=== PATIENT | female | born 1940 | race Caucasian/White ===

== ENCOUNTER 2023-05-07 09:48 | Outpatient (OUT) | payer MEDICARE, OTHER, SELFPAY ==
--- NOTE | 2023-05-07 09:55 | US_ITS ---
The [address] [address] Patient Name: MICHAEL SHAY MRN: [id number] date: 1940 Sex: F Assigned Patient Location: US Current Patient Location: US Accession/Order Number: [id number] Exam Date: 05/07/2023 10:07 Report Date: 05/07/2023 15:41 At the request of: MELINDA PINA Procedure: US renal BI BILATERAL RENAL ULTRASOUND: 05/07/2023 12:39 PM PDT HISTORY: Flank pain R10.9, Micturition frequency R35.0, [id number]. TECHNIQUE: Real-time sonography through the kidneys and bladder was performed. COMPARISON: CT abdomen/pelvis 04/10/2022 FINDINGS: RIGHT KIDNEY: Size: 8 x 6.8 x 4.6 cm. Volume 131 cc. Normal in size and echogenicity. No collecting system dilatation. No echogenic calculi. No solid mass on provided views. LEFT KIDNEY: Size: 8.7 x 4.6 x 4.8 cm. Volume 101 cc. Normal in size and echogenicity. No collecting system dilatation. No echogenic calculi. No solid mass on provided views. Single mildly prominent and mildly echogenic renal pyramid the inferior left kidney, likely variant appearance. BLADDER: Normal in appearance. No wall thickening or mass. US/US renal BI IMPRESSION: Sonographic appearance of the kidneys and bladder is within normal limits. Electronically authenticated by: BAILEE SOLIMAN Date: 05/07/2023 15:41
== END 2023-05-07 09:49 | disposition home or self-care (01) ==
LOC: US 09:48
PROVIDERS: PCP Nurse Practitioner Family; Visit Provider Nurse Practitioner Family
DX: R10.9 Unspecified abdominal pain (principal); R35.0 Frequency of micturition; R53.1 Weakness
CPT/HCPCS: 76775

== ENCOUNTER 2023-06-02 15:25 | Emergency (ER) | payer MEDICARE, OTHER, SELFPAY ==
[2023-06-02 15:33] VITALS: BP 117/66; PULSE 78; RESP 22; TEMP 37.2; O2SAT 96; BMI 26.2
--- NOTE | 2023-06-02 15:51 | ED.EXTPRO1 ---
Documented by User: RUTHIE Mcdonald 06/02/23 17:22 HPI - Extremity Problem General Chief complaint: Extremity Problem, Nontraumatic Stated complaint: LOWER EXTREMITY EDEMA, BILATERAL Time Seen by Provider: 06/02/23 15:45 Source: patient Mode of arrival: walk-in Limitations: no limitations History of Present Illness HPI Narrative: patient is an 82-year-old female who presents to the emergency department for a three day history of rash to the lower extremities. She states she was seen by her PCP two days ago and was noted to have an erythematous rash of the bilateral lower extremities, she was given cortisone cream to apply to the areas. She states that she has had an increase in the rash and is now having a stinging/burning pain to the rash. It has not been draining. She has had no chest pain, shortness of breath, fevers, vomiting. No other medications given by PCP and she has not been using any additional medicines [id number]. she states since the rash began, her lower extremities have been swelling. Related Data Home Medications Medication Instructions Recorded Confirmed amlodipine 5 mg tablet 5 mg PO DAILY 06/02/23 06/02/23 clonidine HCl 0.2 mg tablet 0.2 mg PO Q12H 06/02/23 06/02/23 gabapentin 400 mg capsule 400 mg PO TID 06/02/23 06/02/23 hydrochlorothiazide 25 mg tablet 25 mg PO DAILY 06/02/23 06/02/23 levothyroxine 25 mcg tablet 25 mcg PO DAILY 06/02/23 06/02/23 meloxicam 15 mg tablet 15 mg PO DAILY 06/02/23 06/02/23 tizanidine 4 mg tablet 4 mg PO BEDTIME 06/02/23 06/02/23 Previous Rx's Medication Instructions Recorded cephalexin 500 mg capsule 500 mg PO Q8H 10 days #30 caps 06/02/23 potassium chloride 20 mEq 20 meq PO DAILY #5 tabs 06/02/23 tablet,extended release tramadol 50 mg tablet 50 mg PO Q4H PRN pain #15 tabs 06/02/23 Allergies Allergy/AdvReac Type Severity Reaction Status Date / Time Penicillins Allergy Intermediate Rash Verified 06/02/23 15:33 Review of Systems ROS Constitutional Denies: fever or chills Cardiovascular Denies: chest pain Respiratory Denies: shortness of breath or cough Musculoskeletal Denies: back pain or neck pain Integumentary/Breast Reports: rash, redness and skin pain Neurological Denies: headache Hematologic/Lymphatic Denies: easy bruising Allergic/Immunologic Denies: hives Exam Narrative Exam Narrative: Gen.: Awake, alert, in no distress Head: Normocephalic, atraumatic ENT: Moist mucous membranes Respiratory: No respiratory distress, lungs clear bilaterally Cardio: Regular rate and rhythm Extremities: Moves extremities equally, bilateral lower extremities with symmetric mild edema distal to the knees. Patchy, erythematous linear vesicular rash noted to the eye lateral lower extremities with concentrated erythema to the lateral and medial ankle the left lower extremity and lateral ankle of the right lower extremity. No circumferential redness, no open wounds or drainage. Psych: Normal mood and affect Neuro: No focal neuro deficit Skin: Warm, dry Constitutional Vital Signs, click to edit/add: Last Vital Signs Temp 99.0 F 06/02/23 15:33 Pulse 78 06/02/23 15:33 Resp 22 06/02/23 15:33 BP 117/66 06/02/23 15:33 Pulse Ox 96 06/02/23 15:33 O2 Del Method Room Air 06/02/23 15:33 Course Vital Signs Vital signs: Vital Signs Temperature 99.0 F 06/02/23 15:33 Pulse Rate 78 06/02/23 15:33 Respiratory Rate 22 06/02/23 15:33 Blood Pressure 117/66 06/02/23 15:33 Pulse Oximetry 96 06/02/23 15:33 Oxygen Delivery Method Room Air 06/02/23 15:33 Temperature 99.0 F 06/02/23 15:33 Pulse Rate 78 06/02/23 15:33 Respiratory Rate 22 06/02/23 15:33 Blood Pressure 117/66 06/02/23 15:33 Pulse Oximetry 96 06/02/23 15:33 Oxygen Delivery Method Room Air 06/02/23 15:33 MDM - Extremity (Nontraumatic) MDM Narrative Medical decision making narrative: rash is consistent with contact dermatitis and the superior legs but concerning for cellulitis around the ankles. Patient states that she recently decreased her gabapentin dose because she was doing well, this may account for some of the burning pain she is having an the lower legs. Her vital signs, lab studies are unremarkable although she was noted to have hypokalemia. She is prescribed hydrochlorothiazide but does not receive any potassium supplementation from her primary care provider. She was given potassium in the Emergency Room and discharged home with a low-dose potassium supplementation until she can see her PCP. She is started on Keflex for antibiotic coverage, no concern for MRSA at this time. Patient is reluctant to start oral steroids, she would like to continue cortisone topically. She has an appointment on Wednesday with her PCP. Return to the Emergency Room if symptoms change or worsen Lab Data Labs: Lab Results 06/02/23 Range/Units 16:06 WBC 6.6 (4.0-11.0) 10^3/uL RBC 3.86 L (4.20-5.40) 10^6/uL Hgb 12.4 (12.0-16.0) g/dL Hct 36.4 (36.0-48.0) % MCV 94.3 (81.0-99.0) fL MCH 32.1 (26.7-34.0) pg MCHC 34.1 (29.9-35.2) g/dL RDW 13.8 (11.0-15.0) % Plt Count 323 (150-450) 10^3/uL MPV 10.0 (9.5-13.5) fL Neut % (Auto) 55.8 (43.0-75.0) % Lymph % (Auto) 24.6 (20.5-60.0) % [place] % (Auto) 15.3 H (1.7-12.0) % Eos % (Auto) 3.3 (0.9-7.0) % Baso % (Auto) 0.8 (0.2-2.0) % Neut # (Auto) 3.7 (1.4-6.5) 10^3/uL Lymph # (Auto) 1.6 (1.2-3.8) 10^3/uL [place] # (Auto) 1.0 H (0.3-0.8) 10^3/uL Eos # (Auto) 0.2 (0.0-0.7) 10^3/uL Baso # (Auto) 0.1 (0.0-0.1) 10^3/uL Abs Immat Gran (auto) 0.01 (0.00-0.03) 10^3/uL Imm/Tot Granulo (auto) 0.2 (0.0-0.5) % ESR 19 (<=30) mm/hr Sodium 137 (136-145) mmol/L Potassium 2.9 L* (3.5-5.1) mmol/L Chloride 97 L (98-107) mmol/L Carbon Dioxide 35.6 H (21.0-32.0) mmol/L Anion Gap 7.3 BUN 23.0 H (7.0-18.0) mg/dL Creatinine 1.16 H (0.55-1.02) mg/dL Est GFR ( Amer) 54 L (>=60) Est GFR (Non-Af Amer) 45 L (>=60) BUN/Creatinine Ratio 19.8 Glucose 111 H (74-106) mg/dL Calcium 8.9 (8.5-10.1) mg/dL Total Bilirubin 1.1 H (0.2-1.0) mg/dL AST 63 H (15-37) U/L ALT 66 H (14-59) U/L Alkaline Phosphatase 68 (46-116) U/L C-Reactive Protein 0.2 (<=1.0) mg/dL NT-Pro-B Natriuret Pep 228.0 (<=1800.0) pg/mL Total Protein 7.0 (6.4-8.2) g/dL Albumin 3.6 (3.4-5.0) g/dL Globulin 3.4 g/dL Albumin/Globulin Ratio 1.1 Discharge Plan Discharge Chief Complaint: Extremity Problem, Nontraumatic Clinical Impression: Cellulitis, Acute hypokalemia Patient Disposition: Home, Self-Care Time of Disposition Decision: 17:12 Condition: Good Prescriptions / Home Meds: New tramadol 50 mg tablet 50 mg PO Q4H PRN (Reason: pain) Qty: 15 0RF Rx Instructions: DX: L03.90 cephalexin 500 mg capsule 500 mg PO Q8H 10 Days Qty: 30 0RF potassium chloride 20 mEq tablet extended release 20 meq PO DAILY Qty: 5 0RF No Action amlodipine 5 mg tablet 5 mg PO DAILY clonidine HCl 0.2 mg tablet 0.2 mg PO Q12H gabapentin 400 mg capsule 400 mg PO TID hydrochlorothiazide 25 mg tablet 25 mg PO DAILY levothyroxine 25 mcg tablet 25 mcg PO DAILY meloxicam 15 mg tablet 15 mg PO DAILY tizanidine 4 mg tablet 4 mg PO BEDTIME Instructions: Cellulitis (ED), Hypokalemia (ED) Stand Alone Forms: Portal Instructions Referrals: MELINDA PINA [Primary Care Provider] - 1 week Discharge Date/Time: 06/02/23 17:29 Documented by User: Jenny Hartman MD 06/03/23 07:57 HPI - Extremity Problem General Chief complaint: Extremity Problem, Nontraumatic Stated complaint: LOWER EXTREMITY EDEMA, BILATERAL Time Seen by Provider: 06/02/23 15:45 Related Data Home Medications Medication Instructions Recorded Confirmed amlodipine 5 mg tablet 5 mg PO DAILY 06/02/23 06/02/23 clonidine HCl 0.2 mg tablet 0.2 mg PO Q12H 06/02/23 06/02/23 gabapentin 400 mg capsule 400 mg PO TID 06/02/23 06/02/23 hydrochlorothiazide 25 mg tablet 25 mg PO DAILY 06/02/23 06/02/23 levothyroxine 25 mcg tablet 25 mcg PO DAILY 06/02/23 06/02/23 meloxicam 15 mg tablet 15 mg PO DAILY 06/02/23 06/02/23 tizanidine 4 mg tablet 4 mg PO BEDTIME 06/02/23 06/02/23 Previous Rx's Medication Instructions Recorded cephalexin 500 mg capsule 500 mg PO Q8H 10 days #30 caps 06/02/23 potassium chloride 20 mEq 20 meq PO DAILY #5 tabs 06/02/23 tablet,extended release tramadol 50 mg tablet 50 mg PO Q4H PRN pain #15 tabs 06/02/23 Allergies Allergy/AdvReac Type Severity Reaction Status Date / Time Penicillins Allergy Intermediate Rash Verified 06/02/23 15:33 Exam Constitutional Vital Signs, click to edit/add: Last Vital Signs Temp 99.0 F 06/02/23 15:33 Pulse 78 06/02/23 15:33 Resp 22 06/02/23 15:33 BP 117/66 06/02/23 15:33 Pulse Ox 96 06/02/23 15:33 O2 Del Method Room Air 06/02/23 15:33 Course Vital Signs Vital signs: Vital Signs Temperature 99.0 F 06/02/23 15:33 Pulse Rate 78 06/02/23 15:33 Respiratory Rate 22 06/02/23 15:33 Blood Pressure 117/66 06/02/23 15:33 Pulse Oximetry 96 06/02/23 15:33 Oxygen Delivery Method Room Air 06/02/23 15:33 Temperature 99.0 F 06/02/23 15:33 Pulse Rate 78 06/02/23 15:33 Respiratory Rate 22 06/02/23 15:33 Blood Pressure 117/66 06/02/23 15:33 Pulse Oximetry 96 06/02/23 15:33 Oxygen Delivery Method Room Air 06/02/23 15:33 MDM - Extremity (Nontraumatic) MDM Narrative Medical decision making narrative: rash is consistent with contact dermatitis and the superior legs but concerning for cellulitis around the ankles. Patient states that she recently decreased her gabapentin dose because she was doing well, this may account for some of the burning pain she is having an the lower legs. Her vital signs, lab studies are unremarkable although she was noted to have hypokalemia. She is prescribed hydrochlorothiazide but does not receive any potassium supplementation from her primary care provider. She was given potassium in the Emergency Room and discharged home with a low-dose potassium supplementation until she can see her PCP. She is started on Keflex for antibiotic coverage, no concern for MRSA at this time. Patient is reluctant to start oral steroids, she would like to continue cortisone topically. She has an appointment on Wednesday with her PCP. Return to the Emergency Room if symptoms change or worsen. Attending physician attestation I have seen and evaluated this patient. I have reviewed the mid-level provider?s documentation medical decision making and treatment plan. I agree with the mid-level provider?s assessment, and plan. Lab Data Labs: Lab Results 06/02/23 Range/Units 16:06 WBC 6.6 (4.0-11.0) 10^3/uL RBC 3.86 L (4.20-5.40) 10^6/uL Hgb 12.4 (12.0-16.0) g/dL Hct 36.4 (36.0-48.0) % MCV 94.3 (81.0-99.0) fL MCH 32.1 (26.7-34.0) pg MCHC 34.1 (29.9-35.2) g/dL RDW 13.8 (11.0-15.0) % Plt Count 323 (150-450) 10^3/uL MPV 10.0 (9.5-13.5) fL Neut % (Auto) 55.8 (43.0-75.0) % Lymph % (Auto) 24.6 (20.5-60.0) % [place] % (Auto) 15.3 H (1.7-12.0) % Eos % (Auto) 3.3 (0.9-7.0) % Baso % (Auto) 0.8 (0.2-2.0) % Neut # (Auto) 3.7 (1.4-6.5) 10^3/uL Lymph # (Auto) 1.6 (1.2-3.8) 10^3/uL [place] # (Auto) 1.0 H (0.3-0.8) 10^3/uL Eos # (Auto) 0.2 (0.0-0.7) 10^3/uL Baso # (Auto) 0.1 (0.0-0.1) 10^3/uL Abs Immat Gran (auto) 0.01 (0.00-0.03) 10^3/uL Imm/Tot Granulo (auto) 0.2 (0.0-0.5) % ESR 19 (<=30) mm/hr Sodium 137 (136-145) mmol/L Potassium 2.9 L* (3.5-5.1) mmol/L Chloride 97 L (98-107) mmol/L Carbon Dioxide 35.6 H (21.0-32.0) mmol/L Anion Gap 7.3 BUN 23.0 H (7.0-18.0) mg/dL Creatinine 1.16 H (0.55-1.02) mg/dL Est GFR ( Amer) 54 L (>=60) Est GFR (Non-Af Amer) 45 L (>=60) BUN/Creatinine Ratio 19.8 Glucose 111 H (74-106) mg/dL Calcium 8.9 (8.5-10.1) mg/dL Total Bilirubin 1.1 H (0.2-1.0) mg/dL AST 63 H (15-37) U/L ALT 66 H (14-59) U/L Alkaline Phosphatase 68 (46-116) U/L C-Reactive Protein 0.2 (<=1.0) mg/dL NT-Pro-B Natriuret Pep 228.0 (<=1800.0) pg/mL Total Protein 7.0 (6.4-8.2) g/dL Albumin 3.6 (3.4-5.0) g/dL Globulin 3.4 g/dL Albumin/Globulin Ratio 1.1 Discharge Plan Discharge Chief Complaint: Extremity Problem, Nontraumatic Clinical Impression: Cellulitis, Acute hypokalemia Patient Disposition: Home, Self-Care Time of Disposition Decision: 17:12 Condition: Good Prescriptions / Home Meds: New tramadol 50 mg tablet 50 mg PO Q4H PRN (Reason: pain) Qty: 15 0RF Rx Instructions: DX: L03.90 cephalexin 500 mg capsule 500 mg PO Q8H 10 Days Qty: 30 0RF potassium chloride 20 mEq tablet extended release 20 meq PO DAILY Qty: 5 0RF No Action amlodipine 5 mg tablet 5 mg PO DAILY clonidine HCl 0.2 mg tablet 0.2 mg PO Q12H gabapentin 400 mg capsule 400 mg PO TID hydrochlorothiazide 25 mg tablet 25 mg PO DAILY levothyroxine 25 mcg tablet 25 mcg PO DAILY meloxicam 15 mg tablet 15 mg PO DAILY tizanidine 4 mg tablet 4 mg PO BEDTIME Instructions: Cellulitis (ED), Hypokalemia (ED) Stand Alone Forms: Portal Instructions Referrals: MELINDA PINA [Primary Care Provider] - 1 week Discharge Date/Time: 06/02/23 17:29
[2023-06-02 16:29] LABS: Basophils Absolute Auto 0.1 10^3/uL (0.0-0.1); Basophils Percent Auto 0.8 % (0.2-2.0); Eosinophils Absolute Auto 0.2 10^3/uL (0.0-0.7); Eosinophils Percent Auto 3.3 % (0.9-7.0); Hematocrit 36.4 % (36.0-48.0); Hemoglobin 12.4 g/dL (12.0-16.0); Immature Granulocytes Abs Auto 0.01 10^3/uL (0.00-0.03); Immature Granulocytes Pct Auto 0.2 % (0.0-0.5); Lymphocytes Absolute Auto 1.6 10^3/uL (1.2-3.8); Lymphocytes Percent Auto 24.6 % (20.5-60.0); Mean Corpuscular HGB Conc 34.1 g/dL (29.9-35.2); Mean Corpuscular Hemoglobin 32.1 pg (26.7-34.0); Mean Corpuscular Volume 94.3 fL (81.0-99.0); Monocytes Percent Auto 15.3 % (1.7-12.0); Neutrophils Absolute Auto 3.7 10^3/uL (1.4-6.5); Neutrophils Percent Auto 55.8 % (43.0-75.0); Platelet Count 323 10^3/uL (150-450); Red Blood Count 3.86 10^6/uL (4.20-5.40); Red Cell Distribution Width 13.8 % (11.0-15.0); White Blood Count 6.6 10^3/uL (4.0-11.0)
[2023-06-02 16:33] LABS: Erythrocyte Sedimentation Rate 19 mm/hr (<=30)
[2023-06-02 16:50] LABS: Alanine Aminotransferase 66 U/L (14-59); Albumin Globulin Ratio 1.1; Albumin Level 3.6 g/dL (3.4-5.0); Alkaline Phosphatase 68 U/L (46-116); Anion Gap 7.3; Aspartate Amino Transferase 63 U/L (15-37); BUN Creatinine Ratio 19.8; Bilirubin Total 1.1 mg/dL (0.2-1.0); C Reactive Protein 0.2 mg/dL (<=1.0); Calcium 8.9 mg/dL (8.5-10.1); Carbon Dioxide 35.6 mmol/L (21.0-32.0); Chloride 97 mmol/L (98-107); Estimated GFR (African America 54 (>=60); Estimated GFR (Non-African Ame 45 (>=60); Globulin 3.4 g/dL; Glucose 111 mg/dL (74-106); Sodium 137 mmol/L (136-145)
[2023-06-02 16:56] LABS: Potassium 2.9 mmol/L (3.5-5.1)
[2023-06-02] MEDS: POTASSIUM CHLORIDE 10 MEQ ER TABLET 40 MEQ PO (17:20)
== END 2023-06-02 17:29 | disposition home or self-care (01) ==
PROVIDERS: Physician Assistant; Emergency Provider Emergency Medicine; PCP Nurse Practitioner Family
DX: L03.119 Cellulitis of unspecified part of limb (principal); E87.6 Hypokalemia; Z79.899 Other long term (current) drug therapy
CPT/HCPCS: 36415; 80053; 83880; 85025; 85652; 86140; 99283

== ENCOUNTER 2023-06-04 16:51 | Inpatient (IN) | payer MEDICARE, OTHER, SELFPAY ==
[2023-06-04] VITALS (27 sets, daily range): BP systolic 84–136; BP diastolic 49–79; PULSE 70–86; RESP 15–28; TEMP 36.4–36.5; O2SAT 90–100; BMI 25.4
--- NOTE | 2023-06-04 17:29 | ED_ITS ---
HPI - Head Injury General Chief complaint: Head Injury Stated complaint: General Weakness, Fall Time Seen by Provider: 06/04/23 17:29 Source: patient Mode of arrival: Wheelchair History of Present Illness HPI Narrative: pt presents emergency department complaining of weakness. Patient was seen in the emergency department yesterday and she was complaining of bilateral lower extremity edema and a burning sensation from the swelling. She was found to be hypokalemic. The patient was also started on Keflex. The patient went home and was doing well until around known when she accidentally took her morning and her noon medications because she forgot to take the morning medications. After that happened within 45 minutes the patient was trying to sit and she missed the place where she was going to sit and fell backwards. She was to weak to get herself up. EMS was contacted and at that time she was found to be hypotensive. Family thinks the patient took double doses of tramadol, tizanidine, potassium, hydrochlorothiazide, amlodipine, clonidine, and gabapentin. Patient denies hitting her head. She states she did not have any loss of consciousness. Just wants to get checked out so she could go back home. Related Data Home Medications Medication Instructions Recorded Confirmed amlodipine 5 mg tablet 5 mg PO DAILY 06/02/23 06/02/23 clonidine HCl 0.2 mg tablet 0.2 mg PO Q12H 06/02/23 06/02/23 gabapentin 400 mg capsule 400 mg PO TID 06/02/23 06/02/23 hydrochlorothiazide 25 mg tablet 25 mg PO DAILY 06/02/23 06/02/23 levothyroxine 25 mcg tablet 25 mcg PO DAILY 06/02/23 06/02/23 meloxicam 15 mg tablet 15 mg PO DAILY 06/02/23 06/02/23 tizanidine 4 mg tablet 4 mg PO BEDTIME 06/02/23 06/02/23 Previous Rx's Medication Instructions Recorded cephalexin 500 mg capsule 500 mg PO Q8H 10 days #30 caps 06/02/23 potassium chloride 20 mEq 20 meq PO DAILY #5 tabs 06/02/23 tablet,extended release tramadol 50 mg tablet 50 mg PO Q4H PRN pain #15 tabs 06/02/23 Allergies Allergy/AdvReac Type Severity Reaction Status Date / Time Penicillins Allergy Intermediate Rash Verified 06/02/23 15:33 Review of Systems ROS Status of ROS 10 or more systems reviewed and unremarkable except as noted in history and below Exam Narrative Exam Narrative: Nurses notes and vital signs reviewed and patient is not hypoxic. General: Nontoxic, Elderly, fraiil, chronically ill and in no apparent distress. Skin: Warm, dry, mild pallor noted. No Rash Head: Normocephalic, atraumatic. Neck: Supple, non-tender. Eye: Pupils are equal, round and EOMI. No scleral icterus. Ears, Nose, Mouth, and Throat: TM clear, no posterior oropharynx erythema or nasal mucosal hypertrophy, uvula is mid-line Oral mucosa is dry Cardiovascular: Regular Rate and Rhythm without murmur, gallop or rub. Respiratory: No accessory muscle use or respiratory distress. Lungs are clear to auscultation, no wheezing, rales or rhonchi Chest Wall: no tenderness Back: No midline thoracic or lumbar vertebral tenderness. No CVA tenderness Musculoskeletal: normal ROM, no calf or popliteal tenderness, +3 bilateral lower extremity edema/swelling, minimal erythema to the anterior ankle. GI: Abdomen is soft, non-distended. Normal bowel sounds. No tenderness to palpation. No rebound, guarding, or rigidity noted. Neurological: A&O x4. No cranial nerve dysfunction observed. No truncal ataxia. Moves all extremities. Psychiatric: Cooperative and interactive. Normal mood and affect. Constitutional Vital Signs, click to edit/add: Last Vital Signs Temp 97.6 F 06/04/23 16:59 Pulse 71 06/04/23 19:45 Resp 18 06/04/23 19:45 BP 132/72 06/04/23 19:45 Pulse Ox 96 06/04/23 19:45 O2 Del Method Room Air 06/04/23 17:37 Course Vital Signs Vital signs: Vital Signs Temperature 97.6 F 06/04/23 16:59 Pulse Rate 84 06/04/23 16:59 Respiratory Rate 18 06/04/23 16:59 Blood Pressure 113/58 06/04/23 16:59 Pulse Oximetry 98 06/04/23 16:59 Oxygen Delivery Method Room Air 06/04/23 16:59 Temperature 97.6 F 06/04/23 16:59 Pulse Rate 71 06/04/23 19:45 Respiratory Rate 18 06/04/23 19:45 Blood Pressure 132/72 06/04/23 19:45 Pulse Oximetry 96 06/04/23 19:45 Oxygen Delivery Method Room Air 06/04/23 17:37 MDM - Head Injury MDM Narrative Medical decision making narrative: Patient double up on her medications. She is feeling fine now. Left eye is will be ordered. She did sustain a fall and a CT scan of the brain has been ordered. Patient is given IV fluids normal saline running at 100per hour. Patient will be signed out at the end of my shift to Dr. Urban Boone awaiting labs, CT scan, reevaluation, and disposition. Medical Records Attestation: I reviewed the patient's medical records. Lab Data Attestation: I reviewed the patient's lab results. Labs: Lab Results 06/04/23 06/04/23 06/04/23 Range/Units 18:10 18:29 19:00 WBC 6.6 (4.0-11.0) 10^3/uL RBC 3.81 L (4.20-5.40) 10^6/uL Hgb 12.1 (12.0-16.0) g/dL Hct 35.5 L (36.0-48.0) % MCV 93.2 (81.0-99.0) fL MCH 31.8 (26.7-34.0) pg MCHC 34.1 (29.9-35.2) g/dL RDW 14.2 (11.0-15.0) % Plt Count 295 (150-450) 10^3/uL MPV 10.1 (9.5-13.5) fL Neut % (Auto) 75.0 (43.0-75.0) % Lymph % (Auto) 12.0 L (20.5-60.0) % [place] % (Auto) 10.5 (1.7-12.0) % Eos % (Auto) 1.7 (0.9-7.0) % Baso % (Auto) 0.5 (0.2-2.0) % Neut # (Auto) 5.0 (1.4-6.5) 10^3/uL Lymph # (Auto) 0.8 L (1.2-3.8) 10^3/uL [place] # (Auto) 0.7 (0.3-0.8) 10^3/uL Eos # (Auto) 0.1 (0.0-0.7) 10^3/uL Baso # (Auto) 0.0 (0.0-0.1) 10^3/uL Abs Immat Gran (auto) 0.02 (0.00-0.03) 10^3/uL Imm/Tot Granulo (auto) 0.3 (0.0-0.5) % Sodium 132 L (136-145) mmol/L Potassium 3.5 (3.5-5.1) mmol/L Chloride 97 L (98-107) mmol/L Carbon Dioxide 32.9 H (21.0-32.0) mmol/L Anion Gap 5.6 BUN 29.0 H (7.0-18.0) mg/dL Creatinine 1.51 H (0.55-1.02) mg/dL Est GFR ( Amer) 40 L (>=60) Est GFR (Non-Af Amer) 33 L (>=60) BUN/Creatinine Ratio 19.2 Glucose 106 (74-106) mg/dL Lactate 0.8 (0.4-2.0) mmol/L Calcium 9.0 (8.5-10.1) mg/dL Total Bilirubin 1.2 H (0.2-1.0) mg/dL Direct Bilirubin 0.4 H (0.0-0.2) mg/dL AST 293 H (15-37) U/L ALT 317 H (14-59) U/L Alkaline Phosphatase 126 H (46-116) U/L Troponin I High Sens 19.5 (4.0-51.3) pg/mL Total Protein 6.8 (6.4-8.2) g/dL Albumin 3.4 (3.4-5.0) g/dL Globulin 3.4 g/dL Albumin/Globulin Ratio 1.0 Urine Color Dk. yellow (YELLOW) Urine Clarity Clear (CLEAR) Urine pH 6.0 (5.0-9.0) Ur Specific [place] 1.010 (1.005-1.025) Urine Protein Negative (NEG/TRACE) mg/dL Urine Glucose (UA) Negative (NEGATIVE) mg/dL Urine Ketones Trace A (NEGATIVE) mg/dL Urine Occult Blood Negative (NEGATIVE) Urine Nitrite Negative (NEGATIVE) Urine Bilirubin Small A (NEGATIVE) Urine Urobilinogen 2.0 A (0.2-1.0) EU/dL Ur Leukocyte Esterase Negative (NEGATIVE) Discharge Plan Discharge Chief Complaint: Head Injury Patient Disposition: Still a Patient Prescriptions / Home Meds: No Action amlodipine 5 mg tablet 5 mg PO DAILY clonidine HCl 0.2 mg tablet 0.2 mg PO Q12H gabapentin 400 mg capsule 400 mg PO TID hydrochlorothiazide 25 mg tablet 25 mg PO DAILY levothyroxine 25 mcg tablet 25 mcg PO DAILY meloxicam 15 mg tablet 15 mg PO DAILY tizanidine 4 mg tablet 4 mg PO BEDTIME tramadol 50 mg tablet 50 mg PO Q4H PRN (Reason: pain) Qty: 15 0RF Rx Instructions: DX: L03.90 cephalexin 500 mg capsule 500 mg PO Q8H 10 Days Qty: 30 0RF potassium chloride 20 mEq tablet extended release 20 meq PO DAILY Qty: 5 0RF Referrals: MELINDA PINA [Primary Care Provider] - 1 week
--- NOTE | 2023-06-04 17:58 | CT_ITS ---
The [address] [address] Patient Name: MICHAEL SHAY MRN: [id number] date: 1940 Sex: F Assigned Patient Location: ER Current Patient Location: ER Accession/Order Number: [id number] Exam Date: 06/04/2023 19:04 Report Date: 06/04/2023 19:31 At the request of: JOCE MATUTE Procedure: CT head/brain wo con EXAM: CT head/brain wo con HISTORY: weakness fall COMPARISON: CT brain 01/12/2023 TECHNIQUE: Axial CT scans through the head were obtained without IV contrast administration. Dose reduction techniques were achieved by using: automated exposure control and/or adjustment of mA and /or kV according to patient size and/or use of iterative reconstruction technique. FINDINGS: There is no evidence of acute intracranial hemorrhage or abnormal extra-axial fluid collection. No mass effect or midline shift is seen. There is no evidence of large acute territorial infarction. There is no hydrocephalus. Moderate enlargement of ventricles and sulci, consistent with age appropriate cerebral atrophy. Mild atherosclerotic calcifications of intracranial carotid arteries. To the limit of CT, the posterior fossa appears unremarkable. No definite acute fracture is identified. Soft tissues are unremarkable. The visualized orbits show no abnormal mass. The visualized paranasal sinuses show no air-fluid level. Mastoid air cells are clear. CT/CT head/brain wo con IMPRESSION: No CT evidence of acute intracranial abnormality. If there is sufficient clinical concern for acute brain parenchymal pathology, consider MRI for further evaluation. Electronically authenticated by: ROD MEYER Date: 06/04/2023 19:31
--- NOTE | 2023-06-04 17:58 | ECG_ITS ---
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
[2023-06-04] MEDS: 0.9 % SODIUM CHLORIDE 1,000 ML 999 ML IV (18:28)
[2023-06-04 18:45] LABS: Basophils Percent Auto 0.5 % (0.2-2.0); Eosinophils Absolute Auto 0.1 10^3/uL (0.0-0.7); Eosinophils Percent Auto 1.7 % (0.9-7.0); Hematocrit 35.5 % (36.0-48.0); Hemoglobin 12.1 g/dL (12.0-16.0); Immature Granulocytes Abs Auto 0.02 10^3/uL (0.00-0.03); Immature Granulocytes Pct Auto 0.3 % (0.0-0.5); Lymphocytes Absolute Auto 0.8 10^3/uL (1.2-3.8); Mean Corpuscular HGB Conc 34.1 g/dL (29.9-35.2); Mean Corpuscular Hemoglobin 31.8 pg (26.7-34.0); Mean Corpuscular Volume 93.2 fL (81.0-99.0); Mean Platelet Volume 10.1 fL (9.5-13.5); Monocytes Absolute Auto 0.7 10^3/uL (0.3-0.8); Monocytes Percent Auto 10.5 % (1.7-12.0); Platelet Count 295 10^3/uL (150-450); Red Blood Count 3.81 10^6/uL (4.20-5.40); Red Cell Distribution Width 14.2 % (11.0-15.0); White Blood Count 6.6 10^3/uL (4.0-11.0)
[2023-06-04 19:01] LABS: Lactate/Lactic Acid 0.8 mmol/L (0.4-2.0)
--- NOTE | 2023-06-04 19:05 | XR_ITS ---
The [address] [address] Patient Name: MICHAEL SHAY MRN: [id number] date: 1940 Sex: F Assigned Patient Location: ER Current Patient Location: ER Accession/Order Number: [id number] Exam Date: 06/04/2023 19:00 Report Date: 06/04/2023 19:48 At the request of: JOCE MATUTE Procedure: XR chest 1V EXAMINATION: XR chest 1V HISTORY: Weakness COMPARISON: None. TECHNIQUE: Portable chest FINDINGS: The lung parenchyma is free of consolidation or infiltrate. Right mid hemithorax calcified granuloma. No pneumothorax or pleural effusion. The cardiac, mediastinal and hilar contours are normal. The visualized osseous structures exhibit no gross abnormality. XR/XR chest 1V IMPRESSION: No acute cardiopulmonary abnormality. Electronically authenticated by: NATHAN NOVA Date: 06/04/2023 19:48
[2023-06-04 19:08] LABS: Alanine Aminotransferase 317 U/L (14-59); Albumin Level 3.4 g/dL (3.4-5.0); Alkaline Phosphatase 126 U/L (46-116); Anion Gap 5.6; Aspartate Amino Transferase 293 U/L (15-37); BUN Creatinine Ratio 19.2; Bilirubin Total 1.2 mg/dL (0.2-1.0); Carbon Dioxide 32.9 mmol/L (21.0-32.0); Chloride 97 mmol/L (98-107); Estimated GFR (African America 40 (>=60); Estimated GFR (Non-African Ame 33 (>=60); Globulin 3.4 g/dL; Glucose 106 mg/dL (74-106); Potassium 3.5 mmol/L (3.5-5.1); Sodium 132 mmol/L (136-145); Total Protein 6.8 g/dL (6.4-8.2); Troponin I High Sensitivity 19.5 pg/mL (4.0-51.3)
[2023-06-04 19:22] LABS: Bilirubin Urine SMALL (NEGATIVE); Blood Urine NEGATIVE (NEGATIVE); Clarity Urine CLEAR (CLEAR); Color Urine DK. YELLOW (YELLOW); Glucose Urine UA NEGATIVE (NEGATIVE); Ketones Urine TRACE mg/dL (NEGATIVE); Leukocyte Esterase Urine NEGATIVE (NEGATIVE); Nitrite Urine NEGATIVE (NEGATIVE); Protein Urine NEGATIVE (NEG/TRACE)
[2023-06-04 19:23] LABS: Urine Microscopic Indicated NO
[2023-06-04 19:56] LABS: Bilirubin Direct 0.4 mg/dL (0.0-0.2)
--- NOTE | 2023-06-04 20:29 | CT_ITS ---
The [address] [address] Patient Name: MICHAEL SHAY MRN: [id number] date: 1940 Sex: F Assigned Patient Location: ER Current Patient Location: ER Accession/Order Number: [id number] Exam Date: 06/04/2023 21:20 Report Date: 06/04/2023 22:08 At the request of: TC JACKSON Procedure: CT abdomen pelvis wo con EXAM: CT abdomen pelvis wo con REASON FOR EXAM: Female, 82 years, elevated LFTs. TECHNIQUE: Computed tomography of the abdomen and pelvis is performed in the axial projection from the lung bases to the pubic symphysis. Sagittal and coronal reconstructed images are performed. Dose reduction techniques were achieved by using automated exposure control and/or adjustment of mA and/or KVP according to patient size and/or use of iterative reconstruction technique. Study was performed without IV contrast. Study was performed without oral contrast. COMPARISON: 04/10/2022 FINDINGS: Lung bases: There is minimal atelectasis at the lung bases. There is no pleural effusion. The visualized portions of the heart are unremarkable. There are coronary artery calcifications. Liver: There is intrahepatic and extrahepatic biliary ductal dilation, likely reflecting postcholecystectomy changes. This is similar to the prior study. Tiny scattered calcified granulomas are seen throughout the liver. Gallbladder: The gallbladder has been removed. Spleen: There are calcified splenic granulomas. Pancreas: The pancreas is normal. Adrenal glands: The adrenal glands are normal bilaterally. Right kidney: The kidney is normal in size. There is no renal calculus or hydronephrosis. Left kidney: The kidney is normal in size. There is no renal calculus or hydronephrosis. Stomach: The stomach is normal. Small bowel: The small bowel is normal. Large bowel: There are colon diverticula, without surrounding inflammatory changes. There is a moderate amount of stool throughout the colon. Appendix: The appendix is not visualized. No right lower quadrant inflammatory changes are seen to suggest acute appendicitis. Aorta: There are diffuse atherosclerotic calcifications of the abdominal aorta. IVC: The IVC is normal. Retroperitoneum: Normal retroperitoneum. Bladder: The bladder is normal. Pelvic organs: The uterus is absent, consistent with hysterectomy. Abdominal wall: Normal abdominal wall. Osseous structures: The bones are demineralized. There are degenerative changes. Compression deformity to the superior endplate of L1 is unchanged. CT/CT abdomen pelvis wo con IMPRESSION: Mild intra and extrahepatic biliary ductal dilation likely reflects postcholecystectomy changes. No convincing retained ductal calculus. Diverticulosis, without acute diverticulitis. No bowel obstruction or acute renal pathology. Additional nonacute findings, as described above. Electronically authenticated by: CONI BERMUDEZ Date: 06/04/2023 22:08
[2023-06-04] MEDS: 0.9 % SODIUM CHLORIDE 1,000 ML 100 ML IV (21:34)
[2023-06-04] MEDS: LORAZEPAM 2 MG/ML 1 ML VIAL 0.5 MG IV (23:01)
[2023-06-04] MEDS: HALOPERIDOL LACTATE 5 MG/ML VIAL IV (23:01)
--- NOTE | 2023-06-04 23:42 | PC.NURSE ---
Pt. taken up to Rm 201. Bedside report given to RN
[2023-06-05] VITALS (20 sets, daily range): BP systolic 121–131; BP diastolic 61–71; PULSE 72–96; RESP 18–20; TEMP 36.7–37; O2SAT 94–97
--- NOTE | 2023-06-05 00:50 | P.PN_ITS ---
Progress Note: Subjective Subjective Interval history: The patient is an 82-year-old female who was seen in the ED a few days ago for left lower extremity cellulitis. She was also noted to be hypokalemic and was given potassium supplement. She was discharged home. Apparently today, she got more confused and took all of her morning and evening medications. A family member was near her and she had developed a near syncopal episode. She had developed diaphoresis and was pale. 911 was called and EMS was dispatched however the patient refused to come by ambulance. She was brought in by her family member. She apparently was agitated in the ED and received Haldol and Ativan. She is currently now lethargic and is not able to answer any questions. There is no family at the bedside. The entire history was obtained by the ER doctor. She was noted to have elevated LFTs and subsequent CT of the abdomen showed mild intra and extrahepatic biliary ductal dilatation showing some postcholecystectomy changes but no obstructing stone. She is being admitted for further evaluation. Exam Narrative Exam Narrative: General : Lethargic, only mumbles a few insensible words. HEENT : Extraocular movements intact, pupils equal round and reactive to light and accommodation Neck: Supple, no JVD Chest: Clear to auscultation bilaterally, no wheezes Heart: Regular rate and rhythm, S1 and S2 heard Abdomen: Soft nontender nondistended. Extremities: No clubbing cyanosis or edema Neurologically: Moving all 4 extremities Skin: No rashes Constitutional Vital Signs, click to edit/add: Last Vital Signs Temp 97.7 F 06/04/23 23:42 Pulse 74 06/04/23 23:42 Resp 16 06/04/23 23:42 BP 132/66 06/04/23 23:42 Pulse Ox 93 L 06/04/23 23:42 O2 Del Method Room Air 06/04/23 23:42 Progress Note: Objective Labs Labs: Short CBC 06/04/23 Range/Units 18:10 WBC 6.6 (4.0-11.0) 10^3/uL Hgb 12.1 (12.0-16.0) g/dL Hct 35.5 L (36.0-48.0) % Plt Count 295 (150-450) 10^3/uL BMP 06/04/23 18:10 Sodium 132 L Potassium 3.5 Chloride 97 L Carbon Dioxide 32.9 H BUN 29.0 H Creatinine 1.51 H Glucose 106 Calcium 9.0 Liver Function 06/04/23 06/04/23 Range/Units 18:10 19:00 Total Bilirubin 1.2 H (0.2-1.0) mg/dL Direct Bilirubin 0.4 H (0.0-0.2) mg/dL AST 293 H (15-37) U/L ALT 317 H (14-59) U/L Alkaline Phosphatase 126 H (46-116) U/L Albumin 3.4 (3.4-5.0) g/dL Urine 06/04/23 Range/Units 18:29 Urine Color Dk. yellow (YELLOW) Urine Clarity Clear (CLEAR) Urine pH 6.0 (5.0-9.0) Ur Specific [place] 1.010 (1.005-1.025) Urine Protein Negative (NEG/TRACE) mg/dL Urine Glucose (UA) Negative (NEGATIVE) mg/dL Progress Note: A&P Assessment and Plan (1) ANNA (acute kidney injury): (2) Elevated LFTs: Plan The patient is an 82-year-old female with above medical problems, presenting with change in mental status. Acute metabolic encephalopathy or acute hepatic encephalopathy -Provide supportive care -Gentle IV fluids -Check ammonia level Elevated LFTs -Unclear etiology -Could be related to medications or underlying infection which is also undetermined -Hold Tylenol -Gentle IV hydration -Serial labs -Check ammonia level, lactulose as needed Shortness of breath -Nurse reported that patient was having several episodes of apnea, would desaturate down to 88%, 2 L of oxygen started -Check ABG, patient did receive Haldol and Ativan in the ED, could be retaining CO2 Acute kidney injury -Likely from mild prerenal azotemia from dehydration (patient took extra dose of hydrochlorothiazide today) -Gentle IV fluids, monitor renal function DVT Prophylaxis -Lovenox, SCDs Medication review -Medication reconciliation form not yet completed, awaiting on medications to be verified Goals of care -Full code Communications -Discussed with the emergency room physician -Discussed with the bedside nurse Disposition -Home when medically stable Telemedicine clause -As the provider of this telehealth evaluation, requested by the patient's evaluating physician, I attest that I introduced myself to the patient, provided my credentials and determined that telemedicine via a real-time, two-way interactive audio and video platform is an appropriate and effective means of providing this service. -I reviewed the patient's chart and had a discussion with the member of the patient's treatment team. -The patient and I mutually agreed with continuation of this evaluation via telemedicine. The patient consented for the telemedicine evaluation. -This virtual encounter was taken place from [place], [place]. The encounter was approximately 35 minutes. The nurse was present during the entire time of the encounter and was able to remove the stethoscope and appropriate directions. The patient was evaluated at [facility]. Telemedicine Attestation Telemedicine Attestation I conducted this encounter from [] via secure live, [id number] video conference with the patient, located at [facility] with []. Prior to the interview, the risks and benefits of telemedicine were discussed with the patient and verbal consent was obtained.
[2023-06-05 01:18] LABS: ABG PCO2 45.2 mmHg (35.0-45.0); pH ABG 7.437 (7.350-7.450)
[2023-06-05 01:19] LABS: Allen Test POSITIVE (POSITIVE); Base Excess ABG 6.3 mmol/L (-2.0-2.0); HCO3 ABG 30.5 mmol/L (22.0-26.0); Liters per Minute 2; O2 Mode NASAL CANNULA; Oxygen Saturation ABG 96.6 %; PO2 ABG 91.9 mmHg (80.0-100.0); Puncture Site R RADIAL
[2023-06-05 02:01] LABS: Ammonia 49 umol/L (11-32)
[2023-06-05 05:38] LABS: Alanine Aminotransferase 334 U/L (14-59); Albumin Level 3.1 g/dL (3.4-5.0); Alkaline Phosphatase 126 U/L (46-116); Anion Gap 13.4; Aspartate Amino Transferase 318 U/L (15-37); BUN Creatinine Ratio 20.2; Bilirubin Total 1.7 mg/dL (0.2-1.0); Calcium 8.4 mg/dL (8.5-10.1); Carbon Dioxide 29.8 mmol/L (21.0-32.0); Chloride 107 mmol/L (98-107); Estimated GFR (African America >60 (>=60); Estimated GFR (Non-African Ame 51 (>=60); Globulin 3.1 g/dL; Glucose 92 mg/dL (74-106); Potassium 3.2 mmol/L (3.5-5.1); Sodium 147 mmol/L (136-145); Total Protein 6.2 g/dL (6.4-8.2)
--- NOTE | 2023-06-05 08:47 | US_ITS ---
The [address] [address] Patient Name: MICHAEL SHAY MRN: [id number] date: 1940 Sex: F Assigned Patient Location: MS Current Patient Location: MS Accession/Order Number: [id number] Exam Date: 06/05/2023 14:38 Report Date: 06/05/2023 15:58 At the request of: SHAIKH RAJANI Procedure: US right upper quadrant EXAM: US right upper quadrant HISTORY: Abnormal liver enzymes COMPARISON: None. TECHNIQUE: Limited right upper quadrant ultrasound, utilizing grayscale and Doppler imaging. FINDINGS: Right pleural space: No effusion. Liver: Increased echogenicity and coarse echotexture, representing hepatic steatosis. There are scattered echogenic calcified granuloma. Gallbladder: Cholecystectomy. Focal tenderness: No right upper quadrant tenderness. Intrahepatic biliary ducts: Mildly dilated intrahepatic biliary ducts, postcholecystectomy changes. Extra hepatic biliary duct measures 10 mm. Pancreas: Poorly visualized due to overlying bowel gas. Visualized portion is unremarkable. Right kidney: Normal cortical echogenicity. No hydronephrosis. The right kidney measures 7.4 cm in length. Peritoneal space: No ascites visualized within the right upper quadrant. Additional findings: None. US/US right upper quadrant IMPRESSION: Hepatic steatosis. Electronically authenticated by: CHARLIE LANGFORD Date: 06/05/2023 15:58
[2023-06-05] MEDS: ENOXAPARIN SODIUM 30 MG/0.3 ML SYRINGE SUBQ (09:31)
[2023-06-05] MEDS: SODIUM CHLORIDE 0.45 % 1,000 ML 100 ML IV ×2 (09:31→19:58)
[2023-06-05] MEDS: LEVOTHYROXINE SODIUM 25 MCG TABLET PO (09:32)
[2023-06-05] MEDS: LACTULOSE 10 GM/15 ML SOLUTION 20 GM PO ×3 (09:32→21:26)
[2023-06-05 11:36] LABS: Glucometer 111 mg/dL (74-106)
[2023-06-05 13:17] LABS: Basophils Percent Auto 0.4 % (0.2-2.0); Eosinophils Absolute Auto 0.1 10^3/uL (0.0-0.7); Eosinophils Percent Auto 1.3 % (0.9-7.0); Hematocrit 35.1 % (36.0-48.0); Hemoglobin 11.8 g/dL (12.0-16.0); Immature Granulocytes Abs Auto 0.01 10^3/uL (0.00-0.03); Immature Granulocytes Pct Auto 0.2 % (0.0-0.5); Lymphocytes Absolute Auto 0.6 10^3/uL (1.2-3.8); Lymphocytes Percent Auto 10.5 % (20.5-60.0); Mean Corpuscular HGB Conc 33.6 g/dL (29.9-35.2); Mean Corpuscular Hemoglobin 31.6 pg (26.7-34.0); Mean Corpuscular Volume 94.1 fL (81.0-99.0); Mean Platelet Volume 9.8 fL (9.5-13.5); Monocytes Absolute Auto 0.4 10^3/uL (0.3-0.8); Monocytes Percent Auto 7.4 % (1.7-12.0); Neutrophils Absolute Auto 4.2 10^3/uL (1.4-6.5); Neutrophils Percent Auto 80.2 % (43.0-75.0); Platelet Count 271 10^3/uL (150-450); Red Blood Count 3.73 10^6/uL (4.20-5.40); Red Cell Distribution Width 14.3 % (11.0-15.0); White Blood Count 5.3 10^3/uL (4.0-11.0)
[2023-06-05 13:32] LABS: INR 0.99; Prothrombin Time 10.5 sec (9.0-11.6)
[2023-06-05 13:37] LABS: Alanine Aminotransferase 391 U/L (14-59); Alkaline Phosphatase 150 U/L (46-116); Anion Gap 10.5; Aspartate Amino Transferase 308 U/L (15-37); BUN Creatinine Ratio 16.3; Bilirubin Total 1.3 mg/dL (0.2-1.0); Calcium 8.4 mg/dL (8.5-10.1); Carbon Dioxide 30.8 mmol/L (21.0-32.0); Chloride 106 mmol/L (98-107); Estimated GFR (African America >60 (>=60); Estimated GFR (Non-African Ame >60 (>=60); Globulin 3.1 g/dL; Glucose 107 mg/dL (74-106); Potassium 3.3 mmol/L (3.5-5.1); Sodium 144 mmol/L (136-145); Total Protein 6.1 g/dL (6.4-8.2)
[2023-06-05 13:46] LABS: Thyroid Stimulating Hormone 2.293 uIU/mL (0.358-3.740)
[2023-06-05 14:03] LABS: Ammonia 43 umol/L (11-32)
[2023-06-05 16:09] LABS: Glucometer 106 mg/dL (74-106)
--- NOTE | 2023-06-05 19:27 | RESP.RT ---
No PRN breathing tx given. Pt denies need. No respiratory distress noted.
[2023-06-05 20:02] LABS: Glucometer 119 mg/dL (74-106)
--- NOTE | 2023-06-05 22:41 | PM.HP ---
H&P: HPI History of Present Illness Chief complaint: Generalized weakness, confusion and fall Narrative: 82 y o female was brought in last evening for change in mental status and generalized weakness. Patient was seen in ED 3 Days for LE cellulitis and was prescribed Keflex for it. Patient lives at home, independently and was doing well until her family noted increased confusion, disorientation along with weakness, tiredness. Patient also had a fall at home, denied head trauma or LOC but was unable to get up and needed help. On inquiry, she later on admitted to her family that she took all of her morning, evening and night medications together in the afternoon prior to change in her clinical status. When EMS arrived to evaluate her after family member found her at home on floor - she was found to be hypotensive with SBP in 80s along with confusion. She responded well to IV hydration with improvement in her blood pressure. However, before she was brought over to the floor, she became very confused and agitated and was given haloperidol and ativan to calm her down. This morning, when I evaluated her, she was still drowsy and intermittently confused. Her mental status had improved sig from yesterday. She denied any active complaints to me. Her niece who was bedside reported that patient's balance has been progressively getting worse and that she is v unsteady on her feet Review of Systems ROS Status of ROS 10 or more systems reviewed and unremarkable except as noted in history and below [facility] Medical History (Updated 06/05/23 @ 23:15 by Shaikh Christine MD) Surgical History (Updated 06/05/23 @ 05:37 by Laura Izquierdo RN) Family History (Updated 06/05/23 @ 05:39 by Laura Izquierdo RN) Father Family history of CHF (congestive heart failure) Brother Family history of hypertension Mother Family history of cancer Social History (Updated 06/05/23 @ 05:44 by Laura Izquierdo RN) Within the past year, how often did you have a drink containing alcohol: never Within the past year, how often did you have six or more drinks on one occasion: never Score interpretation: A score less than 3 is consistent with normal alcohol consumption. 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 Known occupational exposures/hazards: No Highest level of school completed/degree received: 8th grade Are you now , , , , never or living with a partner: In a typical week, how many times do you talk on the telephone with family, friends, or neighbors: once per week How often do you get together with friends or relatives: once per week How often do you attend confucianism or catholic services: never Do you belong to any clubs or organizations such as confucianism groups unions, [employer] or athletic groups, or school groups: no Total score: 0 Score interpretation: A score of less than or equal to 1 indicates the most socially isolated. Little interest or pleasure in doing things: not at all Feeling down, depressed, or hopeless: not at all Feel stressed/tense/nervous/anxious/difficulty sleeping: not at all Life stressors: recent of family or friend Life stressor details: Loss of friend Do you think of yourself as: straight/heterosexual Gender Identity: female Meds Home Medications and Allergies Home Medications Medication Instructions Recorded Confirmed Type amlodipine 5 mg tablet 10 mg PO DAILY 06/02/23 06/05/23 History cephalexin 500 mg capsule 500 mg PO Q8H 10 days #30 caps 06/02/23 06/05/23 Rx clonidine HCl 0.2 mg tablet 0.2 mg PO Q12H 06/02/23 06/05/23 History gabapentin 400 mg capsule 400 mg PO TID 06/02/23 06/05/23 History hydrochlorothiazide 25 mg tablet 25 mg PO DAILY 06/02/23 06/05/23 History levothyroxine 25 mcg tablet 25 mcg PO DAILY 06/02/23 06/05/23 History meloxicam 15 mg tablet 15 mg PO DAILY 06/02/23 06/05/23 History potassium chloride 20 mEq 20 meq PO DAILY #5 tabs 06/02/23 06/05/23 Rx tablet,extended release tizanidine 4 mg tablet 4 mg PO BEDTIME 06/02/23 06/05/23 History tramadol 50 mg tablet 50 mg PO Q4H PRN pain #15 tabs 06/02/23 06/05/23 Rx Allergies Allergy/AdvReac Type Severity Reaction Status Date / Time Penicillins Allergy Intermediate Rash Verified 06/02/23 15:33 Exam Constitutional Vital Signs, click to edit/add: Last Vital Signs Temp 98.6 F 06/05/23 20:59 Pulse 89 06/05/23 22:08 Resp 20 06/05/23 20:59 BP 131/71 06/05/23 20:59 Pulse Ox 94 L 06/05/23 20:59 O2 Del Method Room Air 06/05/23 20:59 O2 Flow Rate 2 06/05/23 05:36 Documenting provider has reviewed patient's vital signs: yes Common normals: no apparent distress and oriented x3 General appearance: cooperative HENMT Common normals: normocephalic and head/scalp atraumatic Head and scalp: normocephalic and atraumatic Eye Common normals: conjunctivae normal and no scleral icterus Conjunctiva: conjunctiva(e) normal Respiratory Common normals: normal respiratory effort and clear to auscultation bilaterally Effort & inspection: able to speak in complete sentences Auscultation: clear to auscultation bilaterally Cardio Common normals: regular rate, S1 normal heart sound and S2 normal heart sound Rate: regular rate Heart sounds: S1 normal and S2 normal GI Common normals: Normal to inspection, nondistended, normoactive bowel sounds present, soft to palpation, non-tender and no hepatosplenomegaly Palpation: soft and no hepatosplenomegaly Extremity General: normal exam except as noted and edema (B/L +1 edema, no evidence of cellulitis on exam) Neuro Common normals: moves all extremities and no focal motor deficits Sensorium/orientation: oriented to person, oriented to place, oriented to time and somnolent Psych Common normals: mental status grossly normal, denies hallucinations, denies homicidal ideation and denies suicidal ideation Results Labs Labs: Short CBC 06/05/23 Range/Units 13:00 WBC 5.3 (4.0-11.0) 10^3/uL Hgb 11.8 L (12.0-16.0) g/dL Hct 35.1 L (36.0-48.0) % Plt Count 271 (150-450) 10^3/uL BMP 06/05/23 06/05/23 01:38 13:00 Sodium 147 H 144 Potassium 3.2 L 3.3 L Chloride 107 106 Carbon Dioxide 29.8 30.8 BUN 21.0 H 14.0 Creatinine 1.04 H 0.86 Glucose 92 107 H Calcium 8.4 L 8.4 L Liver Function 06/05/23 06/05/23 Range/Units 01:38 13:00 Total Bilirubin 1.7 H 1.3 H (0.2-1.0) mg/dL AST 318 H 308 H (15-37) U/L ALT 334 H 391 H (14-59) U/L Alkaline Phosphatase 126 H 150 H (46-116) U/L Albumin 3.1 L 3.0 L (3.4-5.0) g/dL ABG ABG results: 06/05/23 01:12 ABG pH 7.437 ABG pCO2 45.2 H ABG pO2 91.9 ABG HCO3 30.5 H ABG O2 Saturation 96.6 ABG Base Excess 6.3 H Assessment and Plan Assessment and Plan (1) Hepatic encephalopathy: Assessment and Plan: Drowsy, confused along with abnormal liver enzymes, elevated Ammonia. Lactulose TID. Trend ammonia. Improving. Monitor clinically. (2) Drug-induced delirium: Assessment and Plan: Change in mental status likely multifactorial - hyperammonemia along with incorrect use of multiple medications including tramadol,gabapentin, tizanidine which given her age can result in change in mental status. This was compounded by haloperidol and ativan given to the patient last evening by ED for agitation/confusion. (3) Elevated LFTs: Assessment and Plan: Elevated liver enzymes . No sig abnormality noted on US. Hepatitis panel pending. Suspect acute liver injury from Keflex that was prescribed 3 days ago by ED. Hold Keflex. No evidence of cellulitis on exam today. No need for abx. (4) ANNA (acute kidney injury): Assessment and Plan: Likely pre renal. Normal baseline Creatinine. On IVF. (5) Hypokalemia: Assessment and Plan: Repleted. Monitor. (6) Hypertension: Assessment and Plan: P/w hypotension and required aggressive IV hydration. Hypotension likely due to incorrect simultaneous use of all her medications. BP is better now. Antihypertensives on hold. Will resume/re introduce BP meds based on her blood pressure. Plan Patient changed to inpatient status as liver enzymes continue to trend up, patient remains confused and drowsy and with the degree of transaminitis, persistent neurological symptoms - I anticipate patient to stay 2-3 midnights in the hospital for clinical monitoring, treatment and close follow up PT/OT eval and rx ordered as generalized weakness, poor balance noted.
[2023-06-06 02:00] VITALS: PULSE 96
[2023-06-06 04:00] VITALS: PULSE 97
[2023-06-06 05:05] LABS: Basophils Percent Auto 0.4 % (0.2-2.0); Eosinophils Absolute Auto 0.1 10^3/uL (0.0-0.7); Eosinophils Percent Auto 0.9 % (0.9-7.0); Hematocrit 36.6 % (36.0-48.0); Hemoglobin 12.7 g/dL (12.0-16.0); Immature Granulocytes Abs Auto 0.02 10^3/uL (0.00-0.03); Immature Granulocytes Pct Auto 0.3 % (0.0-0.5); Lymphocytes Percent Auto 13.1 % (20.5-60.0); Mean Corpuscular HGB Conc 34.7 g/dL (29.9-35.2); Mean Corpuscular Hemoglobin 32.3 pg (26.7-34.0); Mean Corpuscular Volume 93.1 fL (81.0-99.0); Mean Platelet Volume 10.5 fL (9.5-13.5); Monocytes Absolute Auto 0.8 10^3/uL (0.3-0.8); Monocytes Percent Auto 11.2 % (1.7-12.0); Neutrophils Absolute Auto 5.5 10^3/uL (1.4-6.5); Neutrophils Percent Auto 74.1 % (43.0-75.0); Platelet Count 310 10^3/uL (150-450); Red Blood Count 3.93 10^6/uL (4.20-5.40); Red Cell Distribution Width 14.4 % (11.0-15.0); White Blood Count 7.4 10^3/uL (4.0-11.0)
[2023-06-06 05:39] LABS: Alanine Aminotransferase 358 U/L (14-59); Albumin Globulin Ratio 0.9; Albumin Level 3.3 g/dL (3.4-5.0); Alkaline Phosphatase 144 U/L (46-116); Anion Gap 13.7; Aspartate Amino Transferase 213 U/L (15-37); BUN Creatinine Ratio 9.1; Bilirubin Total 1.5 mg/dL (0.2-1.0); Calcium 8.9 mg/dL (8.5-10.1); Chloride 102 mmol/L (98-107); Estimated GFR (African America >60 (>=60); Estimated GFR (Non-African Ame >60 (>=60); Globulin 3.5 g/dL; Glucose 109 mg/dL (74-106); Sodium 142 mmol/L (136-145); Total Protein 6.8 g/dL (6.4-8.2)
[2023-06-06 05:53] LABS: Potassium 2.7 mmol/L (3.5-5.1)
[2023-06-06 05:56] VITALS: PULSE 89
[2023-06-06 06:00] VITALS: BP 134/66; PULSE 90; RESP 20; TEMP 36.7; O2SAT 93
[2023-06-06] MEDS: POTASSIUM CHLORIDE 10 MEQ ER TABLET 40 MEQ PO (06:29)
[2023-06-06 07:18] LABS: Ammonia 39 umol/L (11-32)
[2023-06-06] MEDS: POTASSIUM CHLORIDE 40 MEQ in 0.9 % SODIUM CHLORIDE 250 ML 67.5 MEQ IV (07:25)
[2023-06-06 07:49] VITALS: PULSE 95
[2023-06-06] MEDS: ENOXAPARIN SODIUM 30 MG/0.3 ML SYRINGE SUBQ (08:00)
[2023-06-06] MEDS: LEVOTHYROXINE SODIUM 25 MCG TABLET PO (08:01)
--- NOTE | 2023-06-06 09:52 | P.DS_ITS ---
DS: Providers Provider Date of admission: 06/04/23 23:31 Primary care physician: MELINDA PINA Consults: 06/05/23 00:48 Physical Therapy Eval and Treat Routine Reason for consultation: weakness 06/05/23 08:47 Occupational Therapy Eval and Treat Routine Reason for consultation: Weakness Has provider been notified: No 06/05/23 12:45 Occupational Therapy Eval and Treat Routine Reason for consultation: weaknss Physical Therapy Eval and Treat Routine Reason for consultation: weakjims DS: Diagnosis Discharge Diagnosis (1) Hepatic encephalopathy: (2) Drug-induced delirium: (3) Elevated LFTs: (4) ANNA (acute kidney injury): (5) Hypokalemia: (6) Hypertension: DS: Summary Hospital Course Hospital Course: Patient mated with altered mental status, weakness, hypotension, elevated liver function test consistent with sepsis. She did have some cellulitis and hypotension may be related to how she took her medications as opposed to the sepsis. Patient was given fluids. She has some metabolic alkalosis and hepatic steatosis also found on examination. Severe hypokalemia and supplemented this morning. Patient does states she feels overall improved and back to her baseline. Family agrees. At this point she can be discharged home in improving condition. Medications see list. Follow-up with PCP within the next couple days Time Spent with Patient Time attestation: Total time spent providing and/or coordinating discharge services: Exam Constitutional Vital Signs, click to edit/add: Last Vital Signs Temp 98.1 F 06/06/23 06:00 Pulse 95 H 06/06/23 07:49 Resp 20 06/06/23 06:00 BP 134/66 06/06/23 06:00 Pulse Ox 93 L 06/06/23 06:00 O2 Del Method Room Air 06/06/23 06:00 O2 Flow Rate 2 06/05/23 05:36 Documenting provider has reviewed patient's vital signs: yes Common normals: no apparent distress HENMT Common normals: moist oral mucous membranes Lymph Lymphatic: no lymphadenopathy noted Chest Common normals: inspection of chest normal Respiratory Common normals: normal respiratory effort, no retractions and clear to auscultation bilaterally Cardio Common normals: regular rate and no murmurs Extremity Common normals: normal to inspection DS: Data Data Completed and Pending Labs on day of discharge: Labs from last 24 hours 06/06/23 06/06/23 06/05/23 06:45 04:16 20:01 WBC 7.4 RBC 3.93 L Hgb 12.7 Hct 36.6 MCV 93.1 MCH 32.3 MCHC 34.7 RDW 14.4 Plt Count 310 MPV 10.5 Neut % (Auto) 74.1 Lymph % (Auto) 13.1 L [place] % (Auto) 11.2 Eos % (Auto) 0.9 Baso % (Auto) 0.4 Neut # (Auto) 5.5 Lymph # (Auto) 1.0 L [place] # (Auto) 0.8 Eos # (Auto) 0.1 Baso # (Auto) 0.0 Abs Immat Gran (auto) 0.02 Imm/Tot Granulo (auto) 0.3 PT INR Sodium 142 Potassium 2.7 L* Chloride 102 Carbon Dioxide 29.0 Anion Gap 13.7 BUN 7.0 Creatinine 0.77 Est GFR ( Amer) >60 Est GFR (Non-Af Amer) >60 BUN/Creatinine Ratio 9.1 Glucose 109 H Calcium 8.9 Total Bilirubin 1.5 H AST 213 H ALT 358 H Alkaline Phosphatase 144 H Ammonia 39 H Total Protein 6.8 Albumin 3.3 L Globulin 3.5 Albumin/Globulin Ratio 0.9 Vitamin B12 Folate TSH POC Glucose 119 H 06/05/23 06/05/23 06/05/23 16:08 13:00 11:35 WBC 5.3 RBC 3.73 L Hgb 11.8 L Hct 35.1 L MCV 94.1 MCH 31.6 MCHC 33.6 RDW 14.3 Plt Count 271 MPV 9.8 Neut % (Auto) 80.2 H Lymph % (Auto) 10.5 L [place] % (Auto) 7.4 Eos % (Auto) 1.3 Baso % (Auto) 0.4 Neut # (Auto) 4.2 Lymph # (Auto) 0.6 L [place] # (Auto) 0.4 Eos # (Auto) 0.1 Baso # (Auto) 0.0 Abs Immat Gran (auto) 0.01 Imm/Tot Granulo (auto) 0.2 PT 10.5 INR 0.99 Sodium 144 Potassium 3.3 L Chloride 106 Carbon Dioxide 30.8 Anion Gap 10.5 BUN 14.0 Creatinine 0.86 Est GFR ( Amer) >60 Est GFR (Non-Af Amer) >60 BUN/Creatinine Ratio 16.3 Glucose 107 H Calcium 8.4 L Total Bilirubin 1.3 H AST 308 H ALT 391 H Alkaline Phosphatase 150 H Ammonia 43 H* Total Protein 6.1 L Albumin 3.0 L Globulin 3.1 Albumin/Globulin Ratio 1.0 Vitamin B12 1640.0 H Folate 22.90 TSH 2.293 POC Glucose 106 111 H Discharge Plan Discharge Disposition: Home, Self-Care Discharge Medications: New potassium chloride 20 mEq tablet extended release 20 meq PO BID Qty: 60 11RF levofloxacin 500 mg tablet 500 mg PO DAILY 5 Days Qty: 5 0RF Continued gabapentin 400 mg capsule 400 mg PO TID hydrochlorothiazide 25 mg tablet 25 mg PO DAILY levothyroxine 25 mcg tablet 25 mcg PO DAILY meloxicam 15 mg tablet 15 mg PO DAILY tizanidine 4 mg tablet 4 mg PO BEDTIME Discontinued amlodipine 5 mg tablet 10 mg PO DAILY clonidine HCl 0.2 mg tablet 0.2 mg PO Q12H tramadol 50 mg tablet 50 mg PO Q4H PRN (Reason: pain) Qty: 15 0RF Rx Instructions: DX: L03.90 cephalexin 500 mg capsule 500 mg PO Q8H 10 Days Qty: 30 0RF potassium chloride 20 mEq tablet extended release 20 meq PO DAILY Qty: 5 0RF Activity: ambulate only with your walker Activity Detail: pt should not drive or be left alone until cleared by PCP Diet: advance to your usual diet Patient Instructions: Ciprofloxacin (By mouth), Potassium Chloride (By mouth), Acute Delirium (DC), Weakness (DC) Forms: Portal Instructions Follow Up Appointments: Keep your previously scheduled appointment with your PCP tomorrow Jun 07 Discharge Date/Time: 06/06/23 10:30
--- NOTE | 2023-06-07 11:14 | CM.DCFOLLOWU ---
1st attempt follow up call made by Jaja Bishop on 06/07/23, no answer at this time.
[2023-06-08 05:08] LABS: HBsAg Screen Negative (Negative); HCV Ab Non Reactive (Non Reactive); Hep A Ab, IgM Negative (Negative); Hep B Core Ab, IgM Negative (Negative)
--- NOTE | 2023-06-08 15:35 | CM.DCFOLLOWU ---
2nd attempt discharge follow up call made by Jaja Bishop on 06/08/23, no answer at this time
--- NOTE | 2023-06-09 16:22 | CM.DCFOLLOWU ---
Patient was down in Emergency Room on 06/09/23, SW able to speak with patient and family in ER.
== END 2023-06-06 10:30 | disposition home or self-care (01) | DRG 872 ==
LOC: ER 23:18 → MS 23:36
PROVIDERS: Emergency Medicine; Internal Medicine; Admitting Provider Family Medicine; Emergency Provider Emergency Medicine; PCP Nurse Practitioner Family; Visit Provider Family Medicine
DX: A41.9 Sepsis, unspecified organism (principal); N17.9 Acute kidney failure, unspecified; E72.20 Disorder of urea cycle metabolism, unspecified; E87.6 Hypokalemia; R06.02 Shortness of breath; I10 Essential (primary) hypertension; K76.82 Hepatic encephalopathy; K76.0 Fatty (change of) liver, not elsewhere classified; R41.0 Disorientation, unspecified; Z91.148 Patient's other noncompliance with medication regimen for other reason; Z90.49 Acquired absence of other specified parts of digestive tract; Z91.81 History of falling; Z79.899 Other long term (current) drug therapy; R79.89 Other specified abnormal findings of blood chemistry; Z79.890 Hormone replacement therapy
CPT/HCPCS: 36415; 36600; 70450; 71045; 74176; 76705; 80053; 80074; 81003; 82140; 82248; 82607; 82746; 82805; 82948; 83605; 83880; 84443; 84484; 85025; 85610; 85652; 86140; 93005; 94761; 96361; 96365; 96366; 96372; 96375; 97162; 99283; 99285; J3480; Q3014

== ENCOUNTER 2023-06-09 12:12 | Emergency (ER) | payer MEDICARE, OTHER, SELFPAY ==
[2023-06-09] VITALS (11 sets, daily range): BP systolic 114; BP diastolic 51; PULSE 97–105; RESP 18–26; TEMP 36.9; O2SAT 95–98; BMI 26.0
--- NOTE | 2023-06-09 12:48 | XR_ITS ---
The [address] [address] Patient Name: MICHAEL SHAY MRN: [id number] date: 1940 Sex: F Assigned Patient Location: ER Current Patient Location: ER Accession/Order Number: [id number] Exam Date: 06/09/2023 13:55 Report Date: 06/09/2023 14:11 At the request of: BRENTON COVINGTON Procedure: XR chest 1V EXAMINATION: XR chest 1V HISTORY: leg swelling COMPARISON: No relevant comparison available. TECHNIQUE: 06/04/2023 FINDINGS: LUNGS: Scattered punctate pulmonary nodules, stable. Interval stable left basilar infiltrate. VASCULATURE: No increased pulmonary vasculature. PLEURA: No pneumothorax, effusion, or pleural thickening. CARDIAC: No cardiomegaly or cardiac silhouette abnormality. MEDIASTINUM: No visible mass or adenopathy. Aortic atherosclerosis BONES: No fracture or visible bone lesion. OTHER: Negative. XR/XR chest 1V IMPRESSION: No acute cardiopulmonary process Electronically authenticated by: NATHAN KIM Date: 06/09/2023 14:11
--- NOTE | 2023-06-09 12:48 | ECG_ITS ---
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: : 1940 Requested By: [id number] Order Number: [id number] Reading MD: KEEGAN MORIN Measurements Intervals Welch Rate: 103 P: 74 MT: 146 QRS: -63 QRSD: 78 T: 63 QT: 342 QTc: 401 Interpretive Statements 1120 Sinus tachycardia 2630 Left anterior fascicular block 3114 Cannot rule out anterior myocardial infarction, age undetermined 5211 Minimal voltage criteria for LVH, may be normal variant 9150 abnormal ECG Compared to ECG 06/04/2023 17:25:00 Left anterior fascicular block now present Left ventricular hypertrophy now present Sinus rhythm no longer present Left-axis deviation no longer present Myocardial infarct finding still present Electronically Signed On 06-10-2023 5:50:53 EDT by KEEGAN MORIN
--- NOTE | 2023-06-09 12:49 | ED.GENADUL1 ---
HPI - General Adult General Chief complaint: Extremity Problem, Nontraumatic Stated complaint: CVA SYMPTOMS Time Seen by Provider: 06/09/23 12:36 Source: patient and family Mode of arrival: walk-in Limitations: no limitations History of Present Illness HPI narrative: 82-year-old female presented to the emergency department for swelling to her legs. She was discharged from the hospital within the last few days and is at home. She was in the hospital for leg swelling and she was told to stay off of her feet. She lives by herself and the family checked on her and she was in the kitchen standing and the laundry was running in the washing machine. family has concerns about her being at her home by herself and don't feel that it's safe for her to go back home. They have already contacted [employer] Whe[employer] and family has already contacted the [facility] to see if she could be placed there. The patient herself doesn't seem to have any complaints. family thought that the left side of her face was droopy but the patient states she has a toothache and hurts to smile. Related Data Home Medications Medication Instructions Recorded Confirmed gabapentin 400 mg capsule 400 mg PO BID 06/02/23 06/09/23 hydrochlorothiazide 25 mg tablet 25 mg PO DAILY 06/02/23 06/09/23 levothyroxine 25 mcg tablet 25 mcg PO DAILY 06/02/23 06/09/23 meloxicam 15 mg tablet 15 mg PO DAILY 06/02/23 06/09/23 amlodipine 5 mg tablet (Norvasc) 10 mg PO DAILY 06/09/23 06/09/23 clonidine HCl 0.2 mg tablet 0.2 mg PO BID 06/09/23 06/09/23 levofloxacin 500 mg tablet 500 mg PO DAILY 06/09/23 06/09/23 jlocoylbuexj-sivjylxw-nups 1 tab PO DAILY 06/09/23 06/09/23 fumarate 18 mg-folic acid 400 mcg tablet (One-A-Day Women's Complete) rimegepant 75 mg disintegrating 75 mg PO DAILY PRN migraine 06/09/23 06/09/23 tablet (Nurtec ODT) headache tizanidine 4 mg capsule 4 mg PO Q8H PRN muscle spasticity 06/09/23 06/09/23 tramadol 50 mg tablet 50 mg PO Q4H PRN pain 06/09/23 06/09/23 Previous Rx's Medication Instructions Recorded potassium chloride 20 mEq 20 meq PO BID #60 tabs 06/06/23 tablet,extended release Allergies Allergy/AdvReac Type Severity Reaction Status Date / Time Penicillins Allergy Intermediate Rash Verified 06/09/23 12:25 Review of Systems ROS Narrative A ten point review of systems is negative except as noted above. PFSH PFS Medical History (Updated 06/10/23 @ 00:00 by ) Surgical History (Updated 06/05/23 @ 05:37 by Laura Izquierdo RN) Family History (Updated 06/05/23 @ 05:39 by Laura Izquierdo RN) Father Family history of CHF (congestive heart failure) Brother Family history of hypertension Mother Family history of cancer Social History (Updated 06/05/23 @ 05:44 by Laura Izquierdo RN) Within the past year, how often did you have a drink containing alcohol: never Within the past year, how often did you have six or more drinks on one occasion: never Score interpretation: A score less than 3 is consistent with normal alcohol consumption. 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 Known occupational exposures/hazards: No Highest level of school completed/degree received: 8th grade Are you now , , , , never or living with a partner: In a typical week, how many times do you talk on the telephone with family, friends, or neighbors: once per week How often do you get together with friends or relatives: once per week How often do you attend buddhist or hinduism services: never Do you belong to any clubs or organizations such as buddhist groups unions, fraternal or athletic groups, or school groups: no Total score: 0 Score interpretation: A score of less than or equal to 1 indicates the most socially isolated. Little interest or pleasure in doing things: not at all Feeling down, depressed, or hopeless: not at all Feel stressed/tense/nervous/anxious/difficulty sleeping: not at all Life stressors: recent of family or friend Life stressor details: Loss of friend Do you think of yourself as: straight/heterosexual Gender Identity: female Exam Narrative Exam Narrative: Nurses note and vital signs reviewed and patient is not hypoxic. General: The patient appears well and in no apparent distress. Patient is resting comfortably on cart. Skin: Warm, dry, no pallor noted. There is no rash noted. Head: Normocephalic, atraumatic Eye: Normal conjunctiva, no drainage Ears, Nose, Mouth, and Throat: oral mucosa is moist. Nares patent. no facial swelling or erythema. No gingival swelling or erythema. No swelling to the floor of her mouth. Cardiovascular: Regular Rate and Rhythm Respiratory: Patient is in no distress, no accessory muscle use, lungs are clear to auscultation, no wheezing, rales or rhonchi Back: non-tender GI: soft and nontender Musculoskeletal: The patient has no evidence of calf tenderness, she has bilateral lower extremity edema, symmetric Neurological: A&O, normal speech; no facial droop Psychiatric: Cooperative Constitutional Vital Signs, click to edit/add: Last Vital Signs Temp 98.4 F 06/09/23 12:22 Pulse 97 H 06/09/23 14:02 Resp 06/09/23 14:02 BP 114/51 06/09/23 12:22 Pulse Ox 98 06/09/23 14:02 O2 Del Method Room Air 06/09/23 12:22 Course Vital Signs Vital signs: Vital Signs Temperature 98.4 F 06/09/23 12:22 Pulse Rate 105 H 06/09/23 12:22 Respiratory Rate 20 06/09/23 12:22 Blood Pressure 114/51 06/09/23 12:22 Pulse Oximetry 97 06/09/23 12:22 Oxygen Delivery Method Room Air 06/09/23 12:22 Temperature 98.4 F 06/09/23 12:22 Pulse Rate 97 H 06/09/23 14:02 Respiratory Rate 23 06/09/23 14:02 Blood Pressure 114/51 06/09/23 12:22 Pulse Oximetry 98 06/09/23 14:02 Oxygen Delivery Method Room Air 06/09/23 12:22 Medical Decision Making MDM Narrative Medical decision making narrative: the family does not feel that the patient is necessarily completely safe at home. They have instituted some increase of getting her some food including Meals on Wheels. They live about an hour away and cannot check on her frequently. There are rate contacted in the ECF to see if they could get her in there. Our nephrology social worker has been involved. The patient adamantly refuses to go to the ECF or be admitted to the hospital for observation. Once to go home and stay there. The patient is fully able to make medical decisions for herself. Multiple family members, myself, and our vp digital marketing social media and crm of all made attempts at convincing her to stay and to consider going to the ECF at least for a short period of time but we are unable to change her mind. She'll be discharged home. Family aware. Differential Diagnosis Differential Diagnosis: generalized weakness, peripheral edema, jeanne Lab Data Lab results reviewed: Yes I reviewed the patient's lab results Labs: Lab Results 06/09/23 Range/Units 13:49 WBC 9.5 (4.0-11.0) 10^3/uL RBC 3.88 L (4.20-5.40) 10^6/uL Hgb 12.6 (12.0-16.0) g/dL Hct 38.3 (36.0-48.0) % MCV 98.7 (81.0-99.0) fL MCH 32.5 (26.7-34.0) pg MCHC 32.9 (29.9-35.2) g/dL RDW 14.6 (11.0-15.0) % Plt Count 271 (150-450) 10^3/uL MPV 10.6 (9.5-13.5) fL Neut % (Auto) 76.6 H (43.0-75.0) % Lymph % (Auto) 10.9 L (20.5-60.0) % [place] % (Auto) 11.8 (1.7-12.0) % Eos % (Auto) 0.1 L (0.9-7.0) % Baso % (Auto) 0.5 (0.2-2.0) % Neut # (Auto) 7.3 H (1.4-6.5) 10^3/uL Lymph # (Auto) 1.0 L (1.2-3.8) 10^3/uL [place] # (Auto) 1.1 H (0.3-0.8) 10^3/uL Eos # (Auto) 0.0 (0.0-0.7) 10^3/uL Baso # (Auto) 0.1 (0.0-0.1) 10^3/uL Abs Immat Gran (auto) 0.01 (0.00-0.03) 10^3/uL Imm/Tot Granulo (auto) 0.1 (0.0-0.5) % Sodium 140 (136-145) mmol/L Potassium 3.6 (3.5-5.1) mmol/L Chloride 103 (98-107) mmol/L Carbon Dioxide 27.4 (21.0-32.0) mmol/L Anion Gap 13.2 BUN 26.0 H (7.0-18.0) mg/dL Creatinine 1.06 H (0.55-1.02) mg/dL Est GFR ( Amer) >60 (>=60) Est GFR (Non-Af Amer) 50 L (>=60) BUN/Creatinine Ratio 24.5 Glucose 116 H (74-106) mg/dL Calcium 9.5 (8.5-10.1) mg/dL Discharge Plan Discharge Chief Complaint: Extremity Problem, Nontraumatic Clinical Impression: Edema, peripheral Patient Disposition: Home, Self-Care Time of Disposition Decision: 15:40 Condition: Good Mode of Transportation: Private Vehicle Prescriptions / Home Meds: No Action potassium chloride 20 mEq tablet extended release 20 meq PO BID Qty: 60 11RF gabapentin 400 mg capsule 400 mg PO BID hydrochlorothiazide 25 mg tablet 25 mg PO DAILY levothyroxine 25 mcg tablet 25 mcg PO DAILY meloxicam 15 mg tablet 15 mg PO DAILY Nurtec ODT 75 mg tablet,disintegrating 75 mg PO DAILY PRN (Reason: migraine headache) tizanidine 4 mg capsule 4 mg PO Q8H PRN (Reason: muscle spasticity) One-A-Day Women's Complete 18 mg iron- 400 mcg tablet 1 tab PO DAILY tramadol 50 mg tablet 50 mg PO Q4H PRN (Reason: pain) clonidine HCl 0.2 mg tablet 0.2 mg PO BID amlodipine [Norvasc] 5 mg tablet 10 mg PO DAILY levofloxacin 500 mg tablet 500 mg PO DAILY Rx Instructions: started 06/06/23 for 5 days Instructions: Leg Edema (ED) Stand Alone Forms: Portal Instructions Referrals: MELINDA PINA [Primary Care Provider] - 1 week Discharge Date/Time: 06/09/23 15:50
--- NOTE | 2023-06-09 13:22 | SWNOTE1 ---
ZORA spoke with nursing down in ED and pt's family has been in contact with the [facility] and trying to get her there from home, unsure about 3 day stay. ZORA checked previous stay and pt was inpt here from 06-04-23 thru 06-06-23, she only had 2 midnights. SW let doctor know and [facility] know. ZORA spoke with pt's son and daughter in law outside of room. SW let them know she did not have a 3 dya stay previously. They voiced understanding. Plan is for pt to be admitted. SW did let family know that she does have to have a qualifying diagnosis to be inpt versus observation. SW let [facility] know and will send referral once notes are signed.
--- NOTE | 2023-06-09 13:40 | CT_ITS ---
The [address] [address] Patient Name: MICHAEL SHAY MRN: [id number] date: 1940 Sex: F Assigned Patient Location: ER Current Patient Location: ER Accession/Order Number: [id number] Exam Date: 06/09/2023 13:55 Report Date: 06/09/2023 14:12 At the request of: BRENTON COVINGTON Procedure: CT head/brain wo con CT head/brain wo con, 06/09/2023 1:55 PM EDT INDICATION: Weak COMPARISON: Noncontrast CT of the head 06/04/2023 TECHNIQUE: Axial CT images of the brain from skull base to vertex, including portions of the face and sinuses, were obtained without contrast. Multiplanar reformatted images were generated and reviewed as needed. FINDINGS: Global cortical atrophy and ventricular prominence, unchanged. No intracranial mass, hydrocephalus, midline shift or acute hemorrhage. No extra-axial collection. Periventricular and deep white matter microvascular ischemic change. Torres-white matter differentiation is preserved. The paranasal sinuses and mastoid air cells are clear. Orbits are within normal limits. No acute skull fracture. CT/CT head/brain wo con IMPRESSION: No acute intracranial abnormality. Electronically authenticated by: KY WOO Date: 06/09/2023 14:12
[2023-06-09 14:07] LABS: Basophils Absolute Auto 0.1 10^3/uL (0.0-0.1); Basophils Percent Auto 0.5 % (0.2-2.0); Eosinophils Percent Auto 0.1 % (0.9-7.0); Hematocrit 38.3 % (36.0-48.0); Hemoglobin 12.6 g/dL (12.0-16.0); Immature Granulocytes Abs Auto 0.01 10^3/uL (0.00-0.03); Immature Granulocytes Pct Auto 0.1 % (0.0-0.5); Lymphocytes Percent Auto 10.9 % (20.5-60.0); Mean Corpuscular HGB Conc 32.9 g/dL (29.9-35.2); Mean Corpuscular Hemoglobin 32.5 pg (26.7-34.0); Mean Corpuscular Volume 98.7 fL (81.0-99.0); Mean Platelet Volume 10.6 fL (9.5-13.5); Monocytes Absolute Auto 1.1 10^3/uL (0.3-0.8); Monocytes Percent Auto 11.8 % (1.7-12.0); Neutrophils Absolute Auto 7.3 10^3/uL (1.4-6.5); Neutrophils Percent Auto 76.6 % (43.0-75.0); Platelet Count 271 10^3/uL (150-450); Red Blood Count 3.88 10^6/uL (4.20-5.40); Red Cell Distribution Width 14.6 % (11.0-15.0); White Blood Count 9.5 10^3/uL (4.0-11.0)
[2023-06-09 14:13] LABS: Anion Gap 13.2; BUN Creatinine Ratio 24.5; Calcium 9.5 mg/dL (8.5-10.1); Carbon Dioxide 27.4 mmol/L (21.0-32.0); Chloride 103 mmol/L (98-107); Estimated GFR (African America >60 (>=60); Estimated GFR (Non-African Ame 50 (>=60); Glucose 116 mg/dL (74-106); Potassium 3.6 mmol/L (3.5-5.1); Sodium 140 mmol/L (136-145)
--- NOTE | 2023-06-09 15:41 | ED_ITS ---
HPI - General Adult General Chief complaint: Extremity Problem, Nontraumatic Stated complaint: CVA SYMPTOMS Time Seen by Provider: 06/09/23 12:36 Source: patient and family Mode of arrival: walk-in Limitations: no limitations History of Present Illness HPI narrative: Please see the incomplete note which was inadvertently signed and completed by me further history and physical. Related Data Home Medications Medication Instructions Recorded Confirmed gabapentin 400 mg capsule 400 mg PO BID 06/02/23 06/09/23 hydrochlorothiazide 25 mg tablet 25 mg PO DAILY 06/02/23 06/09/23 levothyroxine 25 mcg tablet 25 mcg PO DAILY 06/02/23 06/09/23 meloxicam 15 mg tablet 15 mg PO DAILY 06/02/23 06/09/23 amlodipine 5 mg tablet (Norvasc) 10 mg PO DAILY 06/09/23 06/09/23 clonidine HCl 0.2 mg tablet 0.2 mg PO BID 06/09/23 06/09/23 levofloxacin 500 mg tablet 500 mg PO DAILY 06/09/23 06/09/23 pojfthfxgdwm-bdsaqbzn-bpnn 1 tab PO DAILY 06/09/23 06/09/23 fumarate 18 mg-folic acid 400 mcg tablet (One-A-Day Women's Complete) rimegepant 75 mg disintegrating 75 mg PO DAILY PRN migraine 06/09/23 06/09/23 tablet (Nurtec ODT) headache tizanidine 4 mg capsule 4 mg PO Q8H PRN muscle spasticity 06/09/23 06/09/23 tramadol 50 mg tablet 50 mg PO Q4H PRN pain 06/09/23 06/09/23 Previous Rx's Medication Instructions Recorded potassium chloride 20 mEq 20 meq PO BID #60 tabs 06/06/23 tablet,extended release Allergies Allergy/AdvReac Type Severity Reaction Status Date / Time Penicillins Allergy Intermediate Rash Verified 06/09/23 12:25 Review of Systems ROS Narrative A ten point review of systems is negative except as noted above. [facility] Medical History (Updated 06/09/23 @ 15:40 by Jayjay Diallo MD) Surgical History (Updated 06/05/23 @ 05:37 by Laura Izquierdo RN) Family History (Updated 06/05/23 @ 05:39 by Laura Izquierdo RN) Father Family history of CHF (congestive heart failure) Brother Family history of hypertension Mother Family history of cancer Social History (Updated 06/05/23 @ 05:44 by Laura Izquierdo RN) Within the past year, how often did you have a drink containing alcohol: never Within the past year, how often did you have six or more drinks on one occasion: never Score interpretation: A score less than 3 is consistent with normal alcohol consumption. 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 Known occupational exposures/hazards: No Highest level of school completed/degree received: 8th grade Are you now , , , , never or living with a partner: In a typical week, how many times do you talk on the telephone with family, friends, or neighbors: once per week How often do you get together with friends or relatives: once per week How often do you attend rastafarian or uatsdin services: never Do you belong to any clubs or organizations such as rastafarian groups unions, [employer] or athletic groups, or school groups: no Total score: 0 Score interpretation: A score of less than or equal to 1 indicates the most socially isolated. Little interest or pleasure in doing things: not at all Feeling down, depressed, or hopeless: not at all Feel stressed/tense/nervous/anxious/difficulty sleeping: not at all Life stressors: recent of family or friend Life stressor details: Loss of friend Do you think of yourself as: straight/heterosexual Gender Identity: female Exam Narrative Exam Narrative: Nurses note and vital signs reviewed and patient is not hypoxic. General: The patient appears in no apparent distress. Patient is resting comfortably on cart. Skin: Warm, dry, no pallor noted. There is no rash noted. Head: Normocephalic, atraumatic Eye: Normal conjunctiva, no drainage Ears, Nose, Mouth, and Throat: oral mucosa is moist. Nares patent. Cardiovascular: Regular Rate and Rhythm Respiratory: Patient is in no distress, no accessory muscle use, lungs are clear to auscultation, no wheezing, rales or rhonchi Back: non-tender GI: nontender Musculoskeletal: bilateral lower extremity edema Neurological: A&O, normal speech Psychiatric: Cooperative Constitutional Vital Signs, click to edit/add: Last Vital Signs Temp 98.4 F 06/09/23 12:22 Pulse 97 H 06/09/23 14:02 Resp 23 06/09/23 14:02 BP 114/51 06/09/23 12:22 Pulse Ox 98 06/09/23 14:02 O2 Del Method Room Air 06/09/23 12:22 Course Vital Signs Vital signs: Vital Signs Temperature 98.4 F 06/09/23 12:22 Pulse Rate 105 H 06/09/23 12:22 Respiratory Rate 20 06/09/23 12:22 Blood Pressure 114/51 06/09/23 12:22 Pulse Oximetry 97 06/09/23 12:22 Oxygen Delivery Method Room Air 06/09/23 12:22 Temperature 98.4 F 06/09/23 12:22 Pulse Rate 97 H 06/09/23 14:02 Respiratory Rate 06/09/23 14:02 Blood Pressure 114/51 06/09/23 12:22 Pulse Oximetry 98 06/09/23 14:02 Oxygen Delivery Method Room Air 06/09/23 12:22 Medical Decision Making MDM Narrative Medical decision making narrative: the patient's workup here is negative. The family and I feel that the patient should be admitted to the hospital and placed into ECF with the patient adamantly refuses to do so. Multiple family members as well as myself and the nurse and the director of social work have attempted to convince her to stay but she adamantly refuses. She states she only wants to be home and does not want to be in a rehab facility. Differential Diagnosis Differential Diagnosis: peripheral edema, generalized weakness, acute kidney injury, anemia Medical Records Medical records reviewed: Yes I reviewed the patient's medical records Lab Data Lab results reviewed: Yes I reviewed the patient's lab results Labs: Lab Results 06/09/23 Range/Units 13:49 WBC 9.5 (4.0-11.0) 10^3/uL RBC 3.88 L (4.20-5.40) 10^6/uL Hgb 12.6 (12.0-16.0) g/dL Hct 38.3 (36.0-48.0) % MCV 98.7 (81.0-99.0) fL MCH 32.5 (26.7-34.0) pg MCHC 32.9 (29.9-35.2) g/dL RDW 14.6 (11.0-15.0) % Plt Count 271 (150-450) 10^3/uL MPV 10.6 (9.5-13.5) fL Neut % (Auto) 76.6 H (43.0-75.0) % Lymph % (Auto) 10.9 L (20.5-60.0) % [place] % (Auto) 11.8 (1.7-12.0) % Eos % (Auto) 0.1 L (0.9-7.0) % Baso % (Auto) 0.5 (0.2-2.0) % Neut # (Auto) 7.3 H (1.4-6.5) 10^3/uL Lymph # (Auto) 1.0 L (1.2-3.8) 10^3/uL [place] # (Auto) 1.1 H (0.3-0.8) 10^3/uL Eos # (Auto) 0.0 (0.0-0.7) 10^3/uL Baso # (Auto) 0.1 (0.0-0.1) 10^3/uL Abs Immat Gran (auto) 0.01 (0.00-0.03) 10^3/uL Imm/Tot Granulo (auto) 0.1 (0.0-0.5) % Sodium 140 (136-145) mmol/L Potassium 3.6 (3.5-5.1) mmol/L Chloride 103 (98-107) mmol/L Carbon Dioxide 27.4 (21.0-32.0) mmol/L Anion Gap 13.2 BUN 26.0 H (7.0-18.0) mg/dL Creatinine 1.06 H (0.55-1.02) mg/dL Est GFR ( Amer) >60 (>=60) Est GFR (Non-Af Amer) 50 L (>=60) BUN/Creatinine Ratio 24.5 Glucose 116 H (74-106) mg/dL Calcium 9.5 (8.5-10.1) mg/dL Imaging Data chest x-ray and CT brain: Radiologist's impression: Procedure: CT head/brain wo con CT head/brain wo con, 06/09/2023 1:55 PM EDT INDICATION: Weak COMPARISON: Noncontrast CT of the head 06/04/2023 TECHNIQUE: Axial CT images of the brain from skull base to vertex, including portions of the face and sinuses, were obtained without contrast. Multiplanar reformatted images were generated and reviewed as needed. FINDINGS: Global cortical atrophy and ventricular prominence, unchanged. No intracranial mass, hydrocephalus, midline shift or acute hemorrhage. No extra-axial collection. Periventricular and deep white matter microvascular ischemic change. Torres-white matter differentiation is preserved. The paranasal sinuses and mastoid air cells are clear. Orbits are within normal limits. No acute skull fracture. IMPRESSION: No acute intracranial abnormality. Electronically authenticated by: KY WOO Date: 06/09/2023 14:12 Procedure: XR chest 1V EXAMINATION: XR chest 1V HISTORY: leg swelling COMPARISON: No relevant comparison available. TECHNIQUE: 06/04/2023 FINDINGS: LUNGS: Scattered punctate pulmonary nodules, stable. Interval stable left basilar infiltrate. VASCULATURE: No increased pulmonary vasculature. PLEURA: No pneumothorax, effusion, or pleural thickening. CARDIAC: No cardiomegaly or cardiac silhouette abnormality. MEDIASTINUM: No visible mass or adenopathy. Aortic atherosclerosis BONES: No fracture or visible bone lesion. OTHER: Negative. IMPRESSION: No acute cardiopulmonary process Electronically authenticated by: NATHAN KIM Date: 06/09/2023 14:11 ECG Data Attestation: I personally reviewed and interpreted this ECG as follows: (EKG on my interpretation shows sinus rhythm with a rate of 103.) Discharge Plan Discharge Chief Complaint: Extremity Problem, Nontraumatic Clinical Impression: Edema, peripheral Patient Disposition: Home, Self-Care Time of Disposition Decision: 15:40 Condition: Good Mode of Transportation: Private Vehicle Prescriptions / Home Meds: No Action potassium chloride 20 mEq tablet extended release 20 meq PO BID Qty: 60 11RF gabapentin 400 mg capsule 400 mg PO BID hydrochlorothiazide 25 mg tablet 25 mg PO DAILY levothyroxine 25 mcg tablet 25 mcg PO DAILY meloxicam 15 mg tablet 15 mg PO DAILY Nurtec ODT 75 mg tablet,disintegrating 75 mg PO DAILY PRN (Reason: migraine headache) tizanidine 4 mg capsule 4 mg PO Q8H PRN (Reason: muscle spasticity) One-A-Day Women's Complete 18 mg iron- 400 mcg tablet 1 tab PO DAILY tramadol 50 mg tablet 50 mg PO Q4H PRN (Reason: pain) clonidine HCl 0.2 mg tablet 0.2 mg PO BID amlodipine [Norvasc] 5 mg tablet 10 mg PO DAILY levofloxacin 500 mg tablet 500 mg PO DAILY Rx Instructions: started 06/06/23 for 5 days Instructions: Leg Edema (ED) Stand Alone Forms: Portal Instructions Referrals: MELINDA PINA [Primary Care Provider] - 1 week
--- NOTE | 2023-06-09 16:16 | SWNOTE1 ---
ZORA did receive call to come back down to speak with pt per families request. Pt is refusing to go to SNF. ZORA spoke with pt in room by herself for about 10 minutes and pt is still refusing to go to SNF and is alert and oriented at this time. Pt has concerns about her dog at home and feels she is strong enough to care for herself at home. Pt's daughter in law and son came back in room and we attempted to talk with pt about going to rehab for her safety, she is still refusing. ZORA updated doctor. ZORA also let Winston know as well. Pt will be dc home.
== END 2023-06-09 15:50 | disposition home or self-care (01) ==
PROVIDERS: Emergency Provider Emergency Medicine; PCP Nurse Practitioner Family
DX: R60.9 Edema, unspecified (principal); Z79.899 Other long term (current) drug therapy; Z79.890 Hormone replacement therapy
CPT/HCPCS: 36415; 70450; 71045; 80048; 85025; 93005; 99285

== ENCOUNTER 2023-10-22 11:34 | Outpatient (OUT) | payer MEDICARE, OTHER, SELFPAY ==
--- NOTE | 2023-10-22 11:48 | XR_ITS ---
[facility] [place] [address] Patient Name: MICHAEL SHAY MRN: [id number] date: 1940 Sex: F Assigned Patient Location: LAB Current Patient Location: LAB Accession/Order Number: [id number] Exam Date: 10/22/2023 12:00 Report Date: 10/22/2023 14:23 At the request of: CLARE QUINTANILLA Procedure: XR lumbar spine 6V w bending EXAMINATION: XR lumbar spine 6V w bending HISTORY: Back Pain, Acute Cystitis With Hematuria N30.01 COMPARISON: No relevant comparison available. FINDINGS: BONES: Neutral projection demonstrates no spondylolisthesis. Anterior wedging of the T11 and T12 vertebral bodies, age indeterminate. Mild degenerative spondylosis. Moderate to severe facet osteoarthropathy most significant L4-S1 DISC SPACES: Disc collapse L4-L5 with endplate sclerosis and vacuum disc PARASPINOUS: Negative. No paraspinous abnormality is seen. OTHER: Vascular calcifications. 2 mm anterolisthesis of L3 in relation L4 with flexion, resolved with extension. 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
[2023-10-22 12:10] LABS: Basophils Absolute Auto 0.1 10^3/uL (0.0-0.1); Basophils Percent Auto 0.7 % (0.2-2.0); Eosinophils Absolute Auto 0.1 10^3/uL (0.0-0.7); Hematocrit 44.8 % (36.0-48.0); Hemoglobin 14.5 g/dL (12.0-16.0); Immature Granulocytes Abs Auto 0.02 10^3/uL (0.00-0.03); Immature Granulocytes Pct Auto 0.2 % (0.0-0.5); Lymphocytes Absolute Auto 1.7 10^3/uL (1.2-3.8); Lymphocytes Percent Auto 20.1 % (20.5-60.0); Mean Corpuscular HGB Conc 32.4 g/dL (29.9-35.2); Mean Corpuscular Hemoglobin 31.7 pg (26.7-34.0); Mean Corpuscular Volume 97.8 fL (81.0-99.0); Mean Platelet Volume 10.1 fL (9.5-13.5); Monocytes Absolute Auto 0.6 10^3/uL (0.3-0.8); Monocytes Percent Auto 7.5 % (1.7-12.0); Neutrophils Absolute Auto 5.9 10^3/uL (1.4-6.5); Neutrophils Percent Auto 70.5 % (43.0-75.0); Platelet Count 274 10^3/uL (150-450); Red Blood Count 4.58 10^6/uL (4.20-5.40); Red Cell Distribution Width 13.1 % (11.0-15.0); White Blood Count 8.4 10^3/uL (4.0-11.0)
[2023-10-22 12:12] LABS: Alanine Aminotransferase 19 U/L (14-59); Albumin Level 3.9 g/dL (3.4-5.0); Alkaline Phosphatase 73 U/L (46-116); Anion Gap 11.7; Aspartate Amino Transferase 12 U/L (15-37); BUN Creatinine Ratio 28.4; Calcium 9.8 mg/dL (8.5-10.1); Carbon Dioxide 31.8 mmol/L (21.0-32.0); Chloride 102 mmol/L (98-107); Estimated GFR (African America >60 (>=60); Estimated GFR (Non-African Ame >60 (>=60); Globulin 4.1 g/dL; Glucose 118 mg/dL (74-106); Potassium 3.5 mmol/L (3.5-5.1); Sodium 142 mmol/L (136-145)
[2023-10-22 12:12] LABS: Clarity Urine CLEAR (CLEAR); Color Urine YELLOW (YELLOW); Specific Gravity Urine 1.025 (1.005-1.025); pH Urine 5.5 (5.0-9.0)
[2023-10-22 12:13] LABS: Bilirubin Urine NEGATIVE (NEGATIVE); Blood Urine NEGATIVE (NEGATIVE); Glucose Urine UA NEGATIVE (NEGATIVE); Ketones Urine NEGATIVE (NEGATIVE); Leukocyte Esterase Urine NEGATIVE (NEGATIVE); Nitrite Urine NEGATIVE (NEGATIVE); Protein Urine NEGATIVE (NEG/TRACE); Urobilinogen Urine 0.2 EU/dL (0.2-1.0)
[2023-10-22 12:42] LABS: Urine Microscopic Indicated NO
== END 2023-10-22 11:35 | disposition home or self-care (01) ==
LOC: LAB 11:34
PROVIDERS: PCP Nurse Practitioner Family; Visit Provider Psychiatry & Neurology Neurology
DX: N30.01 Acute cystitis with hematuria (principal); M48.54XA Collapsed vertebra, not elsewhere classified, thoracic region, initial encounter for fracture
CPT/HCPCS: 36415; 72114; 80053; 81003; 85025; 87086; 87150; 87186

== ENCOUNTER 2023-11-04 14:19 | Outpatient (OUT) | payer MEDICARE, OTHER, SELFPAY ==
--- NOTE | 2023-11-04 14:23 | CT_ITS ---
The [address] [address] Patient Name: MICHAEL SHAY MRN: [id number] date: 1940 Sex: F Assigned Patient Location: CT Current Patient Location: CT Accession/Order Number: [id number] Exam Date: 11/04/2023 14:29 Report Date: 11/04/2023 15:05 At the request of: MELINDA PINA Procedure: CT abdomen pelvis wo con EXAM: CT abdomen pelvis wo con HISTORY: hematuria R31.9 COMPARISON: None. TECHNIQUE: Axial soft tissue windows of the abdomen and pelvis with coronal and sagittal reformats. CT dose reduction technique was used including Automated Exposure Control. Findings: Lack of intravenous contrast limits evaluation. Benign calcified right lower lobe granuloma. ABDOMEN: Evaluation of the hepatic dome is limited as it was excluded from the [id number]. There are hepatic and splenic calcifications likely relating to prior granulomatous disease. The gallbladder is surgically absent. The pancreas and adrenal glands are unremarkable. Mild nonspecific bilateral perinephric fat stranding. No renal stones or collecting system dilatation. The bilateral ureters are nondilated. Evaluation of the bowel is limited given the absence of oral contrast. There are colonic diverticula. No bowel obstruction. The appendix is nondilated. The aorta is normal caliber. Mild atherosclerotic disease. No enlarged abdominal lymph nodes or free abdominal fluid. There are postsurgical changes consistent with prior ventral hernia repair. There is a small fat-containing hernia along the left lateral margin of the mass. Pelvis: Unremarkable bladder. The uterus is surgically absent. No enlarged pelvic lymph nodes or free pelvic fluid. No aggressive sclerotic or lytic osseous lesions. Old mild T12 superior endplate compression deformity. Grade 1 anterolisthesis of L3 on L4. There is multi level degenerative spondylosis. Vacuum disc phenomenon at L4-L5 and L5-S1. CT/CT abdomen pelvis wo con IMPRESSION: 1. No renal stones or collecting system dilatation. 2. Diverticulosis. 3. Prior ventral hernia repair. Small fat-containing hernia along the lateral margin of the mass. 4. Other more nonemergent findings, as described above. Electronically authenticated by: TONY YING Date: 11/04/2023 15:05
--- OUTSIDE RECORDS SUMMARY | 2023-11-04 14:40 | XMS_ITS | CCD ---
Author Name Unknown Address [address] [place] [address] Organization [facility] Care Team Providers Care Trash Man Name Role Phone HEMMER, DR KALEY Natarajan Attending Unavailable MISC, DR CERNA Primary Care Unavailable HEMMER, DR KALEY Natarajan Admitting Unavailable ZIEBER, DR LUL Kingsley Consulting Unavailable HEMMER, DR KALEY Natarajan Consulting Unavailable LICONA, DYLON Admitting Unavailable MISC, DR CERNA Primary Care Unavailable LICONA, DYLON Attending Unavailable LICONA, DYLON Consulting Unavailable HEMMER, DR KALEY Natarajan Admitting Unavailable HEMMER, DR KALEY Natarajan Attending Unavailable ZIEBER, DR LUL Kingsley Consulting Unavailable MISC, DR CERNA Primary Care Unavailable HEMMER, DR KALEY Natarajan Consulting Unavailable SCOTT, EDWIN Consulting Unavailable HEMMER, DR KALEY Natarajan Admitting Unavailable HEMMER, DR KALEY Natarajan Attending Unavailable MISC, DR CERNA Primary Care Unavailable HEMMER, DR KALEY Natarajan Consulting Unavailable MISC, DR CERNA Primary Care Unavailable YOVANI, MELINDA Admitting Unavailable YOVANI, MELINDA Attending Unavailable ZIEBER, DR LUL Kingsley Consulting Unavailable YOVANI, MELINDA Consulting Unavailable MISC, DR CERNA Primary Care Unavailable LUIZA THOMPSON Consulting Unavailable YOVANI, MELINDA Admitting Unavailable YOVANI, MELINDA Attending Unavailable YOVANI, MELINDA Consulting Unavailable APLING, CHRIST B Admitting Unavailable WEST, DR NATHAN Torres Consulting Unavailable MISC, DR CERNA Primary Care Unavailable APLING, CHRIST B Attending Unavailable APLING, CHRIST B Consulting Unavailable ZIEBER, DR LUL Kingsley Consulting Unavailable MISC, DR CERNA Primary Care Unavailable YOVANI, MELINDA Admitting Unavailable YOVANI, MELINDA Attending Unavailable YOVANI, MELINDA Consulting Unavailable MISC, DR CERNA Primary Care Unavailable JUDY, DR NATHAN Torres Consulting Unavailable YOVANI, MELINDA Attending Unavailable YOVANI, MELINDA Admitting Unavailable YOVANI, MELINDA Consulting Unavailable MISC, DR CERNA Primary Care Unavailable JUDY, DR NATHAN Torres Consulting Unavailable YOVANI, MELINDA Attending Unavailable YOVANI, MELINDA Admitting Unavailable YOVANI, MELINDA Consulting Unavailable SUNSHINE, DR CERNA Primary Care Unavailable YOVANI, MELINDA Attending Unavailable JABIER, DR LUL Kingsley Consulting Unavailable YOVANI, MELINDA Admitting Unavailable YOVANI, MELINDA Consulting Unavailable MISC, DR CERNA Primary Care Unavailable ANGEL, KADEN Admitting Unavailable ANGEL, KADEN Attending Unavailable ANGEL, KADEN Consulting Unavailable MO Umaña Attending Provider [phone] SHELBI Lopez Primary Care Provider [phone] Kaley Umaña Attending Unavailable Kaley Umaña Admitting Unavailable Nicholas Lopez Primary Care Unavailable CLARE QUINTANILLA Attending Unavailable MELINDA PINA M Attending Unavailable CLARE QUINTANILLA Attending Unavailable KALEY UMAÑA Referring Unavailable NICHOLAS LOPEZ Attending Unavailable Allergies Allergy Classification Reported Allergen(s) Allergy Type Date of Onset Reaction(s) Facility (1 source) Penicillins Drug allergy (disorder) 03-17-2015 [facility] Repository (1 source) Tamoxifen Drug Allergy 04-10-2015 [facility] Rep[facility] (1 source) Flu Vaccine [id number] (3 yr +) Drug allergy (disorder) 04-10-2015 [facility] Rep[facility] Problems Active Problems Problem Classification Problem Date Documented Da te Episodic/Chronic Conditions associated with dizziness or vertigo (1 source) Dizziness and giddiness; Translations: [DIZZINESS AND GIDDINESS] Onset: 01-17-2023 Episodic Headache; including migraine (4 sources) Headache; including migraine; Translations: [HEADACHE UNSPECIFIED] Onset: 01-12-2023 Heart valve disorders (1 source) Rheumatic tricuspid insufficiency; Translations: [RHEUMATIC TRICUSPID INSUFFICIENCY] Onset: 09-05-2022 Chronic Malaise and fatigue (2 sources) Weakness; Translations: [Other fatigue] Onset: 01-28-2023 Episodic Nonspecific chest pain (5 sources) Chest pain, unspecified; Translations: [Other chest pain] Onset: 09-05-2022 Episodic Other fractures (4 sources) Wedge compression fracture of T11-T12 vertebra, initial encounter for closed fracture; Translations: [WEDGE CMPRS FX T11-T12 V INT GALINA FX] Onset: 12-11-2022 Episodic Other nervous system disorders (1 source) Other symptoms and signs involving cognitive functions and awareness; Translations: [Other symptoms and signs involving cognitive functions and awareness] Onset: 07-30-2023 Episodic Unclassified (3 sources) LOW BACK PAIN, UNSPECIFIED; Translations: [LOW BACK PAIN, UNSPECIFIED] Onset: 12-04-2022 Past or Other Problems Problem Classification Problem Date Documented Da te Episodic/Chronic Abdominal pain (5 sources) Unspecified abdominal pain; Translations: [Lower abdominal pain, unspecified] Onset: 02-06-2022 Episodic Calculus of urinary tract (1 source) Personal history of urinary calculi; Translations: [PERSONAL HISTORY OF URINARY CALCULI] Onset: 02-06-2022 Episodic Diabetes mellitus without complication (4 sources) Impaired fasting glucose; Translations: [IMPAIRED FASTING GLUCOSE] Onset: 08-13-2022 Episodic Genitourinary symptoms and ill-defined conditions (8 sources) Frequency of micturition; Translations: [Hematuria, unspecified] Onset: 02-18-2022 Episodic Other circulatory disease (1 source) Other specified symptoms and signs involving the circulatory and respiratory systems; Translations: [OTH SPEC SX SIGNS INVLV CIRC RS] Onset: 09-05-2022 Episodic Other lower respiratory disease (4 sources) Shortness of breath; Translations: [SHORTNESS OF BREATH] Onset: 08-28-2022 Episodic Spondylosis; intervertebral disc disorders; other back problems (4 sources) Dorsalgia, unspecified; Translations: [DORSALGIA UNSPECIFIED] Onset: 04-10-2022 Episodic Unclassified (1 source) LOW BACK PAIN, UNSPECIFIED; Translations: [LOW BACK PAIN, UNSPECIFIED] Onset: 12-01-2022 Results Test Name Value Interpretation Reference Range Facility NM STRESS/REST MULTIon 01-25 NM STRESS/REST MULTI Patient: MICHAEL SHAY I. Exam Date: 01/25/2023 : 1940 Gender:F Ordering : MRS. MELINDA PINA [employer]-C Admission #: [id number] Family : Order #: [id number] CLICK HERE TO VIEW EXAM RADIOLOGY REPORT PROCEDURE: RADIONUCLIDE IMAGING STRESS/REST MULTI COMPARISON: None. INDICATIONS: Chest pain, fatigue, weakness TECHNIQUE: Exam Description: Stress/Rest one day protocol gated SPECT Rest Imagin.9 mCi Tc-99m Cardiolite IV on 01/25/2023 Stress Imaging 30.0 mCi Tc-99m Cardiolite IV on 01/25/2023 Exercise Protocol: 0.4 mg Lexiscan given IV Heart Rate (bpm): Rest: 93 Max: 105 PMHR: 76 Blood Pressure: Rest: 164/88 Max: 164/88 Symptoms: Rest and peak stress ECG findings were normal and the exercise portion of the study was normal per attending physician Dr. Bearden . For more details please see separate cardiac stress test report. FINDINGS: QUALITY OF STUDY: Excellent. PERFUSION DEFECT: None. LOCATION: N/A SIZE: N/A. SEVERITY: N/A. TYPE: N/A. WALL MOTION: Normal. LV SIZE: Normal. 56 mL. TID / TCD: None; 1.0 LVEF: Normal. Calculated EF 75%. SUMMARY: Myocardial perfusion imaging study is NORMAL. CONCLUSION: 1. Normal nuclear medicine myocardial perfusion scan. Dictated by: Lul Solis M.D. on 01/26/2023 at 08:19 Approved by: Lul Solis M.D. on 01/26/2023 at 08:[address] [facility] [address] HEAD WO CONon 01-12-2023 CT HEAD WO CON EXAMINATION: CT HEAD WO CON HISTORY: Headache COMPARISON: None. TECHNIQUE: CT examination of the head without IV contrast. Dose reduction techniques were achieved by using automated exposure control and/or adjustment of mA and/or kV according to patient size and/or use of iterative reconstruction technique. FINDINGS: The ventricles and basilar cisterns are markedly dilated consistent with atrophy. Bitemporal atrophy noted. No acute intra-axial or extra axial hemorrhage. No midline shift, mass effect or edema. The visualized paranasal sinuses are clear. The mastoid air cells are clear. The external and middle ear cavities are unremarkable IMPRESSION: No acute hemorrhage Electronically authenticated by: LUIZA THOMPSON Date: 2023-01-12 12:53 Normal [facility] MRI LSPINE WO CONon 12-12-19 MRI LSPINE WO CON EXAMINATION: MRI LSPINE WO CON HISTORY: Closed fracture thoracic vertebra, wedge COMPARISON: No relevant comparison available. TECHNIQUE: A variety of imaging planes and parameters were utilized for visualization of suspected pathology. FINDINGS: For the purposes of numbering, sagittal T2 image # 7 extends from the T11 vertebral body superiorly to the S4 level inferiorly. PARASPINAL AREA: Normal with no visible mass. BONES: 10% anterior superior wedge compression fracture of T12. Mild to moderate degenerative spondylosis and facet osteoarthropathy. CORD/CAUDA EQUINA: Normal caliber, contour, and signal intensity. DISC LEVELS: 12-L1: No significant disc/facet abnormality, spinal stenosis, or foraminal stenosis. L1-L2: Moderate disc space narrowing and disc desiccation. No disc bulge or herniation. No central or foraminal stenosis L2-L3: Left foraminal disc protrusion extending 2 mm. Bilateral facet osteoarthropathy. No central or foraminal stenosis L3-L4: Disc desiccation. Minimal diffuse disc bulge with facet osteoarthropathy. Severe ligamentum flavum hypertrophy. Severe narrowing of the central canal axial image 22. No foraminal stenosis. L4-L5: Asymmetric disc space narrowing with left-sided collapse and associated endplate sclerosis. Posterior central disc herniation of the extrusion type extending posteriorly up to 4.2 mm with inferior migration measuring 3.2 mm best seen on sagittal image #7. This effaces adjacent nerves. Facet osteoarthropathy. No right foraminal stenosis. Mild narrowing of the left neural foramen, sagittal image 5 L5-S1: Disc space narrowing and desiccation. Posterior broad-based disc herniation the protrusion type extending up to 3 mm. Moderate bilateral facet osteoarthropathy. No central canal stenosis. Moderate narrowing of the right neural foramen, sagittal image 11. No left foraminal stenosis IMPRESSION: 10% anterior wedge compression fracture of T12, chronic Moderate to severe degenerative changes with disc herniations at L4-5 and L5-S1. With central and foraminal stenosis identified as detailed above Electronically authenticated by: NATHAN KIM Date: 2022-12-11 14:28 [facility] XR LSPINE 2_3 VIEWSon 2022 XR LSPINE 2_3 VIEWS EXAMINATION: XR LSPINE 2_3 VIEWS HISTORY: Low back pain COMPARISON: XR L-spine 06/23/2021 FINDINGS: BONES: T12 moderate compression fracture. Minimal grade 1 anterolisthesis of L3. Moderate degenerative facet arthropathy L3-L4 through L5-S1. DISC SPACES: Marked narrowing L4-L5. Moderate narrowing L5-S1. PARASPINOUS: Negative. No paraspinous abnormality is seen. OTHER: Negative. IMPRESSION: 1. Stable T12 moderate compression fracture. 2. Stable, minimal grade 1 anterior listhesis of L3. 3. Stable degenerative disc disease and facet arthropathy of lower lumbar spine, marked at L4-L5. Electronically authenticated by: LUL SOLIS Date: 2022-12-02 10:28 Normal [facility] ECHOCARDIO M/2D COMPLETEon 1 10-29-2021 ECHOCARDIO M/2D COMPLETE Patient: MICHAEL SHAY I. Exam Date: 08/28/2022 : 1940 Gender:F Ordering : MRS. MELINDA PINA [employer]-C Admission #: [id number] Family : Order #: [id number] CLICK HERE TO VIEW EXAM ECHOCARDIOGRAM REPORT PROCEDURE: CARDIO PULMONARY ECHOCARDIO M/2D COMP INDICATIONS: Shortness of breath, hypertension COMPARISON: None. DESCRIPTION: COMPLETE ECHOCARDIOGRAM Real-time transthoracic echocardiography with 2D, M-mode, spectral and color flow Doppler performed. QUALITY: Technical quality was good. 64 157# BP 146/72 LEFT VENTRICLE: Normal chamber size. Mild concentric left ventricular hypertrophy. LV EF: Normal left ventricular ejection fraction, (>55%). DIASTOLIC: Diastolic function is indeterminate. ATRIAL SEPTUM: Visually appears intact. LEFT ATRIUM: Normal chamber size. RIGHT ATRIUM: Normal chamber size. RIGHT VENTRICLE: Normal chamber size. Normal right ventricular systolic function. TRICUSPID VALVE: Normal mobility and thickness. No stenosis with mild regurgitation. Doppler studies reveal mildly (35-45) elevated right sided pressures. RVSP 45 mmHg MITRAL VALVE: Normal mobility and thickness. No evidence of mitral valve stenosis. There is no mitral annular calcification. Trivial mitral regurgitation. AORTIC VALVE: Normal trileaflet appearance. Normal leaflet mobility. No evidence of aortic valve stenosis. Multifocal calcifications. Trivial aortic regurgitation. AORTIC ROOT: Normal diameter and appearance. PULMONIC VALVE: Normal thickness and mobility. No stenosis. Trivial regurgitation. PERICARDIUM: Anterior free space; trivial effusion versus fat pad. IVC: Collapses with inspirations. IVC is normal in size. CONCLUSION: Global left ventricular systolic function is normal; visually estimated ejection fraction is 55 to 60%. No wall motion abnormalities. Diastolic function is indeterminate. Mild left ventricular hypertrophy. The right ventricle is normal in size and systolic function. Mild tricuspid regurgitation. Mildly elevated right-sided pressures. RVSP 45 mmHg. Anterior free space; trivial effusion versus fat pad. Adult Echocardiography Procedure Report Left Ventricle LVEDD (3.7 - 5.6 cm): 4.04 cm LVESD (2.2 - 4.0 cm): 2.87 cm LVIVS thickness (0.6 - 1.2 cm): 1.16 cm LVPW thickness (0.5 - 1.0 cm): 0.96 cm e': 0.06 m/s E - e': 8.39 LVOT Max Gradient: 2.34 mm[Hg], 2.34 mm[Hg] Peak Velocity (LVOT): 0.77 m/s, 0.77 m/s Mean Velocity (LVOT): 0.53 m/s, 0.53 m/s LVOT Diameter 2.31 cm Left Ventricular Ejection Fraction: 56.20 %, 56.20 % Left Atrium LA Volume Index (2D A2C): 41.69 ml, 41.69 ml Left Atrium Systolic Dimension: 3.83 cm Mitral Valve MV E to A Ratio: 0.55 Mitral Valve A-Wave Peak Velocity: 0.94 m/s Mitral Valve E-Wave Peak Velocity: 0.52 m/s Right Ventricle Aorta AO Root Diam: 3.25 cm Aortic Valve AoV Area (Peak Sampson): 2.72 cm2, 2.72 cm2 AoV Area (VTI): 2.45 cm2, 2.45 cm2 Peak Velocity(Antegrade Flow): 1.18 m/s Peak Gradient(Antegrade Flow): 5.58 mm[Hg] Mean Velocity(Antegrade Flow): 0.76 m/s Mean Gradient(Antegrade Flow): 2.73 mm[Hg] Velocity Time Integral: 25.55 cm Tricuspid Valve Peak Velocity (Regurgitant Flow): 3.25 m/s, 2.61 m/s Peak Velocity: 0.60 m/s Pulmonic Valve Peak Velocity: 1.34 m/s, 1.36 m/s Peak Gradient: 7.22 mm[Hg], 7.36 mm[Hg] Right Atrium Right Atrium Systolic Pressure: 21.03 ml, 21.03 ml Dictated by: Amy Villavicencio M.D. on 09/02/2022 at 10:25 Approved by: Amy Villavicencio M.D. on 09/02/2022 at 10:27 Normal [facility] US CAROTID ART BILon --2 022 US CAROTID ART MAGDALENO EXAMINATION: US CAROTID ART MAGDALENO HISTORY: Cardiovascular symptoms COMPARISON: No relevant comparison available. TECHNIQUE: Duplex Doppler ultrasound analysis of carotid and vertebral arteries. . Bilateral carotid arterial duplex examination was performed using B-mode, color flow and spectral analysis. Carotid stenosis is reported according to validated velocity parameters, similar to NASCET criteria. FINDINGS: RIGHT CAROTID ARTERY Subclavian: PSV: 115.9 cm/s cm/s EDV: 0.0 cm/s cm/s CCA: Prox: PSV: 90.4 cm/s cm/s EDV: 18.3 cm/s cm/s Mid: PSV: 67.2 cm/s cm/s EDV: 15.4 cm/s cm/s Distal: PSV: 77.5 cm/s cm/s EDV: 16.7 cm/s cm/s BULB: PSV: 50.5 cm/s cm/s EDV: 11.3 cm/s cm/s ICA: Prox: PSV: 87.9 cm/s cm/s EDV: 18.0 cm/s cm/s Mid: PSV: 69.8 cm/s cm/s EDV: 12.8 cm/s cm/s Distal: PSV: 67.2 cm/s cm/s EDV: 24.5 cm/s cm/s ECA: PSV: 73.6 cm/s cm/s EDV: 10.2 cm/s cm/s VERTEBRAL: PSV: 43.8 cm/s cm/s EDV: 10.2 cm/s cm/s ICA/CCA ratio: PSV: 1.1 EDV: 1.1 LEFT CAROTID ARTERY Subclavian: PSV: 176.3 cm/s cm/s EDV: 0.0 cm/s CCA: Prox: PSV: 82.2 cm/s cm/s EDV: 16.0 cm/s Mid: PSV: 79.0 cm/s cm/s EDV: 20.8 cm/s Distal: PSV: 91.9 cm/s cm/s EDV: 19.2 cm/s BULB: PSV: 60.7 cm/s cm/s EDV: 12.8 cm/s ICA: Prox: PSV: 84.6 cm/s cm/s EDV: 13.6 cm/s Mid: PSV: 67.2 cm/s cm/s EDV: 15.4 cm/s Distal: PSV: 104.3 cm/s cm/s EDV: 15.6 cm/s ECA: PSV: 78.8 cm/s cm/s EDV: 11.5 cm/s VERTEBRAL: PSV: 58.1 cm/s cm/s EDV: 14.1 cm/s ICA/CCA ratio: PSV: 1.1 EDV: 0.8 IMPRESSION: 0-49% flow stenosis bilateral internal carotid arteries Spectral Doppler US Thresholds (Reference: Ezio EG, et al. Radiology 2000; 214:247-252) Stenosis (%) PSV (cm/sec) VICA/VCCA 0-49 <150 <2.5 50-69 150-225 2.5-4.0 >70 >225 >4.0 Electronically authenticated by: NATHAN KIM Date: 2022-08-28 17:47 Normal [facility] GLYCOHEMOGLOBIN A1Con 2021 ADA RECOMMENDATION SEE BELOW Normal [facility] Comment on above: Result Comment: ADA RECOMMENDED LIMIT 4.0 - 6.0 ADA THERAPEUTIC TARGET < 7.0 ACTION SUGGESTED > 7.0 Performed By: #### A 1C ####[facility] [address] [address]DrDarlene Short Glucose [Mass/Vol] 114 mg/dL Normal [facility] Comment on above: Performed By: #### A 1C ####[facility] [id number] [phone] Short HbA1c (Bld) [Mass fraction] 5.6 % Normal 4.5-6.2 [facility] Comment on above: Performed By: #### A 1C ####[facility] [address] [id number] Short US KIDNEYS BLADDERon 022 US KIDNEYS BLADDER EXAMINATION: US KIDNEYS BLADDER HISTORY: Increased frequency of urination COMPARISON: No relevant comparison available. TECHNIQUE: Ultrasound examination was performed of the bladder. FINDINGS: Right Kidney: Normal in size, contour and cortical echotexture. The cortex measures 1.2 cm. No solid cortical mass, hydronephrosis or obstructing nephrolithiasis. Height: 5.3 cm Length: 8.3 cm Width: 4.6 cm Left Kidney: Normal in size, contour and cortical echotexture. The cortex measures 1.8 cm. No solid cortical mass, hydronephrosis or obstructing nephrolithiasis. Height: 5.3 cm Length: 9.4 cm Width: 5.3 cm Urinary bladder is minimally distended. Prevoid volume 25 mL. Post void volume 0. Ureteral jets: Visualized bilaterally IMPRESSION: No acute abnormality Electronically authenticated by: NATHAN KIM Date: 2022-08-13 13:[address] [facility] [address] ABD/PELVIS WO CONon 04-12 CT ABD/PELVIS WO CON EXAMINATION: CT ABD/PELVIS WO CON HISTORY: Pain in thoracic spine ; left flank and low back pain for one month COMPARISON: CT abdomen and pelvis 02/04/2022 TECHNIQUE: Axial, Coronal, and Sagittal images were created without IV contrast. Dose reduction techniques were achieved by using automated exposure control and/or adjustment of mA and/or kV according to patient size and/or use of iterative reconstruction technique. FINDINGS: LUNG BASES: Stable small granuloma within right posterior costophrenic angle. LIVER: No enlargement, atrophy, suspicious density, or significant focal lesion. BILIARY: Cholecystectomy. PANCREAS: No lesion, fluid collection, or abnormal duct dilatation. SPLEEN: No enlargement or focal lesion. ADRENALS: No mass or enlargement. KIDNEYS: No mass, obstruction, or calcification. BOWEL/MESENTERY: Numerous small diverticula involving the sigmoid colon without acute inflammatory changes. No visible mass, obstruction, or bowel wall thickening. AORTA/VASCULAR: No aneurysm or dissection. RETROPERITONEUM: No mass or adenopathy. LYMPH NODES: No adenopathy. URINARY BLADDER: No visible focal wall thickening, lesion, or calculus. PELVIC ORGANS: Hysterectomy. ABDOMINAL WALL: Several small wide neck, fat filled paraumbilical hernias just left of midline, adjacent some mesh from prior surgery or hernia repair. BONES: Stable T12 mild compression fracture. Multilevel moderate degenerative facet arthropathy. L4-L5 marked degenerative disc disease. Moderate degenerative disc disease L1-L2, L5-S1. OTHER: Negative. IMPRESSION: 1. Sigmoid diverticulosis without acute diverticulitis. 2. Small fat filled paraumbilical hernias without strangulation; not appreciably changed. 3. Stable T12 mild compression fracture in grossly stable multilevel degenerative disc disease and facet arthropathy. 4. No urinary tract calculi or acute findings to account for patient's symptoms. Electronically authenticated by: LUL SOLIS Date: 2022-04-12 08:47 Normal [facility] CULTURE URINEon 02-25-2022 CULTURE URINE Culture Observations : MODERATE GROWTH OF MIXED GENITAL RAYMOND. NO POTENTIAL PATHOGENS SEEN. Normal [facility] Comment on above: Performed By: #### U RCX ####[facility] [id number] [address]Dr. Lia Short CULTURE URINEon 02-13-2022 CULTURE URINE Culture Observations : MODERATE GROWTH OF MIXED GENITAL RAYMOND. NO POTENTIAL PATHOGENS SEEN. Normal [facility] Comment on above: Performed By: #### U RCX ####[facility] [address] [address]Dr. Lia Short XR KUB 1 VIEWon 02-13-2022 XR KUB 1 VIEW EXAMINATION: XR KUB 1 VIEW HISTORY: Abdominal pain , cuboid upper abdominal pain for 3 weeks, blood in urine COMPARISON: No relevant comparison available. FINDINGS: BOWEL GAS PATTERN: No abnormal dilation or deviation. CALCIFICATIONS: None significant. OTHER: Negative. No abnormal gaseous collections. IMPRESSION: 1. Normal bowel gas pattern. 2. No appreciable urinary tract calculi. Electronically authenticated by: LUL SOLIS Date: 2022-02-13 17:49 Normal [facility] Consultation Noteon 02-12-20 22 Consultation Note [id number]#1 .00CD:127 Normal [facility] RAD - CT Reporton 02-11-2022 RAD - CT Report [id number]# 1.00CD:127 Normal [facility] RAD - MISCon 02-11-2022 RAD - MISC [id number]# 1.00CD:127 Normal [facility] CT ABD/PELVIS WO CONon 02-04 CT ABD/PELVIS WO CON EXAMINATION: CT ABD/PELVIS WO CON HISTORY: Abdominal pain ; acute left flank pain, acute right groin pain, microhematuria COMPARISON: CT abdomen pelvis 07/07/2018 TECHNIQUE: Axial, Coronal, and Sagittal images were created without IV contrast. Dose reduction techniques were achieved by using automated exposure control and/or adjustment of mA and/or kV according to patient size and/or use of iterative reconstruction technique. FINDINGS: LUNG BASES: Stable small calcified granuloma within the right posterior costophrenic angle. LIVER: No enlargement, atrophy, abnormal density, or significant focal lesion. BILIARY: Cholecystectomy. PANCREAS: No lesion, fluid collection, ductal dilatation, or atrophy. SPLEEN: No enlargement or focal lesion. ADRENALS: No mass or enlargement. KIDNEYS: No mass, obstruction, or calcification. BOWEL/MESENTERY: Diverticulosis of sigmoid colon without acute inflammatory changes. No visible mass, obstruction, or bowel wall thickening. AORTA/VASCULAR: No aneurysm or dissection. RETROPERITONEUM: No mass or adenopathy. LYMPH NODES: No adenopathy. URINARY BLADDER: No visible focal wall thickening, lesion, or calculus. PELVIC ORGANS: Hysterectomy. ABDOMINAL WALL: Small wide neck fat filled hernia of anterior abdominal wall just left and superior to umbilicus, at the left margin of previously placed mesh for hernia repair. BONES: T12 mild compression fracture. L4-5 marked degenerative disc disease. OTHER: Negative. IMPRESSION: 1. Colonic diverticulosis without acute inflammatory changes. 2. Small anterior abdominal wall fat filled hernia on the left margin of previously repaired hernia. 3. T12 mild compression fractures suspected to be subacute and slightly progressed compared to 07/02/2021 MRI thoracic spine. Electronically authenticated by: LUL SOLIS Date: 2022-02-04 10:14 Normal [facility] Q - CULTURE,URINE,ROUTINEon 01-30-2022 CULTURE, URINE, ROUTINE SEE NOTE Abnormal [facility] Comment on above: Order Comment: [facility] Testing performed at: QPT, [facility], [address] [place] [address], [address] [place], [address], Tar Worker: Kiel Moulton MD [facility] Collection Date/Time: [id number] [facility] Results Received Date/Time: [id number] [facility] Reported Date/Time: [id number] Result Comment: CULT URE, URINE, ROUTINE Micro Number: [id number] Test Status: Final Specimen Source: Not given Specimen Quality: Adequate Result: 10,000-49,000 CFU/mL of Enterococcus faecalis COMMENT: Additional non-predominating organism(s) isolated. These organisms, commonly found on external and internal genitalia, are considered colonizers. No further testing performed. E.faecalis INT PAULETTE AMPICILLIN S <=2 CIPROFLOXACIN S 1 LEVOFLOXACIN S 1 LINEZOLID S 1 NITROFURANTOIN S <=16 TETRACYCLINE R >=16 VANCOMYCIN S 1 S=Susceptible I=Intermediate R=Resistant * = Not Tested NR = Not Reported NN = See Therapy Comments Performed By: #### [id number] #### [facility] [address] [place] [address] XR KUB 1 VIEWon 01-30-2022 XR KUB 1 VIEW EXAM: XR KUB 1 VIEW Clinical Indication: Abdominal pain Comparison: None FINDINGS: The supine and upright views of the abdomen shows a non-obstructive bowel gas pattern. There is no abnormal dilatation of bowel loops. No significant air fluid levels. There is no pneumoperitoneum. There are no radiopaque densities noted. There are no clinically significant osseous abnormalities noted. IMPRESSION: Unremarkable abdominal series SL: [id number] Electronically authenticated by: EDWIN SCOTT Date: 2022-01-30 16:28 Normal [facility] Encounters Encounter Date Encounter Type Care Provider Facility Start: 10-26-2023 End: 10-26-2023 ambulatory MELINDA PINA Not Available Start: 10-22-2023 End: 10-22-2023 ambulatory CLARE QUINTANILLA Not Available Start: 09-13-2023 End: 09-13-2023 ambulatory NICHOLAS LOPEZ Not Available Start: 08-13-2023 End: 08-13-2023 ambulatory CLARE QUINTANILLA Not Available Start: 07-30-2023 End: 07-30-2023 ambulatory Kaley Umaña Facility:[facility] Start: 07-30-2023 End: 07-30-2023 ambulatory II Nicholas Lopez Work Phone: [facility] Work Phone: Start: 07-30-2023 End: 07-30-2023 Patient encounter procedure II Nicholas Lopez Work Phone: [facility] Start: 01-25-2023 End: 01-26-[address] DOCTOR GONSALEZ Facility:[facility] Start: 01-12-2023 End: 01-13-[address] DOCTOR GONSALEZ Facility:[facility] Start: 12-11-2022 End: 12-12-2022 ambulatory [facility] Facility:[facility] Start: 12-01-2022 End: 12-02-[address] LUL SOLIS Facility:[facility] Start: 08-28-2022 End: 08-29-[address] DOCTOR GONSALEZ Facility:[facility] Start: 08-13-2022 End: 08-14-[address] DOCTOR GONSALEZ Facility:[facility] Start: 04-10-2022 End: 04-11-[address] DOCTOR GONSALEZ Facility:[facility] Start: 02-25-2022 End: 02-26-[address] DOCTOR GONSALEZ Facility:[facility] Start: 02-13-2022 End: 02-14-[address] KALEY UMAÑA Facility:[facility] Start: 02-04-2022 End: 02-05-[address] KALEY UMAÑA Facility:[facility] Start: 01-30-2022 End: 01-31-2022 ambulatory EDWIN SCOTT Facility:[facility] Payers Date Payer Category Payer Self-pay 2023 Unknown [id number] 1959 Medicare [id number] 1959 Unknown [id number] 1940 Unknown [id number] 0.1.825543.3.579.2.593 1940 Unknown [id number] ..[id number] 0.1.224037.3.579.2.593 1940 Unknown [id number] ..[id number] 0.1.588498.3.579.2.593 1940 Unknown [id number] ..[id number] 0.1.390564.3.579.2.593 1940 Unknown [id number] ..[id number] 0.1.019517.3.579.2.593 1940 Unknown [id number] 2.16.84 0.1.609262.3.579.2.593 1940 Unknown [id number] 2.16.84 0.1.859126.3.579.2.593 1940 Unknown [id number] 2.16.84 0.1.763434.3.579.2.593 1940 Unknown [id number] 2.16.84 0.1.877585.3.579.2.593 1940 Unknown [id number] 2.16.84 0.1.537066.3.579.2.593 1940 Unknown [id number] 2.16.84 0.1.237975.3.579.2.593 1940 Unknown [id number] 2.16.84 0.1.553536.3.579.2.593 1940 Unknown [id number] 2.16.84 0.1.804943.3.579.2.1259 1940 Unknown [id number] 2.16.84 0.1.185418.3.579.2.1259 1940 Unknown [id number] 2.16.840 .1.742008.3.579.2.1259 1940 Unknown [id number] 2.16.840 .1.042007.3.579.2.1259 Medicare Medicare [id number] Unknown [id number] 2.16.8 40.1.231448.3.579.2.531 Social History Date Type Detail Facility [facility] Work Phone: Start: 1940 Sex Assigned At Female F [facility] Evaluation note Note Date & Type Note Facility Evaluation note No assessment information availa ble [facility] Work Phone: Summary Purpose Family History No Family History Records FoundNo Family History Records FoundNo Family History Records FoundNo Family History Records FoundNo Family History Records Found Advance Directives No Advanced Directives Records Found Advance Directive Response Recorded Date/ Time Advance Directives No July 27, 2023 1:39pm Chief Complaint and Reason for Visit Chief Complaint cog impairment Additional Source Comments INFORMATION SOURCE (unrecogn ized section and content) DATE CREATED AUTHOR 02/03/2022 [facility] dical Specialist DATE CREATED AUTHOR AUTHOR'S ORGANIZ ATION 02/14/2022 [facility] DATE CREATED AUTHOR AUTHOR'S ORGANIZ ATION 01/29/2023 [facility] DATE CREATED AUTHOR AUTHOR'S ORGANIZ ATION 09/17/2023 [facility] DATE CREATED AUTHOR AUTHOR'S ORGANIZ ATION 10/27/2023 [facility] dical Specialists EPIC Care Teams (unrecognized sec tion and content) Team Status: Active Member Role Status Dates Nicholas Lopez II MD Primary Care Provider Active Team Status: Inactive Member Role Status Dates Kaley Umaña PA-C Attending Provider Active Nicholas Lopez II MD Primary Care Provider Active Goals (unrecognized section and content) Goals may be documented in a n alternate section FOR RECORDS PERTAINING TO PATIENTS WHO ARE OR HAVE BEEN ENROLLED IN A CHEMICAL DEPENDENCY/SUBSTANCEABUSE PROGRAM, SOME INFORMATION MAY BE OMITTED. This clinical summary was aggregated from multiple sources. Caution should be exercised in using it in the provision of clinical care. This summary normalizes information from multiple sources, and as a consequence, information in this document may materially change the coding, format and clinical context of patient data. In addition, data may be omitted in some cases. CLINICAL DECISIONS SHOULD BE BASED ON THE PRIMARY CLINICAL RECORDS. [employer] [facility]. provides no warranty or guarantee of the accuracy or completeness of information in this document.
== END 2023-11-04 14:20 | disposition home or self-care (01) ==
LOC: CT 14:19
PROVIDERS: PCP Nurse Practitioner Family; Visit Provider Nurse Practitioner Family
DX: R31.9 Hematuria, unspecified (principal); N20.0 Calculus of kidney; K57.90 Diverticulosis of intestine, part unspecified, without perforation or abscess without bleeding
CPT/HCPCS: 74176

== ENCOUNTER 2023-11-30 12:43 | Outpatient (OUT) | payer MEDICARE, OTHER, SELFPAY ==
--- NOTE | 2023-11-30 12:49 | XR_ITS ---
The [address] [address] Patient Name: MICHAEL SHAY MRN: [id number] date: 1940 Sex: F Assigned Patient Location: [facility] Current Patient Location: [facility] Accession/Order Number: [id number] Exam Date: 11/30/2023 12:58 Report Date: 11/30/2023 13:28 At the request of: MELINDA PINA Procedure: XR chest 2V EXAM: XR chest 2V HISTORY: Chest Pain R07.89 COMPARISON: None. TECHNIQUE: PA and lateral views of the chest. FINDINGS: The cardiomediastinal silhouette is normal. No focal consolidation is identified. There is no pneumothorax. No pleural effusion is noted. The osseous structures are intact. XR/XR chest 2V IMPRESSION: No acute cardiopulmonary process. Suggestion of COPD. Electronically authenticated by: DHRUV SCHWAB Date: 11/30/2023 13:28
--- OUTSIDE RECORDS SUMMARY | 2023-11-30 13:06 | XMS_ITS | CCD ---
Author Name Unknown Address [address] [place] [address] Organization [facility] Care Team Providers Care Manager Erp Name Role Phone HEMMER, DR KALEY Natarajan [...] MELINDA Attending Unavailable YOVANI, MELINDA Admitting Unavailable YVOANI, MELINDA Consulting Unavailable SUNSHINE, DR CERNA Primary Care Unavailable YOVANI, MELINDA Attending Unavailable JABIER, DR LUL Kingsley Consulting Unavailable YOVANI, MELINDA Admitting Unavailable YOVANI, MELINDA Consulting Unavailable MISC, DR CERNA Primary Care Unavailable ANGEL, KADEN Admitting Unavailable ANGEL, KADEN Attending Unavailable ANGEL, KADEN Consulting Unavailable [place] Umaña Attending Provider SHELBI Lopez Primary Care Provider [phone] Kaley Umaña Attending Unavailable Kaley Umaña Admitting Unavailable Nicholas Lopez Primary Care Unavailable CLARE QUINTANILLA Attending Unavailable MELINDA PINA M Attending Unavailable CLARE QUINTANILLA Attending Unavailable KALEY UMAÑA Referring Unavailable NICHOLAS LOPEZ Attending Unavailable Allergies Allergy Classification Reported Allergen(s) Allergy Type Date of Onset Reaction(s) Facility (1 source) Penicillins Drug allergy (disorder) 03-17-2015 [facility] Repository (1 source) Tamoxifen Drug Allergy 04-10-2015 [facility] Repository (1 source) Flu Vaccine [id number] (3 yr +) Drug allergy (disorder) 04-10-2015 [facility] Repository Problems Active Problems Problem [...] 1940 Gender:F Ordering : MRS. MELINDA PINA REPAIRER SCREEN CRUSHER-C Admission #: [id number] Family : Order #: [id number] CLICK HERE TO VIEW EXAM RADIOLOGY REPORT [...] Solis M.D. on 01/26/2023 at 08:34 [address] [facility] [address] HEAD WO CONon 01-12-2023 CT [...] by: LUIZA THOMPSON Date: 2023-01-12 12:53 Normal [facility] MRI LSPINE WO CONon 12-12-19 MRI [...] by: NATHAN KIM Date: 2022-12-11 14:28 Normal [facility] XR LSPINE 2_3 VIEWSon 2022 XR [...] by: LUL SOLIS Date: 2022-12-02 10:28 Normal [facility] ECHOCARDIO M/2D COMPLETEon 1 10-29-2021 ECHOCARDIO M/2D COMPLETE Patient: MICHAEL SHAY I. Exam Date: 08/28/2022 : 1940 Gender:F Ordering : MRS. MELINDA PINA REPAIRER SCREEN CRUSHER-C Admission #: [id number] Family : Order #: [id number] CLICK HERE TO VIEW EXAM ECHOCARDIOGRAM REPORT [...] Villavicencio M.D. on 09/02/2022 at 10:27 Normal [facility] US CAROTID ART BILon --2 022 [...] by: NATHAN KIM Date: 2022-08-28 17:47 Normal [facility] GLYCOHEMOGLOBIN A1Con 2021 ADA RECOMMENDATION SEE BELOW Normal [facility] Comment on above: Result Comment: ADA RECOMMENDED LIMIT 4.0 - 6.0 ADA THERAPEUTIC TARGET < 7.0 ACTION SUGGESTED > 7.0 Performed By: #### A 1C ####[facility] [address] [place] [address]DrDarlene Short Glucose [Mass/Vol] 114 mg/dL Normal [facility] Comment on above: Performed By: #### A 1C ####[facility] [address] [place] [id number] Short HbA1c (Bld) [Mass fraction] 5.6 % Normal 4.5-6.2 [facility] Comment on above: Performed By: #### A 1C ####[facility] [address] [place] [id number] Short US KIDNEYS BLADDERon 022 US KIDNEYS [...] by: NATHAN KIM Date: 2022-08-13 13:[address] [facility] [address] ABD/PELVIS WO CONon 04-12 CT [...] for patient's symptoms. Electronically authenticated by: LUL OSLIS Date: 2022-04-12 08:47 Normal [facility] CULTURE URINEon 02-25-2022 CULTURE URINE Culture Observations : MODERATE GROWTH OF MIXED GENITAL RAYMOND. NO POTENTIAL PATHOGENS SEEN. Normal [facility] Comment on above: Performed By: #### U RCX ####[facility] [address] [place] [address]Dr. Lia Short CULTURE URINEon 02-13-2022 CULTURE URINE Culture Observations : MODERATE GROWTH OF MIXED GENITAL RAYMOND. NO POTENTIAL PATHOGENS SEEN. Normal [facility] Comment on above: Performed By: #### U RCX ####[facility] [address] [place] [address]Dr. Lia Short XR KUB 1 VIEWon 02-13-2022 [...] by: LUL SOLIS Date: 2022-02-13 17:49 Normal [facility] Consultation Noteon 02-12-20 22 Consultation Note [id number]#1 .00CD:[address] [facility] RAD - CT Reporton 02-11-2022 RAD - CT Report [id number]# 1.00CD:[address] [facility] RAD - MISCon 02-11-2022 RAD - MISC [id number]# 1.00CD:[address] [facility] CT ABD/PELVIS WO CONon 02-04 CT ABD/PELVIS [...] by: LUL SOLIS Date: 2022-02-04 10:14 Normal [facility] Q - CULTURE,URINE,ROUTINEon 01-30-2022 CULTURE, URINE, ROUTINE SEE NOTE Abnormal [facility] Psychology Physician Comment on above: Order Comment: [facility] Testing performed at: QPT, [facility], [address] [place] [address], [address] [place], [address], Mill Work: Kiel Moutlon MD [facility] Collection Date/Time: [id number] [facility] Results Received Date/Time: [id number] [facility] Reported Date/Time: [id number] Result Comment: CULT URE, URINE, ROUTINE Micro Number: [id number] Test Status: Final Specimen Source: Not given Specimen Quality: Adequate Result: 10,000-49,000 CFU/mL of Enterococcus faecalis COMMENT: Additional non-predominating organism(s) isolated. These organisms, commonly found on external and internal genitalia, are considered colonizers. No further testing performed. E.faecalis INT PUALETTE AMPICILLIN S <=2 CIPROFLOXACIN S 1 LEVOFLOXACIN S 1 LINEZOLID S 1 NITROFURANTOIN S <=16 TETRACYCLINE R >=16 VANCOMYCIN S 1 S=Susceptible I=Intermediate R=Resistant * = Not Tested NR = Not Reported NN = See Therapy Comments Performed By: #### 6 304R #### [facility] [address] [place] [address] XR KUB 1 VIEWon 01-30-2022 XR KUB [...] by: EDWIN SCOTT Date: 2022-01-30 16:28 Normal [facility] Encounters Encounter Date Encounter Type Care Provider Facility Start: 10-26-2023 End: 10-26-2023 ambulatory MELINDA PINA Not Available Start: 10-22-2023 End: 10-22-2023 ambulatory CLARE QUINTANILLA Not Available Start: 09-13-2023 End: 09-13-2023 ambulatory NICHOLAS LOPEZ Not Available Start: 08-13-2023 End: 08-13-2023 ambulatory CLARE QUINTANILLA Not Available Start: 07-30-2023 End: 07-30-2023 ambulatory Kaley Umaña Facility:[facility] Start: 07-30-2023 End: 07-30-2023 ambulatory II Nicholas Lopez Work Phone: [facility] Work Phone: Start: 07-30-2023 End: 07-30-2023 Patient encounter procedure II Nicholas Lopez Work Phone: [facility] [employer] [address] Start: 01-25-2023 End: 01-26-2023 ambulatory [...] Date Payer Category Payer Self-pay 2023 Unknown [id number] 1959 Medicare [id number] 1959 Unknown [id number] 1940 Unknown [id number] 0.1.145809.3.579.2.593 1940 Unknown [id number] ..[id number] 0.1.949312.3.579.2.593 1940 Unknown [id number] ..[id number] 0.1.862762.3.579.2.593 1940 Unknown [id number] ..[id number] 0.1.294611.3.579.2.593 1940 Unknown [id number] ..[id number] 0.1.373895.3.579.2.593 1940 Unknown [id number] 2.16.84 0.1.556986.3.579.2.593 1940 Unknown [id number] 2.16.84 0.1.544026.3.579.2.593 1940 Unknown [id number] 2.16.84 0.1.164861.3.579.2.593 1940 Unknown [id number] 2.16.84 0.1.729992.3.579.2.593 1940 Unknown [id number] 2.16.84 0.1.692321.3.579.2.593 1940 Unknown [id number] 2.16.84 0.1.830283.3.579.2.593 1940 Unknown [id number] 2.16.84 0.1.533881.3.579.2.593 1940 Unknown [id number] 2.16.84 0.1.848683.3.579.2.1259 1940 Unknown [id number] 2.16.84 0.1.396902.3.579.2.1259 1940 Unknown [id number] 2.16.840 .1.035529.3.579.2.1259 1940 Unknown [id number] 2.16.840 .1.700323.3.579.2.1259 Medicare Medicare [id number] Unknown [id number] 2.16.8 40.1.811370.3.579.2.531 Social History Date Type Detail Facility [facility] Work Phone: Start: 1940 Sex Assigned At Female F [facility] Evaluation note Note Date & Type Note Facility Evaluation note No assessment information availa ble [facility] Work Phone: Summary Purpose Family History [...] section and content) DATE CREATED AUTHOR 02/03/2022 [facility] dical Specialist DATE CREATED AUTHOR AUTHOR'S ORGANIZ ATION 02/14/2022 [facility] DATE CREATED AUTHOR AUTHOR'S ORGANIZ ATION 01/29/2023 [facility] DATE CREATED AUTHOR AUTHOR'S ORGANIZ ATION 09/17/[address] [facility] DATE CREATED AUTHOR AUTHOR'S ORGANIZ ATION 10/27/2023 [facility] dical Specialists EPIC Care Teams (unrecognized sec [...] BE BASED ON THE PRIMARY CLINICAL RECORDS. [employer] [facility]. provides no warranty or guarantee of the accuracy or completeness of information in this document.
== END 2023-11-30 12:44 | disposition home or self-care (01) ==
LOC: RAD 12:45
PROVIDERS: PCP Nurse Practitioner Family; Visit Provider Nurse Practitioner Family
DX: R07.89 Other chest pain (principal); Z91.81 History of falling
CPT/HCPCS: 71046

== ENCOUNTER 2024-01-12 11:04 | Outpatient (OUT) | payer MEDICARE, OTHER, SELFPAY ==
--- NOTE | 2024-01-12 11:14 | XR_ITS ---
The [address] [address] Patient Name: MICHAEL SHAY MRN: [id number] date: 1940 Sex: F Assigned Patient Location: [facility] Current Patient Location: [facility] Accession/Order Number: [id number] Exam Date: 01/12/2024 11:40 Report Date: 01/12/2024 13:40 At the request of: MELINDA PINA Procedure: XR lumbar spine 6V w bending EXAMINATION: XR lumbar spine 6V w bending HISTORY: acute left-sided low back pain without sciatica M54.50 COMPARISON: 10/22/2023 FINDINGS: BONES: Stable alignment with no acute fracture or spondylolisthesis. Stable wedge compression fracture of T12. Mild to moderate degenerative spondylosis. 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 No paraspinous abnormality is seen. OTHER: Vascular calcifications. No transient spondylolisthesis with flexion or extension XR/XR lumbar spine 6V w bending IMPRESSION: Stable degenerative changes with no dynamic instability Electronically authenticated by: NATHAN KIM Date: 01/12/2024 13:40
--- OUTSIDE RECORDS SUMMARY | 2024-01-12 11:24 | XMS_ITS | CCD ---
Author Organization [facility] Care Team Providers Care Inventory And Pricing Associate Name Role Phone HEMMER, DR KALEY Natarajan Attending Unavailable MISC, DR CERNA Primary Care Unavailable HEMMER, DR KALEY Natarajan Admitting Unavailable ZIEBER, DR LUL Kingsley Consulting Unavailable HEMMER, DR KALEY Natarajan Consulting Unavailable LICONA, DYLON Admitting Unavailable MISC, DR CERNA Primary Care Unavailable LIVAN, DYLON Attending Unavailable LICONA, DYLON Consulting Unavailable [...] Unavailable MISC, DR CERNA Primary Care Unavailable WEST, DR NATHAN Torres Consulting Unavailable YOVANI, MELINDA [...] Attending Provider SHELBI Lopez Primary Care Provider [phone] Kaley Umaña Attending Unavailable Emmie, Kaley Admitting Unavailable Nicholas Lopez Primary Care Unavailable CLARE QUINTANILLA Attending Unavailable YOVANI, MELINDA M Attending Unavailable QUINTANILLACLARE Attending Unavailable HEMMER, KALEY M Referring Unavailable YOVANI, MELINDA M Attending Unavailable EDGARD CALDERON Attending Unavailable YOVANI, MELINDA M Referring Unavailable ARCHIE, DORA Attending Unavailable YOVANI, MELINDA M Referring Unavailable ODILON GRIFFITHS Attending Unavailable YOVANI, MELINDA M Referring Unavailable ARCHIE, DORA Attending Unavailable YOVANI, MELINDA M Referring Unavailable ARCHIE, DORA Attending Unavailable YOVANI, MELINDA M Referring Unavailable ARCHIE, DORA Attending Unavailable YOVANI, MELINDA M Referring Unavailable ARCHIE, DORA Attending Unavailable YOVANI, MELINDA M Referring Unavailable ARCHIE, DORA Attending Unavailable YOVANI, MELINDA M Referring Unavailable EDGARD CALDERON Attending Unavailable YOVANI, MELINDA M Referring Unavailable ARCHIE, DORA Attending Unavailable YOVANI, MELINDA M Referring Unavailable YOVANI, MELINDA M Attending Unavailable NICHOLAS LOPEZ Attending Unavailable Allergies Allergy Classification Reported Allergen(s) Allergy Type Date of Onset Reaction(s) Facility (1 source) Penicillins Drug allergy (disorder) 03-17-2015 [facility] Repository (1 source) Tamoxifen Drug Allergy 04-10-2015 [facility] Repository (1 source) Flu Vaccine 6813-3272 (3 yr +) Drug allergy (disorder) 04-10-2015 [facility] Repository Problems Active Problems Problem Classification [...] 1940 Gender:F Ordering : MRS. MEL[place]DA [place] CORON[place]-C Admission #: [id number] Family : Order #: [id number] CLICK HERE TO VIEW EXAM RADIOLOGY REPORT [...] Solis M.D. on 01/26/2023 at 08:[address] [facility] [address] HEAD WO CONon 01-12-2023 CT [...] by: LUIZA THOMPSON Date: 2023-01-12 12:53 Normal [facility] MRI LSWREN WO CONon 12-12-19 23 MRI [facility] WO CON EXAMINATION: MRI [facility] WO CON HISTORY: Closed fracture thoracic vertebra, [...] by: NATHAN KIM Date: 2022-12-11 14:28 Normal [facility] XR LSPINE 2_3 VIEWSon 2022 XR [...] by: LUL SOLIS Date: 2022-12-02 10:28 Normal [facility] ECHOCARDIO M/2D COMPLETEon 1 10-29-2021 ECHOCARDIO M/2D COMPLETE Patient: MICHAEL SHAY I. Exam Date: 08/28/2022 : 1940 Gender:F Ordering : MRS. MEL[place]DA [place] CORON[place]-C Admission #: [id number] Family : Order #: [id number] CLICK HERE TO VIEW EXAM ECHOCARDIOGRAM REPORT [...] Villavicencio M.D. on 09/02/2022 at 10:27 Normal [facility] US CAROTID ART BILon 022 US CAROTID ART MAGDALENO EXAMINATION: US [...] by: NATHAN KIM Date: 2022-08-28 17:47 Normal [facility] GLYCOHEMOGLOBIN A1Con 2021 ADA RECOMMENDATION SEE BELOW Normal [facility] Comment on above: Result Comment: ADA RECOMMENDED LIMIT 4.0 - 6.0 ADA THERAPEUTIC TARGET < 7.0 ACTION SUGGESTED > 7.0 Performed By: #### A 1C ####[facility] [address] [place] [address]Dr. Lia Short Glucose [Mass/Vol] 114 mg/dL Normal [facility] Comment on above: Performed By: #### A 1C ####[facility] [address] [place] [address]DrDarlene Short HbA1c (Bld) [Mass fraction] 5.6 % Normal 4.5-6.2 [facility] Comment on above: Performed By: #### A 1C ####[facility] [address] [place], [place] [address]Rn. Lia Short US KIDNEYS BLADDERon 022 US KIDNEYS [...] by: NATHAN KIM Date: 2022-08-13 13:[address] [facility] [address] ABD/PELVIS WO CONon 04-12 CT [...] by: LUL SOLIS Date: 2022-04-12 08:47 Normal [facility] CULTURE URINEon 02-25-2022 CULTURE URINE Culture Observations : MODERATE GROWTH OF MIXED GENITAL RAYMOND. NO POTENTIAL PATHOGENS SEEN. Normal [facility] Comment on above: Performed By: #### U RCX ####[facility] [address] [place] [id number]. Lia Short CULTURE URINEon 02-13-2022 CULTURE URINE Culture Observations : MODERATE GROWTH OF MIXED GENITAL RAYMOND. NO POTENTIAL PATHOGENS SEEN. Normal [facility] Comment on above: Performed By: #### U RCX ####[facility] [address] [place] [id number]. Lia Short XR KUB 1 VIEWon 02-13-2022 [...] by: LUL SOLIS Date: 2022-02-13 17:49 Normal [facility] Consultation Noteon 02-12-20 22 Consultation Note [id number]#1 .00CD:127 Normal [facility] RAD - CT Reporton 02-11-2022 RAD - CT Report [id number]# 1.00CD:127 Normal [facility] RAD - MISCon 02-11-2022 RAD - MISC [id number]# 1.00CD:127 Normal [facility] CT ABD/PELVIS WO CONon 02-04 [...] by: LUL SOLIS Date: 2022-02-04 10:14 Normal [facility] Q - CULTURE,URINE,ROUTINEon 01-30-2022 CULTURE, URINE, ROUTINE SEE NOTE Abnormal [facility] [employer] Comment on above: Order Comment: [facility] performed at: [employer], [facility], [address], [address] [place], [address], Acrobatic Rigger: Kiel Moulton MD [facility] Collection Date/Time: [id number] [facility] Results Received Date/Time: [facility] Reported Date/Time: [id number] Result Comment: CULT URE, URINE, ROUTINE Micro Number: [id number] Test Status: Final Specimen Source: Not given [...] 6 304R #### [facility] [address] [place] [address] XR KUB 1 VIEWon 01-30-2022 XR KUB [...] by: EDWIN SCOTT Date: 2022-01-30 16:28 Normal [facility] Encounters Encounter Date Encounter Type Care Provider Facility Start: 01-05-2024 End: 01-05-2024 ambulatory MELINDA PINA Not Available Start: 12-31-2023 End: 12-31-2023 ambulatory DORA ALMANZA Not Available Start: 12-28-2023 End: 12-28-2023 ambulatory EDGARD CALDERON Not Available Start: 12-24-2023 End: 12-24-2023 ambulatory DORA ALMANZA Not Available Start: 12-21-2023 End: 12-21-2023 ambulatory DORA ALMANZA Not Available Start: 12-17-2023 End: 12-17-2023 ambulatory DORA ALMANZA Not Available Start: 12-14-2023 End: 12-14-2023 ambulatory DORA ALMANZA Not Available Start: 12-10-2023 End: 12-10-2023 ambulatory DORA ALMANZA Not Available Start: 12-07-2023 End: 12-07-2023 ambulatory ODILON GRIFFITHS Not Available Start: 12-03-2023 End: 12-03-2023 ambulatory DORA ALMANZA Not Available Start: 12-01-2023 End: 12-01-2023 ambulatory EDGARD CALDERON Not Available Start: 11-30-2023 End: 11-30-2023 ambulatory MELINDA PINA Not Available Start: 10-26-2023 End: 10-26-2023 ambulatory MELINDA Natarajan YOVANI Not Available Start: 10-22-2023 End: 10-22-2023 ambulatory CLARE W QUINTANILLA Not Available Start: 09-13-2023 End: 09-13-2023 ambulatory NICHOLAS LOPEZ Not Available Start: 08-13-2023 End: 08-13-2023 ambulatory CLARE QUINTANILLA Not Available Start: 07-30-2023 End: 07-30-2023 ambulatory Kaley Umaña Facility:[facility] Start: 07-30-2023 End: 07-30-2023 ambulatory II Nicholas Lopez Work Phone: [facility] Work Phone: Start: 07-30-2023 End: 07-30-2023 Patient encounter procedure II Nicholas Lopez Work Phone: [facility]-Card Processing Clerk [address] Start: 01-25-2023 End: 01-26-[address] DOCTOR GONSALEZ Facility:[facility] Start: 01-12-2023 End: 01-13-[address] DOCTOR GONSALEZ Facility:[facility] Start: 12-11-2022 End: 12-12-2022 ambulatory CHRIST Herrmann KGASHLEY Facility:[facility] Start: 12-01-2022 End: 12-02-[address] [...] Date Payer Category Payer Self-pay 2023 Unknown [id number] 1959 Medicare [id number] 1959 Unknown [id number] 1940 Unknown [id number] .16.84 0.1.903982.3.579.2.593 1940 Unknown [id number] ..[id number] 0.1.687724.3.579.2.593 1940 Unknown [id number] 2..84 0.1.570100.3.579.2.593 1940 Unknown [id number] .16.84 0.1.557392.3.579.2.593 1940 Unknown [id number] 2.16.84 0.1.967347.3.579.2.593 1940 Unknown [id number] 2.16.84 0.1.426720.3.579.2.593 1940 Unknown [id number] 2.16.84 0.1.498909.3.579.2.593 1940 Unknown [id number] 2.16.84 0.1.653729.3.579.2.593 1940 Unknown [id number] 2.16.84 0.1.007461.3.579.2.593 1940 Unknown [id number] 2.16.84 0.1.619998.3.579.2.593 1940 Unknown [id number] 2.16.84 0.1.745343.3.579.2.593 1940 Unknown [id number] 2.16.84 0.1.313039.3.579.2.593 1940 Unknown [id number] 2.16.84 0.1.288036.3.579.2.1259 1940 Unknown [id number] 2.16.84 0.1.739563.3.579.2.1259 1940 Unknown [id number] 2.16.84 0.1.529185.3.579.2.1259 1940 Unknown [id number] 2.16.84 0.1.702273.3.579.2.1259 1940 Unknown [id number] 2.16.84 0.1.266694.3.579.2.1259 1940 Unknown [id number] 2.16.84 0.1.908399.3.579.2.1259 1940 Unknown [id number] 2.16.84 0.1.329468.3.579.2.1259 1940 Unknown [id number] 2.16.84 0.1.110750.3.579.2.1259 1940 Unknown [id number] 2.16.84 0.1.257667.3.579.2.1259 1940 Unknown [id number] 2.16.84 0.1.308984.3.579.2.1259 1940 Unknown [id number] 2.16.84 0.1.358912.3.579.2.1259 1940 Unknown [id number] 2.16.84 0.1.661298.3.579.2.1259 1940 Unknown [id number] 2.16.84 0.1.456014.3.579.2.1259 1940 Unknown [id number] 2.16.84 0.1.866198.3.579.2.1259 1940 Unknown [id number] 2.16.840 .1.114978.3.579.2.1259 1940 Unknown [id number] 2.16.840 .1.983475.3.579.2.1259 Medicare Medicare [id number] 81f [id number] Unknown [id number] 2.16.8 40.1.027837.3.579.2.531 Social History Date Type Detail Facility Tobacco smoking stat [facility] Unknown if ever smoked [facility] Work Phone: Start: 1940 Sex Assigned At Female F [facility] Evaluation note Note Date & Type Note Facility Evaluation note No assessment information availa ble [facility] Work Phone: Summary Purpose Family History [...] section and content) DATE CREATED AUTHOR 02/03/2022 [facility] dical Specialist DATE CREATED AUTHOR AUTHOR'S ORGANIZ ATION 02/14/2022 [facility] DATE CREATED AUTHOR AUTHOR'S ORGANIZ ATION 01/29/2023 [facility] DATE CREATED AUTHOR AUTHOR'S ORGANIZ ATION 09/17/2023 [facility] DATE CREATED AUTHOR AUTHOR'S ORGANIZ ATION 01/06/2024 [facility] dical Specialists EPIC Care Teams (unrecognized [...] BE BASED ON THE PRIMARY CLINICAL RECORDS. [employer] provides no warranty or guarantee of the accuracy or completeness of information in this document.
== END 2024-01-12 11:05 | disposition home or self-care (01) ==
LOC: RAD 11:08
PROVIDERS: PCP Nurse Practitioner Family; Visit Provider Nurse Practitioner Family
DX: M54.50 Low back pain, unspecified (principal)
CPT/HCPCS: 72114

== ENCOUNTER 2024-01-27 06:05 | Outpatient (OUT) | payer MEDICARE, OTHER, SELFPAY ==
--- NOTE | 2024-01-27 06:05 | NM_ITS ---
The [address] [address] Patient Name: MICHAEL SHAY MRN: [id number] date: 1940 Sex: F Assigned Patient Location: [place] Current Patient Location: [place] Accession/Order Number: [id number] Exam Date: 01/27/2024 06:15 Report Date: 01/27/2024 12:20 At the request of: CHRIST Herrmann APLING Procedure: LA bone 3 phase EXAMINATION: LA bone 3 phase HISTORY: ACUTE LOW BACK PAIN COMPARISON: 01/12/2024 TECHNIQUE: 24.9 mCi Technetium 99m MDP was injected intravenously followed by acquisition of dynamic flow, immediate blood pool, and delayed static images. FINDINGS: IMAGED AREA: Abdomen and pelvis FLOW PHASE: Normal. BLOOD POOL PHASE: Normal. DELAYED IMAGES: Increased activity is identified along the left 11th and 12th costovertebral joints and along the posterior left 10th 11 and 12 ribs OTHER: Negative. LA/LA bone 3 phase IMPRESSION: Increased activity on delayed images in the 10th 11th and 12th left ribs consistent with fractures Electronically authenticated by: NATHAN KIM Date: 01/27/2024 12:20
--- OUTSIDE RECORDS SUMMARY | 2024-01-27 06:07 | XMS_ITS | CCD ---
Author Organization [facility] Care Team Providers Care Program Director Cable Television Name Role Phone HEMMER, DR KALEY Natarajan [...] Unavailable MISC, DR CERNA Primary Care Unavailable LUZIA THOMPSON Consulting Unavailable YOVANI, MELINDA Admitting Unavailable YOVANI, MELINDA Attending Unavailable YOVANI, MELINDA Consulting Unavailable APLING, CHRIST B Admitting Unavailable WEST, DR NATHAN Torres Consulting Unavailable MISC, DR CERNA Primary Care Unavailable APLING, CHRIST B Attending Unavailable APLING, CHRIST B Consulting Unavailable ZIEBER, DR LUL Kingsley Consulting Unavailable MISC, DR CERNA Primary Care Unavailable YOVANI, MELINDA Admitting Unavailable YOVANI, MELNIDA Attending Unavailable YOVANI, MELINDA Consulting Unavailable MISC, [...] Primary Care Unavailable YOVANI, MELINDA Attending Unavailable ZIDONNIE, DR LUL Kingsley Consulting Unavailable YOVANI, MELINDA Admitting Unavailable YOVANI, MELINDA Consulting Unavailable MISC, DR CERNA Primary Care Unavailable ANGEL, KADEN Admitting Unavailable ANGEL, KADEN Attending Unavailable ANGEL, KADEN Consulting Unavailable [place] Umaña Attending Provider [phone] SHELBI Lopez Primary Care Provider Kaley Umaña Attending Unavailable Hemenmanuel, Kaley Admitting Unavailable Nicholas Lopez Primary Care Unavailable CLARE QUINTANILLA Attending Unavailable YOVANI, MELINDA M Attending Unavailable QUINTANILLACLARE Attending Unavailable HEMMER, KALEY M Referring Unavailable YOVANI, MELINDA M Attending Unavailable CALDERON, EDGARD Attending Unavailable YOVANI, MELINDA M Referring Unavailable [...] Attending Unavailable YOVANI, MELINDA M Referring Unavailable CALDERONEDGARD Attending Unavailable YOVANI, MELINDA M Referring Unavailable ARCHIE, DORA Attending Unavailable YOVANI, MELINDA M Referring Unavailable NICHOLAS LOPEZ Attending Unavailable YOVANI, MELINDA M Attending Unavailable YOVANI, MELINDA M Attending Unavailable YOVANI, MELINDA M Attending Unavailable APLCHRIST RAMIREZ Attending Unavailable Allergies Allergy Classification Reported Allergen(s) Allergy Type Date of Onset Reaction(s) Facility (1 source) Penicillins Drug allergy (disorder) 03-17-2015 [facility] Repository (1 source) Tamoxifen Drug Allergy 04-10-2015 [facility] Repository (1 source) Flu Vaccine 4819-3872 (3 yr +) Drug allergy (disorder) 04-10-2015 [facility] Repository Problems Active Problems Problem Classification [...] 1940 Gender:F Ordering : MRS. 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 on 01/26/2023 at 08:34 Normal [facility] CT HEAD WO CONon 01-12-2023 CT [...] by: LUIZA THOMPSON Date: 2023-01-12 12:53 Normal [facility] MRI L[place]ENT[place] WO CONon 12-12-19 MRI [facility] WO CON EXAMINATION: MRI [facility] WO CON HISTORY: Closed fracture thoracic vertebra, [...] by: NATHAN KIM Date: 2022-12-11 14:28 Normal [facility] XR LSPINE 2_3 VIEWSon 2022 XR [...] by: LUL SOLIS Date: 2022-12-02 10:28 Normal [facility] ECHOCARDIO M/2D COMPLETEon 1 10-29-2021 ECHOCARDIO M/2D COMPLETE Patient: MICHAEL SHAY I. Exam Date: 08/28/2022 : 1940 Gender:F Ordering : MRS. 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 on 09/02/2022 at 10:27 Normal [facility] US CAROTID ART BILon 022 US [...] by: NATHAN KIM Date: 2022-08-28 17:47 Normal [facility] GLYCOHEMOGLOBIN A1Con 2021 ADA RECOMMENDATION SEE BELOW Normal The [facility] Comment on above: Result Comment: ADA RECOMMENDED LIMIT 4.0 - 6.0 ADA THERAPEUTIC TARGET < 7.0 ACTION SUGGESTED > 7.0 Performed By: #### A 1C ####[facility] [address] [place], [place] [address]Mk. Lia Han Glucose [Mass/Vol] 114 mg/dL Normal [facility] Comment on above: Performed By: #### A 1C ####[facility] [address] [place], [place] [address]Zl. Lia Short HbA1c (Bld) [Mass fraction] 5.6 % Normal 4.5-6.2 [facility] Comment on above: Performed By: #### A 1C ####[facility] [address] [place], [place] [address]Of. Lia Short US KIDNEYS BLADDERon 022 US [...] by: NATHAN KIM Date: 2022-08-13 13:[address] [facility] [address] ABD/PELVIS WO CONon 04-12 CT [...] by: LUL SOLIS Date: 2022-04-12 08:47 Normal [facility] CULTURE URINEon 02-25-2022 CULTURE URINE Culture Observations : MODERATE GROWTH OF MIXED GENITAL RAYMOND. NO POTENTIAL PATHOGENS SEEN. Normal [facility] Comment on above: Performed By: #### U RCX ####[facility] [address] [place] [address]Dr. Lia Short CULTURE URINEon 02-13-2022 CULTURE URINE Culture Observations : MODERATE GROWTH OF MIXED GENITAL RAYMOND. NO POTENTIAL PATHOGENS SEEN. Normal [facility] Comment on above: Performed By: #### U RCX ####[facility] [address] [place] [id number]. Lia Short XR KUB 1 VIEWon 02-13-2022 [...] by: LUL SOLIS Date: 2022-02-13 17:49 Normal [facility] Consultation Noteon 02-12-20 22 Consultation Note [id number]#1 .00CD:127 Normal [facility] RAD - CT Reporton 02-11-2022 RAD - CT Report [id number]# 1.00CD:127 Normal [facility] RAD - MISCon 02-11-2022 RAD - MISC [id number]# 1.00CD:127 [address] [facility] CT ABD/PELVIS WO CONon 02-04 CT [...] by: LUL SOLIS Date: 2022-02-04 10:14 Normal [facility] Q - CULTURE,URINE,ROUTINEon 01-30-2022 CULTURE, URINE, ROUTINE SEE NOTE Abnormal [facility] [employer] 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 Comment on above: Order Comment: [facility] Testing performed at: QPT, [employer] [facility], [address], [address] [facility], [place], [address], Milk Driver: Kiel Moulton MD [facility] Collection Date/Time: [id number] [facility] Results Received Date/Time: [id number] [facility] Reported Date/Time: [id number] Result Comment: CULT URE, URINE, ROUTINE Micro Number: [id number] Test Status: Final Specimen Source: Not given [...] 6 304R #### [facility] [address] [place] [address] XR KUB 1 VIEWon 01-30-2022 XR KUB [...] by: EDWIN SCOTT Date: 2022-01-30 16:28 Normal [facility] Encounters Encounter Date Encounter Type Care Provider Facility Start: 01-24-2024 End: 01-24-2024 ambulatory CHRIST HILL Not Available Start: 01-20-2024 End: 01-20-2024 ambulatory MELINDA Natarajan YOVANI Not Available Start: 01-12-2024 End: 01-12-2024 ambulatory MELINDA Natarajan YOVANI Not Available Start: 01-05-2024 End: 01-05-2024 ambulatory MELINDA Delgado YOVANI Not Available Start: 12-31-2023 End: 12-31-2023 ambulatory DORA ARCHIE Not Available Start: 12-28-2023 End: 12-28-2023 ambulatory EDGARD CALDERON Not Available Start: 12-24-2023 End: 12-24-2023 ambulatory DORA ARCHIE Not Available Start: 12-21-2023 End: 12-21-2023 ambulatory DORA ARCHIE Not Available Start: 12-17-2023 End: 12-17-2023 ambulatory DORA ARCHIE Not Available Start: 12-14-2023 End: 12-14-2023 ambulatory DORA ARCHIE Not Available Start: 12-10-2023 End: 12-10-2023 ambulatory DORA ARCHIE Not Available Start: 12-07-2023 End: 12-07-2023 ambulatory ODILON GRIFFITHS Not Available Start: 12-03-2023 End: 12-03-2023 ambulatory DORA ARCHIE Not Available Start: 12-01-2023 End: 12-01-2023 ambulatory DEGARD CALDERON Not Available Start: 11-30-2023 End: 11-30-2023 ambulatory MELINDA Natarajan YOVANI Not Available Start: 10-26-2023 End: 10-26-2023 ambulatory MELINDA Delgado YOVANI Not Available Start: 10-22-2023 End: 10-22-2023 ambulatory CLARE W QUINTANILLA Not Available Start: 09-13-2023 End: 09-13-2023 ambulatory NICHOLAS LOPEZ Not Available Start: 08-13-2023 End: 08-13-2023 ambulatory CLARE W QUINTANILLA Not Available Start: 07-30-2023 End: 07-30-2023 ambulatory Kaley Umaña Facility:[facility] Start: 07-30-2023 End: 07-30-2023 ambulatory II Nicholas Lopez Work Phone: [facility] Work Phone: Start: 07-30-2023 End: 07-30-2023 Patient encounter procedure II Nicholas Lopez Work Phone: [facility]-Nursing Attendant [address] Start: 01-25-2023 End: 01-26-2023 ambulatory [...] Date Payer Category Payer Self-pay 2023 Unknown [id number] 1959 Medicare [id number] 1959 Unknown [id number] 1940 Unknown [id number] ..[id number] 0.1.116728.3.579.2.593 1940 Unknown [id number] ..[id number] 0.1.844749.3.579.2.593 1940 Unknown [id number] ..[id number] 0.1.836110.3.579.2.593 1940 Unknown [id number] ..[id number] 0.1.700633.3.579.2.593 1940 Unknown [id number] 2.16.84 0.1.116271.3.579.2.593 1940 Unknown [id number] 2.16.84 0.1.479419.3.579.2.593 1940 Unknown [id number] 2.16.84 0.1.435326.3.579.2.593 1940 Unknown [id number] 2.16.84 0.1.815205.3.579.2.593 1940 Unknown [id number] 2.16.84 0.1.228323.3.579.2.593 1940 Unknown [id number] 2.16.84 0.1.304145.3.579.2.593 1940 Unknown [id number] 2.16.84 0.1.579074.3.579.2.593 1940 Unknown [id number] 2.16.84 0.1.153863.3.579.2.593 1940 Unknown [id number] 2.16.84 0.1.754790.3.579.2.1259 1940 Unknown [id number] 2.16.84 0.1.984381.3.579.2.1259 1940 Unknown [id number] 2.16.84 0.1.984215.3.579.2.1259 1940 Unknown [id number] 2.16.84 0.1.980833.3.579.2.1259 1940 Unknown [id number] 2.16.84 0.1.345458.3.579.2.1259 1940 Unknown [id number] 2.16.84 0.1.035417.3.579.2.1259 1940 Unknown [id number] 2.16.84 0.1.576551.3.579.2.1259 1940 Unknown [id number] 2.16.84 0.1.375955.3.579.2.1259 1940 Unknown [id number] 2.16.84 0.1.656997.3.579.2.1259 1940 Unknown [id number] 2.16.84 0.1.358736.3.579.2.1259 1940 Unknown [id number] 2.16.84 0.1.036433.3.579.2.1259 1940 Unknown [id number] 2.16.84 0.1.792584.3.579.2.1259 1940 Unknown [id number] 2.16.84 0.1.351402.3.579.2.1258 1940 Unknown [id number] 2.16.84 0.1.128182.3.579.2.9 1940 Unknown [id number] 2.16.84 0.1.484857.3.579.2.1258 1940 Unknown [id number] 2.16.84 0.1.132758.3.579.2.1259 1940 Unknown [id number] 2.16.84 0.1.634073.3.579.2.9 1940 Unknown [id number] 2.16.840 .1.447956.3.579.2.9 1940 Unknown [id number] 2.16.840 .1.787280.3.579.2.1259 Medicare Medicare [id number] 81f [id number] Unknown [id number] 2.16.8 40.1.460228.3.579.2.531 Social History Date Type Detail Facility [facility] Work Phone: Start: 1940 Sex Assigned At Female F [facility] Evaluation note Note Date & Type Note Facility Evaluation note No assessment information availa ble [facility] Work Phone: Summary Purpose Family [...] section and content) DATE CREATED AUTHOR 02/03/2022 [facility] dical Specialist DATE CREATED AUTHOR AUTHOR'S ORGANIZ ATION 02/14/2022 [facility] DATE CREATED AUTHOR AUTHOR'S ORGANIZ ATION 01/29/2023 [facility] DATE CREATED AUTHOR AUTHOR'S ORGANIZ ATION 09/17/2023 [facility] DATE CREATED AUTHOR AUTHOR'S ORGANIZ ATION 01/25/2024 [facility] dical Specialists EPIC Care Teams (unrecognized [...] BE BASED ON THE PRIMARY CLINICAL RECORDS. [employer] [facility]. provides no warranty or guarantee of the accuracy or completeness of information in this document.
== END 2024-01-27 06:06 | disposition home or self-care (01) ==
LOC: NM 06:05
PROVIDERS: PCP Nurse Practitioner Family; Visit Provider Nurse Practitioner Family
DX: M54.50 Low back pain, unspecified (principal); S22.42XD Multiple fractures of ribs, left side, subsequent encounter for fracture with routine healing
CPT/HCPCS: 78315; A9503

== ENCOUNTER 2024-05-09 10:24 | Outpatient (OUT) | payer MEDICARE, OTHER, SELFPAY ==
--- OUTSIDE RECORDS SUMMARY | 2024-05-09 10:32 | XMS_ITS | CCD ---
Author Organization [facility] Care Team Providers Care Predatory Animal Exterminator Name Role Phone CHASIDY, DR KALEY Natarajan Attending Unavailable MISC, DR [...] Unavailable HEMMER, DR KALEY Natarajan Consulting Unavailable SCOTT EDWIN Consulting Unavailable HEMMER, DR KALEY Natarajan [...] KADEN Consulting Unavailable [place] Umaña Attending Provider [phone] SHELBI Lopez Primary Care Provider [phone] Kaley Umaña Attending Unavailable Hemenmanuel, Kaley Admitting Unavailable Nicholas Lopez Primary Care Unavailable CLARE QUINTANILLA Attending Unavailable YOVANI, MELINDA M Attending Unavailable QUINTANILLA, CLARE Bob Attending Unavailable HEMMER, KALEY M Referring Unavailable [...] Referring Unavailable YOVANI, MELINDA M Attending Unavailable YOVANI, MELINDA M Attending Unavailable YOVANI, MELINDA M Attending Unavailable CHRIST HILL Attending Unavailable COOKIETONY HAMILTON Attending Unavailable YOVANI, MELINDA M Attending Unavailable YOVANI, MELINDA M Attending Unavailable YOVANI, MELINDA M Attending Unavailable YOVANI, MELINDA M Attending Unavailable COOKIETONY HAMILTON Attending Unavailable NICHOLAS LOPEZ Attending Unavailable Allergies Allergy Classification Reported Allergen(s) Allergy Type Date of Onset Reaction(s) Facility (1 source) Penicillins Drug allergy (disorder) 03-17-2015 [facility] Repository (1 source) Tamoxifen Drug Allergy 04-10-2015 [facility] Rep[facility] (1 source) Flu Vaccine 1144-1706 (3 yr +) Drug allergy (disorder) 04-10-2015 [facility] Repository Problems Active Problems Problem Classification [...] 1940 Gender:F 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 on 01/26/2023 at 08:[address] [facility] [address] HEAD WO CONon 01-12-2023 CT [...] by: LUIZA THOMPSON Date: 2023-01-12 12:53 Normal [facility] WO CONon 12-12-19 23 MRI [facility] WO CON EXAMINATION: MRI [facility] WO CON HISTORY: Closed fracture thoracic [...] by: NATHAN KIM Date: 2022-12-11 14:28 Normal [facility] XR LSPINE 2_3 VIEWSon 2022 XR [...] by: LUL SOLIS Date: 2022-12-02 10:28 Normal [facility] ECHOCARDIO M/2D COMPLETEon 1 10-29-2021 ECHOCARDIO M/2D COMPLETE Patient: MICHAEL SHAY I. 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 on 09/02/2022 at 10:27 Normal [facility] US CAROTID ART BILon 12-02-2 022 US CAROTID ART MAGDALENO EXAMINATION: US [...] by: NATHAN KIM Date: 2022-08-28 17:47 Normal [facility] GLYCOHEMOGLOBIN A1Con 2021 ADA RECOMMENDATION SEE BELOW Normal [facility] Comment on above: Result Comment: ADA RECOMMENDED LIMIT 4.0 - 6.0 ADA THERAPEUTIC TARGET < 7.0 ACTION SUGGESTED > 7.0 Performed By: #### A 1C ####[facility] [address] [place], [place] [address]Eo. Lia Short Glucose [Mass/Vol] 114 mg/dL Normal [facility] Comment on above: Performed By: #### A 1C ####[facility] [address] [place], [place] [address]Pg. Lia Short HbA1c (Bld) [Mass fraction] 5.6 % Normal 4.5-6.2 [facility] Comment on above: Performed By: #### A 1C ####[facility] [address] [place], [place] [address]Lh. Lia Short US KIDNEYS BLADDERon 022 US [...] by: NATHAN KIM Date: 2022-08-13 13:[address] [facility] [address] ABD/PELVIS WO CONon 04-12 CT [...] LUL SOLIS Date: 2022-04-12 08:47 Normal [facility] CULTURE URINEon 02-25-2022 CULTURE URINE Culture Observations : MODERATE GROWTH OF MIXED GENITAL RAYMOND. NO POTENTIAL PATHOGENS SEEN. Normal [facility] Comment on above: Performed By: #### U RCX ####[facility] [address] [place], [place] [address]Rr. Lia Short CULTURE URINEon 02-13-2022 CULTURE URINE Culture Observations : MODERATE GROWTH OF MIXED GENITAL RAYMOND. NO POTENTIAL PATHOGENS SEEN. Normal [facility] Comment on above: Performed By: #### U RCX ####[facility] [address] [place], [place] [address]Zx. Lia Short XR KUB 1 VIEWon 02-13-2022 [...] LUL SOLIS Date: 2022-02-13 17:49 Normal [facility] Consultation Noteon 02-12-20 22 Consultation Note [id number]#1 .00CD:127 Normal [facility] RAD - CT Reporton 02-11-2022 RAD - CT Report [id number]# 1.00CD:127 Normal [facility] RAD - MISCon 02-11-2022 RAD - MISC [id number]# 1.00CD:127 Normal [facility] CT ABD/PELVIS WO CONon 02-04 CT [...] by: LUL SOLIS Date: 2022-02-04 10:14 Normal [facility] Q - CULTURE,URINE,ROUTINEon 01-30-2022 CULTURE, URINE, ROUTINE SEE NOTE Abnormal [facility] [employer] Comment on above: Order Comment: [facility] Testing performed at: [employer] [employer] [facility], [address], [address] [place], [address], Skidder Loader: Kiel Moulton MD [facility] Collection Date/Time: [id number] [facility] Results Received Date/Time: [id number] [facility] Reported Date/Time: [id number] Result Comment: CULT URE, URINE, ROUTINE Micro Number: [id number] Test Status: Final Specimen Source: Not given [...] 6 304R #### [facility] Default [address] [place] [address] XR KUB 1 VIEWon 01-30-2022 XR KUB [...] by: EDWIN SCOTT Date: 2022-01-30 16:28 Normal [facility] Encounters Encounter Date Encounter Type Care Provider Facility Start: 04-25-2024 End: 04-25-2024 ambulatory TONY Jose M COOKIE Not Available Start: 04-18-2024 End: 04-18-2024 ambulatory MELINDA Natarajan YOVANI Not Available Start: 03-23-2024 End: 03-23-2024 ambulatory MELINDA Delgado YOVANI Not Available Start: 03-14-2024 End: 03-14-2024 ambulatory MELINDA Natarajan YOVANI Not Available Start: 03-01-2024 End: 03-01-2024 ambulatory MELINDA Natarajan YOVANI Not Available Start: 02-01-2024 End: 02-01-2024 ambulatory TONY GARY Not Available Start: 01-24-2024 End: 01-24-2024 ambulatory CHRIST Herrmann SERGIO Not Available Start: 01-20-2024 End: 01-20-2024 ambulatory MELINDA M YOVANI Not Available Start: 01-12-2024 End: 01-12-2024 ambulatory MELINDA Delgado YOVANI Not Available Start: 01-05-2024 End: 01-05-2024 ambulatory MELINDA Natarajan YOVANI Not Available Start: 12-31-2023 End: 12-31-2023 [...] Available Start: 10-26-2023 End: 10-26-2023 ambulatory MELINDA PINA Not Available Start: 10-22-2023 End: 10-22-2023 ambulatory CLARE QUINTANILLA Not Available Start: 09-13-2023 End: 09-13-2023 ambulatory NICHOLAS LOPEZ Not Available Start: 08-13-2023 End: 08-13-2023 ambulatory CLARE QUINTANILLA Not Available Start: 07-30-2023 End: 07-30-2023 ambulatory Kaley Umaña Facility:[facility] Start: 07-30-2023 End: 07-30-2023 ambulatory II Nciholas Lopez Work Phone: [facility] Work Phone: Start: 07-30-2023 End: 07-30-2023 Patient encounter procedure II Nicholas Lopez Work Phone: [facility] Start: 01-25-2023 End: 01-26-2023 ambulatory [...] KALEY UMAÑA Facility:[facility] Start: 01-30-2022 End: 01-31-2022 [facility] Facility: Payers Date Payer Category Payer Self-pay 2023 Unknown [id number] 1959 Medicare [id number] 1959 Unknown [id number] 1940 Unknown [id number] 2.16.84 0.1.884551.3.579.2.593 1940 Unknown [id number] 2.16.84 0.1.430797.3.579.2.593 1940 Unknown [id number] 2.16.84 0.1.722459.3.579.2.593 1940 Unknown [id number] 2.16.84 0.1.914051.3.579.2.593 1940 Unknown [id number] 2.16.84 0.1.608697.3.579.2.593 1940 Unknown [id number] 2.16.84 0.1.448045.3.579.2.593 1940 Unknown [id number] 2.16.84 0.1.631255.3.579.2.593 1940 Unknown [id number] 2.16.84 0.1.767996.3.579.2.593 1940 Unknown [id number] 2.16.84 0.1.566900.3.579.2.593 1940 Unknown [id number] 2.16.84 0.1.174702.3.579.2.593 1940 Unknown [id number] 2.16.84 0.1.809691.3.579.2.593 1940 Unknown [id number] 2.16.84 0.1.657604.3.579.2.593 1940 Unknown [id number] 2.16.84 0.1.706361.3.579.2.1259 1940 Unknown [id number] 2.16.84 0.1.231589.3.579.2.1259 1940 Unknown [id number] 2.16.84 0.1.083792.3.579.2.9 1940 Unknown [id number] 2.16.84 0.1.404016.3.579.2.1259 1940 Unknown [id number] 2.16.84 0.1.068125.3.579.2.1258 1940 Unknown [id number] 2.16.84 0.1.156676.3.579.2.1259 1940 Unknown [id number] 2.16.84 0.1.426375.3.579.2.1258 1940 Unknown [id number] 2.16.84 0.1.715705.3.579.2.1258 1940 Unknown [id number] 2.16.84 0.1.600156.3.579.2.1258 1940 Unknown [id number] 2.16.84 0.1.135704.3.579.2.1258 1940 Unknown [id number] 2.16.84 0.1.209984.3.579.2.1258 1940 Unknown [id number] 2.16.84 0.1.359092.3.579.2.9 1940 Unknown [id number] 2.16.84 0.1.247790.3.579.2.125 1940 Unknown [id number] 2.16.84 0.1.032416.3.579.2.125 1940 Unknown [id number] 2.16.84 0.1.274139.3.579.2.1258 1940 Unknown [id number] 2.16.84 0.1.568350.3.579.2.1258 1940 Unknown [id number] 2.16.84 0.1.657532.3.579.2.1258 1940 Unknown [id number] 2.16.84 0.1.482788.3.579.2.1259 1940 Unknown [id number] 2.16.84 0.1.509167.3.579.2.1259 1940 Unknown [id number] 2.16.84 0.1.294986.3.579.2.1259 1940 Unknown [id number] 2.16.84 0.1.051300.3.579.2.1259 1940 Unknown [id number] 2.16.84 0.1.876895.3.579.2.1259 1940 Unknown [id number] 2.16.84 0.1.448697.3.579.2.1259 1940 Unknown [id number] 2.16.840 .1.918637.3.579.2.1259 1940 Unknown [id number] 2.16.840 .1.140576.3.579.2.1259 Medicare Medicare [id number] [id number] Unknown [id number] 2.16.8 40.1.758866.3.579.2.531 Social History Date Type Detail Facility Tobacco smoking stat [facility] Unknown if ever smoked [facility] Work Phone: Start: 1940 Sex Assigned At Female F [facility] Evaluation note Note Date & Type Note Facility Evaluation note No assessment information availa ble [facility] Work Phone: Summary Purpose Family [...] section and content) DATE CREATED AUTHOR 02/03/2022 [facility] dical Specialist DATE CREATED AUTHOR AUTHOR'S ORGANIZ ATLAINE 02/14/2022 [facility] DATE CREATED AUTHOR AUTHOR'S ORGANIZ ATION 01/29/2023 [facility] DATE CREATED AUTHOR AUTHOR'S ORGANIZ ATION 09/17/2023 [facility] DATE CREATED AUTHOR AUTHOR'S ORGANIZ ATION 04/27/2024 [facility] dical Specialists EPIC Care Teams (unrecognized [...] BE BASED ON THE PRIMARY CLINICAL RECORDS. [employer] provides no warranty or guarantee of the accuracy or completeness of information in this document.
--- NOTE | 2024-05-09 10:48 | XR_ITS ---
The [address] [address] Patient Name: MICHAEL SHAY MRN: [id number] date: 1940 Sex: F Assigned Patient Location: [facility] Current Patient Location: Accession/Order Number: [id number] Exam Date: 05/09/2024 10:40 Report Date: 05/11/2024 06:16 At the request of: MELINDA PINA Procedure: XR cervical spine w flex/ext EXAMINATION: XR cervical spine w flex/ext HISTORY: acute neck pain after falling COMPARISON: No relevant comparison available. FINDINGS: BONES: Minimal height reduction of C5 and C6. Multilevel moderate degenerative facet arthropathy. DISC SPACES: Mild narrowing C5-C6. Moderate narrowing C6-C7. C7 and T1 are obscured by shoulder structures. PARASPINOUS: Negative. No paraspinous abnormality is seen. OTHER: Negative. XR/XR cervical spine w flex/ext IMPRESSION: 1. Chronic versus acute mild compression fractures of C5 and C6 are suspected. C7 is obscured by shoulder structures. 2. Multilevel moderate facet arthropathy. 3. Mild to moderate degenerative disc disease C5-C6 and C6-C7. Electronically authenticated by: SHRUTHI EUGENE Date: 05/11/2024 06:16
== END 2024-05-09 10:25 | disposition home or self-care (01) ==
LOC: RAD 10:26
PROVIDERS: PCP Nurse Practitioner Family; Visit Provider Nurse Practitioner Family
DX: M54.2 Cervicalgia (principal)
CPT/HCPCS: 72052

== ENCOUNTER 2024-05-18 13:18 | Outpatient (OUT) | payer MEDICARE, OTHER, SELFPAY ==
--- OUTSIDE RECORDS SUMMARY | 2024-05-18 13:30 | XMS_ITS | CCD ---
Author Organization [facility] Care Team Providers Care Clock Repair Technician Name Role Phone CHASIDY, DR KALEY Natarajan [...] Attending Provider SHELBI Lopez Primary Care Provider Kaley Umaña [...] Attending Unavailable YOVANI, MELINDA M Attending Unavailable COKOIETONY HAMILTON Attending Unavailable NICHOLAS LOPEZ Attending Unavailable Allergies Allergy Classification Reported Allergen(s) Allergy Type Date of Onset Reaction(s) Facility (1 source) Penicillins Drug allergy (disorder) 03-17-2015 [facility] Repository (1 source) Tamoxifen Drug Allergy 04-10-2015 [facility] Rep[facility] (1 source) Flu Vaccine 5083-8066 (3 yr +) Drug allergy (disorder) 04-10-2015 [facility] Repository Problems Active Problems Problem Classification Problem [...] 1940 Gender:F 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 on 01/26/2023 at 08:[address] [facility] [address] HEAD WO CONon 01-12-2023 CT HEAD [...] by: LUIZA THOMPSON Date: 2023-01-12 12:53 Normal [facility] MRI [facility] [place] WO CONon 12-12-19 23 MRI [facility] WO CON EXAMINATION: MRI [facility] WO CON HISTORY: Closed fracture thoracic [...] by: NATHAN KIM Date: 2022-12-11 14:28 Normal [facility] XR LSPINE 2_3 VIEWSon 2022 XR LSPINE [...] by: LUL SOLIS Date: 2022-12-02 10:28 Normal [facility] ECHOCARDIO M/2D COMPLETEon 1 10-29-2021 ECHOCARDIO M/2D COMPLETE Patient: MICHAEL SHAY I. 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 on 09/02/2022 at 10:27 Normal [facility] US CAROTID ART BILon 12-02-2 022 US CAROTID ART MAGDALENO EXAMINATION: US CAROTID ART AMGDALENO HISTORY: Cardiovascular symptoms COMPARISON: No relevant comparison [...] by: NATHAN KIM Date: 2022-08-28 17:47 Normal [facility] GLYCOHEMOGLOBIN A1Con 2021 ADA RECOMMENDATION SEE BELOW Normal [facility] Comment on above: Result Comment: ADA RECOMMENDED LIMIT 4.0 - 6.0 ADA THERAPEUTIC TARGET < 7.0 ACTION SUGGESTED > 7.0 Performed By: #### A 1C ####[facility] [address] [place], [place] [address]Zp. Lia Short Glucose [Mass/Vol] 114 mg/dL Normal [facility] Comment on above: Performed By: #### A 1C ####[facility] [address] [place], [place] [address]Wl. Lia Short HbA1c (Bld) [Mass fraction] 5.6 % Normal 4.5-6.2 [facility] Comment on above: Performed By: #### A 1C ####[facility] [address] [place], [place] [address]Gq. Lia Short US KIDNEYS BLADDERon 022 US [...] by: NATHAN KIM Date: 2022-08-13 13:[address] [facility] [address] ABD/PELVIS WO CONon 04-12 CT ABD/PELVIS [...] LUL SOLIS Date: 2022-04-12 08:47 Normal [facility] CULTURE URINEon 02-25-2022 CULTURE URINE Culture Observations : MODERATE GROWTH OF MIXED GENITAL RAYMOND. NO POTENTIAL PATHOGENS SEEN. Normal [facility] Comment on above: Performed By: #### U RCX ####[facility] [address] [place], [place] [address]Kf. Lia Short CULTURE URINEon 02-13-2022 CULTURE URINE Culture Observations : MODERATE GROWTH OF MIXED GENITAL RAYMOND. NO POTENTIAL PATHOGENS SEEN. Normal [facility] Comment on above: Performed By: #### U RCX ####[facility] [address] [place], [place] [address]Yh. Lia Short XR KUB 1 VIEWon 02-13-2022 [...] LUL SOLIS Date: 2022-02-13 17:49 Normal [facility] Consultation Noteon 02-12-20 22 Consultation Note [id number] .00CD:127 Normal [facility] RAD - CT Reporton 02-11-2022 RAD - CT Report [id number]# 1.00CD:127 Normal [facility] RAD - MISCon 02-11-2022 RAD - MISC [id number]# 1.00CD:127 Normal [facility] CT ABD/PELVIS WO CONon 02-04 [...] by: LUL SOLIS Date: 2022-02-04 10:14 Normal [facility] Q - CULTURE,URINE,ROUTINEon 01-30-2022 CULTURE, URINE, ROUTINE SEE NOTE Abnormal [facility] [employer] Comment on above: Order Comment: [facility] Testing performed at: [employer], [employer] [facility], [address], [address] [place], [address], Mortgage Processor: Kiel Moulton MD [facility] Collection Date/Time: [id number] [facility] Results Received Date/Time: [id number] [facility] Reported Date/Time: [id number] Result Comment: CULT URE, URINE, ROUTINE Micro Number: [id number] Test Status: Final Specimen Source: Not given [...] 6 304R #### [facility] [address] [place] [address] XR KUB 1 VIEWon 01-30-2022 XR KUB [...] by: EDWIN SCOTT Date: 2022-01-30 16:28 Normal [facility] Encounters Encounter Date Encounter Type Care Provider [...] Start: 07-30-2023 End: 07-30-2023 ambulatory Kaley Umaña Facility:[facility] Start: 07-30-2023 End: 07-30-2023 ambulatory II Nicholas Lopez Work Phone: [facility] Work Phone: Start: 07-30-2023 End: 07-30-2023 Patient encounter procedure II Nicholas Lopez Work Phone: [facility] [address] Start: 01-25-2023 End: 01-26-2023 ambulatory [...] KALEY UMAÑA Facility:[facility] Start: 01-30-2022 End: 01-31-2022 [facility] Facility: Payers Date Payer Category Payer Self-pay 2023 Unknown [id number] 1959 Medicare [id number] 1959 Unknown [id number] 1940 Unknown [id number] 2.16.84 0.1.021387.3.579.2.593 1940 Unknown [id number] 2.16.84 0.1.401739.3.579.2.593 1940 Unknown [id number] 2.16.84 0.1.469464.3.579.2.593 1940 Unknown [id number] 2.16.84 0.1.537055.3.579.2.593 1940 Unknown [id number] 2.16.84 0.1.240661.3.579.2.593 1940 Unknown [id number] 2.16.84 0.1.086279.3.579.2.593 1940 Unknown [id number] 2.16.84 0.1.540996.3.579.2.593 1940 Unknown [id number] 2.16.84 0.1.895758.3.579.2.593 1940 Unknown [id number] 2.16.84 0.1.594287.3.579.2.593 1940 Unknown [id number] 2.16.84 0.1.831753.3.579.2.593 1940 Unknown [id number] 2.16.84 0.1.476656.3.579.2.593 1940 Unknown [id number] 2.16.84 0.1.097280.3.579.2.593 1940 Unknown [id number] 2.16.84 0.1.883042.3.579.2.1259 1940 Unknown [id number] 2.16.84 0.1.028842.3.579.2.1259 1940 Unknown [id number] 2.16.84 0.1.637972.3.579.2.9 1940 Unknown [id number] 2.16.84 0.1.202107.3.579.2.1259 1940 Unknown [id number] 2.16.84 0.1.965737.3.579.2.1258 1940 Unknown [id number] 2.16.84 0.1.829986.3.579.2.1259 1940 Unknown [id number] 2.16.84 0.1.840921.3.579.2.1258 1940 Unknown [id number] 2.16.84 0.1.725533.3.579.2.1258 1940 Unknown [id number] 2.16.84 0.1.836412.3.579.2.1258 1940 Unknown [id number] 2.16.84 0.1.146657.3.579.2.1258 1940 Unknown [id number] 2.16.84 0.1.937923.3.579.2.1258 1940 Unknown [id number] 2.16.84 0.1.823560.3.579.2.9 1940 Unknown [id number] 2.16.84 0.1.853096.3.579.2.125 1940 Unknown [id number] 2.16.84 0.1.175691.3.579.2.125 1940 Unknown [id number] 2.16.84 0.1.682542.3.579.2.1258 1940 Unknown [id number] 2.16.84 0.1.362948.3.579.2.1258 1940 Unknown [id number] 2.16.84 0.1.547725.3.579.2.1258 1940 Unknown [id number] 2.16.84 0.1.401348.3.579.2.1259 1940 Unknown [id number] 2.16.84 0.1.612669.3.579.2.1259 1940 Unknown [id number] 2.16.84 0.1.546636.3.579.2.1259 1940 Unknown [id number] 2.16.84 0.1.491351.3.579.2.1259 1940 Unknown [id number] 2.16.84 0.1.234367.3.579.2.1259 1940 Unknown [id number] 2.16.84 0.1.467233.3.579.2.1259 1940 Unknown [id number] 2.16.840 .1.481237.3.579.2.1259 1940 Unknown [id number] 2.16.840 .1.511327.3.579.2.1259 Medicare Medicare [id number] [id number] Unknown [id number] 2.16.8 40.1.454520.3.579.2.531 Social History Date Type Detail Facility Tobacco smoking stat [facility] Unknown if ever smoked [facility] Work Phone: Start: 1940 Sex Assigned At Female F [facility] Evaluation note Note Date & Type Note Facility Evaluation note No assessment information availa ble [facility] Work Phone: Summary Purpose [...] section and content) DATE CREATED AUTHOR 02/03/2022 [facility] dical Specialist DATE CREATED AUTHOR AUTHOR'S ORGANIZ ATLAINE 02/14/2022 [facility] DATE CREATED AUTHOR AUTHOR'S ORGANIZ ATION 01/29/2023 [facility] DATE CREATED AUTHOR AUTHOR'S ORGANIZ ATION 09/17/2023 [facility] DATE CREATED AUTHOR AUTHOR'S ORGANIZ ATION 04/27/2024 [facility] dical Specialists EPIC Care Teams (unrecognized [...] BE BASED ON THE PRIMARY CLINICAL RECORDS. [employer] provides no warranty or guarantee of the accuracy or completeness of information in this document.
--- NOTE | 2024-05-18 13:49 | CT_ITS ---
[address] [address] Patient Name: MICHAEL SHAY MRN: [id number] date: 1940 Sex: F Assigned Patient Location: CT Current Patient Location: CT Accession/Order Number: [id number] Exam Date: 05/18/2024 13:45 Report Date: 05/18/2024 16:35 At the request of: MELINDA PINA Procedure: CT cervical spine wo con EXAM: CT cervical spine wo con CLINICAL INDICATION: Compression Fracture Of C5 COMPARISON: Cervical spine radiographs 05/09/2024. MRI thoracic spine 07/02/2021. TECHNIQUE: Axial CT images of the cervical spine were obtained without intravenous contrast. Coronal and sagittal reformatted images were also reviewed. Dose reduction techniques were achieved by using automated exposure control and/or adjustment of mA and/or kV according to patient size and/or use of iterative reconstruction technique. FINDINGS: Osseous Mineralization: Diffuse osseous demineralization limits evaluation of fine osseous detail. Trauma: No definite fracture, traumatic malalignment, facet dislocation, or discrete epidural hemorrhage. Alignment: Normal craniocervical and cervicothoracic junctions. Straightening of the physiologic cervical lordosis likely relates at least in part to patient positioning. Vertebral Body Heights: Slight superior endplate deformities of C5 and C6 are old and are visualized on the localizer images for MRI thoracic spine 07/02/2021. Spondylotic Changes: Multilevel spondylotic changes include varying degrees of intervertebral disc height loss, osteophytic ridging, endplate sclerosis, and facet/uncovertebral joint hypertrophy. Soft Tissues: Normal. Other: Clear visualized lung apices. Airway is patent. CT/CT cervical spine wo con IMPRESSION: 1. No acute cervical spine fracture or traumatic malalignment. 2. Slight superior endplate deformities of C5 and C6 are old and are visualized on the localizer images for MRI thoracic spine 07/02/2021. 3. Multilevel spondylotic changes. Electronically authenticated by: ADELE HORAN Date: 05/18/2024 16:35
== END 2024-05-18 13:19 | disposition home or self-care (01) ==
LOC: CT 13:18
PROVIDERS: PCP Nurse Practitioner Family; Visit Provider Nurse Practitioner Family
DX: S12.49 Other fracture of fifth cervical vertebra (principal); M47.812 Spondylosis without myelopathy or radiculopathy, cervical region
CPT/HCPCS: 72125

== ENCOUNTER 2024-09-13 14:23 | Outpatient (OUT) | payer MEDICARE, OTHER, SELFPAY ==
--- NOTE | 2024-09-13 15:15 | CT_ITS ---
[address] [address] Patient Name: MICHAEL SHAY MRN: [id number] date: 1940 Sex: F Assigned Patient Location: CT Current Patient Location: CT Accession/Order Number: [id number] Exam Date: 09/13/2024 15:10 Report Date: 09/13/2024 15:48 At the request of: TRACEE GARCIA Procedure: CT abdomen pelvis wo con EXAMINATION: CT abdomen pelvis wo con HISTORY: Diverticulosis, Ventral Hernia Repair ; right side abdominal pain radiating to umbilicus COMPARISON: CT abdomen pelvis 11/04/2023 TECHNIQUE: Axial, Coronal, and Sagittal images were obtained without and/or with IV contrast as indicated by examination type. Dose reduction techniques were achieved by using automated exposure control and/or adjustment of mA and/or kV according to patient size and/or use of iterative reconstruction technique. FINDINGS: LUNG BASES: No visible pulmonary or pleural disease. LIVER: No enlargement, atrophy, suspicious density, or significant focal lesion. BILIARY: Prominent intrahepatic bile ducts and common bile duct postcholecystectomy. No appreciable mass or stones. PANCREAS: No lesion, fluid collection, or abnormal duct dilatation. SPLEEN: No enlargement or focal lesion. ADRENALS: No mass or enlargement. KIDNEYS: No mass, obstruction, or calcification. BOWEL/MESENTERY: Numerous noninflamed diverticula along the distal descending and sigmoid colon. No visible mass, obstruction, or bowel wall thickening. AORTA/VASCULAR: No aneurysm or dissection. RETROPERITONEUM: No mass or adenopathy. LYMPH NODES: No adenopathy. URINARY BLADDER: No visible focal wall thickening, lesion, or calculus. PELVIC ORGANS: Hysterectomy. ABDOMINAL WALL: Small, [place] left paraumbilical hernias containing fat. No strangulation. BONES: Subacute, nondisplaced fractures of the right 10th and 11th rib and left 10th, 11th, 12th ribs. OTHER: Negative. CT/CT abdomen pelvis wo con IMPRESSION: 1. No acute or specific findings to account for patient's symptoms. 2. Distal colonic diverticulosis. 3. Bilateral subacute fractures of the posterior lower ribs. 4. Nonstrangulated fat filled small left paraumbilical hernias. Electronically authenticated by: SHRUTHI EUGENE Date: 09/13/2024 15:48
== END 2024-09-13 14:24 | disposition home or self-care (01) ==
LOC: CT 14:24
PROVIDERS: PCP Nurse Practitioner Family; Visit Provider Nurse Practitioner Family
DX: K57.90 Diverticulosis of intestine, part unspecified, without perforation or abscess without bleeding (principal); Z98.890 Other specified postprocedural states; Z87.19 Personal history of other diseases of the digestive system
CPT/HCPCS: 74176

== ENCOUNTER 2025-03-21 09:56 | Outpatient (OUT) | payer MEDICARE, OTHER, SELFPAY ==
--- OUTSIDE RECORDS SUMMARY | 2025-03-21 10:01 | XMS_ITS | Encounter Summary ---
Author Organization [facility] Address [address] [facility] [place] [address] Care Team Providers Care Mattress Weaver Name Role Phone Nicholas Lopez MD Unavailable [phone] Nicholas Lopez MD Primary Care Provider [phone] Wednesday, Angélica SOWN Unavailable [phone] Nicholas Lopez MD Unavailable [phone] Maria De Jesus Polanco RN Unavailable [phone] Maryuri Elias UNDERWRITING SERVICE REPRESENTATIVE Unavailable Encounter Details Date Type Department Care Team (Late st Contact Info) Description 06/07/2023 Abstract [facility] 112 [facility] 110 [place] [id number] Nicholas Lopez MD 112 [facility] 110 [place], [place] [id number] Social History Tobacco Use Types Packs/Day Years Used Date Smoking Tobacco: Never Smokeless Tobacco: Never Alcohol Use Standard Drinks/Week Comments Not Currently 0 (1 standard drink = 0.6 oz pur e alcohol) Caffeine intake: coffee, tea Comments Unknown Sex and Gender Information Value Date Recorded Sex Assigned at Not on file Legal Sex Female 8:34 PM EDT Gender Identity Not on file Sexual Orientation Not on file documented as of this encounter Plan of Treatment Not on file documented as of this encounter Visit Diagnoses Not on filedocumented in this encounter Care Teams Mattress Weaver Relationship Specialty Start Date End Date Nicholas Lopez MD [address] [facility] 110 [place], [place] [id number] PCP - ACO Reach 02/18/23 11/25/23 Nicholas Lopez MD [address] [place] [address] PCP - General Internal Medicine 03/18/23 Nicholas Lopez MD [address] [place] [address] PCP - ACO Reach 01/26/24Wednesday, GIDEON Lindsay [address] [place] [address] Licensed Practical Nurse Family Medicine 07/20/23 11/03/24 Maria De Jesus Polanco, RN [address] [place] [address] Licensed Practical Nurse Family Medicine 11/03/24 12/15/24 Maryuri Elias LPN [address] [facility] 110 [place] [address] 12/15/24 documented as of this encounter
--- OUTSIDE RECORDS SUMMARY | 2025-03-21 10:01 | XMS_ITS | Encounter Summary ---
Author Organization [facility] Address [address] [place] [address] Care Team Providers Care Director Of Sales Support Name Role Phone Nicholas Lopez MD Primary Care Provider [phone] Wednesday, Angélica SOWN Unavailable [phone] Nicholas Lopez MD Unavailable [phone] Maria De Jesus Polanco RN Unavailable [phone] Maryuri Elias BUFFERER Unavailable Encounter Details Date Type Department Care Team (Late st Contact Info) Description 01/12/2024 Clinisync Result Encounter [facility] External Department Unsolicited Melinda Pina, DISABILITY AIDE [address] [facility] 110 [place] [address] Social History Tobacco Use Types Packs/Day Years Used Date Smoking Tobacco: Never Smokeless Tobacco: Never Alcohol Use Standard Drinks/Week Comments Not Currently 0 (1 standard drink = 0.6 oz pur e alcohol) Caffeine intake: coffee, tea Humiliation, Afraid, Rape, and Kick questionnair e Answer Date Recorded Within the last year, have y ou been afraid of your partner or ex-partner? No 07/23/2023 Within the last year, have y ou been humiliated or emotionally abused in other ways by your partner or ex-partner? No Within the last year, have y ou been kicked, hit, slapped, or otherwise physically hurt by your partner or ex-partner? No 07/23/2023 Within the last year, have y ou been raped or forced to have any kind of sexual activity by your partner or ex-partner? No 07/23/2023 Social Connection and Isolation Panel [NHANES] A nswer Date Recorded In a typical week, how many times do you talk on the phone with family, friends, or neighbors? Three times a week 07/23/2023 How often do you get togethe r with friends or relatives? Once a week 07/23/2023 How often do you attend chur ch or yazidism services? Never 07/23/2023 Do you belong to any clubs o r organizations such as lutheran groups, unions, fraternal or athletic groups, or school groups? No 07/23/2023 How often do you attend meet ings of the clubs or organizations you belong to? Never 07/23/2023 Are you , , di vorced, , never , or living with a partner? Never 07/23/2023 AUDIT-C Answer Date Recorded Q1: How often do you have a drink containing alcohol? Never 07/23/2023 Q2: How many drinks containi ng alcohol do you have on a typical day when you are drinking? Patient does not drink Q3: How often do you have si x or more drinks on one occasion? Never 07/23/2023 Overall Financial Resource Strain (CARDIA) Answe r Date Recorded How hard is it for you to pa y for the very basics like food, housing, medical care, and heating? Not hard at all 07/23/2023 [facility] - Occupational Stress Questionnaire Answer Date Recorded Do you feel stress - tense, restless, nervous, or anxious, or unable to sleep at night because your mind is troubled all the time - these days? Not at all 07/23/2023 Exercise Vital Sign Answer Date Recorde d On average, how many days pe r week do you engage in moderate to strenuous exercise (like a brisk walk)? 7 days 07/23/2023 On average, how many minutes do you engage in exercise at this level? 10 min 07/23/2023 Hunger Vital Sign Answer Date Recorded Within the past 12 months, y ou worried that your food would run out before you got the money to buy more. Never true 07/23/20 23 Within the past 12 months, t he food you bought just didn't last and you didn't have money to get more. Never true 07/23/2023 PRAPARE - Transportation Answer Date Re corded In the past 12 months, has l ack of transportation kept you from medical appointments or from getting medications? No 06/28 In the past 12 months, has l ack of transportation kept you from meetings, work, or from getting things needed for daily living? No 07/23/2023 Housing Stability Vital Sign Answer Vlad e Recorded In the last 12 months, was t here a time when you were not able to pay the mortgage or rent on time? No 07/23/2023 In the last 12 months, how many places have you lived? 1 07/23/2023 In the last 12 months, was t here a time when you did not have a steady place to sleep or slept in a intermediate (including now)? No 07/23/2023 Comments Unknown Sex and Gender Information Value Date Recorded Sex Assigned at Not on file Legal Sex Female 8:34 PM EDT Gender Identity Not on file Sexual Orientation Not on file documented as of this encounter Plan of Treatment Not on file documented as of this encounter Procedures Procedure Name Priority Date/Time Associated Diagnosis Comments XR LUMBAR SPINE 6V W BENDING 01/12/2024 1:40 PM EDT documented in this encounter Results * XR LUMBAR SPINE 6V W BENDING (01/12/2024 1:40 PM EDT) Anatomical Region Laterality Modality Other 01/12/2024 1:40 PM EDT Narrative 01/12/2024 1:42 [place] [address] XRay Report Signed Patient: MICHAEL SHAY I MR#: [id number] : 1940 Acct:[id number] Age/Sex: 83 / F ADM Date: 01/12/24 Loc: RAD Attending Dr: MELINDA PINA Ordering Physician: MELINDA PINA Date of Service: 01/12/24 Procedure(s): XR lumbar spine 6V w bending Accession Number(s): [id number] cc: MELINDA PINA [place] [id number] Patient Name: MICHAEL SHAY MRN: [id number] date: 1940 Sex: F Assigned Patient Location: [facility] Current Patient Location: [facility] Accession/Order Number: [id number] Exam Date: 01/12/2024 11:40 Report Date: 01/12/2024 13:40 At the request of: MELINDA PINA Procedure: XR lumbar spine 6V w bending EXAMINATION: XR lumbar spine 6V w bending HISTORY: acute left-sided low back pain without sciatica M54.50 COMPARISON: 10/22/2023 FINDINGS: BONES: Stable alignment with no acute fracture or spondylolisthesis. Stable wedge compression fracture of T12. Mild to moderate degenerative spondylosis. 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 No paraspinous abnormality is seen. OTHER: Vascular calcifications. No transient spondylolisthesis with flexion or extension XR/XR lumbar spine 6V w bending IMPRESSION: Stable degenerative changes with no dynamic instability Electronically authenticated by: NATHAN KIM Date: 01/12/2024 13:40 Dictated By: Nathan Kim M.D. Signed By: 01/12/24 1342 DD/ 1340 TD/TT: Horse Doctor: Procedure Note Radiology, Radiologist, MD - 01/12/2024 [place] [address] XRay Report Signed Patient: MICHAEL SHAY IMR#: [id number] : 1940cct:[id number] Age/Sex: 83 / FADM Date: 01/12/24 Loc: RAD Attending Dr: MELINDA PINA Ordering Physician: MELINDA PINA Date of Service: 01/12/24 Procedure(s): XR lumbar spine 6V w bending Accession Number(s): [id number] cc: MELINDA PINA [place] [address] Patient Name: MICHAEL SHAY MRN: [id number] date: 1940 Sex: F Assigned Patient Location: RAD Current Patient Location: RAD Accession/Order Number: [id number] Exam Date: 01/12/2024 11:40 Report Date: 01/12/2024 13:40 At the request of: MELINDA PINA Procedure: XR lumbar spine 6V w bending EXAMINATION: XR lumbar spine 6V w bending HISTORY: acute left-sided low back pain without sciatica M54.50 COMPARISON: 10/22/2023 FINDINGS: BONES: Stable alignment with no acute fracture or spondylolisthesis.Stable wedge compression fracture of T12. Mild to moderate degenerativespondylosis. 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 No paraspinous abnormality is seen. OTHER: Vascular calcifications. No transient spondylolisthesis withflexion or extension XR/XR lumbar spine 6V w bending IMPRESSION: Stable degenerative changes with no dynamic instability Electronically authenticated by: NATHAN KIM Date: 01/12/2024 13:40 Dictated By: Nathan Kim M.D. Signed By:01/12/24 1342 DD/ 1340 TD/TT: Horse Doctor: Melinda Pina DISABILITY AIDE [facility] Final Resu lt documented in this encounter Visit Diagnoses Not on filedocumented in this encounter Care Teams Director Of Sales Support Relationship Specialty Start Date End Date Nicholas Lopez MD [address] [place] [address] PCP - General Internal Medicine 03/18/23 Nicholas Lopez MD [address] [place] [address] PCP - ACO Reach 01/26/24Wednesday, GIDEON Lindsay [address] [place] [address] Licensed Practical Nurse Family Medicine 07/20/23 11/03/24 Maria De Jesus Polanco, ZAHRA [address] [place] [address] Licensed Practical Nurse Family Medicine 11/03/24 12/15/24 Maryuri Elias LPN [address] [address] 12/15/24 documented as of this encounter
--- OUTSIDE RECORDS SUMMARY | 2025-03-21 10:01 | XMS_ITS | Encounter Summary ---
Author Organization [facility] Address [address] [place] [address] Care Team Providers Care Automatic Drill Operator Name Role Phone Nicholas Lopez MD Primary Care Provider [phone] Wednesday, Angélica MENESES Unavailable [phone] Nicholas Lopez MD Unavailable [phone] Maria De Jesus Polanco RN Unavailable [phone] Maryuri Elias SHANK PINNER Unavailable Encounter Details Date Type Department Care Team (Late st Contact Info) Description 01/27/2024 Clinisync Result Encounter [facility] External Department Unsolicited Provider, Generic External Data Social History Tobacco Use Types Packs/Day Years [...] often do you attend chur ch or buddhist services? Never 07/23/2023 Do you belong to any clubs o r organizations such as shinto groups, unions, fraternal or athletic groups, or [...] and heating? Not hard at all 07/23/2023 [facility] Occupat ional Health - Occupational Stress [...] place to sleep or slept in a senior living (including now)? No 07/23/2023 Comments Unknown Sex and Gender Information Value Date Recorded Sex Assigned at Not on file Legal Sex Female 8:34 PM EDT Gender Identity Not on file Sexual Orientation Not on file documented as of this encounter Plan of Treatment Not on file documented as of this encounter Procedures Procedure Name Priority Date/Time Associated Diagnosis Comments NM BONE IMAGE 3 PHASE 01/27/2024 12:20 PM EDT documented in this encounter Results * NM BONE IMAGE 3 PHASE (01/27/2024 12:20 PM EDT) Anatomical Region Laterality Modality Radiographic Isabel ging 01/27/2024 12:2 0 PM EDT Narrative 01/27/2024 12:23 [place] [address] Nuclear Medicine Report Signed Patient: MICHAEL SHAY I MR#: [id number] : 1940 Acct:[id number] Age/Sex: 83 / F ADM Date: 01/27/24 Loc: NM Attending Dr: CHRIST HILL NP Ordering Physician: CHRIST HILL NP Date of Service: 01/27/24 Procedure(s): NM bone 3 phase Accession Number(s): [id number] cc: CHRIST HILL SILK SCREEN LAYOUT DRAFTER; MELINDA PINA The [address] [address] Patient Name: MICHAEL SHAY MRN: [id number] date: 1940 Sex: F Assigned Patient Location: [place] Current Patient Location: [place] Accession/Order Number: [id number] Exam Date: 01/27/2024 06:15 Report Date: 01/27/2024 12:20 At the request of: CHRIST HILL Procedure: NM bone 3 phase EXAMINATION: NM bone 3 phase HISTORY: ACUTE LOW BACK PAIN COMPARISON: 01/12/2024 TECHNIQUE: 24.9 mCi Technetium 99m MDP was injected intravenously followed by acquisition of dynamic flow, immediate blood pool, and delayed static images. FINDINGS: IMAGED AREA: Abdomen and pelvis FLOW PHASE: Normal. BLOOD POOL PHASE: Normal. DELAYED IMAGES: Increased activity is identified along the left 11th and 12th costovertebral joints and along the posterior left 10th 11 and 12 ribs OTHER: Negative. NM/AR bone 3 phase IMPRESSION: Increased activity on delayed images in the 10th 11th and 12th left ribs consistent with fractures Electronically authenticated by: NATHAN KIM Date: 01/27/2024 12:20 Dictated By: Nathan Kim M.D. Signed By: 01/27/24 1223 DD/ 1220 TD/TT: Tile Fitter: Procedure Note Radiology, Radiologist, MD - 01/27/2024 [place] [address] Nuclear Medicine Report Signed Patient: MICHAEL SHAY IMR#: [id number] : 1940cct:[id number] Age/Sex: 83 / FADM Date: 01/27/24 Loc: NM Attending Dr: CHRIST HILL SILK SCREEN LAYOUT DRAFTER Ordering Physician: CHRIST HILL NP Date of Service: 01/27/24 Procedure(s): NM bone 3 phase Accession Number(s): [id number] cc: CHRIST HILL SILK SCREEN LAYOUT DRAFTER; MELINDA PINA [place] [id number] Patient Name: MICHAEL SHAY MRN: [id number] date: 1940 Sex: F Assigned Patient Location: AR Current Patient Location: [place] Accession/Order Number: [id number] Exam Date: 01/27/2024 06:15 Report Date: 01/27/2024 12:20 At the request of: CHRIST Herrmann APLASHLEY Procedure: NM bone 3 phase EXAMINATION: NM bone 3 phase HISTORY: ACUTE LOW BACK PAIN COMPARISON: 01/12/2024 TECHNIQUE: 24.9 mCi Technetium 99m MDP was injected intravenously followedby acquisition of dynamic flow, immediate blood pool, and delayed staticimages. FINDINGS: IMAGED AREA: Abdomen and pelvis FLOW PHASE: Normal. BLOOD POOL PHASE: Normal. DELAYED IMAGES: Increased activity is identified along the left 11th [id number] costovertebral joints and along the posterior left 10th 11 and 12 ribs OTHER: Negative. NM/NM bone 3 phase IMPRESSION: Increased activity on delayed images in the 10th 11th and 12th left ribs consistent with fractures Electronically authenticated by: NATHAN KIM Date: 01/27/2024 12:20 Dictated By: Nathan Kim M.D. Signed By:01/27/24 1223 DD/ 1220 TD/TT: Tile Fitter: Generic External Data Provider IMG XR PROCEDURES Final Result documented in this encounter Visit Diagnoses Not on filedocumented in this encounter Care Teams Automatic Drill Operator Relationship Specialty Start Date End Date Nicholas Lopez MD [address] [place] [address] PCP - General Internal Medicine 03/18/23 Nicholas Lopez MD [address] [place] [address] PCP - ACO Reach 01/26/24WednesdayAngélica LPN [address] [place] [address] Licensed Practical Nurse Family Medicine 07/20/23 11/03/24 Maria De Jesus Polanco, RN [address] [place] [address] Licensed Practical Nurse Family Medicine 11/03/24 12/15/24 Maryuri Elias LPN 112 [facility] 110 [place] [address] 12/15/24 documented as of this encounter
--- OUTSIDE RECORDS SUMMARY | 2025-03-21 10:01 | XMS_ITS | Encounter Summary ---
Author Organization [facility] Address [address] [facility] [place] [address] Care Team Providers Care Pharmacy Benefits Coordinator Name Role Phone Nicholas Lopez MD Unavailable [phone] Nicholas Lopez MD Primary Care Provider [phone] Wednesday, Angélica MENESES Unavailable [phone] Nicholas Lopez MD Unavailable [phone] Maria De Jesus Polanco RN Unavailable [phone] Maryuri Elias COLOR CORRECTOR Unavailable Encounter Details Date Type Department Care Team (Late st Contact Info) Description 08/05/2023 Abstract [facility] [address] [facility] 110 [place] [id number] Nicholas Lopez MD 112 [facility] 110 [place], [place] [address] Social History Tobacco Use Types Packs/Day Years [...] often do you attend chur ch or buddhism services? Never 07/23/2023 Do you belong to any clubs o r organizations such as presybeterian groups, unions, fraternal or athletic groups, or [...] and heating? Not hard at all 07/23/2023 [facility] of Occupat ional Health - Occupational Stress [...] money to buy more. Never true 07/23/20 Within the past 12 months, t he [...] place to sleep or slept in a group home (including now)? No 07/23/2023 Comments Unknown Sex and Gender Information Value Date Recorded Sex Assigned at Not on file Legal Sex Female 8:34 PM EDT Gender Identity Not on file Sexual Orientation Not on file documented as of this encounter Plan of Treatment Not on file documented as of this encounter Visit Diagnoses Not on filedocumented in this encounter Care Teams Pharmacy Benefits Coordinator Relationship Specialty Start Date End Date Nicholas Lopez MD [address] [place] [address] PCP - ACO Reach 02/18/23 11/25/23 Nicholas Lopez MD [address] [place] [address] PCP - General Internal Medicine 03/18/23 Nicholas Lopez MD [address] [place] [address] PCP - ACO Reach 01/26/24WedTristanAngélica LPN [address] [place] [address] Licensed Practical Nurse Family Medicine 07/20/23 11/03/24 Maria De Jesus Polanco, RN [address] [place] [address] Licensed Practical Nurse Family Medicine 11/03/24 12/15/24 Maryuri Elias LPN 112 [facility] 110 [place] [address] 12/15/24 documented as of this encounter
--- OUTSIDE RECORDS SUMMARY | 2025-03-21 10:01 | XMS_ITS | Encounter Summary ---
Author Organization [facility] Address [address] [place] [address] Care Team Providers Care Lace Winder Name Role Phone Nicholas Lopez MD Unavailable [phone] Nicholas Lopez MD Primary Care Provider [phone] Wednesday, Angélica SOWN Unavailable [phone] Nicholas Lopez MD Unavailable [phone] Maria De Jesus Polanco RN Unavailable [phone] Maryuri Elias CHOKE REAMER Unavailable Encounter Details Date Type Department Care Team (Late st Contact Info) Description 06/07/2023 Orders Only [facility] [address] [place] [id number] Jenny Hartman, [address] [place], [place] [address] Social History Tobacco Use Types Packs/Day Years [...] Procedure Name Priority Date/Time Associated Diagnosis Comments US UPPER EXTREMITY BILATE Routine 06/04/2023 10:[address] ABDOMEN & PELVIS WO Routine 06/04/2023 9:54 AM EDT XR CHEST 1 VIEW Routine 06/04/2023 9:[address] ABDOMEN & PELVIS WO Routine 06/04/2023 9:46 AM EDT documented in this encounter Results * US UPPER EXTREMITY BILATE (06/04/2023 10:27 AM EDT) Anatomical Region Laterality Modality Radiographic Isabel ging Unknown Practice A IMG XR PROCEDURES Final Resul t * CT ABDOMEN & PELVIS WO (06/04/2023 9:54 AM EDT) Anatomical Region Laterality Modality Radiographic Isabel ging us Urban Celeste MD IMG XR PROCEDURES Final Result * XR chest 1 view (06/04/2023 9:47 AM EDT) Anatomical Region Laterality Modality Chest Radiographic Isabel ging Jenny Hartman DO IMG XR PROCEDURES Final Resu lt * CT ABDOMEN & PELVIS WO (06/04/2023 9:46 AM EDT) Anatomical Region Laterality Modality Radiographic Isabel ging Jenny Hartman DO IMG XR PROCEDURES Final Resu lt documented in this encounter Visit Diagnoses Not on filedocumented in this encounter Care Teams Lace Winder Relationship Specialty Start Date End Date Nicholas Lopez MD [address] [place] [address] PCP - ACO Reach 02/18/23 11/25/23 Nicholas Lopez MD [address] [place] [address] PCP - General Internal Medicine 03/18/23 Nicholas Lopez MD [address] [place] [address] PCP - ACO Reach 01/26/24Wednesday, GIDEON Lindsay [address] [place] [address] Licensed Practical Nurse Family Medicine 07/20/23 11/03/24 Maria De Jesus Polanco, RN [address] [place] [address] Licensed Practical Nurse Family Medicine 11/03/24 12/15/24 Maryuri Elias LPN 112 [facility] 110 [place] [address] 12/15/24 documented as of this encounter
--- OUTSIDE RECORDS SUMMARY | 2025-03-21 10:01 | XMS_ITS | Encounter Summary ---
Author Organization [facility] Address [address] [place] [address] Care Team Providers Care Merchandise Marker Name Role Phone Nicholas Lopez MD Primary Care Provider [phone] Wednesday, Angélica SOWN Unavailable [phone] Nicholas Lopez MD Unavailable [phone] Maria De Jesus Polanco RN Unavailable [phone] Maryuri Elias SEDIMENT REMEDIATION CONSULTANT Unavailable Encounter Details Date Type Department Care Team (Late st Contact Info) Description 01/13/2024 Orders Only [facility] [address] [place] [address] Unallocated, Noms Provider, [address] [place], [place] [address] Social History Tobacco Use Types Packs/Day Years [...] 07/23/2023 How often do you attend chur or sabianist services? Never 07/23/2023 Do you belong to any clubs o r organizations such as caodaism groups, unions, fraternal or athletic groups, or [...] and heating? Not hard at all 07/23/2023 [facility] - Occupational Stress Questionnaire Answer Date Recorded [...] place to sleep or slept in a correction (including now)? No 07/23/2023 Comments Unknown Sex and Gender Information Value Date Recorded Sex Assigned at Not on file Legal Sex Female 8:34 PM EDT Gender Identity Not on file Sexual Orientation Not on file documented as of this encounter Plan of Treatment Not on file documented as of this encounter Procedures Procedure Name Priority Date/Time Associated Diagnosis Comments X-RAY : SPINE, LUMBAR Routine 01/12/2024 8:40 AM EDT documented in this encounter Results * X-RAY : SPINE, LUMBAR (01/12/2024 8:40 AM EDT) Anatomical Region Laterality Modality Radiographic Isabel ging us Noms Provider Unallocated IMG XR PROCEDURES F inal Result documented in this encounter Visit Diagnoses Not on filedocumented in this encounter Care Teams Merchandise Marker Relationship Specialty Start Date End Date Nicholas Lopez MD [address] [facility] 110 [place] [address] PCP - General Internal Medicine 03/18/23 Nicholas Lopez MD [address] [facility] 110 [place] [address] PCP - ACO Reach 01/26/24Wednesday, GIDEON Lindsay [address] [place] [address] Licensed Practical Nurse Family Medicine 07/20/23 11/03/24 Maria De Jesus Polanco, RN [address] [place] [address] Licensed Practical Nurse Family Medicine 11/03/24 12/15/24 Maryuri Elias LPN [address] [place] [address] 12/15/24 documented as of this encounter
--- OUTSIDE RECORDS SUMMARY | 2025-03-21 10:01 | XMS_ITS | Encounter Summary ---
[facility] Address [id number] [address] [place] [address] Care Team Providers Care Graduate Engineer Name Role Phone Kaley Hidalgo MD Primary Care Provider [phone] Encounter Details Date Type Department Care Team (Late st Contact Info) Description 02/18/2022 Abstract [facility] [address] [place] [id number] External, Scanning Provider Social History Tobacco Use Types Packs/Day Years Used Date Smoking Tobacco: Never Smokeless Tobacco: Never Alcohol Use Standard Drinks/Week Comments Not Currently 0 (1 standard drink = 0.6 oz pur e alcohol) Childcare Answer Date Recorded Childcare Unknown 03/06/2019 Employment Answer Date Recorded Employment Unknown 03/06/2019 Comments Unknown Sex and Gender Information Value Date Recorded Sex Assigned at Not on file Legal Sex Female 1:38 PM EDT Gender Identity Not on file Sexual Orientation Not on file COVID-19 Exposure Response Date Recorded In the last 10 days, have yo u been in contact with someone who was confirmed or suspected to have Coronavirus/COVID-19? No / Unsure 02/11/2022 11:00 AM EDT documented as of this encounter Plan of Treatment Not on file documented as of this encounter Procedures Procedure Name Priority Date/Time Associated Diagnosis Comments URINE CULTURE Routine 01/30/2022 documented in this encounter Results * Urine Culture (01/30/2022) Urine 01/30/2022 us Scanning Provider External MICROBIOLOGY - GENERA L ORDERABLES Final Result MANUALLY TRANSCRIBED RESULTS documented in this encounter Visit Diagnoses Not on filedocumented in this encounter Care Teams Graduate Engineer Relationship Specialty Start Date End Date Kaley Hidalgo MD [address] [place], [place] [id number] PCP - General Family Medicine 03/20/22 documented as of this encounter
--- OUTSIDE RECORDS SUMMARY | 2025-03-21 10:01 | XMS_ITS | Encounter Summary ---
Author Organization [facility] Address [address] [facility] [place] [address] Care Team Providers Care Refrigeration Engineering Teacher Name Role Phone Nicholas Lopez MD Unavailable [phone] Nicholas Lopez MD Primary Care Provider [phone] Wednesday, Angélica MENESES Unavailable [phone] Nicholas Lopez MD Unavailable [phone] Maria De Jesus Polanco RN Unavailable [phone] Maryuri Elias REFINERY OPERATOR ALKYLATION Unavailable Encounter Details Date Type Department Care Team (Late st Contact Info) Description 07/27/2023 Abstract [facility] 112 [facility] 110 [place] [id number] Nicholas Lopez MD 112 [facility] 110 [place], [place] [id number] Social History Tobacco Use Types Packs/Day Years [...] often do you attend chur ch or anabaptist services? Never 07/23/2023 Do you belong to any clubs o r organizations such as yarsanism groups, unions, fraternal or athletic groups, or [...] and heating? Not hard at all 07/23/2023 [facility] of Occupat ional Health - Occupational [...] place to sleep or slept in a [place] health care facility (including now)? No 07/23/2023 Comments Unknown Sex and Gender Information Value Date Recorded Sex Assigned at Not on file Legal Sex Female 8:34 PM EDT Gender Identity Not on file Sexual Orientation Not on file documented as of this encounter Plan of Treatment Not on file documented as of this encounter Visit Diagnoses Not on filedocumented in this encounter Care Teams Refrigeration Engineering Teacher Relationship Specialty Start Date End Date Nicholas Lopez MD [address] [place] [address] PCP - ACO Reach 02/18/23 11/25/23 Nicholas Lopez MD [address] [place] [address] PCP - General Internal Medicine 03/18/23 Nicholas Lopez MD [address] [place] [address] PCP - ACO Reach 01/26/24WedTristanAngélica LPN [address] [place] [address] Licensed Practical Nurse Family Medicine 07/20/23 11/03/24 Maria De Jesus Polanco, RN [address] [place] [address] Licensed Practical Nurse Family Medicine 11/03/24 12/15/24 Maryuri Elias LPN 112 [facility] 110 [place] [address] 12/15/24 documented as of this encounter
--- OUTSIDE RECORDS SUMMARY | 2025-03-21 10:01 | XMS_ITS | Encounter Summary ---
Author Organization [employer] Sys tem Address [id number] [address] [place] [address] Care Team Providers Care Fiberglass Boat Maker Name Role Phone Kaley Hidalgo MD Primary Care Provider [phone] Encounter Details Date Type Department Care Team (Late st Contact Info) Description 03/03/2022 Orders Only [facility] [address] [place] [address] Maru Love Gross hematuria Social History Tobacco Use Types Packs/Day Years [...] Date/Time Associated Diagnosis Comments URINE CULTURE Routine 02/25/2022 Gross hematuria documented in this encounter Results * Urine Culture (02/25/2022) Urine Urine specimen collection, clean catch / Unknown 02/25/2022 us Jose Rafael Botello MD MICROBIOLOGY - GENERAL ORD ERABLES Final Result SUNQUEST documented in this encounter Visit Diagnoses Diagnosis Gross hematuria documented in this encounter Care Teams Fiberglass Boat Maker Relationship Specialty Start Date End Date Kaley Hidalgo MD [address] [place] [address] PCP - General Family Medicine 03/20/22 documented as of this encounter
--- OUTSIDE RECORDS SUMMARY | 2025-03-21 10:01 | XMS_ITS | Encounter Summary ---
Author Organization [email or web address] [facility] [employer] Address [id number] [address] [place] [address] Care Team Providers Care Benefits Officer Name Role Phone Kaley Hidalgo MD Primary Care Provider [phone] Encounter Details Date Type Department Care Team (Late st Contact Info) Description 02/24/2022 [facility] [address] [place] [address] Cathi Gonzalez RMA Social History Tobacco Use Types Packs/Day Years [...] AM EDT documented as of this encounter Miscellaneous Notes * Telephone Encounter - LIBERTAD Silverio - 02/24/2022 1:54 PM EDT Patient calls stating she is having pain Right side of the stomach, and was passing blood on Wednesday, no blood since but the intermittent pain on the right side of her stomach is there. Patient is asking if there is anything that can be done. * Telephone Encounter - RUTHIE Elizalde - 02/24/2022 1:54 PM EDT I reviewed Kushal's note and patient had a recent CT which did not show a urologic cause for any pain--she is to have cysto/BRP/local end of this month in [place]. She has hx of UTI--can we get a urine culture please--if possible catheterized specimen based on contamination of the 02/13/22 culture. Would try to move up the procedure as well (likely would need to come to [place] location). * Telephone Encounter - LIBERTAD Silverio - 02/24/2022 1:54 PM EDT Patient can only drive around town, and no one will be in [place] office until next week after today. Patient prefer to go to [place] to have Urine culture done like before due to it is closer. Patient stated she wouldn't be able to go to [facility] to have her urine culture done until02/26 - I went [facility] the [facility] collection [facility] urine culture. Patient isn't interested in moving surgery up in [place], due to her ride can only take her to [place]. Urine culture order placed and faxed to [phone] * Telephone Encounter - RUTHIE Elizalde - 02/24/2022 1:54 PM EDT Carlos--Kushal pt--see below-please track urine culture as is being done at outside facility Cathi--obvious if symptoms worsen in the interim she will need to seek emergent care * Telephone Encounter - Neida Treviño LPN - 02/24/2022 1:54 PM EDT Pt urine culture was collected on 02/25/22 and has resulted. I talked to Rosita at [facility],and she will fax results to us. * Telephone Encounter - Neida Treviño LPN - 02/24/2022 1:54 PM EDT Received. On your desk for review. * Telephone Encounter - RUTHIE Elizalde - 02/24/2022 1:54 PM EDT Urine shows contamination--If still symptomatic she needs to find away to get a catheterized urine sample for repeat culture * Telephone Encounter - Neida Treviño LPN - 02/24/2022 1:54 PM EDT Pt states the only symptom she really has is back pain, and maybe some frequency. She denies pain with urination, burning and fevers. She states she really does not know where she could go for a catheterized specimen, and coming to [place] is too difficult for her because she has to get a ride. Please advise anything further. I sent her urine culture document to scanning. * Telephone Encounter - RUTHIE Elizalde - 02/24/2022 1:54 PM EDT Looks like we need to get Cysto/BRP/local done as scheduled--will send to Marge Bernal) to keep an eye out for cancellations. Recent CT was negative for urologic cause of her pain. documented in this encounter Plan of Treatment Not on file documented as of this encounter Results * Urine Culture (02/25/2022) Urine Urine specimen collection, clean catch / Unknown 02/25/2022 us Jose Rafael Boetllo MD MICROBIOLOGY - GENERAL ORD ERABLES Final Result SUNQUEST documented in this encounter Visit Diagnoses Diagnosis Gross hematuria- Primary documented in this encounter Care Teams Benefits Officer Relationship Specialty Start Date End Date Kaley Hidalgo MD [address] [place], [place] [id number] PCP - General Family Medicine 03/20/22 documented as of this encounter
--- OUTSIDE RECORDS SUMMARY | 2025-03-21 10:01 | XMS_ITS | Encounter Summary ---
Author Organization [facility] Address [address] [facility] [place] [address] Care Team Providers Care Warehouse Consultant Name Role Phone Nicholas Lopez MD Unavailable [phone] Nicholas Lopez MD Primary Care Provider Wednesday, Angélica SOWN Unavailable [phone] Nicholas Lopez MD Unavailable [phone] Maria De Jesus Polanco RN Unavailable [phone] Maryuri Elias CLINICAL DOCUMENTATION SPEC Unavailable Encounter Details Date Type Department Care Team (Late st Contact Info) Description 06/07/2023 Abstract [facility] 112 [facility] 110 [place] [address] Nicholas Lopez MD 112 [facility] 110 [place], [place] [id number] Social History Tobacco Use Types Packs/Day Years [...] on filedocumented in this encounter Care Teams Warehouse Consultant Relationship Specialty Start Date End Date Nicholas Lopez MD [address] [facility] 110 [place], [place] [id number] PCP - ACO Reach 02/18/23 11/25/23 Nicholas Lopez MD [address] [place] [address] PCP - General Internal Medicine 03/18/23 Nicholas Lopez MD [address] [place] [address] PCP - ACO Reach 01/26/24Wednesday, GIDEON Lindsay [address] [place] [address] Licensed Practical Nurse Family Medicine 07/20/23 11/03/24 Maria De Jesus Polanco, RN [address] [place] [address] Licensed Practical Nurse Family Medicine 11/03/24 12/15/24 Maryuri Elias LPN [address] [facility] 110 [place] [address] 12/15/24 documented as of this encounter
--- OUTSIDE RECORDS SUMMARY | 2025-03-21 10:01 | XMS_ITS | Encounter Summary ---
Author Organization [facility] Address [address] [facility] [place] [address] Care Team Providers Care Engineering Faculty Name Role Phone Nicholas Lopez MD Unavailable [phone] Nicholas Lopez MD Primary Care Provider Wednesday, Angélica SOWN Unavailable [phone] Nicholas Lopez MD Unavailable [phone] Maria De Jesus Polanco RN Unavailable [phone] Maryuri Elias TRANSPORTATION SPECIALIST Unavailable Encounter Details Date Type Department Care Team (Late st Contact Info) Description 06/07/2023 Abstract [facility] 112 [facility] 110 [place] [address] Nicholas Lopez MD 112 [facility] 110 [place], [place] [id number] Social History Tobacco Use Types Packs/Day Years [...] on filedocumented in this encounter Care Teams Engineering Faculty Relationship Specialty Start Date End Date Nicholas Lopez MD [address] [place] [facility] 110 [place], [place] [phone] PCP - ACO Reach 02/18/23 11/25/23 Nicholas Lopez MD [address] [place] [address] PCP - General Internal Medicine 03/18/23 Nicholas Lopez MD [address] [place] [address] PCP - ACO Reach 01/26/24Wednesday, GIDEON Lindsay [address] [place] [address] Licensed Practical Nurse Family Medicine 07/20/23 11/03/24 Maria De Jesus Polanco, RN [address] [place] [address] Licensed Practical Nurse Family Medicine 11/03/24 12/15/24 Maryuri Elias LPN [address] [facility] 110 [place] [address] 12/15/24 documented as of this encounter
--- OUTSIDE RECORDS SUMMARY | 2025-03-21 10:01 | XMS_ITS | Encounter Summary ---
Author Organization [facility] Address [address] [facility] [place] [address] Care Team Providers Care Ceramic Tile Installation Helper Name Role Phone Nicholas Lopez MD Unavailable [phone] Nicholas Lopez MD Primary Care Provider [phone] Wednesday, Angélica MENESES Unavailable [phone] Nicholas Lopez MD Unavailable [phone] Maria De Jesus Polanco RN Unavailable [phone] Maryuri Elias SOLAR ELECTRIC/PHOTOVOLTAIC INSTALLER Unavailable Encounter Details Date Type Department Care Team (Late st Contact Info) Description 07/27/2023 Abstract [facility] 112 [facility] 110 [place] [address] Nicholas Lopez MD 112 [facility] 110 [place], [place] [address] Social History Tobacco Use Types Packs/Day Years [...] often do you attend chur ch or rastafari services? Never 07/23/2023 Do you belong to any clubs o r organizations such as quaker groups, unions, fraternal or athletic groups, or [...] and heating? Not hard at all 07/23/2023 [facility] of Occupat ional Health - Occupational [...] place to sleep or slept in a care home (including now)? No 07/23/2023 Comments Unknown Sex and Gender Information Value Date Recorded Sex Assigned at Not on file Legal Sex Female 8:34 PM EDT Gender Identity Not on file Sexual Orientation Not on file documented as of this encounter Plan of Treatment Not on file documented as of this encounter Visit Diagnoses Not on filedocumented in this encounter Care Teams Ceramic Tile Installation Helper Relationship Specialty Start Date End Date Nicholas Lopez MD [address] [place] [address] PCP - ACO Reach 02/18/23 11/25/23 Nicholas Lopez MD [address] [place] [address] PCP - General Internal Medicine 03/18/23 Nicholas Lopez MD [address] [place] [address] PCP - ACO Reach 01/26/24WedTristanAngélica LPN [address] [place] [address] Licensed Practical Nurse Family Medicine 07/20/23 11/03/24 Maria De Jesus Polanco, RN [address] [place] [address] Licensed Practical Nurse Family Medicine 11/03/24 12/15/24 Maryuri Elias LPN 112 [facility] 110 [place] [address] 12/15/24 documented as of this encounter
--- OUTSIDE RECORDS SUMMARY | 2025-03-21 10:01 | XMS_ITS | Continuity of Care Document ---
Author Organization [employer] [employer] Address [facility] [address] [place] [address] Phone [phone] Care Team Providers Care Hunting Sales Leader Name Role Phone ALEXX MARIE M.D. Care Team Information Receiv er Unavailable
--- OUTSIDE RECORDS SUMMARY | 2025-03-21 10:01 | XMS_ITS | Encounter Summary ---
Author Organization [facility] Address [address] [facility] [place] [address] Care Team Providers Care Shoe Lacer Name Role Phone Nicholas Lopez MD Primary Care Provider [phone] Wednesday, Angélica SOWN Unavailable [phone] Nicholas Lopez MD Unavailable [phone] Maria De Jesus Polanco RN Unavailable [phone] Maryuri Elias PUBLIC AREA SUPERVISOR Unavailable Encounter Details Date Type Department Care Team (Late st Contact Info) Description 01/31/2024 Abstract [facility] 112 [facility] 110 [place] [address] Nicholas Lopez MD 112 [facility] 110 [place] [address] Social History Tobacco Use Types Packs/Day Years [...] often do you attend chur ch or hindu services? Never 07/23/2023 Do you belong to any clubs o r organizations such as sabianist groups, unions, fraternal or athletic groups, or [...] and heating? Not hard at all 07/23/2023 [facility] - Occupational Stress Questionnaire Answer Date Recorded [...] place to sleep or slept in a detention (including now)? No 07/23/2023 Comments Unknown Sex and Gender Information Value Date Recorded Sex Assigned at Not on file Legal Sex Female 8:34 PM EDT Gender Identity Not on file Sexual Orientation Not on file documented as of this encounter Plan of Treatment Not on file documented as of this encounter Visit Diagnoses Not on filedocumented in this encounter Care Teams Shoe Lacer Relationship Specialty Start Date End Date Nicholas Lopez MD [address] [place] [address] PCP - General Internal Medicine 03/18/23 Nicholas Lopez MD [address] [place] [address] PCP - ACO Reach 01/26/24Wednesday, GIDEON Lindsay [address] [place] [address] Licensed Practical Nurse Family Medicine 07/20/23 11/03/24 Maria De Jesus Polanco, ZAHRA [address] [place] [address] Licensed Practical Nurse Family Medicine 11/03/24 12/15/24 Maryuri Elias LPN 112 [facility] 110 [place] [address] 12/15/24 documented as of this encounter
--- OUTSIDE RECORDS SUMMARY | 2025-03-21 10:01 | XMS_ITS | Encounter Summary ---
Author Organization [facility] Address [address] [facility] [place] [address] Care Team Providers Care Utility Operator Yarn Name Role Phone Nicholas Lopez MD Unavailable [phone] Nicholas Lopez MD Primary Care Provider [phone] Wednesday, Angélica MENESES Unavailable [phone] Nicholas Lopez MD Unavailable [phone] Maria De Jesus Polanco RN Unavailable [phone] Maryuri Elias REFRACTORY TECHNICIAN Unavailable Encounter Details Date Type Department Care Team (Late st Contact Info) Description 08/02/2023 Abstract [facility] 112 [facility] 110 [place] [address] Nicholas Lopez MD 112 [facility] 110 [place], [place] [id number] Social History Tobacco Use Types Packs/Day Years [...] often do you attend chur ch or orthodox services? Never 07/23/2023 Do you belong to any clubs o r organizations such as hindu groups, unions, fraternal or athletic groups, or [...] and heating? Not hard at all 07/23/2023 [facility] of Occupat ional Health - Occupational Stress [...] to sleep or slept in a senior care (including now)? No 07/23/2023 Comments Unknown Sex and Gender Information Value Date Recorded Sex Assigned at Not on file Legal Sex Female 8:34 PM EDT Gender Identity Not on file Sexual Orientation Not on file documented as of this encounter Plan of Treatment Not on file documented as of this encounter Visit Diagnoses Not on filedocumented in this encounter Care Teams Utility Operator Yarn Relationship Specialty Start Date End Date Nicholas Lopez MD [address] [place] [address] PCP - ACO Reach 02/18/23 11/25/23 Nicholas Lopez MD [address] [place] [address] PCP - General Internal Medicine 03/18/23 Nicholas Lopez MD [address] [place] [address] PCP - ACO Reach 01/26/24WedTristanAngélica LPN [address] [place] [address] Licensed Practical Nurse Family Medicine 07/20/23 11/03/24 Maria De Jesus Polanco, RN [address] [place] [address] Licensed Practical Nurse Family Medicine 11/03/24 12/15/24 Maryuri Elias LPN 112 [facility] 110 [place] [address] 12/15/24 documented as of this encounter
--- OUTSIDE RECORDS SUMMARY | 2025-03-21 10:01 | XMS_ITS | Encounter Summary ---
Author Organization [facility] Address [address] [place] [address] Care Team Providers Care Casing Blower Name Role Phone Nicholas Lopez MD Unavailable [phone] Nicholas Lopez MD Primary Care Provider Wednesday, Angélica SOWN Unavailable [phone] Nicholas Lopez MD Unavailable [phone] Maria De Jesus Polanco RN Unavailable Maryuri Elias ACID CHANGER Unavailable Encounter Details Date Type Department Care Team (Late st Contact Info) Description 05/10/2023 Orders Only [facility] [address] [place] [address] Mary Farris, TREATMENT TECHNICIAN [address] [place] [address] Social History Tobacco Use Types Packs/Day Years Used Date Smoking Tobacco: Never Smokeless Tobacco: Never Comments Unknown Sex and Gender Information Value Date Recorded Sex Assigned at Not on file Legal Sex Female 8:34 PM EDT Gender Identity Not on file Sexual Orientation Not on file documented as of this encounter Plan of Treatment Not on file documented as of this encounter Procedures Procedure Name Priority Date/Time Associated Diagnosis Comments CHG US RETROPERITONEAL REAL TIME W/IMAGE LIMITED Routine 05/07/2023 5:41 AM EDT US RENAL KIDNEY Routine 05/07/2023 5:40 AM EDT documented in this encounter Results * Renal Ultrasound (05/07/2023 5:41 AM EDT) us Mary Farris TREATMENT TECHNICIAN IN CLINIC/BEDSIDE ORDERABLES Final Result * US RENAL KIDNEY (05/07/2023 5:40 AM EDT) Anatomical Region Laterality Modality Radiographic Isabel ging Mary Farris TREATMENT TECHNICIAN IMG XR PROCEDURES Final Resu lt documented in this encounter Visit Diagnoses Not on filedocumented in this encounter Care Teams Casing Blower Relationship Specialty Start Date End Date Nicholas Lopez MD [address] [place] [address] PCP - ACO Reach 02/18/23 11/25/23 Nicholas Lopez MD [address] [place] [address] PCP - General Internal Medicine 03/18/23 Nicholas Lopez MD [address] [place] [address] PCP - ACO Reach 01/26/24WednesdayAngélica LPN [address] [place] [address] Licensed Practical Nurse Family Medicine 07/20/23 11/03/24 Maria De Jesus Polanco RN [address] [place] [address] Licensed Practical Nurse Family Medicine 11/03/24 12/15/24 Maryuri Elias LPN [address] [place] [address] 12/15/24 documented as of this encounter
--- OUTSIDE RECORDS SUMMARY | 2025-03-21 10:01 | XMS_ITS | Encounter Summary ---
Author Organization [employer] Address [facility]-[id number] [address] [place] [address] Care Team Providers Care Roller Turner Name Role Phone Kaley Hidalgo MD Primary Care Provider [phone] Encounter Details Date Type Department Care Team (Late st Contact Info) Description 02/17/2022 Orders Only [facility] [address] [place] [address] Maru Loev Gross hematuria Social History Tobacco Use Types [...] Date/Time Associated Diagnosis Comments URINE CULTURE Routine 02/13/2022 Gross hematuria documented in this encounter Results * Urine Culture (02/13/2022) Urine Urine specimen collection, clean catch / Unknown 02/13/2022 us Yec[facility]CRO[facility] - GENERAL MADDISON TORRES Final Result SUNQUEST documented in this encounter Visit Diagnoses Diagnosis Gross hematuria documented in this encounter Care Teams Roller Turner Relationship Specialty Start Date End Date Kaley Hidalgo MD [address] [place] [address] PCP - General Family Medicine 03/20/22 documented as of this encounter
--- OUTSIDE RECORDS SUMMARY | 2025-03-21 10:01 | XMS_ITS | Encounter Summary ---
Author Organization [employer] Address [facility][id number] [address] [place] [address] Care Team Providers Care Electrician Assistant Name Role Phone Kaley Hidalgo MD Primary Care Provider [phone] Encounter Details Date Type Department Care Team (Late st Contact Info) Description 02/12/2022 Telephone [facility] [address] [place] [address] [phone] Yecenia Fatima PA [address] [place] [address] Social History Tobacco Use Types Packs/Day Years [...] encounter Miscellaneous Notes * Telephone Encounter - RUTHIE Cannon - 02/12/2022 2:05 PM EDT Please fax over an order for a urine culture to [facility] and confirm that they receive thelab slip. Let patient know when complete so she can drop of a specimen * Telephone Encounter - Neida Treviño LPN - 02/12/2022 2:05 PM EDT Faxed order to [facility] per your request. Ext #[phone] (for the lab) Fx: [phone] Called and verified they did receive the order. I [facility] for pt to call back. Her VM was not identified. * Telephone Encounter - Mary Robertson CMA - 02/12/2022 2:05 PM EDT Layne called asking if you were going to put her on an antibiotic? She will be going this weekend to give sample. * Telephone Encounter - RUTHIE Cannon - 02/12/2022 2:05 PM EDT I sent in Bactrim to her pharmacy. documented in this encounter Plan of Treatment Not on file documented as of this encounter Results * Urine Culture (02/13/2022) Urine Urine specimen collection, clean catch / Unknown 02/13/2022 us Yecenia [facility]DRICKS MICROBIOLOGY - GENERAL MADDISON TORRES Final Result SUNQUEST documented in this encounter Visit Diagnoses Diagnosis Gross hematuria- Primary documented in this encounter Care Teams Electrician Assistant Relationship Specialty Start Date End Date Kaley Hidalgo MD [address] [place] [address] PCP - General Family Medicine 03/20/22 documented as of this encounter
--- OUTSIDE RECORDS SUMMARY | 2025-03-21 10:01 | XMS_ITS | Encounter Summary ---
Author Organization [employer] Address [id number] [address] [place] [address] Care Team Providers Care Superintendent Meters Name Role Phone Kaley Hidalgo MD Primary Care Provider [phone] Encounter Details Date Type Department Care Team (Late st Contact Info) Description 02/11/2022 Telephone [facility] [address] [place] [address] [phone] Yecenia Fatima PA [address] [place] [address] Social History Tobacco Use Types Packs/Day Years [...] * Telephone Encounter - RUTHIE Cannon - 02/11/2022 11:49 AM EDT Marge: Please schedule her for cysto/BRPG under local with Dr. Botello in [place]. She may consider [facility] if wait is too long V[place]a: Please see if we can get her CT uploaded from [facility] * Telephone Encounter - Marge Shannon - 02/11/2022 11:49 AM EDT SCHEDULED 03/24/22 @ 915AM PPWRK GIVEN IN OFFICE PT STATES SHE WAS OKAY WAITING DEPENDING UPON PAIN LEVEL * Telephone Encounter - Vinita Hogan LPN - 02/11/2022 11:49 AM EDT I spoke to Flor at [facility] and she is pushing over to the PACS system the CT and KUB that was done in January for the patient. Thank you. documented in this encounter Plan of Treatment Not on file documented as of this encounter Visit Diagnoses Not on filedocumented in this encounter Care Teams Superintendent Meters Relationship Specialty Start Date End Date Kaley Hidalgo MD [address] [place] [address] PCP - General Family Medicine 03/20/22 documented as of this encounter
--- OUTSIDE RECORDS SUMMARY | 2025-03-21 10:01 | XMS_ITS | Encounter Summary ---
Author Organization [facility] Address [address] [facility] [place] [address] Care Team Providers Care Operations Superintendent Name Role Phone Nicholas Lopez MD Primary Care Provider [phone] Wednesday, Angélica SOWN Unavailable [phone] Nicholas Lopez MD Unavailable [phone] Maria De Jesus Polanco RN Unavailable [phone] Maryuri Elias WELL DRILL OPERATOR ROTARY DRILL Unavailable Encounter Details Date Type Department Care Team (Late st Contact Info) Description 06/08/2024 Abstract [facility] 112 [facility] 110 [place] [address] Nicholas Lopez MD 112 [facility] 110 [place] [address] Social History Tobacco Use Types [...] often do you attend chur ch or congregational services? Never 07/23/2023 Do you belong to any clubs o r organizations such as confucianism groups, unions, fraternal or athletic groups, or [...] and heating? Not hard at all 07/23/2023 PHQ-2 Answer Date Recorded Patient Health Questionnaire-2 Score 0 03/14/2024 [facility] - Occupational Stress Questionnaire Answer Date Recorded [...] place to sleep or slept in a residential (including now)? No 07/23/2023 Comments Unknown Sex and Gender Information Value Date Recorded Sex Assigned at Not on file Legal Sex Female 8:34 PM EDT Gender Identity Not on file Sexual Orientation Not on file documented as of this encounter Plan of Treatment Not on file documented as of this encounter Visit Diagnoses Not on filedocumented in this encounter Additional Health Concerns Assessment Noted Time PHQ-9 Depression Total Score: 1 03/14/20 24 10:00 AM EDT documented as of this encounter Care Teams Operations Superintendent Relationship Specialty Start Date End Date Nicholas Lopez MD [address] [place] [address] PCP - General Internal Medicine 03/18/23 Nicholas Lopez MD [address] [place] [address] PCP - ACO Reach 01/26/24WednesdayAngélica LPN [address] [place] [address] Licensed Practical Nurse Family Medicine 07/20/23 11/03/24 Maria De Jesus Polanco, RN [address] [place] [address] Licensed Practical Nurse Family Medicine 11/03/24 12/15/24 Maryuri Elias LPN [address] [address] 12/15/24 documented as of this encounter
--- OUTSIDE RECORDS SUMMARY | 2025-03-21 10:01 | XMS_ITS | Encounter Summary ---
Author Organization [facility] Address [address] [facility] [place] [address] Care Team Providers Care Rotary Surface Grinder Name Role Phone Nicholas Lopez MD Primary Care Provider [phone] Wednesday, Angélica SOWN Unavailable [phone] Nicholas Lopez MD Unavailable [phone] Maria De Jesus Polanco RN Unavailable [phone] Maryuri Elias REPAIRER HELPER Unavailable Encounter Details Date Type Department Care Team (Late st Contact Info) Description 03/16/2024 Abstract [facility] 112 [facility] [address] [place] [address] Nicholas Lopez MD [address] [facility] 110 [place] [address] Social History Tobacco Use Types [...] often do you attend chur ch or yarsanism services? Never 07/23/2023 Do you belong to any clubs o r organizations such as mu-ism groups, unions, fraternal or athletic groups, or [...] Recorded Patient Health Questionnaire-2 Score 0 03/14/2024 [facility] Occupat ional [facility] - Occupational Stress Questionnaire Answer Date [...] place to sleep or slept in a retirement (including now)? No 07/23/2023 Comments Unknown Sex [...] documented as of this encounter Care Teams Rotary Surface Grinder Relationship Specialty Start Date End Date Nicholas Lopez MD [address] [place] [address] PCP - General Internal Medicine 03/18/23 Nicholas Lopez MD [address] [place] [address] PCP - ACO Reach 01/26/24WednesdayAngélica LPN [address] [place] [address] Licensed Practical Nurse Family Medicine 07/20/23 11/03/24 Maria De Jesus Polanco, RN [address] [place] [address] Licensed Practical Nurse Family Medicine 11/03/24 12/15/24 Maryuri Elias LPN [address] [address] 12/15/24 documented as of this encounter
--- OUTSIDE RECORDS SUMMARY | 2025-03-21 10:01 | XMS_ITS | Encounter Summary ---
Author Organization [facility] Address [address] [facility] [place] [address] Care Team Providers Care Framing Mechanic Name Role Phone Nicholas Lopez MD Unavailable [phone] Nicholas Lopez MD Primary Care Provider [phone] Wednesday, Angélica SOWN Unavailable [phone] Nicholas Lopez MD Unavailable [phone] Maria De Jesus Polanco RN Unavailable [phone] Maryuri Elias LEAD BI DEVELOPER Unavailable Encounter Details Date Type Department Care Team (Late st Contact Info) Description 06/07/2023 Abstract [facility] 112 [facility] 110 [place] [address] Nicholas Lopez MD 112 [facility] [address] [place], [place] [address] Social History Tobacco Use Types Packs/Day Years [...] on filedocumented in this encounter Care Teams Framing Mechanic Relationship Specialty Start Date End Date Nicholas Lopez MD 112 [facility] [address] [place], [place] [address] PCP - ACO Reach 02/18/23 11/25/23 Nicholas Lopez MD [address] [place] [address] PCP - General Internal Medicine 03/18/23 Nicholas Lopez MD [address] [place] [address] PCP - ACO Reach 01/26/24Wednesday, GIDEON Lindsay [address] [place] [address] Licensed Practical Nurse Family Medicine 07/20/23 11/03/24 Maria De Jesus Polanco, RN [address] [place] [address] Licensed Practical Nurse Family Medicine 11/03/24 12/15/24 Maryuri Elias LPN [address] [facility] [address] [place] [address] 12/15/24 documented as of this encounter
--- OUTSIDE RECORDS SUMMARY | 2025-03-21 10:02 | XMS_ITS | Encounter Summary ---
Author Organization [facility] Address [address] [place] [address] Care Team Providers Care Desktop Support Engineer Name Role Phone Nicholas Lopez MD Unavailable [phone] Nicholas Lopez MD Primary Care Provider [phone] Wednesday, Angélica SOWN Unavailable [phone] Nicholas Lopez MD Unavailable [phone] Maria De Jesus Polanco RN Unavailable [phone] Maryuri Elias DIRECTORY COMPILER Unavailable Encounter Details Date Type Department Care Team (Late st Contact Info) Description 11/04/2023 Orders Only [facility] [address] [place] [address] A, Unknown Practice [address] [phone] Social History Tobacco Use Types Packs/Day Years [...] How often do you attend chur or latter day services? Never 07/23/2023 Do you belong to any clubs o r organizations such as yazidi groups, unions, fraternal or athletic groups, or [...] and heating? Not hard at all 07/23/2023 [facility] Occupat ional Health - Occupational Stress [...] the money to buy more. Never true 10/27/20 23 Within the past 12 months, t [...] Procedure Name Priority Date/Time Associated Diagnosis Comments CT ABDOMEN & PELVIS WO Routine 11/04/2023 3:45 PM EST documented in this encounter Results * CT ABDOMEN & PELVIS WO (11/04/2023 3:45 PM EST) Anatomical Region Laterality Modality Radiographic Isabel ging us Unknown Practice A IMG XR PROCEDURES Final Resul t documented in this encounter Visit Diagnoses Not on filedocumented in this encounter Care Teams Desktop Support Engineer Relationship Specialty Start Date End Date Nicholas Lopez MD [address] [facility] [address] [place] [address] PCP - ACO Reach 02/18/23 11/25/23 Nicholas Lopez MD [address] [place] [address] PCP - General Internal Medicine 03/18/23 Nicholas Lopez MD [address] [place] [address] PCP - ACO Reach 01/26/24WednesdayAngélica LPN [address] [place] [address] Licensed Practical Nurse Family Medicine 07/20/23 11/03/24 Maria De Jesus Polanco, ZAHRA [address] [place] [address] Licensed Practical Nurse Family Medicine 11/03/24 12/15/24 Maryuri Elias LPN [address] [facility] [address] [place] [address] 12/15/24 documented as of this encounter
--- OUTSIDE RECORDS SUMMARY | 2025-03-21 10:02 | XMS_ITS | Encounter Summary ---
Author Organization [facility] Address [address] [facility] [place] [address] Care Team Providers Care Lab Aide Name Role Phone Nicholas Lopez MD Primary Care Provider [phone] Wednesday, Angélica SOWN Unavailable [phone] Nicholas Lopez MD Unavailable [phone] Maria De Jesus Polanco RN Unavailable [phone] Maryuri Elias ELECTRODE CLEANER Unavailable Encounter Details Date Type Department Care Team (Late st Contact Info) Description 09/13/2024 Abstract [facility] 112 [facility] 110 [place] [address] Nicholas Lopez MD 112 [facility] 110 [place] [address] Social History Tobacco Use Types Packs/Day Years Used Date Smoking Tobacco: Never Smokeless Tobacco: Never Alcohol Use Standard Drinks/Week Comments Not Currently 0 (1 standard drink = 0.6 oz pur e alcohol) Caffeine intake: coffee, tea B1300 Health Literacy Answer Date Recor ded How often do you need to hav e someone help you when you read instructions, pamphlets, or other written material from your doctor or pharmacy? Never 07/11/2024 Humiliation, Afraid, Rape, and Kick questionnair e Answer Date Recorded Within the last year, have y ou been afraid of your partner or ex-partner? No 07/11/2024 Within the last year, have y ou been humiliated or emotionally abused in other ways by your partner or ex-partner? No Within the last year, have y ou been kicked, hit, slapped, or otherwise physically hurt by your partner or ex-partner? No 07/11/2024 Within the last year, have y ou been raped or forced to have any kind of sexual activity by your partner or ex-partner? No 07/11/2024 Social Connection and Isolation Panel [NHANES] A nswer Date Recorded In a typical week, how many times do you talk on the phone with family, friends, or neighbors? Three times a week 07/23/2023 How often do you get togethe r with friends or relatives? Once a week 07/23/2023 How often do you attend chur ch or latter day services? Never 07/23/2023 Do you belong to any clubs o r organizations such as buddhism groups, unions, fraternal or athletic groups, or [...] Recorded Patient Health Questionnaire-2 Score 0 03/14/2024 [facility] of Occupat ional Health - Occupational [...] documented as of this encounter Care Teams Lab Aide Relationship Specialty Start Date End Date Nicholas Lopez MD [address] [place] [address] PCP - General Internal Medicine 03/18/23 Nicholas Lopez MD [address] [place] [address] PCP - ACO Reach 01/26/24WednesdayAngélica LPN [address] [place] [address] Licensed Practical Nurse Family Medicine 07/20/23 11/03/24 Maria De Jesus Polanco, ZAHRA [address] [place] [address] Licensed Practical Nurse Family Medicine 11/03/24 12/15/24 Maryuri Elias LPN 112 [facility] 110 [place] [address] 12/15/24 documented as of this encounter
--- OUTSIDE RECORDS SUMMARY | 2025-03-21 10:02 | XMS_ITS | Encounter Summary ---
Author Organization [facility] Address [address] [facility] [place] [address] Care Team Providers Care Pet Sitter Name Role Phone Nicholas Lopez MD Unavailable [phone] Nicholas Lopez MD Primary Care Provider [phone] Wednesday, Angélica SOWN Unavailable [phone] Nicholas Lopez MD Unavailable [phone] Maria De Jesus Polanco RN Unavailable [phone] Maryuri Elias WIND OPERATIONS MANAGER Unavailable Encounter Details Date Type Department Care Team (Late st Contact Info) Description 06/30/2023 Orders Only [facility] [address] [place] [address] A, Unknown Practice [address] [phone] Social History Tobacco Use Types Packs/Day Years [...] Procedure Name Priority Date/Time Associated Diagnosis Comments SCANNED LABS Routine 06/30/2023 2:04 PM EDT documented in this encounter Results * SCANNED LABS (06/30/2023 2:04 PM EDT) us Unknown Practice A LAB CHG PERFORMABLES Final Re sult documented in this encounter Visit Diagnoses Not on filedocumented in this encounter Care Teams Pet Sitter Relationship Specialty Start Date End Date Nicholas Lopez MD [address] [place] [address] PCP - ACO Reach 02/18/23 11/25/23 Nicholas Lopez MD [address] [place] [address] PCP - General Internal Medicine 03/18/23 Nicholas Lopez MD [address] [place] [address] PCP - ACO Reach 01/26/24WednesdayAngélica LPN [address] [place] [address] Licensed Practical Nurse Family Medicine 07/20/23 11/03/24 Maria De Jesus Polanco, RN [address] [facility] [place] [address] Licensed Practical Nurse Family Medicine 11/03/24 12/15/24 Maryuri Elias LPN [address] [place] [address] 12/15/24 documented as of this encounter
--- OUTSIDE RECORDS SUMMARY | 2025-03-21 10:02 | XMS_ITS | Encounter Summary ---
Author Organization [facility] Address [address] [place] [address] Care Team Providers Care Tenant Relations Coordinator Name Role Phone Nicholas Lopez MD Primary Care Provider [phone] Wednesday, Angélica SOWN Unavailable [phone] Nicholas Lopez MD Unavailable [phone] Maria De Jesus Polanco RN Unavailable [phone] Maryuri Elias EAP CLINICIAN Unavailable Encounter Details Date Type Department Care Team (Late st Contact Info) Description 05/11/2024 Clinisync Result Encounter [facility] External Department Unsolicited Melinda Pina, FINISHING MACHINE OPERATOR AUTOMATIC [address] [facility] [address] [place] [address] Social History Tobacco Use Types Packs/Day Years [...] often do you attend chur ch or worship services? Never 07/23/2023 Do you belong to any clubs o r organizations such as congregational groups, unions, fraternal or athletic groups, or [...] Recorded Patient Health Questionnaire-2 Score 0 03/14/2024 [facility] - Occupational Stress Questionnaire Answer Date [...] Name Priority Date/Time Associated Diagnosis Comments XR CERVICAL SPINE W FLEX/EXT 05/11/2024 6:16 AM EDT documented in this encounter Results * XR CERVICAL SPINE W FLEX/EXT (05/11/2024 6:16 AM EDT) Anatomical Region Laterality Modality Other 05/11/2024 6:16 AM EDT Narrative 05/11/2024 6:18 AM EDT [address] [address] XRay Report Signed Patient: MICHAEL SHAY I MR#: [id number] : 1940 Acct:[id number] Age/Sex: 83 / F ADM Date: 05/09/24 Loc: RAD Attending Dr: MELINDA PINA Ordering Physician: MELINDA PINA Date of Service: 05/09/24 Procedure(s): XR cervical spine w flex/ext Accession Number(s): [id number] cc: MELINDA PINA [address] [address] Patient Name: MICHAEL SHAY MRN: [id number] date: 1940 Sex: F Assigned Patient Location: [facility] Current Patient Location: Accession/Order Number: [id number] Exam Date: 05/09/2024 10:40 Report Date: 05/11/2024 06:16 At the request of: MELINDA PINA Procedure: XR cervical spine w flex/ext EXAMINATION: XR cervical spine w flex/ext HISTORY: acute neck pain after falling COMPARISON: No relevant comparison available. FINDINGS: BONES: Minimal height reduction of C5 and C6. Multilevel moderate degenerative facet arthropathy. DISC SPACES: Mild narrowing C5-C6. Moderate narrowing C6-C7. C7 and T1 are obscured by shoulder structures. PARASPINOUS: Negative. No paraspinous abnormality is seen. OTHER: Negative. XR/XR cervical spine w flex/ext IMPRESSION: 1. Chronic versus acute mild compression fractures of C5 and C6 are suspected. C7 is obscured by shoulder structures. 2. Multilevel moderate facet arthropathy. 3. Mild to moderate degenerative disc disease C5-C6 and C6-C7. Electronically authenticated by: LUL SOLIS Date: 05/11/2024 06:16 Dictated By: Lul Solis M.D. Signed By: 05/11/24617 DD/ 5 TD/TT: Tree Care Foreman: Procedure Note Radiology, Radiologist, MD - 05/11/2024 [place] [address] XRay Report Signed Patient: MICHAEL SHAY IMR#: [id number] : 1940cct:[id number] Age/Sex: 83 / FADM Date: 05/09/24 Loc: [facility] Attending Dr: MELINDA PINA Ordering Physician: MELINDA PINA Date of Service: 05/09/24 Procedure(s): XR cervical spine w flex/ext Accession Number(s): [id number] cc: MELINDA PINA [address] [address] Patient Name: MICHAEL SHAY MRN: [id number] date: 1940 Sex: F Assigned Patient Location: [facility] Current Patient Location: Accession/Order Number: [id number] Exam Date: 05/09/2024 10:40 Report Date: 05/11/2024 06:16 At the request of: MELINDA PINA Procedure: XR cervical spine w flex/ext EXAMINATION: XR cervical spine w flex/ext HISTORY: acute neck pain after falling COMPARISON: No relevant comparison available. FINDINGS: BONES: Minimal height reduction of C5 and C6. Multilevel moderatedegenerative facet arthropathy. DISC SPACES: Mild narrowing C5-C6. Moderate narrowing C6-C7. C7 and T1 are obscured by shoulder structures. PARASPINOUS: Negative. No paraspinous abnormality is seen. OTHER: Negative. XR/XR cervical spine w flex/ext IMPRESSION: 1. Chronic versus acute mild compression fractures of C5 and C6 aresuspected. C7 is obscured by shoulder structures. 2. Multilevel moderate facet arthropathy. 3. Mild to moderate degenerative disc disease C5-C6 and C6-C7. Electronically authenticated by: LUL SOLIS Date: 05/11/2024 06:16 Dictated By: Lul Solis M.D. Signed By:05/11/24617 DD/ 5 TD/TT: Tree Care Foreman: us Melinda Pina FINISHING MACHINE OPERATOR [facility]OMATIC [facility] Final Resu lt documented in this encounter Visit Diagnoses Not on filedocumented in this encounter Additional Health Concerns Assessment Noted Time PHQ-9 Depression Total Score: 1 03/14/20 24 10:00 AM EDT documented as of this encounter Care Teams Tenant Relations Coordinator Relationship Specialty Start Date End Date Nicholas Lopez MD [address] [facility] [address] [place] [address] PCP - General Internal Medicine 03/18/23 Nicholas Lopez MD [address] [facility] [address] [place] [address] PCP - ACO Reach 01/26/24Wednesday, GIDEON Lindsay [address] [place] [address] Licensed Practical Nurse Family Medicine 07/20/23 11/03/24 Maria De Jesus Polanco, RN [address] [place] [address] Licensed Practical Nurse Family Medicine 11/03/24 12/15/24 Maryuri Elias LPN [address] [facility] [address] [place] [address] 12/15/24 documented as of this encounter
--- OUTSIDE RECORDS SUMMARY | 2025-03-21 10:02 | XMS_ITS | Encounter Summary ---
Author Organization [facility] Address [address] [place] [address] Care Team Providers Care Drum Stenciler Name Role Phone Nicholas Lopez MD Unavailable [phone] Nicholas Lopez MD Primary Care Provider [phone] Wednesday, Angélica SOWN Unavailable [phone] Nicholas Lopez MD Unavailable [phone] Maria De Jesus Polanco RN Unavailable [phone] Maryuri Elias TAILOR APPRENTICE Unavailable Encounter Details Date Type Department Care Team (Late st Contact Info) Description 10/25/2023 Orders Only [facility] [address] [place] [address] [place] [address] A, Unknown Practice [address] [id number] Social History Tobacco Use Types Packs/Day Years [...] How often do you attend chur or buddhist services? Never 07/23/2023 Do you belong to any clubs o r organizations such as moravian groups, unions, fraternal or athletic groups, or [...] and heating? Not hard at all 07/23/2023 [facility] - Occupational [...] Date/Time Associated Diagnosis Comments XR LUMBAR SPINE 6+ VIEWS INCLUDING OBLIQUE FLEXION EXTENSION Routine 10/22/2023 9:17 AM EST XR LUMBAR SPINE 2-3 VIEWS Routine 10/22/2023 9:17 AM EST documented in this encounter Results * XR lumbar spine 2 or 3 views (10/22/2023 9:17 AM EST) Anatomical Region Laterality Modality Spine, L-spine Radiographic Isabel ging us Unknown Practice A IMG XR PROCEDURES Final Resul t * XR lumbar spine 6+ views including oblique flexion extension (10/22/2023 9:17 AM EST) Anatomical Region Laterality Modality Spine, L-spine Radiographic Isabel ging us Unknown Practice A IMG XR PROCEDURES Final Resul t documented in this encounter Visit Diagnoses Not on filedocumented in this encounter Care Teams Drum Stenciler Relationship Specialty Start Date End Date Nicholas Lopez MD [address] [facility] 110 [place] [address] PCP - ACO Reach 02/18/23 11/25/23 Nicholas Lopez MD [address] [facility] 110 [place] [address] PCP - General Internal Medicine 03/18/23 Nicholas Lopez MD [address] [facility] 110 [place] [address] PCP - ACO Reach 01/26/24Wednesday, GIDEON Lindsay [address] [facility] 110 [place] [address] Licensed Practical Nurse Family Medicine 07/20/23 11/03/24 Maria De Jesus Polanco RN [address] [facility] [place] [address] Licensed Practical Nurse Family Medicine 11/03/24 12/15/24 Maryuri Elias LPN [address] [facility] 110 [place] [address] 12/15/24 documented as of this encounter
--- OUTSIDE RECORDS SUMMARY | 2025-03-21 10:02 | XMS_ITS ---
Author Organization [facility] Address [address] [place] [address] Care Team Providers Care Penciller Name Role Phone Nicholas Lopez MD Primary Care Provider [phone] Nicholas Lopez MD Unavailable [phone] Maryuri Elias LPN Unavailable Chronic Care Management (CCM) Status:Enrolled (Active) Start date:07/20/2023 Enrollment date:07/20/2023 Enrollment reason:Referred by provider Overview 07/20/23, 10:09 AM - Angélicawednesday, GIDEON- Patient gives verbal consent to be enrolled in CCM Program and understands there could be a bill for this service. Case Team Name Relationship Phone Maryuri Eilas LPN(Responsible Staff) [phone] Continued Care and Services Coordination
--- OUTSIDE RECORDS SUMMARY | 2025-03-21 10:02 | XMS_ITS | Encounter Summary ---
Author Organization [facility] Address [address] [facility] [place] [address] Care Team Providers Care Jewelry Maker Name Role Phone Nicholas Lopez MD Unavailable [phone] Nicholas Lopez MD Primary Care Provider [phone] Wednesday, Angélica MENESES Unavailable [phone] Nicholas Lopez MD Unavailable [phone] Maria De Jesus Polanco RN Unavailable [phone] Maryuri Elias RUBBER TURNER Unavailable Encounter Details Date Type Department Care Team (Late st Contact Info) Description 07/20/2023 Abstract [facility] 112 [facility] 110 [place] [address] Nicholas Lopez MD 112 [facility] 110 [place], [place] [address] Social History Tobacco Use Types Packs/Day Years [...] often do you attend chur ch or amish services? Never 07/23/2023 Do you belong to any clubs o r organizations such as mandaeism groups, unions, fraternal or athletic groups, or [...] on file documented as of this encounter Functional Status * Audit-C Score Answer Date of Assessment Author 0 07/23/2023 2:06 PM EDT WednesdayJose M LPN * Question Answer Date of Assessment Author Q1: How often do you have a drink containing alcohol? Never 07/23/2023 2:06 PM EDT Angélica Hudson LP N Q2: How many drinks containing alcohol do you have on a typical day when you are drinking? Patient does not drink 07/23/2023 2:06 PM EDT Angélica Hudson LPN Q3: How often do you have six or more drinks on one occasion? Never 07/23/2023 2:06 PM EDT Angélica Hudson LP N documented as of this encounter Plan of Treatment Not on file documented as of this encounter Visit Diagnoses Not on filedocumented in this encounter Care Teams Jewelry Maker Relationship Specialty Start Date End Date Nicholas Lopez MD 112 [facility] 110 [place] [address] PCP - ACO Reach 02/18/23 11/25/23 Nicholas Lopez MD [address] [facility] [address] [place] [address] PCP - General Internal Medicine 03/18/23 Nicholas Lopez MD [address] [facility] [address] [place] [address] PCP - ACO Reach 01/26/24WednesdayAngélica LPN [address] [place] [address] Licensed Practical Nurse Family Medicine 07/20/23 11/03/24 Maria De Jesus Polanco, RN [address] [place] [address] Licensed Practical Nurse Family Medicine 11/03/24 12/15/24 Maryuri Elias LPN [address] [facility] 110 [place] [address] 12/15/24 documented as of this encounter
--- OUTSIDE RECORDS SUMMARY | 2025-03-21 10:02 | XMS_ITS | Encounter Summary ---
Author Organization [facility] Address [address] [place] [address] Care Team Providers Care Side Seam Machine Operator Name Role Phone Nicholas Lopez MD Unavailable [phone] Nicholas Lopez MD Primary Care Provider [phone] Wednesday, Angélica MENESES Unavailable [phone] Nicholas Lopez MD Unavailable [phone] Maria De Jesus Polanco RN Unavailable [phone] Maryuri Elias CHAIN PULLER Unavailable Encounter Details Date Type Department Care Team (Late st Contact Info) Description 11/04/2023 Clinisync Result Encounter [facility] External Department Unsolicited Melinda Pina, DAIRY NUTRITION SPECIALIST 112 [facility] 110 [place] [address] Social History Tobacco Use Types [...] How often do you attend chur or mosque services? Never 07/23/2023 Do you belong to any clubs o r organizations such as jainism groups, unions, fraternal or athletic groups, or [...] and heating? Not hard at all 07/23/2023 [facility] - Occupational Stress Questionnaire Answer [...] Name Priority Date/Time Associated Diagnosis Comments CT ABDOMEN/PELVIS WO CONT 11/04/2023 3:05 PM EST documented in this encounter Results * CT ABDOMEN/PELVIS WO CONT (11/04/2023 3:05 PM EST) Anatomical Region Laterality Modality Radiographic Isabel ging 11/04/2023 3:05 PM EST Narrative 11/04/2023 3:08 [place] [address] CT Scan Report Signed Patient: MICHAEL SHAY I MR#: [id number] : 1940 Acct:[id number] Age/Sex: 82 / F ADM Date: 11/04/23 Loc: CT Attending Dr: MELINDA PINA Ordering Physician: MELINDA PINA Date of Service: 11/04/23 Procedure(s): CT abdomen pelvis wo con Accession Number(s): [id number] cc: MELINDA PINA [address] [address] Patient Name: MICHAEL SHAY MRN: [id number] date: 1940 Sex: F Assigned Patient Location: CT Current Patient Location: CT Accession/Order Number: [id number] Exam Date: 11/04/2023 14:29 Report Date: 11/04/2023 15:05 At the request of: MELINDA PINA Procedure: CT abdomen pelvis wo con EXAM: CT abdomen pelvis wo con HISTORY: hematuria R31.9 COMPARISON: None. TECHNIQUE: Axial soft tissue windows of the abdomen and pelvis with coronal and sagittal reformats. CT dose reduction technique was used including Automated Exposure Control. Findings: Lack of intravenous contrast limits evaluation. Benign calcified right lower lobe granuloma. ABDOMEN: Evaluation of the hepatic dome is limited as it was excluded from the bymme-mn-dgfm. There are hepatic and splenic calcifications likely relating to prior granulomatous disease. The gallbladder is surgically absent. The pancreas and adrenal glands are unremarkable. Mild nonspecific bilateral perinephric fat stranding. No renal stones or collecting system dilatation. The bilateral ureters are nondilated. Evaluation of the bowel is limited given the absence of oral contrast. There are colonic diverticula. No bowel obstruction. The appendix is nondilated. The aorta is normal caliber. Mild atherosclerotic disease. No enlarged abdominal lymph nodes or free abdominal fluid. There are postsurgical changes consistent with prior ventral hernia repair. There is a small fat-containing hernia along the left lateral margin of the mass. Pelvis: Unremarkable bladder. The uterus is surgically absent. No enlarged pelvic lymph nodes or free pelvic fluid. No aggressive sclerotic or lytic osseous lesions. Old mild T12 superior endplate compression deformity. Grade 1 anterolisthesis of L3 on L4. There is multi level degenerative spondylosis. Vacuum disc phenomenon at L4-L5 and L5-S1. CT/CT abdomen pelvis wo con IMPRESSION: 1. No renal stones or collecting system dilatation. 2. Diverticulosis. 3. Prior ventral hernia repair. Small fat-containing hernia along the lateral margin of the mass. 4. Other more nonemergent findings, as described above. Electronically authenticated by: TONY NEIL Date: 11/04/2023 15:05 Dictated By: Tony Neil M.D. Signed By: 11/04/23 1508 DD/ 1505 TD/TT: Sink Cutter: Procedure Note Radiology, Radiologist, - 11/04/2023 [place] [address] CT Scan Report Signed Patient: MICHAEL SHAY IMR#: [id number] : 1940cct:[id number] Age/Sex: 82 / FADM Date: 11/04/23 Loc: CT Attending Dr: MELINDA PINA Ordering Physician: MELINDA PINA Date of Service: 11/04/23 Procedure(s): CT abdomen pelvis wo con Accession Number(s): [id number] cc: MELINDA PINA [place] [address] Patient Name: MICHAEL SHAY MRN: [id number] date: 1940 Sex: F Assigned Patient Location: CT Current Patient Location: CT Accession/Order Number: [id number] Exam Date: 11/04/2023 14:29 Report Date: 11/04/2023 15:05 At the request of: MELINDA PINA Procedure: CT abdomen pelvis wo con EXAM: CT abdomen pelvis wo con HISTORY: hematuria R31.9 COMPARISON: None. TECHNIQUE: Axial soft tissue windows of the abdomen and pelvis withcoronal and sagittal reformats. CT dose reduction technique was used includingAutomated Exposure Control. Findings: Lack of intravenous contrast limits evaluation. Benign calcified right lower lobe granuloma. ABDOMEN: Evaluation of the hepatic dome is limited as it was excluded from the kimuz-cp-hlax. There are hepatic and splenic calcifications likelyrelating to prior granulomatous disease. The gallbladder is surgically absent. The pancreas and adrenal glands are unremarkable. Mild nonspecific bilateral perinephric fat stranding. No renal stones or collecting system dilatation. The bilateral ureters are nondilated. Evaluation of the bowel is limited given the absence of oral contrast.There are colonic diverticula. No bowel obstruction. The appendix is nondilated. The aorta is normal caliber. Mild atherosclerotic disease. No enlarged abdominal lymph nodes or free abdominal fluid. There are postsurgical changes consistent with prior ventral herniarepair. There is a small fat-containing hernia along the left lateral margin ofthe mass. Pelvis: Unremarkable bladder. The uterus is surgically absent. No enlarged pelvic lymph nodes or free pelvic fluid. No aggressive sclerotic or lytic osseous lesions. Old mild T12 superior endplate compression deformity. Grade 1 anterolisthesis of L3 on L4. Thereis multi level degenerative spondylosis. Vacuum disc phenomenon at L4-L5 and L5-S1. CT/CT abdomen pelvis wo con IMPRESSION: 1. No renal stones or collecting system dilatation. 2. Diverticulosis. 3. Prior ventral hernia repair. Small fat-containing hernia along thelateral margin of the mass. 4. Other more nonemergent findings, as described above. Electronically authenticated by: TONY NEIL Date: 11/04/2023 15:05 Dictated By: Tony Neil M.D. Signed By:11/04/23 1508 DD/ 1505 TD/TT: Sink Cutter: Melinda Pina DAIRY NUTRITION SPECIALIST IMG XR PROCEDURES Final Resu lt documented in this encounter Visit Diagnoses Not on filedocumented in this encounter Care Teams Side Seam Machine Operator Relationship Specialty Start Date End Date Nicholas Lopez MD [address] [facility] [address] [place] [address] PCP - ACO Reach 02/18/23 11/25/23 Nicholas Lopez MD [address] [facility] [address] [place] [address] PCP - General Internal Medicine 03/18/23 Nicholas Lopez MD [address] [facility] [address] [place] [address] PCP - ACO Reach 01/26/24WednesdayAngélica LPN [address] [place] [address] Licensed Practical Nurse Family Medicine 07/20/23 11/03/24 Maria De Jesus Polanco, ZAHRA [address] [place] [address] Licensed Practical Nurse Family Medicine 11/03/24 12/15/24 Maryuri Elias LPN [address] [address] 12/15/24 documented as of this encounter
--- OUTSIDE RECORDS SUMMARY | 2025-03-21 10:02 | XMS_ITS | Encounter Summary ---
Author Organization [facility] Address [address] [place] [address] Care Team Providers Care Cloth Coverer Name Role Phone Nicholas Lopez MD Primary Care Provider [phone] Wednesday, Angélica SOWN Unavailable [phone] Nicholas Lopez MD Unavailable [phone] Maria De Jesus Polanco RN Unavailable [phone] Maryuri Elias LIVER TRIMMER Unavailable Encounter Details Date Type Department Care Team (Late st Contact Info) Description 05/22/2024 Abstract [facility] 112 [facility] 110 [place] [address] Nicholas Lopez MD 112 [facility] 110 [place] [address] Social History Tobacco Use Types [...] often do you attend chur ch or spiritism services? Never 07/23/2023 Do you belong to any clubs o r organizations such as rastafari groups, unions, fraternal or athletic groups, or [...] Recorded Patient Health Questionnaire-2 Score 0 03/14/2024 [facility]at [facility] - Occupational Stress Questionnaire Answer [...] documented as of this encounter Care Teams Cloth Coverer Relationship Specialty Start Date End Date Nicholas Lopez MD [address] [facility] [address] [place] [address] PCP - General Internal Medicine 03/18/23 Nicholas Lopez MD [address] [facility] [address] [place] [address] PCP - ACO Reach 01/26/24WednesdayAngélica LPN [address] [place] [address] Licensed Practical Nurse Family Medicine 07/20/23 11/03/24 Maria De Jesus Polanco, RN [address] [place] [address] Licensed Practical Nurse Family Medicine 11/03/24 12/15/24 Maryuri Elias LPN [address] [address] 12/15/24 documented as of this encounter
--- OUTSIDE RECORDS SUMMARY | 2025-03-21 10:02 | XMS_ITS | Encounter Summary ---
Author Organization [facility] Address [address] [facility] [place] [address] Care Team Providers Care Varnisher Name Role Phone Nicholas Lopez MD Unavailable [phone] Nicholas Lopez MD Primary Care Provider [phone] Wednesday, Angélica MENESES Unavailable [phone] Nicholas Lopez MD Unavailable [phone] Maria De Jesus Polanco RN Unavailable [phone] Maryuri Elias TOOLSMITH Unavailable Encounter Details Date Type Department Care Team (Late st Contact Info) Description 07/20/2023 Abstract [facility] 112 [facility] 110 [place] [id number] Nicholas Lopez MD 112 [facility] 110 [place], [place] [address] Social History Tobacco Use Types Packs/Day Years [...] often do you attend chur ch or shinto services? Never 07/23/2023 Do you belong to [...] and heating? Not hard at all 07/23/2023 [facility] ional [facility] - [...] place to sleep or slept in a assisted (including now)? No 07/23/2023 Comments Unknown Sex [...] on filedocumented in this encounter Care Teams Varnisher Relationship Specialty Start Date End Date Nicholas Lopez MD 112 [facility] 110 [place] [address] PCP - ACO Reach 02/18/23 11/25/23 Nicholas Lopez MD [address] [facility] [address] [place] [address] PCP - General Internal Medicine 03/18/23 Nicholas Lopez MD [address] [facility] [address] [place] [address] PCP - ACO Reach 01/26/24WednesdayAngélica LPN [address] [place] [address] Licensed Practical Nurse Family Medicine 07/20/23 11/03/24 Maria De Jesus Polanco, RN [address] [place] [address] Licensed Practical Nurse Family Medicine 11/03/24 12/15/24 Maryuri Elias LPN [address] [facility] 110 [place] [address] 12/15/24 documented as of this encounter
--- OUTSIDE RECORDS SUMMARY | 2025-03-21 10:02 | XMS_ITS | Encounter Summary ---
Author Organization [facility] Address [address] [facility] [place] [address] Care Team Providers Care Religion Professor Name Role Phone Nicholas Lopez MD Unavailable [phone] Nicholas Lopez MD Primary Care Provider Wednesday, Angélica SOWN Unavailable [phone] Nicholas Lopez MD Unavailable Maria De Jesus Polanco RN Unavailable [phone] Maryuri Elias STOCK CLERK SELF SERVICE STORE Unavailable Encounter Details Date Type Department Care Team (Late st Contact Info) Description 06/30/2023 Abstract [facility] [address] [facility] 110 [place] [address] Nicholas Lopez MD 112 [facility] 110 [place], [place] [id number] Social History Tobacco Use Types Packs/Day Years [...] on filedocumented in this encounter Care Teams Religion Professor Relationship Specialty Start Date End Date Nicholas Lopez MD [address] [facility] 110 [place], [place] [id number] PCP - ACO Reach 02/18/23 11/25/23 Nicholas Lopez MD [address] [facility] [address] [place] [address] PCP - General Internal Medicine 03/18/23 Nicholas Lopez MD [address] [facility] [address] [place] [address] PCP - ACO Reach 01/26/24Wednesday, GIDEON Lindsay [address] [place] [address] Licensed Practical Nurse Family Medicine 07/20/23 11/03/24 Maria De Jesus Polanco, RN [address] [place] [address] Licensed Practical Nurse Family Medicine 11/03/24 12/15/24 Maryuri Elias LPN [address] [facility] 110 [place] [address] 12/15/24 documented as of this encounter
--- OUTSIDE RECORDS SUMMARY | 2025-03-21 10:02 | XMS_ITS | Encounter Summary ---
Author Organization [facility] Address [address] [facility] [place] [address] Care Team Providers Care Varnish Dipper Name Role Phone Nicholas Lopez MD Primary Care Provider Wednesday, Angélica SOWN Unavailable [phone] Nicholas Lopez MD Unavailable [phone] Maria De Jesus Polanco RN Unavailable [phone] Maryuri Elias ENRICHMENT TEACHER Unavailable Encounter Details Date Type Department Care Team (Late st Contact Info) Description 09/13/2024 Clinisync Result Encounter [facility] External Department Unsolicited Elba Garcia, TILTING HEAD BAND SAWYER [address] [facility] 110 [place] [address] Social History Tobacco Use Types Packs/Day Years [...] How often do you attend chur or christian services? Never 07/23/2023 Do you belong to any clubs o r organizations such as islam groups, unions, fraternal or athletic groups, or [...] Recorded Patient Health Questionnaire-2 Score 0 03/14/2024 [facility] - Occupational [...] place to sleep or slept in a jail (including now)? No 07/23/2023 Comments Unknown Sex and Gender Information Value Date Recorded Sex Assigned at Not on file Legal Sex Female 8:34 PM EDT Gender Identity Not on file Sexual Orientation Not on file documented as of this encounter Plan of Treatment Not on file documented as of this encounter Procedures Procedure Name Priority Date/Time Associated Diagnosis Comments CT ABDOMEN/PELVIS WO CONT 09/13/2024 3:48 PM EST documented in this encounter Results * CT ABDOMEN/PELVIS WO CONT (09/13/2024 3:48 PM EST) Anatomical Region Laterality Modality Radiographic Isabel ging 09/13/2024 3:48 PM EST Narrative 09/13/2024 3:51 PM EST The [address] [address] [address] Scan Report Signed Patient: MICHAEL SHAY I MR#: [id number] : 1940 Acct:[id number] Age/Sex: 83 / F ADM Date: 09/13/24 Loc: CT Attending Dr: Elba Garcia TILTING HEAD BAND SAWYER Ordering Physician: Elba Garcia NP Date of Service: 09/13/24 Procedure(s): CT abdomen pelvis wo con Accession Number(s): [id number] cc: MELINDA PINA [address] [address] Patient Name: MICHAEL SHAY MRN: [id number] date: 1940 Sex: F Assigned Patient Location: CT Current Patient Location: CT Accession/Order Number: [id number] Exam Date: 09/13/2024 15:10 Report Date: 09/13/2024 15:48 At the request of: ELBA GARCIA Procedure: CT abdomen pelvis wo con EXAMINATION: CT abdomen pelvis wo con HISTORY: Diverticulosis, Ventral Hernia Repair ; right side abdominal pain radiating to umbilicus COMPARISON: CT abdomen pelvis 11/04/2023 TECHNIQUE: Axial, Coronal, and Sagittal images were obtained without and/or with IV contrast as indicated by examination type. Dose reduction techniques were achieved by using automated exposure control and/or adjustment of mA and/or kV according to patient size and/or use of iterative reconstruction technique. FINDINGS: LUNG BASES: No visible pulmonary or pleural disease. LIVER: No enlargement, atrophy, suspicious density, or significant focal lesion. BILIARY: Prominent intrahepatic bile ducts and common bile duct postcholecystectomy. No appreciable mass or stones. PANCREAS: No lesion, fluid collection, or abnormal duct dilatation. SPLEEN: No enlargement or focal lesion. ADRENALS: No mass or enlargement. KIDNEYS: No mass, obstruction, or calcification. BOWEL/MESENTERY: Numerous noninflamed diverticula along the distal descending and sigmoid colon. No visible mass, obstruction, or bowel wall thickening. AORTA/VASCULAR: No aneurysm or dissection. RETROPERITONEUM: No mass or adenopathy. LYMPH NODES: No adenopathy. URINARY BLADDER: No visible focal wall thickening, lesion, or calculus. PELVIC ORGANS: Hysterectomy. ABDOMINAL WALL: Small, widemouth left paraumbilical hernias containing fat. No strangulation. BONES: Subacute, nondisplaced fractures of the right 10th and 11th rib and left 10th, 11th, 12th ribs. OTHER: Negative. CT/CT abdomen pelvis wo con IMPRESSION: 1. No acute or specific findings to account for patient's symptoms. 2. Distal colonic diverticulosis. 3. Bilateral subacute fractures of the posterior lower ribs. 4. Nonstrangulated fat filled small left paraumbilical hernias. Electronically authenticated by: LUL SOLIS Date: 09/13/2024 15:48 Dictated By: Lul Solis M.D. Signed By: 09/13/24 1551 DD/ 1548 TD/TT: Warehouse Guard: Procedure Note Radiology, Radiologist, MD - 09/13/2024 [place] [address] CT Scan Report Signed Patient: MICHAEL SHAY IMR#: [id number] : 1940cct:[id number] Age/Sex: 83 / FADM Date: 09/13/24 Loc: CT Attending Dr: Elba Garcia NP Ordering Physician: Elba Garcia NP Date of Service: 09/13/24 Procedure(s): CT abdomen pelvis wo con Accession Number(s): [id number] cc: MELINDA PINA [place] [address] Patient Name: MICHAEL SHAY MRN: [id number] date: 1940 Sex: F Assigned Patient Location: CT Current Patient Location: CT Accession/Order Number: [id number] Exam Date: 09/13/2024 15:10 Report Date: 09/13/2024 15:48 At the request of: ELBA GARCIA Procedure: CT abdomen pelvis wo con EXAMINATION: CT abdomen pelvis wo con HISTORY: Diverticulosis, Ventral Hernia Repair ; right side abdominal pain radiating to umbilicus COMPARISON: CT abdomen pelvis 11/04/2023 TECHNIQUE: Axial, Coronal, and Sagittal images were obtained withoutand/or with IV contrast as indicated by examination type. Dose reductiontechniques were achieved by using automated exposure control and/or adjustment of mA and/or kV according to patient size and/or use of iterative reconstruction technique. FINDINGS: LUNG BASES: No visible pulmonary or pleural disease. LIVER: No enlargement, atrophy, suspicious density, or significant focal lesion. BILIARY: Prominent intrahepatic bile ducts and common bile duct postcholecystectomy. No appreciable mass or stones. PANCREAS: No lesion, fluid collection, or abnormal duct dilatation. SPLEEN: No enlargement or focal lesion. ADRENALS: No mass or enlargement. KIDNEYS: No mass, obstruction, or calcification. BOWEL/MESENTERY: Numerous noninflamed diverticula along the distaldescending and sigmoid colon. No visible mass, obstruction, or bowel wall thickening. AORTA/VASCULAR: No aneurysm or dissection. RETROPERITONEUM: No mass or adenopathy. LYMPH NODES: No adenopathy. URINARY BLADDER: No visible focal wall thickening, lesion, or calculus. PELVIC ORGANS: Hysterectomy. ABDOMINAL WALL: Small, widemouth left paraumbilical hernias containingfat. No strangulation. BONES: Subacute, nondisplaced fractures of the right 10th and 11th rib and left 10th, 11th, 12th ribs. OTHER: Negative. CT/CT abdomen pelvis wo con IMPRESSION: 1. No acute or specific findings to account for patient's symptoms. 2. Distal colonic diverticulosis. 3. Bilateral subacute fractures of the posterior lower ribs. 4. Nonstrangulated fat filled small left paraumbilical hernias. Electronically authenticated by: LUL SOLIS Date: 09/13/2024 15:48 Dictated By: Lul Solis M.D. Signed By:09/13/24 1551 DD/ 1548 TD/TT: Warehouse Guard: Elba Garcia TILTING HEAD BAND SAWYER IMG XR PROCEDURES Final Result documented in this encounter Visit Diagnoses Not on filedocumented in this encounter Additional Health Concerns Assessment Noted Time PHQ-9 Depression Total Score: 1 03/14/20 24 10:00 AM EDT documented as of this encounter Care Teams Varnish Dipper Relationship Specialty Start Date End Date Nicholas Lopez MD [address] [facility] 110 [place] [address] PCP - General Internal Medicine 03/18/23 Nicholas Lopez MD [address] [facility] 110 [place] [address] PCP - ACO Reach 01/26/24WednesdayAngélica LPN [address] [facility] 110 [place] [address] Licensed Practical Nurse Family Medicine 07/20/23 11/03/24 Maria De Jesus Polanco, RN [address] [place] [address] Licensed Practical Nurse Family Medicine 11/03/24 12/15/24 Maryuri Elias LPN 112 [facility] 110 [place] [address] 12/15/24 documented as of this encounter
--- OUTSIDE RECORDS SUMMARY | 2025-03-21 10:02 | XMS_ITS | Encounter Summary ---
Author Organization [facility] Address [address] [facility] [place] [address] Care Team Providers Care Casing Puller Name Role Phone Nicholas Lopez MD Unavailable [phone] Nicholas Lopez MD Primary Care Provider [phone] Wednesday, Angélica MENESES Unavailable [phone] Nicholas Lopez MD Unavailable [phone] Maria De Jesus Polanco RN Unavailable [phone] Maryuri Elias FOOD SCIENCE PROFESSOR Unavailable Encounter Details Date Type Department Care Team (Late st Contact Info) Description 07/27/2023 Abstract [facility] 112 [facility] 110 [place] [id number] Nicholas Lopez MD 112 [facility] 110 [place], [place] [id number] Social History Tobacco Use Types Packs/Day Years [...] often do you attend chur ch or latter-day services? Never 07/23/2023 Do you belong to any clubs o r organizations such as druze groups, unions, fraternal or athletic groups, or [...] heating? Not hard at all 07/23/2023 [facility] - [...] place to sleep or slept in a snf (including now)? No 07/23/2023 Comments Unknown Sex and Gender Information Value Date Recorded Sex Assigned at Not on file Legal Sex Female 8:34 PM EDT Gender Identity Not on file Sexual Orientation Not on file documented as of this encounter Plan of Treatment Not on file documented as of this encounter Visit Diagnoses Not on filedocumented in this encounter Care Teams Casing Puller Relationship Specialty Start Date End Date Nicholas Lopez MD [address] [facility] [address] [place] [address] PCP - ACO Reach 02/18/23 11/25/23 Nicholas Lopez MD [address] [facility] [address] [place] [address] PCP - General Internal Medicine 03/18/23 Nicholas Lopez MD [address] [facility] [address] [place] [address] PCP - ACO Reach 01/26/24WedTristanAngélica LPN [address] [place] [address] Licensed Practical Nurse Family Medicine 07/20/23 11/03/24 Maria De Jesus Polanco, RN [address] [place] [address] Licensed Practical Nurse Family Medicine 11/03/24 12/15/24 Maryuri Elias LPN 112 [facility] 110 [place] [address] 12/15/24 documented as of this encounter
--- OUTSIDE RECORDS SUMMARY | 2025-03-21 10:02 | XMS_ITS | Encounter Summary ---
Author Organization [facility] Address [address] [place] [address] Care Team Providers Care Charge Auditor Name Role Phone Nicholas Lopez MD Primary Care Provider [phone] Wednesday, Angélica SOWN Unavailable [phone] Nicholas Lopez MD Unavailable [phone] Maria De Jesus Polanco RN Unavailable [phone] Maryuri Elias AUDIOVISUAL LEAD TECHNICIAN Unavailable Encounter Details Date Type Department Care Team (Late st Contact Info) Description 05/18/2024 Clinisync Result Encounter [facility] External Department Unsolicited Melinda Pina, PUBLIC ADDRESS TECHNICIAN [address] [facility] 110 [place] [address] Social History Tobacco Use Types Packs/Day Years [...] often do you attend chur ch or hoahaoism services? Never 07/23/2023 Do you belong to any clubs o r organizations such as adventist groups, unions, fraternal or athletic groups, or [...] Recorded Patient Health Questionnaire-2 Score 0 03/14/2024 [facility] - Occupational Stress Questionnaire Answer Date [...] place to sleep or slept in a usp (including now)? No 07/23/2023 Comments Unknown Sex and Gender Information Value Date Recorded Sex Assigned at Not on file Legal Sex Female 8:34 PM EDT Gender Identity Not on file Sexual Orientation Not on file documented as of this encounter Plan of Treatment Not on file documented as of this encounter Procedures Procedure Name Priority Date/Time Associated Diagnosis Comments CT CERVICAL SPINE WO IV CONTRAST 05/18/2024 4:35 PM EDT documented in this encounter Results * CT cervical spine wo IV contrast (05/18/2024 4:35 PM EDT) Anatomical Region Laterality Modality Spine, C-spine Computed Tomogra phy 05/18/2024 4:35 PM EDT Narrative 05/18/2024 4:38 [place] [address] CT Scan Report Signed Patient: MICHAEL SHAY I MR#: [id number] : 1940 Acct:[id number] Age/Sex: 83 / F ADM Date: 05/18/24 Loc: CT Attending Dr: MELINDA PINA Ordering Physician: MELINDA PINA Date of Service: 05/18/24 Procedure(s): CT cervical spine wo con Accession Number(s): [id number] cc: MELINDA PINA [place] [id number] Patient Name: MICHAEL SHAY MRN: [id number] date: 1940 Sex: F Assigned Patient Location: CT Current Patient Location: CT Accession/Order Number: [id number] Exam Date: 05/18/2024 13:45 Report Date: 05/18/2024 16:35 At the request of: MELINDA PINA Procedure: CT cervical spine wo con EXAM: CT cervical spine wo con CLINICAL INDICATION: Compression Fracture Of C5 COMPARISON: Cervical spine radiographs 05/09/2024. MRI thoracic spine 07/02/2021. TECHNIQUE: Axial CT images of the cervical spine were obtained without intravenous contrast. Coronal and sagittal reformatted images were also reviewed. Dose reduction techniques were achieved by using automated exposure control and/or adjustment of mA and/or kV according to patient size and/or use of iterative reconstruction technique. FINDINGS: Osseous Mineralization: Diffuse osseous demineralization limits evaluation of fine osseous detail. Trauma: No definite fracture, traumatic malalignment, facet dislocation, or discrete epidural hemorrhage. Alignment: Normal craniocervical and cervicothoracic junctions. Straightening of the physiologic cervical lordosis likely relates at least in part to patient positioning. Vertebral Body Heights: Slight superior endplate deformities of C5 and C6 are old and are visualized on the localizer images for MRI thoracic spine 07/02/2021. Spondylotic Changes: Multilevel spondylotic changes include varying degrees of intervertebral disc height loss, osteophytic ridging, endplate sclerosis, and facet/uncovertebral joint hypertrophy. Soft Tissues: Normal. Other: Clear visualized lung apices. Airway is patent. CT/CT cervical spine wo con IMPRESSION: 1. No acute cervical spine fracture or traumatic malalignment. 2. Slight superior endplate deformities of C5 and C6 are old and are visualized on the localizer images for MRI thoracic spine 07/02/2021. 3. Multilevel spondylotic changes. Electronically authenticated by: ADELE GARLAND Date: 05/18/2024 16:35 Dictated By: Adele Garland M.D. Signed By: 05/18/24 1638 DD/ 1635 TD/TT: Asphalt Patcher: Procedure Note Radiology, Radiologist, MD - 05/18/[address] [address] [address] Scan Report Signed Patient: MICHAEL SHAY IMR#: [id number] : 1940cct:[id number] Age/Sex: 83 / FADM Date: 05/18/24 Loc: CT Attending Dr: MELINDA PINA Ordering Physician: MELINDA PINA Date of Service: 05/18/24 Procedure(s): CT cervical spine wo con Accession Number(s): [id number] cc: MELINDA PINA [place] [id number] Patient Name: MICHAEL SHAY MRN: [id number] date: 1940 Sex: F Assigned Patient Location: CT Current Patient Location: CT Accession/Order Number: [id number] Exam Date: 05/18/2024 13:45 Report Date: 05/18/2024 16:35 At the request of: MELINDA PINA Procedure: CT cervical spine wo con EXAM: CT cervical spine wo con CLINICAL INDICATION: Compression Fracture Of C5 COMPARISON: Cervical spine radiographs 05/09/2024. MRI thoracic spine 07/02/2021. TECHNIQUE: Axial CT images of the cervical spine were obtained without intravenous contrast. Coronal and sagittal reformatted images were also reviewed. Dose reduction techniques were achieved by using automatedexposure control and/or adjustment of mA and/or kV according to patient size and/oruse of iterative reconstruction technique. FINDINGS: Osseous Mineralization: Diffuse osseous demineralization limits evaluationof fine osseous detail. Trauma: No definite fracture, traumatic malalignment, facet dislocation,or discrete epidural hemorrhage. Alignment: Normal craniocervical and cervicothoracic junctions.Straightening of the physiologic cervical lordosis likely relates at least in part to patient positioning. Vertebral Body Heights: Slight superior endplate deformities of C5 and C6are old and are visualized on the localizer images for MRI thoracic spine 07/02/2021. Spondylotic Changes: Multilevel spondylotic changes include varyingdegrees of intervertebral disc height loss, osteophytic ridging, endplate sclerosis,and facet/uncovertebral joint hypertrophy. Soft Tissues: Normal. Other: Clear visualized lung apices. Airway is patent. CT/CT cervical spine wo con IMPRESSION: 1. No acute cervical spine fracture or traumatic malalignment. 2. Slight superior endplate deformities of C5 and C6 are old and are visualized on the localizer images for MRI thoracic spine 07/02/2021. 3. Multilevel spondylotic changes. Electronically authenticated by: ADELE GARLAND Date: 05/18/2024 16:35 Dictated By: Adele Garland M.D. Signed By:05/18/24 1638 DD/ 1635 TD/TT: Asphalt Patcher: Melinda Pina PUBLIC ADDRESS TECHNICIAN IMG CT PROCEDURES Final Resu lt documented in this encounter Visit Diagnoses Not on filedocumented in this encounter Additional Health Concerns Assessment Noted Time PHQ-9 Depression Total Score: 1 03/14/20 24 10:00 AM EDT documented as of this encounter Care Teams Charge Auditor Relationship Specialty Start Date End Date Nicholas Lopez MD [address] [facility] [address] [place] [address] PCP - General Internal Medicine 03/18/23 Nicholas Lopez MD [address] [facility] [address] [place] [address] PCP - ACO Reach 01/26/24WednesdayAngélica LPN [address] [place] [address] Licensed Practical Nurse Family Medicine 07/20/23 11/03/24 Maria De Jesus Polanco, ZAHRA [address] [place] [address] Licensed Practical Nurse Family Medicine 11/03/24 12/15/24 Maryuri Elias LPN [address] [place] [address] 12/15/24 documented as of this encounter
--- OUTSIDE RECORDS SUMMARY | 2025-03-21 10:03 | XMS_ITS | Encounter Summary ---
Author Organization [facility] Address [address] [place] [address] Care Team Providers Care Dietetics Teacher Name Role Phone Nicholas Lopez MD Primary Care Provider [phone] Wednesday, Angélica SOWN Unavailable [phone] Nicholas Lopez MD Unavailable [phone] Maria De Jesus Polanco RN Unavailable [phone] Maryuri Elias MARKETING SEGMENT MANAGER Unavailable Encounter Details Date Type Department Care Team (Late st Contact Info) Description 11/30/2023 Clinisync Result Encounter [facility] External Department Unsolicited Melinda Pina, TRACTOR ENGINE MECHANIC [address] [facility] [address] [place] [address] Social History Tobacco Use Types Packs/Day Years [...] often do you attend chur ch or synagogue services? Never 07/23/2023 Do you belong to any clubs o r organizations such as mormonism groups, unions, fraternal or athletic groups, or [...] place to sleep or slept in a skilled nursing (including now)? No 07/23/2023 Comments Unknown Sex and Gender Information Value Date Recorded Sex Assigned at Not on file Legal Sex Female 8:34 PM EDT Gender Identity Not on file Sexual Orientation Not on file documented as of this encounter Plan of Treatment Not on file documented as of this encounter Procedures Procedure Name Priority Date/Time Associated Diagnosis Comments XR CHEST 2V 11/30/2023 1:28 PM EST documented in this encounter Results * XR CHEST 2V (11/30/2023 1:28 PM EST) Anatomical Region Laterality Modality Other 11/30/2023 1:28 PM EST Narrative 11/30/2023 1:31 [place] [address] XRay Report Signed Patient: MICHAEL SHAY I MR#: [id number] : 1940 Acct:[id number] Age/Sex: 83 / F ADM Date: 11/30/23 Loc: RAD Attending Dr: MELINDA PINA Ordering Physician: MELINDA PINA Date of Service: 11/30/23 Procedure(s): XR chest 2V Accession Number(s): [id number] cc: MELINDA PINA [place] [id number] Patient Name: MICHAEL SHAY MRN: [id number] date: 1940 Sex: F Assigned Patient Location: RAD Current Patient Location: RAD Accession/Order Number: [id number] Exam Date: 11/30/2023 12:58 Report Date: 11/30/2023 13:28 At the request of: MELINDA PINA Procedure: XR chest 2V EXAM: XR chest 2V HISTORY: Chest Pain R07.89 COMPARISON: None. TECHNIQUE: PA and lateral views of the chest. FINDINGS: The cardiomediastinal silhouette is normal. No focal consolidation is identified. There is no pneumothorax. No pleural effusion is noted. The osseous structures are intact. XR/XR chest 2V IMPRESSION: No acute cardiopulmonary process. Suggestion of COPD. Electronically authenticated by: DHRUV SCHWAB Date: 11/30/2023 13:28 Dictated By: Dhruv Schwab M.D. Signed By: 11/30/23 1331 DD/ 1328 TD/TT: Target Setter: Procedure Note Radiology, Radiologist, MD - 11/30/2023 [place] [address] XRay Report Signed Patient: MICHAEL SHAY IMR#: [id number] : 1940cct:[id number] Age/Sex: 83 / FADM Date: 11/30/23 Loc: RAD Attending Dr: MELINDA PINA Ordering Physician: MELINDA PINA Date of Service: 11/30/23 Procedure(s): XR chest 2V Accession Number(s): [id number] cc: MELINDA PINA [place] [id number] Patient Name: MICHAEL SHAY MRN: [id number] date: 1940 Sex: F Assigned Patient Location: [facility] Current Patient Location: RAD Accession/Order Number: [id number] Exam Date: 11/30/2023 12:58 Report Date: 11/30/2023 13:28 At the request of: MELINDA PINA Procedure: XR chest 2V EXAM: XR chest 2V HISTORY: Chest Pain R07.89 COMPARISON: None. TECHNIQUE: PA and lateral views of the chest. FINDINGS: The cardiomediastinal silhouette is normal. No focal consolidation is identified. There is no pneumothorax. No pleural effusion is noted. The osseous structures are intact. XR/XR chest 2V IMPRESSION: No acute cardiopulmonary process. Suggestion of COPD. Electronically authenticated by: DHRUV SCHWAB Date: 11/30/2023 13:28 Dictated By: Dhruv Schwab M.D. Signed By:11/30/23 1331 DD/ 1328 TD/TT: Target Setter: us Melinda Pina TRACTOR ENGINE MECHANIC [facility] Final Resu lt documented in this encounter Visit Diagnoses Not on filedocumented in this encounter Care Teams Dietetics Teacher Relationship Specialty Start Date End Date Nicholas Lopez MD [address] [place] [address] PCP - General Internal Medicine 03/18/23 Nicholas Lopez MD [address] [place] [address] PCP - ACO Reach 01/26/24WednesdayAngélica LPN [address] [place] [address] Licensed Practical Nurse Family Medicine 07/20/23 11/03/24 Maria De Jesus Polanco, ZAHRA [address] [place] [address] Licensed Practical Nurse Family Medicine 11/03/24 12/15/24 Maryuri Elias LPN [address] [place] [address] 12/15/24 documented as of this encounter
--- OUTSIDE RECORDS SUMMARY | 2025-03-21 10:03 | XMS_ITS | Clinical Summary ---
Author Organization [facility] Address [id number] [address] [place] [address] Care Team Providers Care Biomass Boiler Operator Name Role Phone Kaley Hidalgo MD Primary Care Provider [phone] Allergies Active Allergy Reactions Criticality Noted Date Comments Penicillins Rash Low 02/11/2022 Medications gabapentin (NEURONTIN) 400 mg capsule Take 400 mg by mouth in the morning and 400 mg at noon and 400 mg before bedtime. Active wtebcyyj-ueba-J A-calcium &mins (THERAGRAN-M) 9 mg iron-400 mcg tablet Take 1 tablet by mouth in the morning. Active calcium carbonate-vitam in D3 (OSCAL 500 + D) 500 mg(1,250mg) -200 units per tablet Take 1 tablet by mouth in the morning and 1 tablet in the evening. Take with meals. Active acetaminophen (TYLENOL EXTRA STRENGTH) 500 mg tabletIndicatio ns:pain Take 1,000 mg by mouth every 6 (six) hours as needed for pain Indications: pain. Active Active Problems Problem Noted Date Diagnosed Date Gross hematuria 02/11/2022 Overview (03/24/2022): 02/11/22: We have called for the records from her family doctor. No obvious source for her pain or hematuria noted on CT report. We will try to upload films. She agrees to cystoscopy/bilateral retrograde pyelograms for further assessment. Urine for fish/cytology 03/24/22: Normal cysto with bilateral retrograde pyelogram Assessment & Plan (02/11/2022 12:29 PM EDT): I am sending her urine for microscopic exam as well. If notes from her family doctor shows she did have a positive urine culture, we may consider holding off on cystoscopy if microscopic exam is negative for blood. She did request medication for the pain. I told her that there are no obvious urologic sources for her pain, but I prescribed Tylenol No. 3 until she can get in with her family doctor to assess non urologic sources for her pain Family History Medical History Relation Name Comments Cancer Mother Relation Name Status Comments Father Mother Social History Tobacco Use Types Packs/Day Years Used Date Smoking Tobacco: Never Smokeless Tobacco: Never Alcohol Use Standard Drinks/Week Comments Not Currently 0 (1 standard drink = 0.6 oz pur e alcohol) Childcare Answer Date Recorded Childcare Unknown 03/06/2019 Employment Answer Date Recorded Employment Unknown 03/06/2019 Comments No Sex and Gender Information Value Date Recorded Sex Assigned at Not on file Legal Sex Female 1:38 PM EDT Gender Identity Not on file Sexual Orientation Not on file Last Filed Vital Signs Vital Sign Reading Time Taken Comments Blood Pressure 129/85 02/11/2022 11:16 AM EDT Pulse 102 02/11/2022 11:16 AM EDT Temperature - - Respiratory Rate 18 02/11/2022 11:16 AM EDT Oxygen Saturation - - Inhaled Oxygen Concentration - - Weight 71.2 kg (157 lb) 02/11/2022 11:16 AM EDT Height 162.6 cm (5' 4 ) 02/11/2022 11:16 AM EDT Body Mass Index 26.95 02/11/2022 11:16 AM EDT Plan of Treatment Health Maintenance Due Date Last Done Comments Depression Screening 1952 Tobacco Screening 1952 DTaP,Tdap and Td Vaccines (1 - Tdap) 1959 Zoster (Shingles) Vaccine (1 of 2) 1990 Fall Risk Screening 2005 Influenza Vaccine 05/28/2025 Medical Devices Not on file Insurance MEDICARE [facility] [employer] Care Teams Biomass Boiler Operator Relationship Specialty Start Date End Date Kaley Hidalgo MD [address] [place] [address] PCP - General Family Medicine 03/20/22
--- OUTSIDE RECORDS SUMMARY | 2025-03-21 10:03 | XMS_ITS | Encounter Summary ---
Author Organization [facility] Address [address] [place] [address] Care Team Providers Care Tag Stringer Name Role Phone Nicholas Lopez MD Primary Care Provider [phone] Nicholas Lopez MD Unavailable [phone] Maryuri Elias LPN Unavailable Encounter Details Date Type Department Care Team (Late st Contact Info) Description 03/07/2025 Orders Only [facility] [address] [place] [address] Osteopenia of right hip Social History Tobacco Use Types Packs/Day Years [...] often do you attend chur ch or rastafarian services? Never 07/23/2023 Do you belong to any clubs o r organizations such as episcopalian groups, unions, fraternal or athletic groups, or [...] Date Recorded Patient Health Questionnaire-2 Score 0 02/27/2025 [facility] - Occupational Stress Questionnaire Answer Date Recorded [...] documented as of this encounter Visit Diagnoses Diagnosis Osteopenia of right hip documented in this encounter Additional Health Concerns Assessment Noted Time PHQ-9 Depression Total Score: 1 03/14/20 24 10:00 AM EDT documented as of this encounter Care Teams Tag Stringer Relationship Specialty Start Date End Date Nicholas Lopez MD [address] [facility] [address] [place] [address] PCP - General Internal Medicine 03/18/23 Nicholas Lopez MD [address] [place] [address] PCP - ACO Reach 01/26/24 Maryuri Elias LPN [address] [place] [address] 12/15/24 documented as of this encounter
--- OUTSIDE RECORDS SUMMARY | 2025-03-21 10:03 | XMS_ITS | Encounter Summary ---
Author Organization [facility] Address [address] [place] [address] Care Team Providers Care Sight Effects Specialist Name Role Phone Nicholas Lopez MD Primary Care Provider [phone] Wednesday, Angélica SOWN Unavailable [phone] Nicholas Lopez MD Unavailable [phone] Maria De Jesus Polanco RN Unavailable [phone] Maryuri Elias PROJECT MANAGEMENT ANALYST Unavailable Encounter Details Date Type Department Care Team (Late st Contact Info) Description 12/02/2023 Orders Only [facility] [address] [place] [address] Unallocated, Noms Provider, [address] [place], [place] [address] Social History Tobacco Use Types Packs/Day Years [...] How often do you attend chur or synagogue services? Never 07/23/2023 Do you belong to any clubs o r organizations such as religion groups, unions, fraternal or athletic groups, or [...] heating? Not hard at all 07/23/2023 [facility] - Occupational Stress Questionnaire Answer Date Recorded [...] place to sleep or slept in a fdc (including now)? No 07/23/2023 Comments Unknown Sex and Gender Information Value Date Recorded Sex Assigned at Not on file Legal Sex Female 8:34 PM EDT Gender Identity Not on file Sexual Orientation Not on file documented as of this encounter Plan of Treatment Not on file documented as of this encounter Procedures Procedure Name Priority Date/Time Associated Diagnosis Comments XR CHEST 2 VIEWS Routine 12/02/2023 2:50 PM EST documented in this encounter Results * XR chest 2 views (12/02/2023 2:50 PM EST) Anatomical Region Laterality Modality Chest Radiographic Isabel ging us Noms Provider Unallocated MD NAM XR PROCEDURES F inal Result documented in this encounter Visit Diagnoses Not on filedocumented in this encounter Care Teams Sight Effects Specialist Relationship Specialty Start Date End Date Nicholas Lopez MD [address] [place] [address] PCP - General Internal Medicine 03/18/23 Nicholas Lopez MD [address] [place] [address] PCP - ACO Reach 01/26/24WednesdayAngélica LPN [address] [place] [address] Licensed Practical Nurse Family Medicine 07/20/23 11/03/24 Maria De Jesus Polanco, RN [address] [place], [place] [id number] Licensed Practical Nurse Family Medicine 11/03/24 12/15/24 Maryuri Elias LPN 112 [facility] [address] [place] [address] 12/15/24 documented as of this encounter
--- OUTSIDE RECORDS SUMMARY | 2025-03-21 10:03 | XMS_ITS | Encounter Summary ---
Author Organization [facility] Address [address] [place] [address] Care Team Providers Care Car Chaser Name Role Phone Nicholas Lopez MD Unavailable [phone] Nicholas Lopez MD Primary Care Provider [phone] WednesdayAngélica LPN Unavailable [phone] Nicholas Lopez MD Unavailable [phone] Maria De Jesus Polanco RN Unavailable [phone] Maryuri Elias LPN Unavailable Encounter Details Date Type Department Care Team (Late st Contact Info) Description 10/22/2023 Clinisync Result Encounter [facility] External Department Unsolicited [...] and heating? Not hard at all 07/23/2023 [facility] Occupat ional [facility] - Occupational Stress [...] place to sleep or slept in a mcc (including now)? No 07/23/2023 Comments Unknown Sex [...] Comments XR LUMBAR SPINE 6V W BENDING 10/22/2023 2:23 PM EST [facility] CULTURE URINE Routine 10/22/2023 11: 40 AM EST documented in this encounter Results * XR LUMBAR SPINE 6V W BENDING (10/22/2023 2:23 PM EST) Anatomical Region Laterality Modality Other 10/22/2023 2:23 PM EST Narrative 10/22/2023 2:26 [place] [address] XRay Report Signed Patient: MICHAEL SHAY I MR#: [id number] : 1940 Acct:[id number] Age/Sex: 82 / F ADM Date: 10/22/23 Loc: LAB Attending Dr: CLARE QUINTANILLA Ordering Physician: CLARE QUINTANILLA Date of Service: 10/22/23 Procedure(s): XR lumbar spine 6V w bending Accession Number(s): [id number] cc: CLARE QUINTANILLA ; MELINDA PINA [address] [place] [address] Patient Name: MICHAEL SHAY MRN: [id number] date: 1940 Sex: F Assigned Patient Location: LAB Current Patient Location: LAB Accession/Order Number: [id number] Exam Date: 10/22/2023 12:00 Report Date: 10/22/2023 14:23 At the request of: CLARE QUINTANILLA Procedure: XR lumbar spine 6V w bending EXAMINATION: XR lumbar spine 6V w bending HISTORY: Back Pain, Acute Cystitis With Hematuria N30.01 COMPARISON: No relevant comparison available. FINDINGS: BONES: Neutral projection demonstrates no spondylolisthesis. Anterior wedging of the T11 and T12 vertebral bodies, age indeterminate. Mild degenerative spondylosis. Moderate to severe facet osteoarthropathy most significant L4-S1 DISC SPACES: Disc collapse L4-L5 with endplate sclerosis and vacuum disc PARASPINOUS: Negative. No paraspinous abnormality is seen. OTHER: Vascular calcifications. 2 mm anterolisthesis of L3 in relation L4 with flexion, resolved with extension. 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 Signed By: 10/22/23 1426 DD/ 142 TD/TT: Devops Consultant: Procedure Note Radiology, Radiologist, MD - 10/22/2023 [place] [address] XRay Report Signed Patient: MICHAEL SHAY IMR#: [id number] : 1940cct:[id number] Age/Sex: 82 / FADM Date: 10/22/23 Loc: LAB Attending Dr: CLARE QUINTANILLA Ordering Physician: CLARE QUINTANILLA Date of Service: 10/22/23 Procedure(s): XR lumbar spine 6V w bending Accession Number(s): [id number] cc: CLARE QUINTANILLA ; MELINDA PINA [place] [id number] Patient Name: MICHAEL SHAY MRN: [facility]:[id number] date: 1940 Sex: F Assigned Patient Location: LAB Current Patient Location: LAB Accession/Order Number: [id number] Exam Date: 10/22/2023 12:00 Report Date: 10/22/2023 14:23 At the request of: CLARE QUINTANILLA Procedure: XR lumbar spine 6V w bending EXAMINATION: XR lumbar spine 6V w bending HISTORY: Back Pain, Acute Cystitis With Hematuria N30.01 COMPARISON: No relevant comparison available. FINDINGS: BONES: Neutral projection demonstrates no spondylolisthesis. Anteriorwedging of the T11 and T12 vertebral bodies, age indeterminate. Mild degenerative spondylosis. Moderate to severe facet osteoarthropathy most significantL4-S1 DISC SPACES: Disc collapse L4-L5 with endplate sclerosis and vacuum disc PARASPINOUS: Negative. No paraspinous abnormality is seen. OTHER: Vascular calcifications. 2 mm anterolisthesis of L3 in relation L4with flexion, resolved with extension. 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 Signed By:10/22/23 1426 DD/ 1423 TD/TT: Devops Consultant: us Generic External Data Provider [facility] Final Result * (ABNORMAL) [facility] CULTURE URINE (10/22/2023 11:40 AM EST) [facility] CULTURE URINE O:ENTFAC Isolated [facility] CULTURE URINE Urine Culture [place] Count [facility]H [facility] CULTURE URINE 70,000 - 80,000 CFU/ml [facility] CULTURE URINE O:ESCCOL Isolated [facility] CULTURE URINE Urine Culture [place] Count [facility]H [facility] CULTURE URINE 70,000 - 80,000 CFU/ml [facility] CULTURE URINE Organism: 1.1 Antibiotic Interpretation PAULETTE Status TBH TBH CULTURE URINE Ampicillin S <=2 F(S) TBH TBH CULTURE URINE Beta Lactamase N F TB [facility] CULTURE URINE Ciprofloxacin S <=0.5 F(S) TB [facility] CULTURE URINE Gentamycin Synergy Screen S F(S) [facility] CULTURE URINE Levofloxacin S 1 F(S) TBH [facility] CULTURE URINE Linezolid S 2 F(S) TB[facility] CULTURE URINE Nitrofurantoin S <=16 F(S) TB [facility] CULTURE URINE Penicillin-G S 2 F(S) TB TB CULTURE URINE Quinupristin/Dalfo pristin R 4 F(R) TB TB CULTURE URINE Streptomycin Synergy Screen S F(S) TB TB CULTURE URINE Tetracycline R >=16 F(R) TB TB CULTURE URINE Vancomycin S 1 F(S) TBH [facility] CULTURE URINE Organism: 1.2 Antibiotic Interpretation PAULETTE Status TB TB CULTURE URINE Amikacin S <=2 F(S) TB TB CULTURE URINE Ampicillin S 8 F(S) TB TB CULTURE URINE Ampicillin/Sulbact am S 4 F(S) TB [facility] CULTURE URINE Cefazolin S <=4 F(S) TB TB CULTURE URINE Ceftazidime S <=1 F(S) TB TB CULTURE URINE Ceftriaxone S <=1 F(S) TB [facility] CULTURE URINE Ciprofloxacin R >=4 F(R) TBH TB[facility] CULTURE URINE Ertapenem S <=0.5 F(S) TB TB CULTURE URINE Gentamicin S <=1 F(S) TB TB CULTURE URINE Imipenem S <=0.25 F(S) TB TB CULTURE URINE Levofloxacin R >=8 F(R) TB TB CULTURE URINE Nitrofurantoin S <=16 F(S) TB TB CULTURE URINE Tobramycin S <=1 F(S) TB TB CULTURE URINE Trimethoprim/Sulfa methoxazole S <=20 F(S) TB TB CULTURE URINE Piperacillin/Tazob actam S <=4 F(S) TB 10/22/2023 11:4 0 AM EST 10/22/2023 11:50 AM EST Narrative [facility] - 10/24/2023 9:04 AM EST us Generic External Data Provider OLGA F inal Result OLGA [facility] documented in this encounter Visit Diagnoses Not on filedocumented in this encounter Care Teams Car Chaser Relationship Specialty Start Date End Date Nicholas Lopez MD [address] [place] [address] PCP - ACO Reach 02/18/23 11/25/23 Nicholas Lopez MD [address] [place] [address] PCP - General Internal Medicine 03/18/23 Nicholas Lopez MD [address] [place] [address] PCP - ACO Reach 01/26/24WednesdayAngélica LPN [address] [place] [address] Licensed Practical Nurse Family Medicine 07/20/23 11/03/24 Maria De Jesus Polanco, RN [address] [place] [address] Licensed Practical Nurse Family Medicine 11/03/24 12/15/24 Maryuri Elias LPN [address] [place] [address] 12/15/24 documented as of this encounter
--- OUTSIDE RECORDS SUMMARY | 2025-03-21 10:03 | XMS_ITS | Encounter Summary ---
Author Organization [facility] Address [address] [facility] [place] [address] Care Team Providers Care Cardiovascular Physician Assistant Name Role Phone Nicholas Lopez MD Primary Care Provider [phone] Wednesday, Angélica SOWN Unavailable [phone] Nicholas Lopez MD Unavailable [phone] Maria De Jesus Polanco RN Unavailable [phone] Maryuri Elias SHEET MUSIC SALESPERSON Unavailable Encounter Details Date Type Department Care Team (Late st Contact Info) Description 08/16/2024 Abstract [facility] [address] [facility] [address] [place] [id number] Nicholas Lopez MD 112 [facility] [address] [place] [address] Social History Tobacco Use Types [...] often do you attend chur ch or anglican services? Never 07/23/2023 Do you belong to [...] Recorded Patient Health Questionnaire-2 Score 0 03/14/2024 [facility] ional [facility] - Occupational [...] documented as of this encounter Care Teams Cardiovascular Physician Assistant Relationship Specialty Start Date End Date Nicholas Lopez MD [address] [place] [address] PCP - General Internal Medicine 03/18/23 Nicholas Lopez MD [address] [place] [address] PCP - ACO Reach 01/26/24WednesdayAngélica LPN [address] [place] [address] Licensed Practical Nurse Family Medicine 07/20/23 11/03/24 Maria De Jesus Polanco, ZAHRA [address] [place] [address] Licensed Practical Nurse Family Medicine 11/03/24 12/15/24 Maryuri Elias LPN 112 [facility] [address] [place] [address] 12/15/24 documented as of this encounter
--- OUTSIDE RECORDS SUMMARY | 2025-03-21 10:03 | XMS_ITS | Encounter Summary ---
Author Organization [employer] Address [id number] [address] [place] [address] Care Team Providers Care Senior Accounts Payable Specialist Name Role Phone Kaley Hidalgo MD Primary Care Provider [phone] Encounter Details Date Type Department Care Team (Late st Contact Info) Description 03/24/2022 Telephone [facility] [address] [place] [phone] Jose Rafael Botello MD [address] [place] [id number] Social History Tobacco Use Types Packs/Day Years [...] Exposure Response Date Recorded In the last month, have you been in contact with someone who was confirmed or suspected to have Coronavirus / COVID-19? No / Unsure 03/24/2022 8:31 AM EDT documented as of this encounter Miscellaneous Notes * Telephone Encounter - Jose [place] Botello MD - 03/24/2022 9:38 AM EDT Can you schedule her follow-up in 6 months * Telephone Encounter - Marge Shannon - 03/24/2022 9:38 AM EDT SCHEDULED 09/23/22 documented in this encounter Plan of Treatment Not on file documented as of this encounter Visit Diagnoses Not on filedocumented in this encounter Care Teams Senior Accounts Payable Specialist Relationship Specialty Start Date End Date Kaley Hidalgo MD [address] [place], [place] [address] PCP - General Family Medicine 03/20/22 documented as of this encounter
--- OUTSIDE RECORDS SUMMARY | 2025-03-21 10:03 | XMS_ITS | Encounter Summary ---
Author Organization [facility] Address [address] [place] [address] Care Team Providers Care Curing Press Maintainer Name Role Phone Nicholas Lopez MD Unavailable [phone] Nicholas Lopez MD Primary Care Provider [phone] Wednesday, Angélica MENESES Unavailable [phone] Nicholas Lopez MD Unavailable [phone] Maria De Jesus Polanco RN Unavailable [phone] Maryuri Elias CIRCUS PERFORMER Unavailable Encounter Details Date Type Department Care Team (Late st Contact Info) Description 10/22/2023 Clinisync Result Encounter [facility] External Department Unsolicited Clare Quintanilla MD [address] [facility] [place] [id number] Social History Tobacco Use Types Packs/Day Years [...] How often do you attend chur or scientology services? Never 07/23/2023 Do you belong to [...] and heating? Not hard at all 07/23/2023 [facility] - [...] 6V W BENDING 10/22/2023 2:23 PM EST documented in this encounter Results * XR LUMBAR SPINE 6V W BENDING (10/22/2023 2:23 PM EST) Anatomical Region Laterality Modality Other 10/22/2023 2:23 PM EST Narrative 10/22/2023 2:26 PM EST The [address] [address] XRay Report Signed Patient: MICHAEL SHAY I MR#: [id number] : 1940 Acct:[id number] Age/Sex: 82 / F ADM Date: 10/22/23 Loc: LAB Attending Dr: CLARE QUINTANILLA Ordering Physician: CLARE QUINTANILLA Date of Service: 10/22/23 Procedure(s): XR lumbar spine 6V w bending Accession Number(s): [id number] cc: CLARE QUINTANILLA ; MELINDA PINA The [place] [address] Patient Name: MICHAEL SHAY MRN: [facility]:[id number] date: 1940 Sex: F Assigned Patient Location: LAB Current Patient Location: LAB Accession/Order Number: [id number] Exam Date: 10/22/2023 12:00 Report Date: 10/22/2023 [...] Kim M.D. Signed By: 10/22/23 1426 DD/ 22 TD/TT: Management Internship: Procedure Note Radiology, Radiologist, MD - 12/01/2023 The [place] [id number] XRay Report Signed Patient: MICHAEL SHAY IMR#: [id number] : 1940cct:[id number] Age/Sex: 82 / FADM Date: 10/22/23 Loc: LAB Attending Dr: CLARE QUINTANILLA Ordering Physician: CLARE QUINTANILLA Date of Service: 10/22/23 Procedure(s): XR lumbar spine 6V w bending Accession Number(s): [id number] cc: CLARE QUINTANILLA ; MELINDA PINA [address] [address] Patient Name: MICHAEL SHAY MRN: [id number] date: 1940 Sex: F Assigned Patient Location: LAB Current Patient Location: LAB Accession/Order Number: [id number] Exam Date: 10/22/2023 12:00 Report Date: 10/22/2023 [...] M.D. Signed By:10/22/23 1426 DD/ 1423 TD/TT: Management Internship: us Clare Quintanilla MD [facility] Final Resul t documented in this encounter Visit Diagnoses Not on filedocumented in this encounter Care Teams Curing Press Maintainer Relationship Specialty Start Date End Date Nicholas Lopez MD [address] [facility] 110 [place] [address] PCP - ACO Reach 02/18/23 11/25/23 Nicholas Lopez MD [address] [facility] 110 [place] [address] PCP - General Internal Medicine 03/18/23 Nicholas Lopez MD [address] [facility] [address] [place] [address] PCP - ACO Reach 01/26/24WednesdayAngélica LPN [address] [place] [address] Licensed Practical Nurse Family Medicine 07/20/23 11/03/24 Maria De Jesus Polanco, RN [address] [place] [address] Licensed Practical Nurse Family Medicine 11/03/24 12/15/24 Maryuri Elias LPN [address] [facility] 110 [place] [address] 12/15/24 documented as of this encounter
--- OUTSIDE RECORDS SUMMARY | 2025-03-21 10:03 | XMS_ITS | Encounter Summary ---
Author Organization [facility] Address [address] [facility] [place] [address] Care Team Providers Care Garde Manger Name Role Phone Nicholas Lopez MD Primary Care Provider [phone] Nicholas Lopez MD Unavailable [phone] Maryuri Elias LPN Unavailable Reason for Visit * Reason Comments Med Refill Encounter Details Date Type Department Care Team (Late st Contact Info) Description 03/09/2025 Refill [facility] [address] [facility] 110 [place] [phone] Mary Farris, CARROTER [address] [facility] 110 [place] [address] Primary hypertension Social History Tobacco Use Types Packs/Day Years [...] How often do you attend chur or christianity services? Never 07/23/2023 Do you belong to [...] Patient Health Questionnaire-2 Score 0 02/27/2025 [facility] - Occupational [...] place to sleep or slept in a fpc (including now)? No 07/23/2023 Comments Unknown Sex and Gender Information Value Date Recorded Sex Assigned at Not on file Legal Sex Female 8:34 PM EDT Gender Identity Not on file Sexual Orientation Not on file documented as of this encounter Miscellaneous Notes * Telephone Encounter - RUTHIE Lockett - 03/09/2025 8:06 AM EDT Amlodipine sent. documented in this encounter Plan of Treatment Not on file documented as of this encounter Visit Diagnoses Diagnosis Primary hypertension Unspecified essential hypertension documented in this encounter Additional Health Concerns Assessment Noted Time PHQ-9 Depression Total Score: 1 03/14/20 24 10:00 AM EDT documented as of this encounter Care Teams Garde Manger Relationship Specialty Start Date End Date Nicholas Lopez MD [address] [facility] 110 [place] [address] PCP - General Internal Medicine 03/18/23 Nicholas Lopez MD [address] [facility] 110 [place] [address] PCP - ACO Reach 01/26/24 Maryuri Elias LPN [address] [place] [address] [place] [address] 12/15/24 documented as of this encounter
--- OUTSIDE RECORDS SUMMARY | 2025-03-21 10:03 | XMS_ITS | Encounter Summary ---
Author Organization [facility] Address [address] [facility] [place] [address] Care Team Providers Care Docketing Specialist Name Role Phone Nicholas Lopez MD Primary Care Provider [phone] Nicholas Lopez MD Unavailable [phone] Maria De Jesus Polanco RN Unavailable [phone] Maryuri Elias LPN Unavailable Encounter Details Date Type Department Care Team (Late st Contact Info) Description 12/15/2024 Abstract [facility] [address] [facility] 110 [place] [phone] Nicholas Lopez MD [address] [facility] 110 [place] [address] Social History Tobacco Use Types [...] often do you attend chur ch or hinduism services? Never 07/23/2023 Do you belong to any clubs o r organizations such as confucianist groups, unions, fraternal or athletic groups, or [...] Date Recorded Patient Health Questionnaire-2 Score 0 12/14/2024 [facility] Occupat ional Health - Occupational Stress [...] place to sleep or slept in a custodial (including now)? No 07/23/2023 Comments Unknown Sex [...] documented as of this encounter Care Teams Docketing Specialist Relationship Specialty Start Date End Date Nicholas Lopez MD [address] [facility] 110 [place] [address] PCP - General Internal Medicine 03/18/23 Nicholas Lopez MD [address] [facility] 110 [place] [address] PCP - ACO Reach 01/26/24 Maria De Jesus Polanco, ZAHRA [address] [facility] [place] [address] Licensed Practical Nurse Family Medicine 11/03/24 12/15/24 Maryuri Elias LPN 112 [place] [address] 12/15/24 documented as of this encounter
--- OUTSIDE RECORDS SUMMARY | 2025-03-21 10:03 | XMS_ITS | Clinical Summary ---
Author Organization [facility] Address [address] [place] [address] Care Team Providers Care Newspaper Publisher Name Role Phone Nicholas Lopez MD Primary Care Provider [phone] Nicholas Lopez MD Unavailable [phone] Maryuri Elias LPN Unavailable Allergies Active Allergy Reactions Criticality Noted Date Comments Penicillins 03/18/2023 Other Reaction(s): Unknown Medications Wheat Dextrin (Benefiber) powder as directed Orally Active potassium chloride CR (KLOR-CON) 20 MEQ ER tabletIndications :Confusion Take 1 tablet (20 mEq) by mouth in the morning and 1 tablet (20 mEq) before bedtime. 200 tablet 3 024 Active donepezil (Aricept) 5 MG tabletIndications :Confusion Take 1 tablet (5 mg) by mouth at bedtime 90 tablet 3 024 Active meloxicam (Mobic) 15 MG tabletIndications :Arthritis of right hip Take 1 tablet (15 mg) by mouth Daily 100 tablet 3 024 Active ketorolac (Acular) 0.5 % ophthalmic solution Administer 1 drop into affected eye(s) in the morning and 1 drop before bedtime. 024 Active gabapentin (Neurontin) 400 MG capsuleIndication s:Nerve pain Take 1 capsule (400 mg) by mouth at bedtime 100 capsule 3 025 Active levothyroxine (Synthroid, Levoxyl) 25 MCG tabletIndications :Acquired hypothyroidism Take 1 tablet (25 mcg) by mouth in the morning. Take before meals. 100 tablet 3 025 Active hydroCHLOROthiazi de (HYDRODiuril) 25 MG tabletIndications :Primary hypertension Take 1 tablet (25 mg) by mouth Daily 100 tablet 3 025 Active amLODIPine (Norvasc) 10 MG tabletIndications :Primary hypertension TAKE 1 TABLET DAILY 90 tablet 3 025 Active aspirin (Aspir-Low) 81 MG EC tabletIndications :Cardiovascular event risk Take 1 tablet (81 mg) by mouth Daily 90 tablet 3 024 2024 Calcium Carbonate-Vitamin D (Oyster Shell Calcium/D) 500-5 MG-MCG tabletIndications :Hypocalcemia Take 1 tablet by mouth in the morning and 1 tablet in the evening. Take with meals. 180 tablet 3 024 2024 Multiple Vitamin (multivitamin) capsuleIndication s:Other fatigue,Confusion ,Hypocalcemia Take 1 capsule by mouth Daily 90 capsule 3 024 2024 amLODIPine (Norvasc) 10 MG tabletIndications :Primary hypertension Take 1 tablet (10 mg) by mouth Daily 100 tablet 3 024 2024 Discontinued hydroCHLOROthiazi de (HYDRODiuril) 25 MG tabletIndications :Primary hypertension Take 1 tablet (25 mg) by mouth Daily 100 tablet 3 025 2024 Discontinued(R eorder) cephalexin (Keflex) 500 MG capsuleIndication s:Kidney pain,Other microscopic hematuria Take 1 capsule (500 mg) by mouth in the morning and 1 capsule (500 mg) before bedtime. Do all this for 10 days. 20 capsule 025 2024 Active Problems Problem Noted Date Diagnosed Date Age-related nuclear cataract of both eyes 2023 COPD (chronic obstructive pulmonary disease) 04/2024 Acute cystitis with hematuria 10/25/2023 Renal calculus 10/25/2023 Mild cognitive impairment with memory loss 08/13 Confusion 08/13/2023 Mild cognitive impairment 08/13/2023 Lower leg edema 06/07/2023 Impaired mobility and ADLs 06/07/2023 Hypokalemia 06/07/2023 Spasm of muscle of lower back 05/18/2023 Flank pain 04/28/2023 Acquired hypothyroidism 03/18/2023 Arthritis of left elbow 03/18/2023 Arthritis of right elbow 03/18/2023 Medial epicondyle apophysitis of left elbow due to overuse 03/18/2023 Arthritis of right hip 03/18/2023 DDD (degenerative disc disease), thoracolumbar 0 03/18/2023 Diverticulosis 03/18/2023 GERD without esophagitis 03/18/2023 Hypercalcemia 03/18/2023 Hypertension 03/18/2023 Impaired fasting glucose 03/18/2023 Lumbar disc herniation 03/18/2023 Mixed hyperlipidemia 03/18/2023 Neoplasm of uncertain behavior of skin Nerve pain 03/18/2023 Internal derangement of right knee 03/18/2023 Osteoarthritis of right knee 03/18/2023 Osteopenia of right hip 03/18/2023 Other primary ovarian failure 03/18/2023 Overweight (BMI 25.0-29.9) 03/18/2023 Primary osteoarthritis 03/18/2023 Pathological fracture of vertebra 03/18/2023 Retrolisthesis of vertebrae 03/18/2023 Sinusitis 03/18/2023 Urge incontinence of urine 03/18/2023 Gross hematuria 02/11/2022 Overview (05/18/2023): 02/11/22: We have called for the records from her family doctor. No obvious source for her pain or hematuria noted on CT report. We will try to upload films. She agrees to cystoscopy/bilateral retrograde pyelograms for further assessment. Urine for fish/cytology 03/24/22: Normal cysto with bilateral retrograde pyelogram Last Assessment & Plan: I am sending her urine for microscopic [...] assess non urologic sources for her pain Encounters Date Type Department Care Team Description 03/09/2025 Refill [facility] [address] [place] [address] [place] [phone] Mary Farris NP Primary hypertension 03/07/2025 Orders Only [facility] [address] [facility] 110 [place] [phone] Osteopenia of right hip 02/27/2025 10:30 AM EDT Office Visit [facility] [address] [place] [address] [place] [phone] Mary Farris NP Other microscopic hematuria (Primary Dx); Kidney pain; Primary hypertension 02/27/2025 Bamboo flowsheet [facility] [address] [facility] 110 [place] [phone] Mary Farris NP 02/27/2025 Travel 12/26/2024 Patient Outreach [facility] [address] [place] [phone] Maryuri Elias LPN from Last 3 Months Immunizations Immunization Administration Dates Next Due Tdap 03/14/2024 Family History Medical History Relation Name Comments Hypertension Father Breast cancer Mother Diabetes Mother Breast cancer Mother's Sister Relation Name Status Comments Father Mother Mother's Sister Social History Tobacco Use Types Packs/Day Years Used Date Smoking Tobacco: Never Smokeless Tobacco: Never Tobacco Cessation:Counseling Given: Yes Alcohol Use Standard Drinks/Week Comments Not Currently [...] often do you attend chur ch or restorationism services? Never 07/23/2023 Do you belong to any clubs o r organizations such as christian groups, unions, fraternal or athletic groups, or [...] Recorded Patient Health Questionnaire-2 Score 0 02/27/2025 [facility] - Occupational [...] Sign Reading Time Taken Comments Blood Pressure 138/64 02/27/2025 10:31 AM EDT Pulse 86 02/27/2025 10:31 AM EDT Temperature 35.7 C (96.3 F) 08/15/2024 1:31 PM EST Respiratory Rate 17 02/27/2025 10:31 AM EDT Oxygen Saturation 94% 02/27/2025 10:31 AM EDT Inhaled Oxygen Concentration - - Weight 67.6 kg (149 lb) 02/27/2025 10:31 AM EDT Height 162.6 cm (5' 4 ) 02/27/2025 10:31 AM EDT Body Mass Index 25.58 02/27/2025 10:31 AM EDT Plan of Treatment Health Maintenance Due Date Last Done Comments Pneumococcal Vaccine: 65+ Years (1 of 2 - PCV) 960 Influenza Vaccine (Season Ended) 2025 Procedures Procedure Name Priority Date/Time Associated Diagnosis Comments POCT URINALYSIS DIPSTICK Routine 02/27/2025 11:34 AM EDT Kidney pain from Last 3 Months Results * POCT Urinalysis dipstick (02/27/2025 11:34 AM EDT) Color, UA Yellow Clarity, UA Clear Glucose, UA Negative Negative - 2000(110) ++++ mg/dL Bilirubin, UA Negative Negative - 4(70) +++ mg/dL Ketones, UA Negative Negative - 160(16) ++++ mg/dL Spec Grav, UA 1.000 1 - 1.03 Blood, UA Negative Negative - 50 Gibson/mcL pH, UA 5.0 5 - 9 Protein, UA Negative Negative - 2000(20) ++++ mg/dL Urobilinogen, UA 0.2 0.2 - 12 mg/dL Leukocytes, UA Negative Negative - 500+++ Hector/mcL Nitrite, UA Negative Negative - Positive Urine 02/27/2025 11:3 4 AM EDT Mary Farris NP POINT OF CARE TEST ENTER/LEILANI T ORDERABLES Final Result from Last 3 Months Insurance MEDICARE [employer] Care Teams Newspaper Publisher Relationship Specialty Start Date End Date Nicholas Lopez MD [address] [facility] 110 [place] [address] PCP - General Internal Medicine 03/18/23 Nicholas Lopez MD [address] [facility] 110 [place] [address] PCP - ACO Reach 01/26/24 Maryuri Elias LPN [address] [facility] 110 [place] [address] 12/15/24
--- NOTE | 2025-03-21 10:05 | CT_ITS ---
The [address] [address] Patient Name: MICHAEL SHAY MRN: [id number] date: 1940 Sex: F Assigned Patient Location: CT Current Patient Location: CT Accession/Order Number: [id number] Exam Date: 03/21/2025 10:30 Report Date: 03/21/2025 10:44 At the request of: MELINDA PINA Procedure: CT abdomen pelvis wo con CT ABDOMEN AND PELVIS WITHOUT CONTRAST COMPARISON: 09/13/2024 CLINICAL DATA: Hematuria and left-sided pain. History of kidney stones. Spiral images were obtained through the abdomen and pelvis without contrast. This CT exam was performed using one or more following dose reduction techniques: Automated exposure control, adjustment of the mA and/or kV according to patient size, or use of iterative reconstruction technique. Limited cuts through the lung bases show a right lower lobe calcified granuloma. Assessment of the intra-abdominal organs is slightly limited by the absence of contrast. There are calcified hepatic and splenic granulomas. There is prior cholecystectomy. There is intra and extrahepatic biliary dilatation. This may relate to previous surgery however there is suggestion of a subtle filling defect within the distal duct (axial image 41) and choledocholithiasis is not excluded. The pancreas shows no acute findings. There is mild adrenal limb thickening. Minor perinephric fibrofatty stranding is present. No renal calculi or hydronephrosis are noted. No ureteral dilatation or stones are seen. There is atherosclerotic plaque at the aorta, iliac and splenic arteries. No enlarged lymph nodes or ascites are seen. There are postoperative changes of ventral hernia repair though there is a small recurrent hernia containing fat along the left margin of the mesh, similar to the prior. There are nondistended small bowel loops. There is mild stool within the colon, predominantly on the right. There are some segments of decompressed descending colon. Mild dextroscoliotic curvature and degenerative changes with associated stenosis are seen at the spine. There is mild chronic wedge deformity at T12. Images through the pelvis show nondistended small bowel. There is mild fluid at the cecum. There is rectosigmoid stool. The remainder the sigmoid colon is decompressed. There are multiple sigmoid and at least one distal descending diverticula, without associated active inflammation. The appendix and uterus are surgically absent. The urinary bladder is collapsed, limiting assessment. No ascites is seen. CT/CT abdomen pelvis wo con IMPRESSION: GRANULOMATOUS CHANGES. BILIARY DILATATION. THIS MAY BE SECONDARY TO PRIOR CHOLECYSTECTOMY HOWEVER CHOLEDOCHOLITHIASIS IS NOT EXCLUDED ON THE BASIS OF THIS EXAM. FOLLOW-UP COULD BE OBTAINED, SYMPTOMS WARRANT. NO OBSTRUCTIVE UROPATHY OR STONE DISEASE. DIVERTICULOSIS. POORLY DISTENDED URINARY BLADDER, LIMITING EVALUATION. Impression dictated by: Kaley Metz M.D. 03/21/2025 10:44 AM Dictation Location: [place] [address] Electronically authenticated by: [id number] Y Date: 03/21/2025 10:44
== END 2025-03-21 09:57 | disposition home or self-care (01) ==
LOC: CT 09:59
PROVIDERS: PCP Nurse Practitioner Family; Visit Provider Nurse Practitioner Family
DX: R31.29 Other microscopic hematuria (principal); K57.90 Diverticulosis of intestine, part unspecified, without perforation or abscess without bleeding; K83.8 Other specified diseases of biliary tract
CPT/HCPCS: 74176

== ENCOUNTER 2025-03-26 10:51 | Outpatient (OUT) | payer MEDICARE, OTHER, SELFPAY ==
--- NOTE | 2025-03-26 11:25 | XR_ITS ---
The [address] [address] Patient Name: MICHAEL SHAY MRN: [id number] date: 1940 Sex: F Assigned Patient Location: [facility] Current Patient Location: [facility] Accession/Order Number: [id number] Exam Date: 03/26/2025 11:52 Report Date: 03/26/2025 11:56 At the request of: MELINDA PINA Procedure: XR thoracic spine 3V THORACIC SPINE -2 views: CLINICAL HISTORY: Closed Wedge Compression Fracture Of T2, Back Pain COMPARISON: MRI 07/02/2021 and lumbar spine 12/01/2022 AP and lateral views were obtained. There is osteopenia. There is S-shaped thoracic scoliotic curvature. Mild wedge deformities is again seen at the superior endplate of T12. There is no new thoracic compression fracture or displacement. The pedicles are intact. There is mild endplate spurring. There are no paraspinal soft tissue abnormalities. XR/XR thoracic spine 3V IMPRESSION: OSTEOPENIA, SCOLIOSIS AND MILD DEGENERATIVE CHANGES. SIMILAR T12 COMPRESSION DEFORMITY. Impression dictated by: Kaley Metz M.D. 03/26/2025 11:56 AM Dictation Location: [place] [address] Electronically authenticated by: [id number] Y Date: 03/26/2025 11:56
== END 2025-03-26 10:52 | disposition home or self-care (01) ==
LOC: RAD 10:56
PROVIDERS: PCP Nurse Practitioner Family; Visit Provider Nurse Practitioner Family
DX: S22.080K Wedge compression fracture of T11-T12 vertebra, subsequent encounter for fracture with nonunion (principal); M85.88 Other specified disorders of bone density and structure, other site; M41.84 Other forms of scoliosis, thoracic region
CPT/HCPCS: 72072

== ENCOUNTER 2025-06-20 14:20 | Emergency (ER) | payer MEDICARE, OTHER, SELFPAY ==
[2025-06-20] VITALS (16 sets, daily range): BP systolic 152; BP diastolic 82; PULSE 85–99; TEMP 36.7; O2SAT 91–97; BMI 23.2
--- OUTSIDE RECORDS SUMMARY | 2025-06-20 15:02 | XMS_ITS | CCD ---
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 Name Role Phone CHASIDY, DR KALEY Natarajan Attending Unavailable MISC, DR CERNA Primary Care Unavailable HEMMER, DR KALEY Natarajan Admitting Unavailable ZIEBER, DR LUL Kingsley Consulting Unavailable HEMMER, DR KALEY Natarajan Consulting Unavailable LICONA, DYLON Admitting Unavailable MISC, DR CERNA Primary Care Unavailable LIVAN, DYLON Attending Unavailable LICONA, DYLON Consulting Unavailable HEMMER, DR KALEY Natarajan Admitting Unavailable HEMMER, DR KAELY Natarajan Attending Unavailable ZIEBER, DR LUL Kingsley Consulting Unavailable MISC, DR CERNA Primary Care Unavailable HEMMER, DR KALEY Natarajan Consulting Unavailable SCOTT EDWIN Consulting Unavailable HEMMER, DR KALEY Natarajan Admitting Unavailable HEMMER, DR KALEY Natarajan Attending Unavailable MISC, DR CERNA Primary Care Unavailable HEMMER, DR KALEY Natarajan Consulting Unavailable MISC, DR CERNA Primary Care Unavailable KALEIGH, MELINDA Admitting Unavailable KALEIGH, MELINDA Attending Unavailable ZIEBER, DR LUL Kingsley Consulting Unavailable KALEIGH, MELINDA Consulting Unavailable MISC, DR CERNA Primary Care Unavailable LUIZA THOMPSON Consulting Unavailable KALEIGH, MELINDA Admitting Unavailable KALEIGH, MELINDA Attending Unavailable KALEIGH, MELINDA Consulting Unavailable APLING, CHRIST B Admitting Unavailable WEST, DR NATHAN Torres Consulting Unavailable MISC, DR CERNA Primary Care Unavailable APLING, CHRIST B Attending Unavailable APLING, CHRIST B Consulting Unavailable ZIEBER, DR LUL Kingsley Consulting Unavailable MISC, DR CERNA Primary Care Unavailable KALEIGH, MELINDA Admitting Unavailable KALEIGH, MELINDA Attending Unavailable KALEIGH, MELINDA Consulting Unavailable MISC, DR CERNA Primary Care Unavailable JUDY, DR NATHAN Torres Consulting Unavailable KALEIGH, MELINDA Attending Unavailable KALEIGH, MELINDA Admitting Unavailable KALEIGH, MELINDA Consulting Unavailable MISC, DR CERNA Primary Care Unavailable JUDY, DR NATHAN Torres Consulting Unavailable KALEIGH, MELINDA Attending Unavailable KALEIGH, MELINDA Admitting Unavailable KALEIGH, MELINDA Consulting Unavailable MISC, DR CERNA Primary Care Unavailable MELINDA FARRIS Attending Unavailable JABIER, DR LUL Kingsley Consulting Unavailable MELINDA FARRIS Admitting Unavailable MELINDA FARRIS Consulting Unavailable SUNSHINE, DR CERNA Primary Care Unavailable KADEN ROTIZ Admitting Unavailable KADEN ORTIZ Attending Unavailable KADEN ORTIZ Consulting Unavailable MO Umaña Attending Provider SHELBI Lopez Primary Care Provider Kaley Umaña Attending Unavailable Kaley Umaña Admitting Unavailable Nicholas Lopez Primary Care Unavailable Nicholas Lopez MD Primary Care Provider Tristan PERFORATOR, Angélica Unavailable Nicholas Lopez MD Unavailable Elias PERFORATOR, Maryuri Unavailable Unavailable Elias PERFORATOR, Maryuri Unavailable ELBA GARCIA Attending Unavailable MELINDA FARRIS Attending Unavailable MELINDA FARRIS Attending Unavailable MELINDA FARRIS Attending Unavailable MELINDA FARRIS Attending Unavailable MELINDA FARRIS Attending Unavailable KALEY UMAÑA Attending Unavailable ELBA GARCIA Attending Unavailable Allergies Allergy Classification Reported Allergen(s) Allergy Type Date of Onset Reaction(s) Facility (1 source) Penicillins Drug allergy (disorder) 03-17-2015 [facility] (1 source) Tamoxifen Drug Allergy 04-10-2015 [facility] (1 source) Flu Vaccine [id number] (3 yr +) Drug allergy (disorder) 04-10-2015 [facility] (20 sources) Penicillins Drug Allergy 03-18-2023 [facility] Healthcare Medications Current Medications Medication Drug Class(es) Dates Sig (Normalized) Sig (Original) amLODIPine 10 mg oral tablet (20 sources) Dihydropyridine Calcium Channel Courtney Start: 03-23-2024 End: 03-09-2025 amLODIPine (Norvasc) 10 MG tablet Indications: Primary hypertension TAKE 1 TABLET DAILY 90 tablet 3 03/09/2025 Active aspirin 81 mg delayed release oral tablet (18 sources) Platelet Aggregation Inhibitor, Nonsteroidal Anti-inflammatory Drug Start: 03-01-2024 End: 03-01-2025 take 1 tablet by mouth once daily aspirin (Aspir-Low) 81 MG EC tablet Indications: Cardiovascular event risk Take 1 tablet (81 mg) by mouth Daily 90 tablet 3 03/01/2024 03/01/2025 Active calcium carbonate 1250 mg / cholecalciferol 200 unt oral tablet (18 sources) Vitamin D Start: 03-01-2024 End: 03-01-2025 take 1 tablet by mouth once in the morning, then take 1 tablet by mouth once at mealtime Calcium Carbonate-Vitamin D (Oyster Shell Calcium/D) 500-5 MG-MCG tablet Indications: Hypocalcemia Take 1 tablet by mouth in the morning and 1 tablet in the evening. Take with meals. 180 tablet 3 03/01/2024 03/01/2025 Active cephalexin 500 mg oral capsule (5 sources) Cephalosporin Antibacterial Start: 02-27-2025 End: 03-09-2025 take 1 capsule by mouth in the morning cephalexin (Keflex) 500 MG capsule Indications: Kidney pain , Other microscopic hematuria Take 1 capsule (500 mg) by mouth in the morning and 1 capsule (500 mg) before bedtime. Do all this for 10 days. 20 capsule 02/27/2025 03/09/2025 Active Start: 06-07-2024 End: 06-17-2024 take 1 capsule by mouth in the morning cephalexin (Keflex) 500 MG capsule Indications: Acute cystitis with hematuria Take 1 capsule (500 mg) by mouth in the morning and 1 capsule (500 mg) before bedtime. Do all this for 10 days. 20 capsule 06/07/2024 06/17/2024 Active ciprofloxacin 500 mg oral tablet (1 source) Quinolone Antimicrobial Start: 09-14-2024 End: 09-21-2024 take 1 tablet by mouth in the morning ciprofloxacin (Cipro) 500 MG tablet Indications: Diverticulosis of colon Take 1 tablet (500 mg) by mouth in the morning and 1 tablet (500 mg) before bedtime. Do all this for 7 days. 14 tablet 09/14/2024 09/21/2024 Active donepezil hydrochloride 5 mg oral tablet (20 sources) Start: 05-29-2025 donepezil (Aricept) 5 MG tablet Indications: Confusion TAKE 1 TABLET AT BEDTIME 90 tablet 3 05/29/2025 Active Start: 03-23-2024 End: 06-07-2024 take 1 tablet by mouth at bedtime donepezil (Aricept) 5 MG tablet Indications: Confusion Take 1 tablet (5 mg) by mouth at bedtime 90 tablet 3 06/07/2024 Active gabapentin 400 mg oral capsule (20 sources) Anti-epileptic Agent Start: 11-14-2024 take 1 capsule by mouth at bedtime gabapentin (Neurontin) 400 MG capsule Indications: Nerve pain Take 1 capsule (400 mg) by mouth at bedtime 100 capsule 3 11/14/2024 Active Start: 04-18-2024 End: 06-07-2024 take 1 capsule by mouth at bedtime gabapentin (Neurontin) 400 MG capsule Indications: Nerve pain Take 1 capsule (400 mg) by mouth at bedtime 100 capsule 3 06/07/2024 Active hydroCHLOROthiazide 25 mg oral tablet (20 sources) Thiazide Diuretic Start: 11-14-2024 End: 02-27-2025 take 1 tablet by mouth once daily hydroCHLOROthiazide (HYDRODiuril) 25 MG tablet Indications: Primary hypertension Take 1 tablet (25 mg) by mouth Daily 100 tablet 3 02/27/2025 Active Start: 03-23-2024 take 1 tablet by sobia th once daily hydroCHLOROthiazide (HYDRODiuril) 25 MG tablet Indications: Primary hypertension (CMS/HCC) Take 1 tablet (25 mg) by mouth Daily 100 tablet 3 03/23/2024 Active ketorolac tromethamine 5 mg/ml ophthalmic solution (20 sources) Nonsteroidal Anti-inflammatory Drug, Cyclooxygenase Inhibitor Start: 07-18-2024 take 1 drop(s) into the eye(s) in the morning ketorolac (Acular) 0.5 % ophthalmic solution Administer 1 drop into affected eye(s) in the morning and 1 drop before bedtime. 07/18/2024 Active Start: 05-30-2024 End: 06-29-2024 take 1 drop(s) into the eye(s) in the morning ketorolac (Acular) 0.5 % ophthalmic solution Indications: Age-related nuclear cataract of both eyes Administer 1 drop into affected eye(s) in the morning and 1 drop before bedtime. 5 mL 1 05/30/2024 06/29/2024 Active levoFLOXacin 500 mg oral tablet (2 sources) Quinolone Antimicrobial Start: 06-14-2025 End: 06-24-2025 take 1 tablet by mouth once daily levoFLOXacin (Levaquin) 500 MG tablet Indications: Acute non-recurrent pansinusitis Take 1 tablet (500 mg) by mouth Daily for 10 days 10 tablet 06/14/2025 06/24/2025 Active levothyroxine sodium 0.025 mg oral tablet (20 sources) l-Thyroxine Start: 05-10-2025 levothyroxine (Synthroid, Levoxyl) 25 MCG tablet Indications: Acquired hypothyroidism TAKE 1 TABLET IN THE MORNING BEFORE A MEAL 90 tablet 05/10/2025 Active Start: 11-14-2024 take 1 tablet by sobia th before mealtime levothyroxine (Synthroid, Levoxyl) 25 MCG tablet Indications: Acquired hypothyroidism Take 1 tablet (25 mcg) by mouth in the morning. Take before meals. 100 tablet 3 11/14/2024 Active Start: 03-23-2024 End: 06-07-2024 take 1 tablet by mouth before mealtime levothyroxine (Synthroid, Levoxyl) 25 MCG tablet Indications: Acquired hypothyroidism (CMS/HCC) Take 1 tablet (25 mcg) by mouth in the morning. Take before meals. 100 tablet 3 06/07/2024 Active Multiple Vitamin (multivitamin) capsule (18 sources) Start: 03-01-2024 End: 03-01-2025 take 1 capsule by mouth once daily Multiple Vitamin (multivitamin) capsule Indications: Other fatigue , Confusion , Hypocalcemia Take 1 capsule by mouth Daily 90 capsule 3 03/01/2024 03/01/2025 Active prednisoLONE acetate 10 mg/ml ophthalmic suspension (4 sources) Corticosteroid Start: 05-30-2024 End: 06-13-2024 prednisoLONE acetate (Pred-Forte) 1 % ophthalmic suspension Indications: Age-related nuclear cataract of both eyes Administer 1 drop into both eyes in the morning and 1 drop at noon and 1 drop in the evening and 1 drop before bedtime. Do all this for 14 days. 5 mL 1 05/30/2024 06/13/2024 Active wheat dextrin 3000 mg powder for oral solution (20 sources) Wheat Dextrin (Benefiber) powder as directed Orally Active Completed/Discontinued Medications Medication Drug Class(es) Dates Sig (Normalized) Sig (Original) azithromycin 250 mg oral tablet (4 sources) Macrolide Antimicrobial Start: End: take 2 tablets by mouth once daily, then take 1 tablet by mouth once daily azithromycin (Zithromax) 250 MG tablet Indications: Acute non-recurrent frontal sinusitis Take 2 tablets (500 mg) by mouth Daily for 1 day, THEN 1 tablet (250 mg) Daily for 4 days. 6 tablet 06/05/2025 06/14/2025 Discontinued (Therapy completed) cefdinir 300 mg oral capsule (4 sources) Cephalosporin Antibacterial Start: 4 End: 4 take 1 capsule by mouth in the morning cefdinir (Omnicef) 300 MG capsule Indications: Acute pharyngitis, unspecified etiology Take 1 capsule (300 mg) by mouth in the morning and 1 capsule (300 mg) before bedtime. Do all this for 10 days. 20 capsule 08/02/2024 08/15/2024 Discontinued (Therapy completed) meloxicam 15 mg oral tablet (20 sources) Nonsteroidal Anti-inflammatory Drug Start: 4 End: 5 take 1 tablet by mouth once daily meloxicam (Mobic) 15 MG tablet Indications: Arthritis of right hip Take 1 tablet (15 mg) by mouth Daily 100 tablet 3 06/07/2024 06/14/2025 Discontinued (Reorder) methylPREDNISolone (8 sources) Corticosteroid Start: 5 End: 5 methylPREDNISolone (Medrol Dospak) 4 MG tablets Indications: Acute non-recurrent frontal sinusitis Follow schedule on package instructions 21 tablet 06/05/2025 06/14/2025 Discontinued (Therapy completed) Start: 06-05-2025 End: 06-12-2025 methylPREDNISolone (Medrol D ospak) 4 MG tablets Indications: Acute non-recurrent frontal sinusitis Follow schedule on package instructions 21 tablet 06/05/2025 06/12/2025 Active Start: 08-02-2024 End: 08-15-2024 methylPREDNISolone (Medrol D ospak) 4 MG tablets Indications: Acute pharyngitis, unspecified etiology Follow schedule on package instructions 21 tablet 08/02/2024 08/15/2024 Discontinued (Therapy completed) Start: 08-02-2024 End: 08-09-2024 methylPREDNISolone (Medrol D ospak) 4 MG tablets Indications: Acute pharyngitis, unspecified etiology Follow schedule on package instructions 21 tablet 08/02/2024 08/09/2024 Active ofloxacin 3 mg/ml ophthalmic solution (6 sources) Quinolone Antimicrobial Start: 07-18-2024 End: 08-15-2024 ofloxacin (Ocuflox) 0.3 % ophthalmic solution Administer 1 drop into the right eye FIVE TIMES DAILY FOR ONE DAY STARTING DAY ONE BEFORE SURGERY CONTINUE AFTER SURGERY DIRECTED 07/18/2024 08/15/2024 Discontinued (Therapy completed) Start: 05-30-2024 End: 05-31-2024 take 1 drop(s) into the eye(s) five times daily ofloxacin (Ocuflox) 0.3 % ophthalmic solution Indications: Age-related nuclear cataract of both eyes Administer 1 drop into the right eye 5 (five) times a day for 1 day Starting 1 day before surgery, continue after surgery as directed 5 mL 1 05/30/2024 05/31/2024 Active microencapsulated potassium chloride 20 meq extended release oral tablet (20 sources) Start: 03-23-2024 End: 08-15-2024 potassium chloride CR (K-Tab ) 20 MEQ ER tablet Indications: Hypokalemia 1 TABLET 2 TIMES A DAY 180 tablet 3 03/23/2024 08/15/2024 Discontinued (Duplicate order) Start: 12-09-2023 End: 06-14-2025 take 1 tablet by mouth in the morning potassium chloride CR (KLOR-CON) 20 MEQ ER tablet Indications: Confusion Take 1 tablet (20 mEq) by mouth in the morning and 1 tablet (20 mEq) before bedtime. 200 tablet 3 05/10/2025 06/14/2025 Discontinued (Reorder) 1 ml triamcinolone acetonide 40 mg/ml prefilled syringe (4 sources) Corticosteroid Start: 08-15-2024 End: 08-15-2024 triamcinolone acetonide (Kenalog-40) injection 40 mg Start: 08-15-2024 End: 08-15-2024 inject 40 mg by intramuscular injection once 40 mg, Intramuscular, Once, On Wed08/15/24 at 1400, For 1 dose Start: 08-15-2024 End: 08-15-2024 triamcinolone acetonide (Kenalog-40) injection 40 mg Start: 08-15-2024 End: 08-15-2024 inject 40 mg by intramuscular injection once 40 mg, Intramuscular, Once, On Wed08/15/24 at 1400, For 1 dose Problems Active Problems Problem Classification Problem Date Documented Date Episodic/Chronic Cataract (20 sources) Bilateral age-related nuclear cataracts; Translations: [Age-related nuclear cataract, bilateral] Onset: 05-30-2024 05-30-2024 Chronic Chronic obstructive pulmonary disease and bronchiectasis (20 sources) Chronic obstructive lung disease; Translations: [Chronic obstructive pulmonary disease, unspecified] Onset: 12-03-2023 12-03-2023 Chronic Conditions associated with dizziness or vertigo (3 sources) Dizziness and giddiness; Translations: [Dizziness] Onset: 01-17-2023 06-14-2025 Episodic Delirium, dementia, and amnestic and other cognitive disorders (2 sources) Dementia; Translations: [Unspecified dementia without behavioral disturbance] 06-05-2025 Chronic Disorders of lipid metabolism (20 sources) Mixed hyperlipidemia; Translations: [Mixed hyperlipidemia] Onset: 03-18-2023 03-18-2023 Chronic Diverticulosis and diverticulitis (20 sources) Diverticular disease; Translations: [Diverticulosis of intestine, part unspecified, without perforation or abscess without bleeding] Onset: 03-18-2023 03-18-2023 Chronic Esophageal disorders (20 sources) Gastroesophageal reflux disease without esophagitis; Translations: [Gastro-esophageal reflux disease without esophagitis] Onset: 03-18-2023 03-18-2023 Chronic Essential hypertension (20 sources) Essential hypertension; Translations: [Essential (primary) hypertension] Onset: 03-18-2023 08-02-2024 Chronic Fluid and electrolyte disorders (20 sources) Hypokalemia; Translations: [Hypokalemia] Onset: 06-07-2023 06-07-2023 Episodic Genitourinary symptoms and ill-defined conditions (20 sources) Urge incontinence of urine; Translations: [Urge incontinence] Onset: 03-18-2023 03-18-2023 Chronic Headache; including migraine (4 sources) Headache; including migraine; Translations: [HEADACHE UNSPECIFIED] Onset: 01-12-2023 Heart valve disorders (1 source) Rheumatic tricuspid insufficiency; Translations: [RHEUMATIC TRICUSPID INSUFFICIENCY] Onset: 09-05-2022 Chronic Joint disorders and dislocations; trauma-related (20 sources) Derangement of right knee; Translations: [Unspecified internal derangement of right knee] Onset: 03-18-2023 03-18-2023 Chronic Malaise and fatigue (6 sources) Weakness; Translations: [Other fatigue] Onset: 01-28-2023 08-02-2024 Episodic Menopausal disorders (20 sources) Primary ovarian failure; Translations: [Other primary ovarian failure] Onset: 03-18-2023 03-18-2023 Chronic Nonspecific chest pain (5 sources) Chest pain, unspecified; Translations: [Other chest pain] Onset: 09-05-2022 Episodic Osteoarthritis (20 sources) Arthritis of left elbow; Translations: [Primary osteoarthritis, left elbow] Onset: 03-18-2023 03-18-2023 Chronic Other bone disease and musculoskeletal deformities (20 sources) Medial epicondyle apophysitis of left elbow due to overuse; Translations: [Osteochondropathy, unspecified, left upper arm] Onset: 03-18-2023 03-18-2023 Chronic Other fractures (4 sources) Wedge compression fracture of T11-T12 vertebra, initial encounter for closed fracture; Translations: [WEDGE CMPRS FX T11-T12 V INT GALINA FX] Onset: 12-11-2022 Episodic Other fractures (1 source) Fracture of twelfth thoracic vertebra; Translations: [Wedge compression fracture of T11-T12 vertebra, subsequent encounter for fracture with nonunion] 03-22-2025 Episodic Other hereditary and degenerative nervous system conditions (20 sources) Mild cognitive impairment, so stated; Translations: [Mild cognitive impairment, so stated] Onset: 08-13-2023 08-13-2023 Chronic Other hereditary and degenerative nervous system conditions (20 sources) Impaired cognition; Translations: [Mild cognitive impairment, so stated] Onset: 08-13-2023 08-13-2023 Chronic Other liver diseases (2 sources) Hepatic failure; Translations: [Hepatic failure, unspecified without coma] 06-05-2025 Episodic Other nervous system disorders (1 source) Other symptoms and signs involving cognitive functions and awareness; Translations: [Other symptoms and signs involving cognitive functions and awareness] Onset: 07-30-2023 Episodic Other nutritional; endocrine; and metabolic disorders (20 sources) Hypercalcemia; Translations: [Hypercalcemia] Onset: 03-18-2023 03-18-2023 Chronic Other upper respiratory infections (20 sources) Sinusitis; Translations: [Chronic sinusitis, unspecified] Onset: 03-18-2023 03-18-2023 Chronic Other upper respiratory infections (10 sources) Acute pharyngitis; Translations: [Acute pharyngitis, unspecified] 08-02-2024 Episodic Residual codes; unclassified (20 sources) Confusional state; Translations: [Disorientation, unspecified] Onset: 08-13-2023 08-13-2023 Episodic Residual codes; unclassified (2 sources) History of hernia repair; Translations: [Other specified postprocedural states] 09-13-2024 Episodic Residual codes; unclassified (2 sources) Edema of lower extremity; Translations: [Localized edema] 05-10-2025 Episodic Spondylosis; intervertebral disc disorders; other back problems (20 sources) Degeneration of thoracolumbar intervertebral disc; Translations: [Other intervertebral disc degeneration, thoracolumbar region] Onset: 03-18-2023 03-18-2023 Chronic Thyroid disorders (20 sources) Acquired hypothyroidism; Translations: [Hypothyroidism, unspecified] Onset: 03-18-2023 08-02-2024 Chronic Unclassified (3 sources) LOW BACK PAIN, UNSPECIFIED; Translations: [LOW BACK PAIN, UNSPECIFIED] Onset: 12-04-2022 Unclassified (2 sources) History of hernia repair 09-14-2024 Past or Other Problems Problem Classification Problem Date Documented Da te Episodic/Chronic Abdominal pain (20 sources) Unspecified abdominal pain; Translations: [Lower abdominal pain, unspecified] Onset: 02-06-2022 Episodic Administrative/social admission (20 sources) Other reduced mobility; Translations: [Other specified conditions influencing health status] Onset: 06-07-2023 06-07-2023 Episodic Calculus of urinary tract (20 sources) Personal history of urinary calculi; Translations: [Kidney stone] Onset: 02-06-2022 10-25-2023 Episodic Diabetes mellitus without complication (20 sources) Impaired fasting glucose; Translations: [Impaired fasting glycemia] Onset: 08-13-2022 Episodic Genitourinary symptoms and ill-defined conditions (20 sources) Frequency of micturition; Translations: [Hematuria, unspecified] Onset: 02-11-2022 Episodic Mood disorders (20 sources) Mood disorders Onset: 03-14-2024 03-14-2024 Neoplasms of unspecified nature or uncertain behavior (20 sources) Neoplasm of uncertain behavior of skin; Translations: [Neoplasm of uncertain behavior of skin] Onset: 03-18-2023 03-18-2023 Episodic Other acquired deformities (20 sources) Retrolisthesis; Translations: [Spondylolisthesis, site unspecified] Onset: 03-18-2023 03-18-2023 Episodic Other bone disease and musculoskeletal deformities (20 sources) Osteopenia; Translations: [Other specified disorders of bone density and structure, right thigh] Onset: 03-18-2023 03-18-2023 Episodic Other circulatory disease (1 source) Other specified symptoms and signs involving the circulatory and respiratory systems; Translations: [OTH SPEC SX SIGNS INVLV CIRC RS] Onset: 09-05-2022 Episodic Other connective tissue disease (20 sources) Neuralgia; Translations: [Neuralgia and neuritis, unspecified] Onset: 03-18-2023 03-18-2023 Episodic Other lower respiratory disease (4 sources) Shortness of breath; Translations: [SHORTNESS OF BREATH] Onset: 08-28-2022 Episodic Other nutritional; endocrine; and metabolic disorders (20 sources) Body mass index 25-29 - overweight; Translations: [Overweight] Onset: 03-18-2023 03-18-2023 Episodic Pathological fracture (20 sources) Pathological fracture of vertebra; Translations: [Pathological fracture, other site, initial encounter for fracture] Onset: 03-18-2023 03-18-2023 Episodic Residual codes; unclassified (20 sources) Edema of lower leg ; Translations: [Localized edema] Onset: 06-07-2023 06-07-2023 Episodic Spondylosis; intervertebral disc disorders; other back problems (20 sources) Dorsalgia, unspecified; Translations: [Spasm of muscle of lower back] Onset: 04-10-2022 Episodic Unclassified (1 source) LOW BACK PAIN, UNSPECIFIED; Translations: [LOW BACK PAIN, UNSPECIFIED] Onset: 12-01-2022 Urinary tract infections (20 sources) Acute cystitis; Translations: [Acute cystitis with hematuria] Onset: 10-25-2023 10-25-2023 Episodic Results Test Name Value Interpretation Reference Range Facility COMPREHENSIVE METABOLIC PANE Martínez 06-15-2025 Albumin [Mass/Vol] 4.5 g/dL Normal 3.6-5.1 [facility] Comment on above: Performed By: #### 1 [id number] #### [facility] of [address], [address] [place] [address] Closing Specialist: Kiel Moulton MD Albumin/Globulin [Mass ratio] 1.6 {ratio} Normal 1.0-2.5 [facility] Comment on above: Performed By: #### 1 [id number] #### [facility] of [address], [address] [place] [address] Closing Specialist: Kiel Moulton MD ALP [Catalytic activity/Vol] 70 U/L Normal 37-153 [facility] Comment on above: Performed By: #### 1 0231 #### [facility] of [place] [address] Closing Specialist: Kiel Moulton MD ALT [Catalytic activity/Vol] 17 U/L Normal 6-29 [facility] Comment on above: Performed By: #### 1 0231 #### [facility] of [address], [address] [place] [address] Closing Specialist: Kiel Moulton MD AST [Catalytic activity/Vol] 17 U/L Normal 10-35 [facility] Comment on above: Performed By: #### 1 0231 #### [facility] of [address], [address] [place] [address] Closing Specialist: Kiel Moulton MD Bilirubin [Mass/Vol] 1.4 mg/dL High 0.2-1.2 [facility] Comment on above: Performed By: #### 1 0231 #### [facility] of [place] [address] Closing Specialist: Kiel Moulton MD BUN/CREATININE RATIO SEE NOTE: Normal 6-22 [facility] Comment on above: Result Comment: Not Reported: BUN and Creatinine are within reference range. Performed By: #### 1 [id number] #### [facility] of [address], [address] [place] [address] Closing Specialist: Kiel Moulton MD Calcium [Mass/Vol] 10.5 mg/dL High 8.6-10.4 [facility] Comment on above: Performed By: #### 1 0231 #### [facility] [place] [address] Closing Specialist: Kiel Moulton MD Chloride [Moles/Vol] 101 mmol/L Normal 98-110 [facility] Comment on above: Performed By: #### 1 0231 #### [facility] [place] [address] Closing Specialist: Kiel Moulton MD CO2 [Moles/Vol] 26 mmol/L Normal 20-32 [facility] Comment on above: Performed By: #### 1 0231 #### [facility] [place] [address] Closing Specialist: Kiel Moulton MD Creatinine [Mass/Vol] 0.88 mg/dL Normal 0.60-0.95 [facility] Comment on above: Performed By: #### 1 0231 #### [facility] [place] [address] Closing Specialist: Kiel Moulton MD GFR/1.73 sq M.predicted among non-blacks MDRD (S/P/Bld) [Vol rate/Area] 65 mL/min/{1.73_m2} Normal > OR = 60 [facility] Comment on above: Performed By: #### 1 0231 #### [facility] [place] [address] Closing Specialist: Kiel Moulton MD Globulin (S) [Mass/Vol] 2.8 g/dL Normal 1.9-3.7 [facility] Comment on above: Performed By: #### 1 0231 #### [facility] [place] [address] Closing Specialist: Kiel Moulton MD Glucose [Mass/Vol] 108 mg/dL High 65-99 [facility] Comment on above: Result Comment: Fasting reference interval For someone without known diabetes, a glucose value between 100 and 125 mg/dL is consistent with prediabetes and should be confirmed with a follow-up test. Performed By: #### 1 0231 #### [facility] [place] [address] Closing Specialist: Kiel Moulton MD Potassium [Moles/Vol] 3.6 mmol/L Normal 3.5-5.3 [facility] Comment on above: Performed By: #### 1 0231 #### [facility] [place] [address] Closing Specialist: Kiel Moulton MD Protein [Mass/Vol] 7.3 g/dL Normal 6.1-8.1 [facility] Comment on above: Performed By: #### 1 0231 #### [facility] [place] [address] Closing Specialist: Kiel Moulton MD Sodium [Moles/Vol] 139 mmol/L Normal 135-146 [facility] Comment on above: Performed By: #### 1 0231 #### [facility] [place] [address] Closing Specialist: Kiel Moulton MD Urea nitrogen [Mass/Vol] 24 mg/dL Normal 7-25 [facility] Comment on above: Performed By: #### 1 0231 #### [facility] [place] [address] Closing Specialist: Kiel Moulton MD XR THORACIC SPINE 3Von 03-26 [place] [address] XRay Report Signed Patient: MICHAEL SHAY I MR#: [id number] : 1940 Acct:[id number] Age/Sex: 84 / F ADM Date: 03/26/25 Loc: RAD Attending Dr: MELINDA FARRIS Ordering Physician: MELINDA FARRIS Date of Service: 03/26/25 Procedure(s): XR thoracic spine 3V Accession Number(s): [id number] cc: MELINDA FARRIS [facility] [place] [id number] Patient Name: MICHAEL SHAY MRN: [facility]:[id number] date: 1940 Sex: F Assigned Patient Location: [facility] Current Patient Location: [facility] Accession/Order Number: [id number] Exam Date: 03/26/2025 11:52 Report Date: 03/26/2025 11:56 At the request of: MELINDA FARRIS Procedure: XR thoracic spine 3V THORACIC SPINE -2 views: CLINICAL HISTORY: Closed Wedge Compression Fracture Of T2, Back Pain COMPARISON: MRI 07/02/2021 and lumbar spine 12/01/2022 AP and lateral views were obtained. There is osteopenia. There is S-shaped thoracic scoliotic curvature. Mild wedge deformities is again seen at the superior endplate of T12. There is no new thoracic compression fracture or displacement. The pedicles are intact. There is mild endplate spurring. There are no paraspinal soft tissue abnormalities. XR/XR thoracic spine 3V IMPRESSION: OSTEOPENIA, SCOLIOSIS AND MILD DEGENERATIVE CHANGES. SIMILAR T12 COMPRESSION DEFORMITY. Impression dictated by: Kaley Metz M.D. 03/26/2025 11:56 AM Dictation Location: [place] [address] Electronically authenticated by: [id number] Y Date: 03/26/2025 11:56 Dictated By: Kaley Metz M.D. Signed By: 03/26/25 1159 DD/ 1156 TD/TT: Seo Associate: [facility] Radiology, Radiologi MD [place] - 03/26/2025 [place] [address] XRay Report Signed Patient: MICHAEL SHAY I MR#: [id number] : 1940 Acct:[id number] Age/Sex: 84 / F ADM Date: 03/26/25 Loc: [facility] Attending Dr: MELINDA FARRIS Ordering Physician: MELINDA FARRIS Date of Service: 03/26/25 Procedure(s): XR thoracic spine 3V Accession Number(s): [id number] cc: MELINDA FARRIS [place] [id number] Patient Name: MICHAEL SHAY MRN: [id number] date: 1940 Sex: F Assigned Patient Location: [facility] Current Patient Location: [facility] Accession/Order Number: [id number] Exam Date: 03/26/2025 11:52 Report Date: 03/26/2025 11:56 At the request of: MELINDA FARRIS Procedure: XR thoracic spine 3V THORACIC SPINE -2 views: CLINICAL HISTORY: Closed Wedge Compression Fracture Of T2, Back Pain COMPARISON: MRI 07/02/2021 and lumbar spine 12/01/2022 AP and lateral views were obtained. There is osteopenia. There is S-shaped thoracic scoliotic curvature. Mild wedge deformities is again seen at the superior endplate of T12. There is no new thoracic compression fracture or displacement. The pedicles are intact. There is mild endplate spurring. There are no paraspinal soft tissue abnormalities. XR/XR thoracic spine 3V IMPRESSION: OSTEOPENIA, SCOLIOSIS AND MILD DEGENERATIVE CHANGES. SIMILAR T12 COMPRESSION DEFORMITY. Impression dictated by: Kaley Metz M.D. 03/26/2025 11:56 AM Dictation Location: [place] [address] Electronically authenticated by: [id number] Y Date: 03/26/2025 11:56 Dictated By: Kaley Metz M.D. Signed By: 03/26/25 1159 DD/ 1156 TD/TT: Seo Associate: [facility] dscovered Radiology Study observation (narrative) [facility] XR THORACIC SPINE 3VOrdered By: Radiologist Radiology on 03-26-2025 [facility] [employer] Work Phone: CT ABDOMEN/PELVIS WO CONTo n 03-21-2025 [place] [address] CT Scan Report Signed Patient: MICHAEL SHAY I MR#: [id number] : 1940 Acct:[id number] Age/Sex: 84 / F ADM Date: 03/21/25 Loc: CT Attending Dr: MELINDA FARRIS Ordering Physician: MELINDA FARRIS Date of Service: 03/21/25 Procedure(s): CT abdomen pelvis wo con Accession Number(s): [id number] cc: MELINDA FARRIS [address] [address] Patient Name: MICHAEL SHAY MRN: [id number] date: 1940 Sex: F Assigned Patient Location: CT Current Patient Location: CT Accession/Order Number: [id number] Exam Date: 03/21/2025 10:30 Report Date: 03/21/2025 10:44 At the request of: MELINDA FARRIS Procedure: CT abdomen pelvis wo con CT ABDOMEN AND PELVIS WITHOUT CONTRAST COMPARISON: 09/13/2024 CLINICAL DATA: Hematuria and left-sided pain. History of kidney stones. Spiral images were obtained through the abdomen and pelvis without contrast. This CT exam was performed using one or more following dose reduction techniques: Automated exposure control, adjustment of the mA and/or kV according to patient size, or use of iterative reconstruction technique. Limited cuts through the lung bases show a right lower lobe calcified granuloma. Assessment of the intra-abdominal organs is slightly limited by the absence of contrast. There are calcified hepatic and splenic granulomas. There is prior cholecystectomy. There is intra and extrahepatic biliary dilatation. This may relate to previous surgery however there is suggestion of a subtle filling defect within the distal duct (axial image 41) and choledocholithiasis is not excluded. The pancreas shows no acute findings. There is mild adrenal limb thickening. Minor perinephric fibrofatty stranding is present. No renal calculi or hydronephrosis are noted. No ureteral dilatation or stones are seen. There is atherosclerotic plaque at the aorta, iliac and splenic arteries. No enlarged lymph nodes or ascites are seen. There are postoperative changes of ventral hernia repair though there is a small recurrent hernia containing fat along the left margin of the mesh, similar to the prior. There are nondistended small bowel loops. There is mild stool within the colon, predominantly on the right. There are some segments of decompressed descending colon. Mild dextroscoliotic curvature and degenerative changes with associated stenosis are seen at the spine. There is mild chronic wedge deformity at T12. Images through the pelvis show nondistended small bowel. There is mild fluid at the cecum. There is rectosigmoid stool. The remainder the sigmoid colon is decompressed. There are multiple sigmoid and at least one distal descending diverticula, without associated active inflammation. The appendix and uterus are surgically absent. The urinary bladder is collapsed, limiting assessment. No ascites is seen. CT/CT abdomen pelvis wo con IMPRESSION: GRANULOMATOUS CHANGES. BILIARY DILATATION. THIS MAY BE SECONDARY TO PRIOR CHOLECYSTECTOMY HOWEVER CHOLEDOCHOLITHIASIS IS NOT EXCLUDED ON THE BASIS OF THIS EXAM. FOLLOW-UP COULD BE OBTAINED, SYMPTOMS WARRANT. NO OBSTRUCTIVE UROPATHY OR STONE DISEASE. DIVERTICULOSIS. POORLY DISTENDED URINARY BLADDER, LIMITING EVALUATION. Impression dictated by: Kaley Metz M.D. 03/21/2025 10:44 AM Dictation Location: [place] [address] Electronically authenticated by: [id number] Y Date: 03/21/2025 10:44 Dictated By: Kaley Metz M.D. Signed By: 03/21/25 1047 DD/ 1044 TD/TT: Seo Associate: [facility] Radiology, Radiologmaria t feldman MD - 03/21/2025 [place] [address] CT Scan Report Signed Patient: MICHAEL SHAY I MR#: [id number] : 1940 Acct:[id number] Age/Sex: 84 / F ADM Date: 03/21/25 Loc: CT Attending Dr: MELINDA FARRIS Ordering Physician: MELINDA FARRIS Date of Service: 03/21/25 Procedure(s): CT abdomen pelvis wo con Accession Number(s): [id number] cc: MELINDA FARRIS The [address] [address] Patient Name: MICHAEL SHAY MRN: [facility]:[id number] date: 1940 Sex: F Assigned Patient Location: CT Current Patient Location: CT Accession/Order Number: [id number] Exam Date: 03/21/2025 10:30 Report Date: 03/21/2025 10:44 At the request of: MELINDA FARRIS Procedure: CT abdomen pelvis wo con CT ABDOMEN AND PELVIS WITHOUT CONTRAST COMPARISON: 09/13/2024 CLINICAL DATA: Hematuria and left-sided pain. History of kidney stones. Spiral images were obtained through the abdomen and pelvis without contrast. This CT exam was performed using one or more following dose reduction techniques: Automated exposure control, adjustment of the mA and/or kV according to patient size, or use of iterative reconstruction technique. Limited cuts through the lung bases show a right lower lobe calcified granuloma. Assessment of the intra-abdominal organs is slightly limited by the absence of contrast. There are calcified hepatic and splenic granulomas. There is prior cholecystectomy. There is intra and extrahepatic biliary dilatation. This may relate to previous surgery however there is suggestion of a subtle filling defect within the distal duct (axial image 41) and choledocholithiasis is not excluded. The pancreas shows no acute findings. There is mild adrenal limb thickening. Minor perinephric fibrofatty stranding is present. No renal calculi or hydronephrosis are noted. No ureteral dilatation or stones are seen. There is atherosclerotic plaque at the aorta, iliac and splenic arteries. No enlarged lymph nodes or ascites are seen. There are postoperative changes of ventral hernia repair though there is a small recurrent hernia containing fat along the left margin of the mesh, similar to the prior. There are nondistended small bowel loops. There is mild stool within the colon, predominantly on the right. There are some segments of decompressed descending colon. Mild dextroscoliotic curvature and degenerative changes with associated stenosis are seen at the spine. There is mild chronic wedge deformity at T12. Images through the pelvis show nondistended small bowel. There is mild fluid at the cecum. There is rectosigmoid stool. The remainder the sigmoid colon is decompressed. There are multiple sigmoid and at least one distal descending diverticula, without associated active inflammation. The appendix and uterus are surgically absent. The urinary bladder is collapsed, limiting assessment. No ascites is seen. CT/CT abdomen pelvis wo con IMPRESSION: GRANULOMATOUS CHANGES. BILIARY DILATATION. THIS MAY BE SECONDARY TO PRIOR CHOLECYSTECTOMY HOWEVER CHOLEDOCHOLITHIASIS IS NOT EXCLUDED ON THE BASIS OF THIS EXAM. FOLLOW-UP COULD BE OBTAINED, SYMPTOMS WARRANT. NO OBSTRUCTIVE UROPATHY OR STONE DISEASE. DIVERTICULOSIS. POORLY DISTENDED URINARY BLADDER, LIMITING EVALUATION. Impression dictated by: Kaley Metz M.D. 03/21/2025 10:44 AM Dictation Location: [place] [address] Electronically authenticated by: [id number] Y Date: 03/21/2025 10:44 Dictated By: Kaley Metz M.D. Signed By: 03/21/25 1047 DD/ 1044 TD/TT: Seo Associate: [facility] Radiology Study observation (narrative) [facility] CT ABDOMEN/PELVIS WO CONTO rdered By: Radiologist Radiology on 03-21-2025 [facility] Work Phone: Urinalysis macro (dipstick) panel (U)on 02-27-2025 Bilirubin, UA Negative Negative - 4(70) +++ mg/dL [facility] Blood, UA Negative Negative - 50 Gibson/mcL [facility] Clarity, UA Clear [facility] Rewarding Return re Color, UA Yellow [facility] [employer] Glucose, UA Negative Negative - 2000(110) ++++ mg/dL [facility] Interpretation and review of laboratory results Normal [facility] [employer] Ketones, UA Negative Negative - 160(16) ++++ mg/dL [facility] Leukocytes, UA Negative Negative - 500+++ Hector/mcL [facility] Nitrite, UA Negative Negative - Positive [facility] pH, UA 5 5 - 9 [facility] [employer] Protein, UA Negative Negative - 2000(20) ++++ mg/dL [facility] Spec Grav, UA 1 1 - 1.03 [facility] Urobilinogen, UA 0.2 0.2 - 12 mg/dL [facility] [employer] e BASIC METABOLIC PANELon 11-26 BUN/CREATININE RATIO SEE NOTE: Normal 6-22 [facility] Comment on above: Order Comment: FASTI NG:NO LTC ONLY: NURSE COLLECTED - NO SPECIMEN PROVIDED. FASTING: NO Result Comment: Not Reported: BUN and Creatinine are within reference range. Performed By: #### 1 569, 33097 #### [facility] [address] [place] [address], [address] [place] [address] Closing Specialist: Kiel Moulton MD Calcium [Mass/Vol] 10.2 mg/dL Normal 8.6-10.4 [facility] Comment on above: Order Comment: FASTI NG:NO LTC ONLY: NURSE COLLECTED - NO SPECIMEN PROVIDED. FASTING: NO Performed By: #### 1 759, 36678 #### [facility] [address], [address] [place] [address] Closing Specialist: Kiel Moulton MD Chloride [Moles/Vol] 106 mmol/L Normal 98-110 [facility] Comment on above: Order Comment: FASTI NG:NO LTC ONLY: NURSE COLLECTED - NO SPECIMEN PROVIDED. FASTING: NO Performed By: #### 1 759, 37424 #### [facility] [address], [address] [place] [address] Closing Specialist: Kiel Moulton MD CO2 [Moles/Vol] 21 mmol/L Normal 20-32 [facility] Comment on above: Order Comment: FASTI NG:NO LTC ONLY: NURSE COLLECTED - NO SPECIMEN PROVIDED. FASTING: NO Performed By: #### 1 759, 35664 #### [facility] [address], [address] [place] [address] Closing Specialist: Kiel Moulton MD Creatinine [Mass/Vol] 0.80 mg/dL Normal 0.60-0.95 [facility] Comment on above: Order Comment: FASTI NG:NO LTC ONLY: NURSE COLLECTED - NO SPECIMEN PROVIDED. FASTING: NO Performed By: #### 1 759, 04574 #### [facility] [address], [address] [place] [address] Closing Specialist: Kiel Moulton MD GFR/1.73 sq M.predicted among non-blacks MDRD (S/P/Bld) [Vol rate/Area] 73 mL/min/{1.73_m2} Normal > OR = 60 [facility] Comment on above: Order Comment: FASTI NG:NO LTC ONLY: NURSE COLLECTED - NO SPECIMEN PROVIDED. FASTING: NO Performed By: #### 1 759, 49505 #### [facility] [address], [address] [place] [address] Closing Specialist: Kiel Moulton MD Glucose [Mass/Vol] 91 mg/dL Normal 65-139 [facility] Comment on above: Order Comment: FASTI NG:NO LTC ONLY: NURSE COLLECTED - NO SPECIMEN PROVIDED. FASTING: NO Result Comment: Non-fasting reference interval Performed By: #### 1 759, 00668 #### [facility] [address], [address] [place] [address] Closing Specialist: Kiel Moulton MD Potassium [Moles/Vol] 4.3 mmol/L Normal 3.5-5.3 [facility] Comment on above: Order Comment: FASTI NG:NO LTC ONLY: NURSE COLLECTED - NO SPECIMEN PROVIDED. FASTING: NO Performed By: #### 1 759, 96340 #### [facility] [address], [address] [place] [address] Closing Specialist: Kiel Moulton MD Sodium [Moles/Vol] 141 mmol/L Normal 135-146 [facility] Comment on above: Order Comment: FASTI NG:NO LTC ONLY: NURSE COLLECTED - NO SPECIMEN PROVIDED. FASTING: NO Performed By: #### 1 759, 45107 #### [facility] [address], [address] [place] [address] Closing Specialist: Kiel Moulton MD Urea nitrogen [Mass/Vol] 18 mg/dL Normal 7-25 [facility] Comment on above: Order Comment: FASTI NG:NO LTC ONLY: NURSE COLLECTED - NO SPECIMEN PROVIDED. FASTING: NO Performed By: #### 1 759, 37196 #### [facility] [address], [address] [place] [address] Closing Specialist: Kiel Moulton MD CBC (H/H, RBC, INDICES, WBC, PLT)on 12-15-2024 Erythrocyte distribution width (RBC) [Ratio] 12.0 % Normal 11.0-15.0 [facility] Comment on above: Performed By: #### 1 759, 16595 #### [facility] [address], [address] [place] [address] Closing Specialist: Kiel Moulton MD Hematocrit (Bld) [Volume fraction] 43.7 % Normal 35.0-45.0 [facility] Comment on above: Performed By: #### 1 759, 36386 #### [facility] [place] [address] Closing Specialist: Kiel Moulton MD Hemoglobin (Bld) [Mass/Vol] 14.5 g/dL Normal 11.7-15.5 [facility] Comment on above: Performed By: #### 1 759, 77015 #### [facility] [place] [address] Closing Specialist: Kiel Moulton MD MCH (RBC) [Entitic mass] 31.9 pg Normal 27.0-33.0 [facility] Comment on above: Performed By: #### 1 759, 76376 #### [facility] [place] [address] Closing Specialist: Kiel Moulton MD MCHC (RBC) [Mass/Vol] 33.2 g/dL Normal 32.0-36.0 [facility] Comment on above: Result Comment: For adults, a slight decrease in the calculated MCHC value (in the range of 30 to 32 g/dL) is most likely not clinically significant; however, it should be interpreted with caution in correlation with other red cell parameters and the patient's clinical condition. Performed By: #### 1 759, 77687 #### [facility] [place] [address] Closing Specialist: Kiel Moulton MD MCV (RBC) [Entitic vol] 96.3 fL Normal 80.0-100.0 [facility] Comment on above: Performed By: #### 1 759, 47620 #### [facility] [place] [address] Closing Specialist: Kiel Moulton MD Platelet mean volume (Bld) [Entitic vol] 11.2 fL Normal 7.5-12.5 [facility] Comment on above: Performed By: #### 1 759, 40987 #### [facility] [place] [address] Closing Specialist: Kiel Moulton MD Platelets (Bld) [#/Vol] 288 10*3/uL Normal 140-400 [facility] Comment on above: Performed By: #### 1 759, 68072 #### [facility] of [address], [address] [place] [address] Closing Specialist: Kiel Moulton MD RBC (Bld) [#/Vol] 4.54 10*6/uL Normal 3.80-5.10 [facility] Comment on above: Performed By: #### 1 759, 27715 #### [facility] [address], [address] [place] [address] Closing Specialist: Kiel Moulton MD WBC (Bld) [#/Vol] 7.8 10*3/uL Normal 3.8-10.8 [facility] Comment on above: Performed By: #### 1 759, 47041 #### [facility] [address], [address] [place] [address] Closing Specialist: Kiel Moulton MD CBC (H/H, RBC, INDICES, WBC, PLT)on 08-03-2024 Erythrocyte distribution width (RBC) [Ratio] 11.9 % Normal 11.0-15.0 [facility] Comment on above: Performed By: #### 1 239, 349, 05327 #### [facility] [place] [address] Closing Specialist: Kiel Moulton MD Hematocrit (Bld) [Volume fraction] 46.1 % High 35.0-45.0 [facility] Comment on above: Performed By: #### 1 759, 369, 65982 #### [facility] of [address], [address] [place] [address] Closing Specialist: Kiel Moulton MD Hemoglobin (Bld) [Mass/Vol] 14.9 g/dL Normal 11.7-15.5 [facility] Comment on above: Performed By: #### 1 729, 719, 06433 #### [facility] [place] [address] Closing Specialist: Kiel Moulton MD MCH (RBC) [Entitic mass] 31.6 pg Normal 27.0-33.0 [facility] Comment on above: Performed By: #### 1 759, 89, 91117 #### [facility] [place] [address] Closing Specialist: Kiel Moulton MD MCHC (RBC) [Mass/Vol] 32.3 g/dL Normal 32.0-36.0 [facility] Comment on above: Result Comment: For adults, a slight decrease in the calculated MCHC value (in the range of 30 to 32 g/dL) is most likely not clinically significant; however, it should be interpreted with caution in correlation with other red cell parameters and the patient's clinical condition. Performed By: #### 1 75, , 47006 #### [facility] [place] [address] Closing Specialist: Kiel Moulton MD MCV (RBC) [Entitic vol] 97.7 fL Normal 80.0-100.0 [facility] Comment on above: Performed By: #### 1 75, , 10035 #### [facility] [place] [address] Closing Specialist: Kiel Moulton MD Platelet mean volume (Bld) [Entitic vol] 10.9 fL Normal 7.5-12.5 [facility] Comment on above: Performed By: #### 1 75, , 84769 #### [facility] [place] [address] Closing Specialist: Kiel Moulton MD Platelets (Bld) [#/Vol] 319 10*3/uL Normal 140-400 [facility] Comment on above: Performed By: #### 1 75, 89, 35156 #### [facility] [place] [address] Closing Specialist: Kiel Moulton MD RBC (Bld) [#/Vol] 4.72 10*6/uL Normal 3.80-5.10 [facility] Comment on above: Performed By: #### 1 759, 899, 82062 #### [facility] [place] [address] Closing Specialist: Kiel Moulton MD WBC (Bld) [#/Vol] 7.8 10*3/uL Normal 3.8-10.8 [facility] Comment on above: Performed By: #### 1 759, 899, 52458 #### [facility] [place] [address] Closing Specialist: Kiel Moulton MD [facility] 08-03-2024 Albumin [Mass/Vol] 4.7 g/dL Normal 3.6-5.1 [facility] Comment on above: Performed By: #### 1 759, 899, 97899 #### [facility] [place] [address] Closing Specialist: Kiel Moulton MD Albumin/Globulin [Mass ratio] 1.6 {ratio} Normal 1.0-2.5 [facility] Comment on above: Performed By: #### 1 759, 899, 66590 #### [facility] [place] [address] Closing Specialist: Kiel Moulton MD ALP [Catalytic activity/Vol] 66 U/L Normal 37-153 [facility] Comment on above: Performed By: #### 1 759, 899, 17408 #### [facility] [place] [address] Closing Specialist: Kiel Moulton MD ALT [Catalytic activity/Vol] 13 U/L Normal 6-29 [facility] Comment on above: Performed By: #### 1 759, 899, 87663 #### [facility] [place] [address] Closing Specialist: Kiel Moulton MD AST [Catalytic activity/Vol] 20 U/L Normal 10-35 [facility] Comment on above: Performed By: #### 1 759, 899, 24256 #### [facility] of [address], [address] [place] [address] Closing Specialist: Kiel Moulton MD Bilirubin [Mass/Vol] 1.0 mg/dL Normal 0.2-1.2 [facility] Comment on above: Performed By: #### 1 759, 899, 40918 #### [facility] of [address], [address] [place] [address] Closing Specialist: Kiel Moulton MD BUN/CREATININE RATIO SEE NOTE: Normal 6-22 [facility] Comment on above: Result Comment: Not Reported: BUN and Creatinine are within reference range. Performed By: #### 1 759, 899, 68792 #### [facility] [place] [address] Closing Specialist: Kiel Moulton MD Calcium [Mass/Vol] 11.0 mg/dL High 8.6-10.4 [facility] Comment on above: Performed By: #### 1 759, 899, 06085 #### [facility] [place] [address] Closing Specialist: Kiel Moulton MD Chloride [Moles/Vol] 103 mmol/L Normal 98-110 [facility] Comment on above: Performed By: #### 1 759, 899, 44903 #### [facility] [place] [address] Closing Specialist: Kiel Moulton MD CO2 [Moles/Vol] 29 mmol/L Normal 20-32 [facility] Comment on above: Performed By: #### 1 759, 899, 88095 #### [facility] [place] [address] Closing Specialist: Kiel Moulton MD Creatinine [Mass/Vol] 0.84 mg/dL Normal 0.60-0.95 [facility] Comment on above: Performed By: #### 1 759, 899, 94144 #### [facility] [place] [address] Closing Specialist: Kiel Moulton MD GFR/1.73 sq M.predicted among non-blacks MDRD (S/P/Bld) [Vol rate/Area] 69 mL/min/{1.73_m2} Normal > OR = 60 [facility] Comment on above: Performed By: #### 1 759, 899, 49753 #### [facility] [place] [address] Closing Specialist: Kiel Moulton MD Globulin (S) [Mass/Vol] 2.9 g/dL Normal 1.9-3.7 [facility] Comment on above: Performed By: #### 1 759, 899, 04611 #### [facility] [place] [address] Closing Specialist: Kiel Moulton MD Glucose [Mass/Vol] 95 mg/dL Normal 65-99 [facility] Comment on above: Result Comment: Fasting reference interval Performed By: #### 1 759, 899, 60223 #### [facility] [place] [address] Closing Specialist: Kiel Moulton MD Potassium [Moles/Vol] 4.7 mmol/L Normal 3.5-5.3 [facility] Comment on above: Performed By: #### 1 759, 899, 61486 #### [facility] [place] [address] Closing Specialist: Kiel Moulton MD Protein [Mass/Vol] 7.6 g/dL Normal 6.1-8.1 [facility] Comment on above: Performed By: #### 1 759, 899, 17114 #### [facility] [place] [address] Closing Specialist: Kiel Moulton MD Sodium [Moles/Vol] 142 mmol/L Normal 135-146 [facility] Comment on above: Performed By: #### 1 759, 899, 08008 #### [facility] [address] [place] [address] Closing Specialist: Kiel Moulton MD Urea nitrogen [Mass/Vol] 22 mg/dL Normal 7-25 [facility] Comment on above: Performed By: #### 1 919, 789, 43769 #### [facility] [address] [place] [address] Rd, [address] [place] [address] Closing Specialist: Kiel Moulton MD TSHon 08-03-2024 TSH Qn 4.38 m[IU]/L Normal 0.40-4.50 [facility] Comment on above: Performed By: #### 1 989, 972, 44688 #### [facility] [address] [place] [address], [address] [place] [address] Closing Specialist: Kiel Moulton MD Urinalysis macro (dipstick) panel (U)on 06-07-2024 Bilirubin, UA Negative Negative - 4(70) +++ mg/dL [facility] Blood, UA Positive Negative - 50 Gibson/mcL [facility] Glucose, UA Negative Negative - 1999(110) ++++ mg/dL [facility] Interpretation and review of laboratory results Abnormal [facility] [place] re Ketones, UA Negative Negative - 160(16) ++++ mg/dL [facility] Leukocytes, UA Moderate Negative - 500+++ Hector/mcL [facility] Nitrite, UA Negative Negative - Positive [facility] pH, UA 6.5 5 - 9 [facility] [employer] e Protein, UA Negative Negative - 1999(20) ++++ mg/dL [facility] Spec Grav, UA 1.005 1 - 1.03 [facility] Urobilinogen, UA 1.0 0.2 - 12 mg/dL [facility] dscovered [facility] Eye+Orbit - bilateralon 0 05-30-2024 Diagnosis: Cataract both eyes (OU) Testing Indication: Performed for preop measurements in the determination of an intraocular lens (IOL) for both eyes (OU) Test Reliability: Good quality both eyes (OU) Interpretation: Good measurements for intraocular lens (IOL) calculation purposes. Calculation made for both eyes (OU). [facility] [employer] Radiology Study observation (narrative) [facility] NM STRESS/REST MULTIon 01-25 NM STRESS/REST MULTI Patient: RUNION, MICHAEL I. Exam Date: 01/25/2023 : 1940 Gender:F Ordering : MRS. MELINDA FARRIS LOGISTIC SPECIALIST-C Admission #: [id number] Family : Order #: [id number] CLICK HERE TO VIEW EXAM RADIOLOGY REPORT [...] Solis M.D. on 01/26/2023 at 08:34 Normal [facility] CT HEAD WO CONon 01-12-2023 CT [...] by: LUIZA THOMPSON Date: 2023-01-12 12:53 Normal [facility] MRI LSPINE WO CONon 12-12-19 23 MRI LSPINE WO CON EXAMINATION: MRI LSP INE WO CON HISTORY: Closed fracture thoracic vertebra, [...] by: NATHAN KIM Date: 2022-12-11 14:28 Normal [facility] XR LSPINE 2_3 VIEWSon 2022 XR LSPINE 2_3 VIEWS EXAMINATION: XR LSPI NE 2_3 VIEWS HISTORY: Low back pain COMPARISON: [...] by: LUL SOLIS Date: 2022-12-02 10:28 Normal [facility] ECHOCARDIO M/2D COMPLETEon 1 10-29-2021 ECHOCARDIO M/2D COMPLETE Patient: MICHAEL SHAY I. Exam Date: 08/28/2022 : 1940 Gender:F Ordering : MRS. MELINDA FARRIS LOGISTIC SPECIALIST-C Admission #: [id number] Family : Order #: [id number] CLICK HERE TO VIEW EXAM ECHOCARDIOGRAM REPORT [...] Villavicencio M.D. on 09/02/2022 at 10:27 Normal [facility] US CAROTID ART BILon 022 US CAROTID ART MAGDALENO EXAMINATION: US ERIC TID ART MAGDALENO HISTORY: Cardiovascular symptoms COMPARISON: No [...] by: NATHAN KIM Date: 2022-08-28 17:47 Normal [facility] GLYCOHEMOGLOBIN A1Con 2021 ADA RECOMMENDATION SEE BELOW Normal [facility] Comment on above: Result Comment: ADA RECOMMENDED LIMIT 4.0 - 6.0 ADA THERAPEUTIC TARGET < 7.0 ACTION SUGGESTED > 7.0 Performed By: #### A 1C ####[facility] [address] [place], [place] [address]ZoDarlene Short Glucose [Mass/Vol] 114 mg/dL Normal [facility] Comment on above: Performed By: #### A 1C ####[facility] [address] [place], [place] [address]EhDarlene Short HbA1c (Bld) [Mass fraction] 5.6 % Normal 4.5-6.2 [facility] Comment on above: Performed By: #### A 1C ####[facility] [address] [place], [place] [address]HwDarlene Short US KIDNEYS BLADDERon 022 US KIDNEYS BLADDER EXAMINATION: US KIDN EYS BLADDER HISTORY: Increased frequency of urination COMPARISON: [...] by: NATHAN KIM Date: 2022-08-13 13:06 Normal [facility] CT ABD/PELVIS WO CONon 04-12 CT [...] by: LUL SOLIS Date: 2022-04-12 08:47 Normal [facility] CULTURE URINEon 02-25-2022 CULTURE URINE Culture Observations : MODERATE GROWTH OF MIXED GENITAL RAYMOND. NO POTENTIAL PATHOGENS SEEN. Normal [facility] Comment on above: Performed By: #### U RCX ####[facility] [address] [place] [id number]. Lia [facility] CULTURE URINEon 02-13-2022 CULTURE URINE Culture Observations : MODERATE GROWTH OF MIXED GENITAL RAYMOND. NO POTENTIAL PATHOGENS SEEN. Normal [facility] Comment on above: Performed By: #### U RCX ####[facility] [address] [place] [id number]. kevin [facility] XR KUB 1 VIEWon 02-13-2022 XR KUB [...] by: LUL SOLIS Date: 2022-02-13 17:49 Normal [facility] Consultation Noteon 02-12-20 22 Consultation Note [id number] D:127 Normal [facility] RAD - CT Reporton 02-11-2022 RAD - CT Report [id number] CD:127 Normal [facility] RAD - MISCon 02-11-2022 RAD - MISC [id number] CD:127 Normal [facility] CT ABD/PELVIS WO CONon 02-04 [...] by: LUL SOLIS Date: 2022-02-04 10:14 Normal [facility] Q - CULTURE,URINE,ROUTINEon 01-30-2022 CULTURE, URINE, ROUTINE SEE NOTE Abnormal [facility] Radiology Services Manager Comment on above: Order Comment: [facility] performed at: [employer], [address] [facility] [address] [facility], [address] [facility], [place], [address], [employer] Machine Tender: Kiel Moulton MD [facility] Date/Time: [id number] [facility] Results Received Date/Time: [facility] Reported Date/Time: [id number] Result Comment: CULT URE, URINE, ROUTINE Micro Number: [id number] Test Status: Final Specimen Source: Not given [...] Comments Performed By: #### 6 304R #### [facility] Laboratory Default [address] [place] [address] XR KUB 1 VIEWon 01-30-2022 XR KUB [...] by: EDWIN SCOTT Date: 2022-01-30 16:28 Normal [facility] Vital Signs Date Time Vital Sign Value Performing Clinician Charleen alba 06-14-2025 13:37-0400 Body height 162.6 cm Melinda Farris NP Work Phone: [facility] 06-14-2025 13:37-0400 Body mass index (BMI) [Ratio] 24.2 kg/m2 Melinda Farris NP Work Phone: [facility] 06-14-2025 13:37-0400 Body weight 63.96 kg Melinda Kaleigh LOGISTIC SPECIALIST Work Phone: [facility] 06-14-2025 13:37-0400 Diastolic blood pressure 78 mm[Hg] Melinda [place] LOGISTIC SPECIALIST Work Phone: [facility] 06-14-2025 13:37-0400 Heart rate 76 /min Melinda Kaleigh LOGISTIC SPECIALIST Work Phone: [facility] 06-14-2025 13:37-0400 Respiratory rate 16 /min Melinda [place] LOGISTIC SPECIALIST Work Phone: [facility] 06-14-2025 13:37-0400 SaO2% (BldA) [Mass fraction] 95 % Melinda [place] LOGISTIC SPECIALIST Work Phone: [facility] 06-14-2025 13:37-0400 Systolic blood pressure 110 mm[Hg] Melinda [place] LOGISTIC SPECIALIST Work Phone: [facility] 06-05-2025 11:00-0400 Body height 162.6 cm Melinda Kaleigh LOGISTIC SPECIALIST Work Phone: [facility] 06-05-2025 11:00-0400 Body mass index (BMI) [Ratio] 24.37 kg/m2 Melinda Kaleigh LOGISTIC SPECIALIST Work Phone: [facility] 06-05-2025 11:00-0400 Body weight 64.41 kg Melinda [place] LOGISTIC SPECIALIST Work Phone: [facility] 06-05-2025 11:00-0400 Diastolic blood pressure 76 mm[Hg] Melinda Kaleigh LOGISTIC SPECIALIST Work Phone: [facility] 06-05-2025 11:00-0400 Heart rate 62 /min Melinda [place] LOGISTIC SPECIALIST Work Phone: [facility] 06-05-2025 11:00-0400 Respiratory rate 17 /min Melinda Kaleigh LOGISTIC SPECIALIST Work Phone: [facility] 06-05-2025 11:00-0400 SaO2% (BldA) [Mass fraction] 95 % Melinda [place] LOGISTIC SPECIALIST Work Phone: [facility] 06-05-2025 11:00-0400 Systolic blood pressure 130 mm[Hg] Melinda [place] LOGISTIC SPECIALIST Work Phone: [facility] 05-10-2025 13:14-0400 Body height 162.6 cm Melinda [place] LOGISTIC SPECIALIST Work Phone: [facility] 05-10-2025 13:14-0400 Body mass index (BMI) [Ratio] 25.4 kg/m2 Melinda [place] LOGISTIC SPECIALIST Work Phone: [facility] 05-10-2025 13:14-0400 Body weight 67.13 kg Melinda Kaleigh LOGISTIC SPECIALIST Work Phone: [facility] 05-10-2025 13:14-0400 Diastolic blood pressure 62 mm[Hg] Melinda [place] LOGISTIC SPECIALIST Work Phone: [facility] 05-10-2025 13:14-0400 Heart rate 89 /min Melinda Kaleigh LOGISTIC SPECIALIST Work Phone: [facility] 05-10-2025 13:14-0400 Respiratory rate 16 /min Melinda Kaleigh LOGISTIC SPECIALIST Work Phone: [facility] 05-10-2025 13:14-0400 SaO2% (BldA) [Mass fraction] 95 % Melinda [place] LOGISTIC SPECIALIST Work Phone: [facility] 05-10-2025 13:14-0400 Systolic blood pressure 136 mm[Hg] Melinda [place] LOGISTIC SPECIALIST Work Phone: [facility] 02-27-2025 10:31-0400 Body height 162.6 cm Melinda [place] LOGISTIC SPECIALIST Work Phone: [facility] 02-27-2025 10:31-0400 Body mass index (BMI) [Ratio] 25.58 kg/m2 Melinda [place] LOGISTIC SPECIALIST Work Phone: [facility] 02-27-2025 10:31-0400 Body weight 67.59 kg Melinda Kaleigh LOGISTIC SPECIALIST Work Phone: [facility] 02-27-2025 10:31-0400 Diastolic blood pressure 64 mm[Hg] Melinda Farris LOGISTIC SPECIALIST Work Phone: [facility] 02-27-2025 10:31-0400 Heart rate 86 /min Melinda Farris LOGISTIC SPECIALIST Work Phone: [facility] 02-27-2025 10:31-0400 Respiratory rate 17 /min Melinda Farris LOGISTIC SPECIALIST Work Phone: [facility] 02-27-2025 10:31-0400 SaO2% (BldA) [Mass fraction] 94 % Melinda Farris LOGISTIC SPECIALIST Work Phone: [facility] 02-27-2025 10:31-0400 Systolic blood pressure 138 mm[Hg] Melinda Farris LOGISTIC SPECIALIST Work Phone: [facility] 09-13-2024 13:16-0500 Body height 162.6 cm Elba Garcia LOGISTIC SPECIALIST Work Phone: [facility] 09-13-2024 13:16-0500 Body mass index (BMI) [Ratio] 24.92 kg/m2 Elba Garcia LOGISTIC SPECIALIST Work Phone: [facility] 09-13-2024 13:16-0500 Body weight 65.86 kg Elba Garcia LOGISTIC SPECIALIST Work Phone: [facility] 09-13-2024 13:16-0500 Diastolic blood pressure 72 mm[Hg] Elba Garcia LOGISTIC SPECIALIST Work Phone: [facility] 09-13-2024 13:16-0500 Heart rate 84 /min Elba Garcia LOGISTIC SPECIALIST Work Phone: [facility] 09-13-2024 13:16-0500 Respiratory rate 16 /min Elba Garcia LOGISTIC SPECIALIST Work Phone: [facility] 09-13-2024 13:16-0500 SaO2% (BldA) [Mass fraction] 96 % Elba Garcia LOGISTIC SPECIALIST Work Phone: [facility] 09-13-2024 13:16-0500 Systolic blood pressure 136 mm[Hg] Elba Garcia LOGISTIC SPECIALIST Work Phone: [facility] 08-15-2024 13:31-0500 Body height 162.6 cm Kaley Hemmer PA Work Phone: [facility] 08-15-2024 13:31-0500 Body mass index (BMI) [Ratio] 24.55 kg/m2 Kaley Hemmer PA Work Phone: [facility] 08-15-2024 13:31-0500 Body temperature 96.3 [degF] Kaley Hemmer PA Work Phone: [facility] 08-15-2024 13:31-0500 Body weight 64.86 kg Kaley Hemmer PA Work Phone: [facility] 08-15-2024 13:31-0500 Diastolic blood pressure 78 mm[Hg] Kaley Hemmer PA Work Phone: [facility] 08-15-2024 13:31-0500 Heart rate 89 /min Kaley Hemmer PA Work Phone: [facility] 08-15-2024 13:31-0500 Respiratory rate 16 /min Kaley Hemmer PA Work Phone: [facility] 08-15-2024 13:31-0500 SaO2% (BldA) [Mass fraction] 95 % Kaley Hemmer PA Work Phone: [facility] 08-15-2024 13:31-0500 Systolic blood pressure 131 mm[Hg] Kaley Hemmer PA Work Phone: [facility] 08-02-2024 09:36-0500 Body height 162.6 cm Melinda Farris LOGISTIC SPECIALIST Work Phone: [facility] 08-02-2024 09:36-0500 Body mass index (BMI) [Ratio] 25.4 kg/m2 Melinda Farris LOGISTIC SPECIALIST Work Phone: [facility] 08-02-2024 09:36-0500 Body weight 67.13 kg Melinda Farris LOGISTIC SPECIALIST Work Phone: [facility] 08-02-2024 09:36-0500 Diastolic blood pressure 78 mm[Hg] Melinda Farris LOGISTIC SPECIALIST Work Phone: [facility] 08-02-2024 09:36-0500 Heart rate 82 /min Melinda Farris LOGISTIC SPECIALIST Work Phone: [facility] 08-02-2024 09:36-0500 SaO2% (BldA) [Mass fraction] 98 % Melinda Farris LOGISTIC SPECIALIST Work Phone: [facility] 08-02-2024 09:36-0500 Systolic blood pressure 130 mm[Hg] Melinda Farris LOGISTIC SPECIALIST Work Phone: [facility] 06-07-2024 10:57-0400 Body height 162.6 cm Melinda Farris LOGISTIC SPECIALIST Work Phone: [facility] 06-07-2024 10:57-0400 Body mass index (BMI) [Ratio] 24.89 kg/m2 Melinda Farris LOGISTIC SPECIALIST Work Phone: [facility] 06-07-2024 10:57-0400 Body weight 65.77 kg Melinda Farris LOGISTIC SPECIALIST Work Phone: [facility] 06-07-2024 10:57-0400 Diastolic blood pressure 76 mm[Hg] Melinda Farris LOGISTIC SPECIALIST Work Phone: [facility] 06-07-2024 10:57-0400 Heart rate 72 /min Melinda Farris LOGISTIC SPECIALIST Work Phone: [facility] 06-07-2024 10:57-0400 SaO2% (BldA) [Mass fraction] 95 % Melinda Farris LOGISTIC SPECIALIST Work Phone: [facility] 06-07-2024 10:57-0400 Systolic blood pressure 124 mm[Hg] Melinda Farris LOGISTIC SPECIALIST Work Phone: [facility] Healthcare Encounters Encounter Date Encounter Type Care Provider Facility Start: 06-14-2025 End: 06-14-2025 Bamboo flowsheet Melinda Farris LOGISTIC SPECIALIST Work Phone: [facility] Start: 06-14-2025 End: 06-14-2025 Bamboo flowsheet Melinda Farris LOGISTIC SPECIALIST Work Phone: [facility] Start: 06-14-2025 End: 06-14-2025 Office outpatient visit 25 minutes Melinda Farris LOGISTIC SPECIALIST Work Phone: [facility] Comment on above: Acute non-recurrent pansinusitis (Primary Dx); Arthritis of right hip; Confusion; Hypokalemia; Weakness; Dizziness Start: 06-14-2025 End: 06-14-2025 ambulatory MELINDA FARRIS Not Available Start: 06-05-2025 End: 06-05-2025 Bamboo flowsheet Melinda Farris LOGISTIC SPECIALIST Work Phone: [facility] Start: 06-05-2025 End: 06-05-2025 Bamboo flowsheet Melinda Farris LOGISTIC SPECIALIST Work Phone: [facility] Start: 06-05-2025 End: 06-05-2025 Office outpatient visit 25 minutes Melinda Farris LOGISTIC SPECIALIST Work Phone: [facility] Comment on above: Acute non-recurrent frontal sinusitis (Primary Dx); Hepatic failure, unspecified without coma (HCC); Unspecified dementia, unspecified severity, without behavioral disturbance, psychotic disturbance, mood disturbance, and anxiety (HCC) Start: 06-05-2025 End: 06-05-2025 ambulatory MELINDA FARRIS Not Available Start: 05-10-2025 End: 05-10-2025 Office outpatient visit 25 minutes Melinda Farris LOGISTIC SPECIALIST Work Phone: [facility] Comment on above: Unilateral edema of lower extremity (Primary Dx); Confusion Start: 05-10-2025 End: 05-10-2025 ambulatory MELINDA FARRIS Not Available Start: 03-26-2025 End: 03-26-2025 Clinisync Result Encounter Melinda Farris LOGISTIC SPECIALIST Work Phone: [facility] Unsolicited Start: 03-26-2025 End: 03-26-2025 Clinisync Result Encounter Melinda Farris LOGISTIC SPECIALIST Work Phone: [facility] Unsolicited Start: 03-22-2025 End: 03-22-2025 Orders Only Melinda Farris LOGISTIC SPECIALIST Work Phone: [facility] Comment on above: Closed wedge chante [place] fracture of T12 vertebra with nonunion, subsequent encounter (Primary Dx) Start: 03-21-2025 End: 03-21-2025 Clinisync Result Encounter Melinda Farris LOGISTIC SPECIALIST Work Phone: [facility] Unsolicited Start: 03-21-2025 End: 03-21-2025 Clinisync Result Encounter Melinda Farris LOGISTIC SPECIALIST Work Phone: [facility] Unsolicited Start: 03-09-2025 End: 03-09-2025 Refill Melinda Farris LOGISTIC SPECIALIST Work Phone: [facility] Comment on above: Primary hypertension Start: 02-27-2025 End: 02-27-2025 Bamboo flowsheet Melinda Farris LOGISTIC SPECIALIST Work Phone: [facility] Start: 02-27-2025 End: 02-27-2025 Bamboo flowsheet Melinda Farris LOGISTIC SPECIALIST Work Phone: [facility] Start: 02-27-2025 End: 02-27-2025 Office outpatient visit 25 minutes Melinda Farris LOGISTIC SPECIALIST Work Phone: [facility] Comment on above: Other microscopic he maturia (Primary Dx); Kidney pain; Primary hypertension (CMS/HCC) Start: 02-27-2025 End: 02-27-2025 ambulatory MELINDA FARRIS Not Available Start: 12-14-2024 End: 12-14-2024 ambulatory ELBA GARCIA Not Available Start: 09-14-2024 End: 09-14-2024 Telephone encounter Elba Garcia LOGISTIC SPECIALIST Work Phone: [facility] Start: 09-13-2024 End: 09-13-2024 Bamboo flowsheet Elba Garcia LOGISTIC SPECIALIST Work Phone: [facility] Start: 09-13-2024 End: 09-13-2024 Bamboo flowsheet Elba Garcia LOGISTIC SPECIALIST Work Phone: [facility] Start: 09-13-2024 End: 09-13-2024 Office outpatient visit 25 minutes Elba Garcia LOGISTIC SPECIALIST Work Phone: [facility] Comment on above: Diverticulosis (Prim susanne Dx); Hx of ventral hernia repair Start: 09-13-2024 End: 09-13-2024 ambulatory ELBA GARCIA Not Available Start: 08-16-2024 End: 08-17-2024 Telephone encounter Kaley Umaña PA Work Phone: [facility] Start: 08-15-2024 End: 08-15-2024 Bamboo flowsheet Kaley Umaña PA Work Phone: [facility] Start: 08-15-2024 End: 08-15-2024 Bamboo flowsheet Kaley Umaña PA Work Phone: [facility] Start: 08-15-2024 End: 08-15-2024 Office outpatient visit 15 minutes Kaley Umaña PA Work Phone: [facility] Comment on above: Acute non-recurrent frontal sinusitis (Primary Dx); Acute pharyngitis, unspecified etiology; Chronic obstructive pulmonary disease, unspecified COPD type (CMS/HCC) Start: 08-15-2024 End: 08-15-2024 ambulatory KALEY UMAÑA Not Available Start: 08-02-2024 End: 08-02-2024 Office outpatient visit 25 minutes Melinda Farris LOGISTIC SPECIALIST Work Phone: [facility] Comment on above: Acquired hypothyroid ism (CMS/HCC) (Primary Dx); Primary hypertension (CMS/HCC); Other fatigue; Acute pharyngitis, unspecified etiology Start: 08-02-2024 End: 08-02-2024 ambulatory MELINDA FARRIS Not Available Start: 06-07-2024 End: 06-07-2024 Bamboo flowsheet Melinda Farris LOGISTIC SPECIALIST Work Phone: [facility] Start: 06-07-2024 End: 06-07-2024 Bamboo flowsheet Melinda Farris LOGISTIC SPECIALIST Work Phone: [facility] Start: 06-07-2024 End: 06-07-2024 Office outpatient visit 25 minutes Melinda Farris LOGISTIC SPECIALIST Work Phone: [facility] Comment on above: Acute cystitis with hematuria (Primary Dx); Confusion; Arthritis of right hip; Acquired hypothyroidism (CMS/HCC); Nerve pain Start: 05-30-2024 End: 05-30-2024 Bamboo flowsheet Shiraz Chun DO Work Phone: [facility] Start: 05-30-2024 End: 05-30-2024 Bamboo flowsheet Shiraz Chun DO Work Phone: [facility] Start: 07-30-2023 End: 07-30-2023 ambulatory Kaley Umaña Facility:[facility] Start: 07-30-2023 End: 07-30-2023 ambulatory II Nicholas Lopez Work Phone: [facility] Work Phone: Start: 07-30-2023 End: 07-30-2023 Patient encounter procedure II Nicholas Lopez Work Phone: [facility] Start: 01-25-2023 End: 01-26-2023 ambulatory [...] 01-30-2022 End: 01-31-2022 ambulatory EDWIN SCOTT Facility:[facility] Procedures Date Procedure Procedure Detail Performing Clinician Start: 03-26-2025 XR THORACIC SPINE 3V Sh valente Farris LOGISTIC SPECIALIST Work Phone: Start: 03-21-2025 CT ABDOMEN/PELVIS WO CONT Melinda Farris LOGISTIC SPECIALIST Work Phone: Start: 02-27-2025 Urnls dip stick/tabl et rgnt non-auto w/o micrscp Melinda Farris LOGISTIC SPECIALIST Work Phone: Start: 06-07-2024 Urnls dip stick/tabl et rgnt non-auto w/o micrscp Melinda Farris LOGISTIC SPECIALIST Work Phone: Start: 05-30-2024 Oph bmtry prtl coher intrfrmtry io lens pwr lisa Shiraz Chun DO Work Phone: Start: 05-30-2024 End: 05-30-2024 Ophth medical xm&eval compre new pt 1/> vst Age-related nuclear cataract of both eyes Shiraz Chun DO Work Phone: Comment on above: Age-related nuclear cataract of both eyes (Primary Dx) Plan of Treatment Date Care Activity Detail Author Start: 06-14-2025 End: 06-14-2026 Comprehensive metabolic 2000 panel - Serum or Plasma Comprehensive metabolic panel Lab Routine Hypokalemia Weakness Dizziness Expected: 06/14/2025 (Approximate), Expires: 06/14/2026 [facility] Work Phone: Comment on above: Expected: 06/14/2025 (Approximate), Expires: 06/14/2026 Start: 06-14-2025 End: 06-14-2025 Patient encounter procedure 06/14/2025 1:30 PM EDT Office Visit DANIELLE Gupta [facility] [address] [place] [address] Melinda Farris, LOGISTIC SPECIALIST [address] [place] [address] Arrived DANIELLE Sykes Zachary Comment on above: Arrived Start: 06-05-2025 End: 06-05-2025 Patient encounter procedure 06/05/2025 11:00 AM EDT Office Visit [facility] [place] [facility]ary [address] [place] [address] Melinda Farris, LOGISTIC SPECIALIST [address] [place] [address] Arrived DANIELLE [place] [facility] Zachary Comment on above: Arrived Start: 05-28-2025 Influenza vaccination N [facility] Start: 03-22-2025 End: 03-22-2026 XR Thoracic spine 4 Views XR thoracic spine complete 4+ views Imaging Routine 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, subsequent encounter Expected: 03/22/2025, Expires: 03/22/2026 [facility] Work Phone: Comment on above: Expected: 03/22/2025 , Expires: 03/22/2026 Start: 02-27-2025 End: 02-27-2026 CT Abdomen and Pelvis WO contrast CT abdomen pelvis wo IV contrast Imaging Routine Other microscopic hematuria Expected: 02/27/2025, Expires: 02/27/2026 [facility] [facility] Work Phone: Comment on above: Expected: 02/27/2025 , Expires: 02/27/2026 Start: 02-27-2025 End: 02-27-2025 Patient encounter procedure 02/27/2025 10:30 AM EDT Office Visit [facility] [address] [place] [address] Melinda Farris, LOGISTIC SPECIALIST [address] [place] [address] Arrived [facility] Comment on above: Arrived Start: 09-13-2024 End: 09-13-2025 CT Abdomen and Pelvis WO contrast CT abdomen pelvis wo IV contrast Imaging STAT Diverticulosis Hx of ventral hernia repair Expected: 09/13/2024 (Approximate), Expires: 09/13/2025 [facility] Work Phone: Comment on above: Expected: 09/13/2024 (Approximate), Expires: 09/13/2025 Start: 09-13-2024 End: 09-13-2024 Patient encounter procedure 09/13/2024 1:30 PM EST Office Visit [facility] [address] [place] [address] Elba Garcia LOGISTIC SPECIALIST [address] [place] [address] Arrived [facility] Comment on above: Arrived Start: 08-15-2024 End: 08-15-2025 PHARYNGITIS/LARYNGITIS (HTRX) PHARYNGITIS/LARYNGITIS (HTRX) Lab Routine Acute pharyngitis, unspecified etiology Expected: 08/15/2024 (Approximate), Expires: 08/15/2025 [facility] Work Phone: Comment on above: Expected: 08/15/2024 (Approximate), Expires: 08/15/2025 Start: 08-15-2024 End: 08-15-2024 Patient encounter procedure 08/15/2024 1:30 PM EST Office Visit [facility] [address] [place] [address] Kaley Umaña PA [address] [place] [address] Arrived [facility] Comment on above: Arrived Start: 08-02-2024 End: 08-02-2025 CBC panel - Blood by Automated count CBC Lab Routine Primary hypertension (CMS/HCC) Other fatigue Acute pharyngitis, unspecified etiology Expected: 08/02/2024 (Approximate), Expires: 08/02/2025 [facility] Work Phone: Comment on above: Expected: 08/02/2024 (Approximate), Expires: 08/02/2025 Start: 08-02-2024 End: 08-02-2025 Comprehensive metabolic 2000 panel - Serum or Plasma Comprehensive metabolic panel Lab Routine Primary hypertension (CMS/HCC) Other fatigue Expected: 08/02/2024 (Approximate), Expires: 08/02/2025 [facility] Comment on above: Expected: 08/02/2024 (Approximate), Expires: 08/02/2025 Start: 08-02-2024 End: 08-02-2025 Thyrotropin [Units/volume] in Serum or Plasma TSH Lab Routine Acquired hypothyroidism (CMS/HCC) Expected: 08/02/2024 (Approximate), Expires: 08/02/2025 [facility] Comment on above: Expected: 08/02/2024 (Approximate), Expires: 08/02/2025 Start: 07-24-2024 End: 07-24-2024 Patient encounter procedure 07/24/2024 8:45 AM EDT Procedure Visit [facility] Shiraz Luke, DO [address] [place] [address] [facility] Start: 07-10-2024 End: 07-10-2024 Patient encounter procedure 07/10/2024 8:25 AM EDT Procedure Visit [facility] Shiraz Luke, DO [address] [place] [address] [facility] Start: 06-07-2024 End: 06-07-2025 URINARY TRACT INFECTION (HTRX) URINARY TRACT INFECTION (HTRX) Lab Routine Confusion Acute cystitis with hematuria Expected: 06/07/2024 (Approximate), Expires: 06/07/2025 [facility] Work Phone: Comment on above: Expected: 06/07/2024 (Approximate), Expires: 06/07/2025 Start: 06-07-2024 End: 06-07-2024 Patient encounter procedure 06/07/2024 11:00 AM EDT Office Visit [facility] [address] [place] [address] Melinda Farris, LOGISTIC SPECIALIST [address] [facility] [address] [place] [address] Arrived [facility] Comment on above: Arrived Start: 05-30-2024 End: 05-30-2024 Patient encounter procedure 05/30/2024 10:45 AM EDT Office Visit [facility] [address] [place] [address] Shiraz Chnu DO [address] [place] [address] Arrived [facility] Comment on above: Arrived Start: 05-28-2024 Influenza vaccination Influenza Vacc ine (#1) [facility] Start: 1959 Pneumococcal Vaccine : 65+ Years (1 of 2 - PCV) Pneumococcal Vaccine: 65+ Years (1 of 2 - PCV) [facility] Start: 1946 Pneumococcal Vaccine : 65+ Years (1 of 2 - PCV) Pneumococcal Vaccine: 65+ Years (1 of 2 - PCV) [facility] Immunizations Immunization Date Immunization Notes Care Provider Fa cility 03-14-2024 tetanus toxoid, redu devan diphtheria toxoid, and acellular pertussis vaccine, adsorbed Shiraz Chun DO Work Phone: [facility] Payers Date Payer Category Payer Self-pay 2023 Unknown [id number] 2022 Private Health Insurance [employer] [id number] 2022 Unknown [employer] [id number] 2022-Present [address] [place] [address] [id number] 2005 Medicare [id number] 1959 Medicare [id number] 1959 Unknown [id number] 1940 Unknown [id number] 2.16.840.1.453585.3.579. 2.593 1940 Unknown [id number] 2.16.840.1.833696.3.579. 2.593 1940 Unknown [id number] 2.16.840.1.103867.3.579. 2.593 1940 Unknown [id number] 2.16.840.1.248308.3.579. 2.593 1940 Unknown [id number] 2.16.840.1.960535.3.579. 2.593 1940 Unknown [id number] 2.16.840.1.043973.3.579. 2.593 1940 Unknown [id number] 2.16.840.1.720573.3.579. 2.593 1940 Unknown [id number] 2.16.840.1.751087.3.579. 2.593 1940 Unknown [id number] 2.16.840.1.369372.3.579. 2.593 1940 Unknown [id number] 2.16.840.1.311079.3.579. 2.593 1940 Unknown [id number] 2.16.840.1.593328.3.579. 2.593 1940 Unknown [id number] 2.16.840.1.575031.3.579. 2.593 1940 Unknown [id number] 2.16.840.1.915358.3.579. 2.1259 1940 Unknown [id number] 2.16.840.1.806207.3.579. 2.1259 1940 Unknown [id number] 2.16.840.1.529440.3.579. 2.1259 1940 Unknown [id number] 2.16.840.1.317889.3.579. 2.125 1940 Unknown [id number] 2.16.840.1.171236.3.579. 2.1259 1940 Unknown [id number] 2.16.840.1.931817.3.579. 2.1259 1940 Unknown [id number] 2.16.840.1.897087.3.579. 2.1259 1940 Unknown [id number] 2.16.840.1.421526.3.579. 2.1259 Medicare Medicare [id number] Unknown [id number] 2.16.840.1.568983.3.579. 2.531 Social History Date Type Detail Facility Tobacco smoking stat [facility] Unknown if ever smoked [facility] Work Phone: Start: 1940 Sex Assigned At Female F [facility] Start: 03-18-2023 Tobacco smoking stat [facility] Never smoked tobacco [facility] Start: 03-18-2023 Tobacco use and exposure Smokeless tobacco non-user [facility] Start: 08-02-2024 End: 06-14-2025 Alcoholic beverage intake Ex-drinker (finding) [facility] Start: 07-23-2023 End: 07-11-2024 History of Social function [facility] Work Phone: Start: 07-23-2023 End: 07-11-2024 [id number] Health Literacy [facility] Work Phone: How often do you nee d to have someone help you when you read instructions, pamphlets, or other written material from your doctor or pharmacy [SILS] Never [facility] Work Phone: Within the last year , have you been afraid of your partner or ex-partner? No [facility] Are you now , , , , never or living with a partner? Never [facility] How often to you hav e a drink containing alcohol? Never [facility] Do you feel stress - tense, restless, nervous, or anxious, or unable to sleep at night because your mind is troubled all the time - these days [OSQ] Not at all [facility] (I/We) worried wheth er (my/our) food would run out before (I/we) got money to buy more. Never true [facility] Start: 05-17-2023 Alcohol Comment Caffeine intak e: coffee, tea [facility] Start: 1940 Sex assigned at Not on file N [facility] Functional Status Date Assessment Result Facility 06-14-2025 Patient Health Quest ionnaire 2 item (PHQ-2) [Reported] [facility] 06-05-2025 Patient Health Quest ionnaire 2 item (PHQ-2) [Reported] [facility] 05-10-2025 Patient Health [facility] ionnaire 2 item (PHQ-2) [Reported] [facility] 02-27-2025 Patient Health [facility] ionnaire 2 item (PHQ-2) [Reported] [facility] Clinical Notes 05-30-2024 to 06-14-2025 Melinda Farris NP - 06/14/2025 1:30 PM Rossi Farris NP - 06/05/2025 11:00 AM Rossi Farris NP - 05/10/2025 1:00 PM Rossi Farris NP - 02/27/2025 10:30 AM EDT Note Date & Type Note Facility 06-14-2025 History of Present illness Narrative Images from the original note were not included. Subjective Patient ID: Michael Shay is a 84 y.o. female who presents for issues with falling. Michael presents today for issues with falling and falling last week getting out of bed. She feels like her head is going to pop off. She is now coughing phelgm up that is clear. She was having headaches everyday for over a week, even the dog barking is bothering her. Headache This is a recurrent problem. The current episode started 1 to 4 weeks ago. The problem occurs constantly. The problem has been unchanged. Pain location: ears and neck. The pain radiates to the left neck and right neck. The quality of the pain is described as throbbing. The pain is at a severity of 6/10. The pain is moderate. Associated symptoms include coughing, dizziness, ear pain, a loss of balance and muscle aches. The symptoms are aggravated by work. She has tried acetaminophen (Nurtec, Menthol) for the symptoms. The treatment provided no relief. Her past medical history is significant for hypertension. Over the past 2 weeks, how often have you been bothered by any of the following problems? Little interest or pleasure in doing things: Not at all Feeling down, depressed, or hopeless: Not at all Patient Health Questionnaire-2 Score: 0 Current Outpatient Medications on File Prior to Visit Medication Sig Dispense Refill amLODIPine (Norvasc) 10 MG tablet TAKE 1 TABLET DAILY 90 tablet 3 [] azithromycin (Zithromax) 250 MG tablet Take 2 tablets (500 mg) by mouth Daily for 1 day, THEN 1 tablet (250 mg) Daily for 4 days. 6 tablet 0 donepezil (Aricept) 5 MG tablet TAKE 1 TABLET AT BEDTIME 90 tablet 3 gabapentin (Neurontin) 400 MG capsule Take 1 capsule (400 mg) by mouth at bedtime 100 capsule 3 hydroCHLOROthiazide (HYDRODiuril) 25 MG tablet Take 1 tablet (25 mg) by mouth Daily 100 tablet 3 ketorolac (Acular) 0.5 % ophthalmic solution Administer 1 drop into affected eye(s) in the morning and 1 drop before bedtime. levothyroxine (Synthroid, Levoxyl) 25 MCG tablet TAKE 1 TABLET IN THE MORNING BEFORE A MEAL 90 tablet 0 meloxicam (Mobic) 15 MG tablet Take 1 tablet (15 mg) by mouth Daily 100 tablet 3 [] methylPREDNISolone (Medrol Dospak) 4 MG tablets Follow schedule on package instructions 21 tablet 0 potassium chloride CR (KLOR-CON) 20 MEQ ER tablet Take 1 tablet (20 mEq) by mouth in the morning and 1 tablet (20 mEq) before bedtime. 200 tablet 3 Wheat Dextrin (Benefiber) powder as directed Orally No current facility-administered medications on file prior to visit. I have reviewed and reconciled the history and medication list with the patient today. Allergies Allergen Reactions Penicillins Other Reaction(s): Unknown Social History Tobacco Use Smoking status: Never Smokeless tobacco: Never Vaping Use Vaping status: Never Used Substance Use Topics Alcohol use: Not Currently Comment: Caffeine intake: coffee, tea Drug use: Never Family History Problem Relation Name Age of Onset Breast cancer Mother Diabetes Mother Hypertension Father Breast cancer Mother's Sister Past Medical History: Diagnosis Date ANNA (acute kidney injury) 06/04/2023 Cataract Cystic dysplasia of one kidney Diverticulitis Dry eyes Fracture lumbar vertebra-closed (HCC) 2022 t1 GERD (gastroesophageal reflux disease) Hepatic encephalopathy (HCC) 06/04/2023 Hepatic steatosis 06/04/2023 Hiatal hernia Hypothyroidism Kidney stone 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 Respiratory: Positive for cough. Neurological: Positive for dizziness, headaches and loss of balance. Objective Physical Exam Vitals reviewed. Constitutional: Appearance: Normal appearance. HENT: Head: Normocephalic. Right Ear: A middle ear effusion is present. Left Ear: A middle ear effusion is present. Nose: Nose normal. Mouth/Throat: Mouth: Mucous membranes are moist. Pharynx: Oropharynx is clear. Posterior oropharyngeal erythema present. Eyes: Conjunctiva/sclera: Conjunctivae normal. Cardiovascular: Rate and Rhythm: Normal rate and regular rhythm. Pulmonary: Effort: Pulmonary effort is normal. Skin: General: Skin is warm and dry. Neurological: General: No focal deficit present. Mental Status: She is alert and oriented to person, place, and time. Psychiatric: Mood and Affect: Mood normal. Behavior: Behavior normal. Thought Content: Thought content normal. Judgment: Judgment normal. Assessment/Plan Diagnoses and all orders for this visit: Acute non-recurrent pansinusitis - levoFLOXacin (Levaquin) 500 MG tablet; Take 1 tablet (500 mg) by mouth Daily for 10 days Start the above as directed. Reviewed potential s/e with patient. Encouraged probiotic while on antibiotic. Increase water intake, get plenty of rest. Can take OTC allergy medication for symptomatic relief. Tylenol/Motrin prn. Follow up if no improvement in one week. Pt given samples of Capmist DM. If symptoms persist, may need to get another CT of the head. Last CT was 2022. Arthritis of right hip - meloxicam (Mobic) 15 MG tablet; Take 1 tablet (15 mg) by mouth Daily This is a chronic medical condition that is stable since last assessment. No changes in treatment are suggested at this time. Confusion - potassium chloride CR (KLOR-CON) 20 MEQ ER tablet; Take 1 tablet (20 mEq) by mouth in the morning and 1 tablet (20 mEq) before bedtime. Check some lab as pt has been out for 2 months. Hypokalemia - Comprehensive metabolic panel; Future Check lab as pt has been out of medication for 2 weeks. Weakness - Comprehensive metabolic panel; Future Check lab as pt has been out of medication for 2 weeks. Dizziness - Comprehensive metabolic panel; Future Check lab as pt has been out of medication for 2 weeks. May need to consider CT if treatment for sinusitis fails. No follow-ups on file. documented in this encounter [facility] 06-05-2025 History of Present illness Narrative Images from the original note were not included. Subjective Patient ID: Michael Shay is a 84 y.o. female who presents for headaches. Michael presents today for having issues with headaches. She had one over Labor day and it was hard to even get up to take the dog. This is the first time her headaches have been this bad. She did take tylenol but that didn't help. No blurred vision, nausea or vomiting. She did have a cold and was coughing up green phlegm. Headache This is a new problem. The current episode started 1 to 4 weeks ago. The problem occurs constantly. The pain is located in the Frontal region. Radiates to: ears. The quality of the pain is described as throbbing. The pain is at a severity of 8/10. The pain is severe. Associated symptoms include dizziness, ear pain, a loss of balance, neck pain and sinus pressure. The symptoms are aggravated by activity, emotional stress and noise. She has tried darkened room for the symptoms. The treatment provided no relief. Over the past 2 weeks, how often have you been bothered by any of the following problems? Little interest or pleasure in doing things: Not at all Feeling down, depressed, or hopeless: Not at all Patient Health Questionnaire-2 Score: 0 Current Outpatient Medications on File Prior to Visit Medication Sig Dispense Refill amLODIPine (Norvasc) 10 MG tablet TAKE 1 TABLET DAILY 90 tablet 3 donepezil (Aricept) 5 MG tablet TAKE 1 TABLET AT BEDTIME 90 tablet 3 gabapentin (Neurontin) 400 MG capsule Take 1 capsule (400 mg) by mouth at bedtime 100 capsule 3 hydroCHLOROthiazide (HYDRODiuril) 25 MG tablet Take 1 tablet (25 mg) by mouth Daily 100 tablet 3 ketorolac (Acular) 0.5 % ophthalmic solution Administer 1 drop into affected eye(s) in the morning and 1 drop before bedtime. levothyroxine (Synthroid, Levoxyl) 25 MCG tablet TAKE 1 TABLET IN THE MORNING BEFORE A MEAL 90 tablet 0 meloxicam (Mobic) 15 MG tablet Take 1 tablet (15 mg) by mouth Daily 100 tablet 3 potassium chloride CR (KLOR-CON) 20 MEQ ER tablet Take 1 tablet (20 mEq) by mouth in the morning and 1 tablet (20 mEq) before bedtime. 200 tablet 3 Wheat Dextrin (Benefiber) powder as directed Orally No current facility-administered medications on file prior to visit. I have reviewed and reconciled the history and medication list with the patient today. Allergies Allergen Reactions Penicillins Other Reaction(s): Unknown Social History Tobacco Use Smoking status: Never Smokeless tobacco: Never Vaping Use Vaping status: Never Used Substance Use Topics Alcohol use: Not Currently Comment: Caffeine intake: coffee, tea Drug use: Never Family History Problem Relation Name Age of Onset Breast cancer Mother Diabetes Mother Hypertension Father Breast cancer Mother's Sister Past Medical History: Diagnosis Date ANNA (acute kidney injury) 06/04/2023 Cataract Cystic dysplasia of one kidney Diverticulitis Dry eyes Fracture lumbar vertebra-closed (HCC) 2022 t12 GERD (gastroesophageal reflux disease) Hepatic encephalopathy (HCC) 06/04/2023 Hepatic steatosis 06/04/2023 Hiatal hernia Hypothyroidism Kidney stone 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 Musculoskeletal: Positive for neck pain. Neurological: Positive for dizziness, headaches and loss of balance. Objective Physical Exam Vitals reviewed. Constitutional: Appearance: Normal appearance. HENT: Head: Normocephalic. Right Ear: A middle ear effusion is present. Left Ear: A middle ear effusion is present. Nose: Nose normal. Mouth/Throat: Mouth: Mucous membranes are moist. Pharynx: Oropharynx is clear. Eyes: Conjunctiva/sclera: Conjunctivae normal. Cardiovascular: Rate and Rhythm: Normal rate and regular rhythm. Pulmonary: Effort: Pulmonary effort is normal. Breath sounds: Normal breath sounds. Skin: General: Skin is warm and dry. Neurological: General: No focal deficit present. Mental Status: She is alert and oriented to person, place, and time. Psychiatric: Mood and Affect: Mood normal. Behavior: Behavior normal. Thought Content: Thought content normal. Judgment: Judgment normal. Assessment/Plan Diagnoses and all orders for this visit: Acute non-recurrent frontal sinusitis - methylPREDNISolone (Medrol Dospak) 4 MG tablets; Follow schedule on package instructions - azithromycin (Zithromax) 250 MG tablet; Take 2 tablets (500 mg) by mouth Daily for 1 day, THEN 1 tablet (250 mg) Daily for 4 days. Start the above as directed. Reviewed potential s/e with patient. Encouraged probiotic while on antibiotic. Increase water intake, get plenty of rest. Can take OTC allergy medication for symptomatic relief. Tylenol/Motrin prn. Follow up if no improvement in one week. Hepatic failure, unspecified without coma (HCC) This is a chronic medical condition that is stable since last assessment. No changes in treatment are suggested at this time. Unspecified dementia, unspecified severity, without behavioral disturbance, psychotic disturbance, mood disturbance, and anxiety (HCC) This is a chronic medical condition that is stable since last assessment. No changes in treatment are suggested at this time. No follow-ups on file. documented in this encounter [facility] 05-10-2025 History of Present illness Narrative Images from the original note were not included. Subjective Patient ID: Michael Shay is a 84 y.o. female who presents for No chief complaint on file.. Michael presents today for leg swelling that has been going on for over a week. She does take a water pill. They do get better when she puts them up. Edema Presents with new edema. The current episode started 1-4 weeks ago. The onset of the episode was gradual. These episodes happen throughout the day. The problem presents itself constantly. The problem has been gradually worsening. The edema is present on the left side(s). Risk factors for edema include no known risk factors. Associated agents include no associated agents. Treatments tried include nothing. There has been none improvement on treatment(s). Over the past 2 weeks, how often have you been bothered by any of the following problems? Little interest or pleasure in doing things: Not at all Feeling down, depressed, or hopeless: Not at all Patient Health Questionnaire-2 Score: 0 Current Outpatient Medications on File Prior to Visit Medication Sig Dispense Refill amLODIPine (Norvasc) 10 MG tablet TAKE 1 TABLET DAILY 90 tablet 3 donepezil (Aricept) 5 MG tablet Take 1 tablet (5 mg) by mouth at bedtime 90 tablet 3 gabapentin (Neurontin) 400 MG capsule Take 1 capsule (400 mg) by mouth at bedtime 100 capsule 3 hydroCHLOROthiazide (HYDRODiuril) 25 MG tablet Take 1 tablet (25 mg) by mouth Daily 100 tablet 3 ketorolac (Acular) 0.5 % ophthalmic solution Administer 1 drop into affected eye(s) in the morning and 1 drop before bedtime. meloxicam (Mobic) 15 MG tablet Take 1 tablet (15 mg) by mouth Daily 100 tablet 3 potassium chloride CR (KLOR-CON) 20 MEQ ER tablet Take 1 tablet (20 mEq) by mouth in the morning and 1 tablet (20 mEq) before bedtime. 200 tablet 3 Wheat Dextrin (Benefiber) powder as directed Orally [DISCONTINUED] levothyroxine (Synthroid, Levoxyl) 25 MCG tablet Take 1 tablet (25 mcg) by mouth in the morning. Take before meals. 100 tablet 3 No current facility-administered medications on file prior to visit. I have reviewed and reconciled the history and medication list with the patient today. Allergies Allergen Reactions Penicillins Other Reaction(s): Unknown Social History Tobacco Use Smoking status: Never Smokeless tobacco: Never Vaping Use Vaping status: Never Used Substance Use Topics Alcohol use: Not Currently Comment: Caffeine intake: coffee, tea Drug use: Never Family History Problem Relation Name Age of Onset Breast cancer Mother Diabetes Mother Hypertension Father Breast cancer Mother's Sister Past Medical History: Diagnosis Date ANNA (acute kidney injury) 06/04/2023 Cataract Cystic dysplasia of one kidney Diverticulitis Dry eyes Fracture lumbar vertebra-closed (HCC) 2022 t1 GERD (gastroesophageal reflux disease) Hepatic encephalopathy (HCC) 06/04/2023 Hepatic steatosis 06/04/2023 Hiatal hernia Hypothyroidism Kidney stone 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 HENT: Negative. Eyes: Negative. Respiratory: Negative. Cardiovascular: Positive for leg swelling. Gastrointestinal: Negative. Genitourinary: Negative. Musculoskeletal: Negative. Skin: 2 bites on calf Neurological: Negative. Psychiatric/Behavioral: Negative. All other systems reviewed and are negative. Endocrine: Negative. Objective Physical Exam Vitals reviewed. Constitutional: Appearance: Normal appearance. HENT: Head: Normocephalic. Nose: Nose normal. Mouth/Throat: Mouth: Mucous membranes are moist. Pharynx: Oropharynx is clear. Eyes: Conjunctiva/sclera: Conjunctivae normal. Cardiovascular: Rate and Rhythm: Normal rate. Pulses: Normal pulses. Pulmonary: Effort: Pulmonary effort is normal. Musculoskeletal: Left lower leg: Edema present. Comments: Left leg with non pitting edema. No edema on right Skin: General: Skin is warm and dry. Comments: 2 pinpoint bug bites that are scabbed over Neurological: General: No focal deficit present. Mental Status: She is alert and oriented to person, place, and time. Psychiatric: Mood and Affect: Mood normal. Behavior: Behavior normal. Thought Content: Thought content normal. Judgment: Judgment normal. Assessment/Plan Diagnoses and all orders for this visit: Unilateral edema of lower extremity Pt refuses a venous doppler at this time. Risks associated with not doing a doppler were discussed and she continues to refuse. We discussed the risk of pulmonary embolism if she should have a blood clot. Pt verbalized understanding. Confusion - potassium chloride CR (KLOR-CON) 20 MEQ ER tablet; Take 1 tablet (20 mEq) by mouth in the morning and 1 tablet (20 mEq) before bedtime. Refill sent to pharmacy for 90 days supply. No signs of hypo/hyperkalemia noted. No follow-ups on file. documented in this encounter [facility] 03-09-2025 Telephone encounter Note Amlodipine sent. [facility] 03-09-2025 Miscellaneous Notes Amlodipine sent. documented in this encounter [facility] 02-27-2025 History of Present illness Narrative Images from the original note were not included. Subjective Patient ID: Michael Shay is a 84 y.o. female who presents for kidney pain. Michael presents today for kidney pain.S he has had the pain for almost a week. She thought it would go away, but it didn't. Flank Pain This is a new problem. The current episode started 1 to 4 weeks ago. The problem occurs constantly. The problem has been gradually worsening since onset. Pain location: CVA tenderness. The quality of the pain is described as stabbing. The pain does not radiate. The pain is at a severity of 10/10. The pain is severe. The pain is Worse during the night. The symptoms are aggravated by lying down, sitting and bending (lying down on back). Risk factors include sedentary lifestyle (osteopenia). She has tried heat and analgesics (rest) for the symptoms. The treatment provided no relief. Current Outpatient Medications on File Prior to Visit Medication Sig Dispense Refill amLODIPine (Norvasc) 10 MG tablet Take 1 tablet (10 mg) by mouth Daily 100 tablet 3 aspirin (Aspir-Low) 81 MG EC tablet Take 1 tablet (81 mg) by mouth Daily 90 tablet 3 Calcium Carbonate-Vitamin D (Oyster Shell Calcium/D) 500-5 MG-MCG tablet Take 1 tablet by mouth in the morning and 1 tablet in the evening. Take with meals. 180 tablet 3 donepezil (Aricept) 5 MG tablet Take 1 tablet (5 mg) by mouth at bedtime 90 tablet 3 gabapentin (Neurontin) 400 MG capsule Take 1 capsule (400 mg) by mouth at bedtime 100 capsule 3 hydroCHLOROthiazide (HYDRODiuril) 25 MG tablet Take 1 tablet (25 mg) by mouth Daily 100 tablet 3 ketorolac (Acular) 0.5 % ophthalmic solution Administer 1 drop into affected eye(s) in the morning and 1 drop before bedtime. levothyroxine (Synthroid, Levoxyl) 25 MCG tablet Take 1 tablet (25 mcg) by mouth in the morning. Take before meals. 100 tablet 3 meloxicam (Mobic) 15 MG tablet Take 1 tablet (15 mg) by mouth Daily 100 tablet 3 Multiple Vitamin (multivitamin) capsule Take 1 capsule by mouth Daily 90 capsule 3 potassium chloride CR (KLOR-CON) 20 MEQ ER tablet Take 1 tablet (20 mEq) by mouth in the morning and 1 tablet (20 mEq) before bedtime. 200 tablet 3 Wheat Dextrin (Benefiber) powder as directed Orally No current facility-administered medications on file prior to visit. I have reviewed and reconciled the history and medication list with the patient today. Allergies Allergen Reactions Penicillins Other Reaction(s): Unknown Social History Tobacco Use Smoking status: Never Smokeless tobacco: Never Vaping Use Vaping status: Never Used Substance Use Topics Alcohol use: Not Currently Comment: Caffeine intake: coffee, tea Drug use: Never Family History Problem Relation Name Age of Onset Breast cancer Mother Diabetes Mother Hypertension Father Breast cancer Mother's Sister Past Medical History: Diagnosis Date ANNA (acute kidney injury) ([facility]) 06/04/2023 Cataract Cystic dysplasia of one kidney Diverticulitis Dry eyes Fracture lumbar vertebra-closed ([facility]) 2022 t12 GERD (gastroesophageal reflux disease) Hepatic encephalopathy (CMS/HCC) 06/04/2023 Hepatic steatosis 06/04/2023 Hiatal hernia Hypothyroidism (CMS/HCC) Kidney stone 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 HENT: Negative. Eyes: Negative. Respiratory: Negative. Cardiovascular: Negative. Gastrointestinal: Negative. Genitourinary: Positive for flank pain. Skin: Negative. Neurological: Negative. Psychiatric/Behavioral: Negative. Objective Physical Exam Vitals reviewed. Constitutional: Appearance: Normal appearance. HENT: Head: Normocephalic. Nose: Nose normal. Mouth/Throat: Mouth: Mucous membranes are moist. Pharynx: Oropharynx is clear. Eyes: Conjunctiva/sclera: Conjunctivae normal. Cardiovascular: Rate and Rhythm: Normal rate and regular rhythm. Pulmonary: Effort: Pulmonary effort is normal. Breath sounds: Normal breath sounds. Musculoskeletal: Comments: CVA tenderness Skin: General: Skin is warm and dry. Neurological: General: No focal deficit present. Mental Status: She is alert and oriented to person, place, and time. Psychiatric: Mood and Affect: Mood normal. Behavior: Behavior normal. Thought Content: Thought content normal. Judgment: Judgment normal. Assessment/Plan Diagnoses and all orders for this visit: Other microscopic hematuria - CT abdomen pelvis wo IV contrast; Future - cephalexin (Keflex) 500 MG capsule; Take 1 capsule (500 mg) by mouth in the morning and 1 capsule (500 mg) before bedtime. Do all this for 10 days. Start the above medications as directed. Provided patient with prescription for Pyridium for symptomatic relief. Advised of potential side effects including discoloration of urine. Increase water intake, get plenty of rest. Advised patient that the urine will be sent out for culture. May need to change the antibiotic based on the culture results. Cranberry juice ok. Avoid bath tubs and hot tubs or use the restroom afterwards, always wipe front to back, avoid fragrance soaps in that area, urinate after intercourse if sexually active. Discussed if patient develops any N/V, fever/chills, or symptoms dramatically increase, the patient is to go to the ER. Otherwise follow up at our office if no improvement in one week. Kidney pain - POCT Urinalysis dipstick - cephalexin (Keflex) 500 MG capsule; Take 1 capsule (500 mg) by mouth in the morning and 1 capsule (500 mg) before bedtime. Do all this for 10 days. Start the above medications as directed. Provided patient with prescription for Pyridium for symptomatic relief. Advised of potential side effects including discoloration of urine. Increase water intake, get plenty of rest. Advised patient that the urine will be sent out for culture. May need to change the antibiotic based on the culture results. Cranberry juice ok. Avoid bath tubs and hot tubs or use the restroom afterwards, always wipe front to back, avoid fragrance soaps in that area, urinate after intercourse if sexually active. Discussed if patient develops any N/V, fever/chills, or symptoms dramatically increase, the patient is to go to the ER. Otherwise follow up at our office if no improvement in one week. Primary hypertension (CMS/HCC) - hydroCHLOROthiazide (HYDRODiuril) 25 MG tablet; Take 1 tablet (25 mg) by mouth Daily Patient's blood pressure is currently well controlled. Continue with current medications and I will continue to monitor. Goal BP remains less than 130/80. No follow-ups on file. documented in this encounter [facility] 09-14-2024 Telephone encounter Note Requested Prescriptions Signed Prescriptions Disp Refills ciprofloxacin (Cipro) 500 MG tablet 14 tablet 0 Sig: Take 1 tablet (500 mg) by mouth in the morning and 1 tablet (500 mg) before bedtime. Do all this for 7 days. Authorizing Provider: ELBA GARCIA [facility] 09-14-2024 Miscellaneous Notes Requested Prescriptions Signed Prescriptions Disp Refills ciprofloxacin (Cipro) 500 MG tablet 14 tablet 0 Sig: Take 1 tablet (500 mg) by mouth in the morning and 1 tablet (500 mg) before bedtime. Do all this for 7 days. Authorizing Provider: ELBA GARCIA documented in this encounter [facility] 09-13-2024 History of Present illness Narrative Images from the original note were not included. Subjective Patient ID: Michael Shay is a 83 y.o. female who presents for stomach pain. Michael presents today for stomach pain that starts from the right side and moves to the middle of the stomach. Current Outpatient Medications on File Prior to Visit Medication Sig Dispense Refill amLODIPine (Norvasc) 10 MG tablet Take 1 tablet (10 mg) by mouth Daily 100 tablet 3 aspirin (Aspir-Low) 81 MG EC tablet Take 1 tablet (81 mg) by mouth Daily 90 tablet 3 Calcium Carbonate-Vitamin D (Oyster Shell Calcium/D) 500-5 MG-MCG tablet Take 1 tablet by mouth in the morning and 1 tablet in the evening. Take with meals. 180 tablet 3 donepezil (Aricept) 5 MG tablet Take 1 tablet (5 mg) by mouth at bedtime 90 tablet 3 gabapentin (Neurontin) 400 MG capsule Take 1 capsule (400 mg) by mouth at bedtime 100 capsule 3 hydroCHLOROthiazide (HYDRODiuril) 25 MG tablet Take 1 tablet (25 mg) by mouth Daily 100 tablet 3 ketorolac (Acular) 0.5 % ophthalmic solution Administer 1 drop into affected eye(s) in the morning and 1 drop before bedtime. levothyroxine (Synthroid, Levoxyl) 25 MCG tablet Take 1 tablet (25 mcg) by mouth in the morning. Take before meals. 100 tablet 3 meloxicam (Mobic) 15 MG tablet Take 1 tablet (15 mg) by mouth Daily 100 tablet 3 Multiple Vitamin (multivitamin) capsule Take 1 capsule by mouth Daily 90 capsule 3 potassium chloride CR (KLOR-CON) 20 MEQ ER tablet Take 1 tablet (20 mEq) by mouth in the morning and 1 tablet (20 mEq) before bedtime. 200 tablet 3 Wheat Dextrin (Benefiber) powder as directed Orally No current facility-administered medications on file prior to visit. I have reviewed and reconciled the history and medication list with the patient today. Allergies Allergen Reactions Penicillins Other Reaction(s): Unknown Social History Tobacco Use Smoking status: Never Smokeless tobacco: Never Vaping Use Vaping status: Never Used Substance Use Topics Alcohol use: Not Currently Comment: Caffeine intake: coffee, tea Drug use: Never Family History Problem Relation Name Age of Onset Breast cancer Mother Diabetes Mother Hypertension Father Breast cancer Mother's Sister Past Medical History: Diagnosis Date ANNA (acute kidney injury) ([facility]) 06/04/2023 Cataract Cystic dysplasia of one kidney Diverticulitis Dry eyes Fracture lumbar vertebra-closed ([facility]) 2022 t12 GERD (gastroesophageal reflux disease) Hepatic encephalopathy ([facility]) 06/04/2023 Hepatic steatosis 06/04/2023 Hiatal hernia Hypothyroidism ([facility]) Kidney stone 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 HENT: Negative. Eyes: Negative. Respiratory: Negative. Cardiovascular: Negative. Gastrointestinal: Positive for abdominal pain (right side). Genitourinary: Negative. Musculoskeletal: Negative. Skin: Negative. Neurological: Negative. Psychiatric/Behavioral: Negative. Hematological: Negative. Endocrine: Negative. Allergic/Immunologic: Negative. Objective Physical Exam Vitals reviewed. Constitutional: Appearance: Normal appearance. HENT: Head: Normocephalic and atraumatic. Right Ear: External ear normal. Left Ear: External ear normal. Nose: Nose normal. Mouth/Throat: Mouth: Mucous membranes are moist. Pharynx: Oropharynx is clear. Eyes: Conjunctiva/sclera: Conjunctivae normal. Cardiovascular: Rate and Rhythm: Normal rate and regular rhythm. Heart sounds: Normal heart sounds. Pulmonary: Effort: Pulmonary effort is normal. Breath sounds: Normal breath sounds. Abdominal: General: Bowel sounds are normal. There is no distension. Palpations: Abdomen is soft. There is no mass. Tenderness: There is abdominal tenderness (right upper and lower quadrants radiating to the umbilicus). There is no right CVA tenderness, left CVA tenderness, guarding or rebound. Hernia: No hernia is present. Musculoskeletal: General: Normal range of motion. Cervical back: Normal range of motion. Skin: General: Skin is warm and dry. Neurological: General: No focal deficit present. Mental Status: She is alert and oriented to person, place, and time. Psychiatric: Mood and Affect: Mood normal. Behavior: Behavior normal. Thought Content: Thought content normal. Judgment: Judgment normal. Assessment/Plan 1. Diverticulosis (Primary) CT is ordered today. She is advised that she would be notified of the results when completed. - CT abdomen pelvis wo IV contrast; Future 2. Hx of ventral hernia repair - CT abdomen pelvis wo IV contrast; Future No follow-ups on file. documented in this encounter [facility] 09-13-2024 Instructions Elba Garcia NP - 09/13/2024 1:[address] scan ordered of the abdomen and pelvis today. documented in this encounter [facility] 08-17-2024 Telephone encounter Note Per Angélica, pt states the shot did help. [facility] 08-17-2024 Miscellaneous Notes Per Angélica, pt states the shot did help. Please let pt know that the respiratory swab we sent out for her came back negative for strep, covid, flu, and several other viruses/bacteria. Is the Normanalog shot helping with her symptoms? documented in this encounter [facility] 08-16-2024 History of Present illness Narrative Phoned pt to check in on her and see if the shot is working, no answer. I am leaving message and about half way through the message she picks up the phone. She sounds different than normal. She states she does not have diarrhea anymore but is still dealing with headache. She takes generic Tylenol, it only takes the edge off the headache. documented in this encounter [facility] 08-16-2024 Telephone encounter Note Please let pt know that the respiratory swab we sent out for her came back negative for strep, covid, flu, and several other viruses/bacteria. Is the Kenalog shot helping with her symptoms? [facility] 08-15-2024 History of Present illness Narrative Images from the original note were not included. Subjective Patient ID: Michael Shay is a 83 y.o. female who presents for not feeling well. Michael is present today for evaluation of just not feeling well. She was seen on 08/02/24 by Melinda Farris and was diagnosed with Pharyngitis, Rx'd Cefdinir and medrol dose nimesh. States that did not help, couldn't even tell she was taking anything. She still admits sinus pressure, post nasal drainage and is spitting up yellow/clear phlegm, body is achy, headaches. States she just feels rotten . Drinking 4 glasses that are 16 ounces each. Current Outpatient Medications on File Prior to Visit Medication Sig Dispense Refill amLODIPine (Norvasc) 10 MG tablet Take 1 tablet (10 mg) by mouth Daily 100 tablet 3 aspirin (Aspir-Low) 81 MG EC tablet Take 1 tablet (81 mg) by mouth Daily 90 tablet 3 Calcium Carbonate-Vitamin D (Oyster Shell Calcium/D) 500-5 MG-MCG tablet Take 1 tablet by mouth in the morning and 1 tablet in the evening. Take with meals. 180 tablet 3 donepezil (Aricept) 5 MG tablet Take 1 tablet (5 mg) by mouth at bedtime 90 tablet 3 gabapentin (Neurontin) 400 MG capsule Take 1 capsule (400 mg) by mouth at bedtime 100 capsule 3 hydroCHLOROthiazide (HYDRODiuril) 25 MG tablet Take 1 tablet (25 mg) by mouth Daily 100 tablet 3 ketorolac (Acular) 0.5 % ophthalmic solution Administer 1 drop into affected eye(s) in the morning and 1 drop before bedtime. levothyroxine (Synthroid, Levoxyl) 25 MCG tablet Take 1 tablet (25 mcg) by mouth in the morning. Take before meals. 100 tablet 3 meloxicam (Mobic) 15 MG tablet Take 1 tablet (15 mg) by mouth Daily 100 tablet 3 Multiple Vitamin (multivitamin) capsule Take 1 capsule by mouth Daily 90 capsule 3 potassium chloride CR (KLOR-CON) 20 MEQ ER tablet Take 1 tablet (20 mEq) by mouth in the morning and 1 tablet (20 mEq) before bedtime. 200 tablet 3 Wheat Dextrin (Benefiber) powder as directed Orally [DISCONTINUED] cefdinir (Omnicef) 300 MG capsule Take 1 capsule (300 mg) by mouth in the morning and 1 capsule (300 mg) before bedtime. Do all this for 10 days. 20 capsule 0 [DISCONTINUED] methylPREDNISolone (Medrol Dospak) 4 MG tablets Follow schedule on package instructions 21 tablet 0 [DISCONTINUED] ofloxacin (Ocuflox) 0.3 % ophthalmic solution Administer 1 drop into the right eye FIVE TIMES DAILY FOR ONE DAY STARTING DAY ONE BEFORE SURGERY CONTINUE AFTER SURGERY DIRECTED [DISCONTINUED] potassium chloride CR (K-Tab) 20 MEQ ER tablet 1 TABLET 2 TIMES A DAY 180 tablet 3 No current facility-administered medications on file prior to visit. I have reviewed and reconciled the history and medication list with the patient today. Allergies Allergen Reactions Penicillins Other Reaction(s): Unknown Social History Tobacco Use Smoking status: Never Smokeless tobacco: Never Vaping Use Vaping status: Never Used Substance Use Topics Alcohol use: Not Currently Comment: Caffeine intake: coffee, tea Drug use: Never Family History Problem Relation Name Age of Onset Breast cancer Mother Diabetes Mother Hypertension Father Breast cancer Mother's Sister Past Medical History: Diagnosis Date ANNA (acute kidney injury) (CMS/HCC) 06/04/2023 Cataract Cystic dysplasia of one kidney Diverticulitis Dry eyes Fracture lumbar vertebra-closed (CMS/HCC) 2022 t12 GERD (gastroesophageal reflux disease) Hepatic encephalopathy (CMS/HCC) 06/04/2023 Hepatic steatosis 06/04/2023 Hiatal hernia Hypothyroidism (CMS/HCC) Kidney stone 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 Negative for chills and fever. HENT: Positive for postnasal drip, sinus pressure and sinus pain. Respiratory: Negative for cough, shortness of breath and wheezing. Cardiovascular: Negative for chest pain, palpitations and leg swelling. Gastrointestinal: Negative for abdominal pain, constipation, diarrhea, nausea and vomiting. Musculoskeletal: Positive for myalgias. Skin: Negative for rash. Neurological: Positive for headaches. Objective Physical Exam Constitutional: General: She is not in acute distress. Appearance: She is well-developed. She is ill-appearing. HENT: Head: Normocephalic and atraumatic. Right Ear: Ear canal normal. Tympanic membrane is erythematous (Minimal inferior aspect). Left Ear: Tympanic membrane and ear canal normal. Nose: Right Turbinates: Not swollen. Left Turbinates: Not swollen. Right Sinus: Frontal sinus tenderness present. Left Sinus: Frontal sinus tenderness present. Mouth/Throat: Mouth: Mucous membranes are moist. Pharynx: Posterior oropharyngeal erythema (Moderate) present. Eyes: General: No scleral icterus. Conjunctiva/sclera: Conjunctivae normal. Cardiovascular: Rate and Rhythm: Normal rate and regular rhythm. Heart sounds: Normal heart sounds. No murmur heard. Pulmonary: Effort: Pulmonary effort is normal. No respiratory distress. Breath sounds: Decreased air movement present. Comments: Pt with very limited air movement today. Lymphadenopathy: Cervical: No cervical adenopathy. Skin: General: Skin is warm and dry. Neurological: General: No focal deficit present. Mental Status: She is alert and oriented to person, place, and time. Psychiatric: Mood and Affect: Mood normal. Behavior: Behavior normal. Assessment/Plan Diagnoses and all orders for this visit: Acute non-recurrent frontal sinusitis Pt noted no improvement with the Cefdinir. Will hold off on any other antibiotic at this time until swab results received. Acute pharyngitis, unspecified etiology - PHARYNGITIS/LARYNGITIS (HTRX); Future Throat swab obtained for send out today. Pt will be notified of the results once received. Encouraged pt to continue to stay hydrated. Get plenty of rest. Chronic obstructive pulmonary disease, unspecified COPD type (CMS/HCC) - triamcinolone acetonide (Kenalog-40) injection 40 mg Provided pt with Kenalog 40 mg IM today, she tolerated this well. Follow up if symptoms worsen or fail to improve. documented in this encounter [facility] 08-02-2024 History of Present illness Narrative Images from the original note were not included. Subjective Patient ID: Michael Shay is a 83 y.o. female who presents for not able to get warm. Pt states she can't get warm since surgery Pt now has diarrhea this morning and states it is her chest also she is coughing off and on Pt also has lower back pain on her left side URI This is a new problem. The current episode started in the past 7 days. The problem has been unchanged. There has been no fever. Associated symptoms include congestion, coughing, diarrhea, headaches, rhinorrhea and sneezing. Pertinent negatives include no plugged ear sensation or sore throat. Associated symptoms comments: Back and neck pain. She has tried acetaminophen and decongestant for the symptoms. The treatment provided no relief. Back Pain This is a recurrent problem. The current episode started in the past 7 days. The problem occurs constantly. The problem is unchanged. The pain is present in the thoracic spine. The pain is at a severity of 8/10. The pain is severe. The pain is The same all the time. The symptoms are aggravated by coughing, sitting and twisting. Associated symptoms include headaches. Risk factors include menopause. She has tried heat and analgesics for the symptoms. The treatment provided no relief. Current Outpatient Medications on File Prior to Visit Medication Sig Dispense Refill ketorolac (Acular) 0.5 % ophthalmic solution Administer 1 drop into affected eye(s) in the morning and 1 drop before bedtime. ofloxacin (Ocuflox) 0.3 % ophthalmic solution Administer 1 drop into the right eye FIVE TIMES DAILY FOR ONE DAY STARTING DAY ONE BEFORE SURGERY CONTINUE AFTER SURGERY DIRECTED amLODIPine (Norvasc) 10 MG tablet Take 1 tablet (10 mg) by mouth Daily 100 tablet 3 aspirin (Aspir-Low) 81 MG EC tablet Take 1 tablet (81 mg) by mouth Daily 90 tablet 3 Calcium Carbonate-Vitamin D (Oyster Shell Calcium/D) 500-5 MG-MCG tablet Take 1 tablet by mouth in the morning and 1 tablet in the evening. Take with meals. 180 tablet 3 donepezil (Aricept) 5 MG tablet Take 1 tablet (5 mg) by mouth at bedtime 90 tablet 3 gabapentin (Neurontin) 400 MG capsule Take 1 capsule (400 mg) by mouth at bedtime 100 capsule 3 hydroCHLOROthiazide (HYDRODiuril) 25 MG tablet Take 1 tablet (25 mg) by mouth Daily 100 tablet 3 levothyroxine (Synthroid, Levoxyl) 25 MCG tablet Take 1 tablet (25 mcg) by mouth in the morning. Take before meals. 100 tablet 3 meloxicam (Mobic) 15 MG tablet Take 1 tablet (15 mg) by mouth Daily 100 tablet 3 Multiple Vitamin (multivitamin) capsule Take 1 capsule by mouth Daily 90 capsule 3 potassium chloride CR (K-Tab) 20 MEQ ER tablet 1 TABLET 2 TIMES A DAY 180 tablet 3 potassium chloride CR (KLOR-CON) 20 MEQ ER tablet Take 1 tablet (20 mEq) by mouth in the morning and 1 tablet (20 mEq) before bedtime. 200 tablet 3 Wheat Dextrin (Benefiber) powder as directed Orally No current facility-administered medications on file prior to visit. I have reviewed and reconciled the history and medication list with the patient today. Allergies Allergen Reactions Penicillins Other Reaction(s): Unknown Social History Tobacco Use Smoking status: Never Smokeless tobacco: Never Substance Use Topics Alcohol use: Not Currently Comment: Caffeine intake: coffee, tea Drug use: Never Family History Problem Relation Name Age of Onset Breast cancer Mother Diabetes Mother Hypertension Father Breast cancer Mother's Sister Past Medical History: Diagnosis Date ANNA (acute kidney injury) ([facility]/HCC) 06/04/2023 Cataract Cystic dysplasia of one kidney Diverticulitis Dry eyes Fracture lumbar vertebra-closed ([facility]) 2022 t12 GERD (gastroesophageal reflux disease) Hepatic encephalopathy (CMS/HCC) 06/04/2023 Hepatic steatosis 06/04/2023 Hiatal hernia Hypothyroidism (CMS/[facility]) Kidney stone 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 HENT: Positive for congestion, rhinorrhea and sneezing. Negative for sore throat. Respiratory: Positive for cough. Gastrointestinal: Positive for diarrhea. Genitourinary: Negative. Musculoskeletal: Positive for back pain. Skin: Negative. Neurological: Positive for headaches. Objective Physical Exam Vitals reviewed. Constitutional: Appearance: Normal appearance. HENT: Head: Normocephalic. Right Ear: A middle ear effusion is present. Left Ear: A middle ear effusion is present. Nose: Congestion present. Mouth/Throat: Pharynx: Posterior oropharyngeal erythema present. Eyes: Conjunctiva/sclera: Conjunctivae normal. Pupils: Pupils are equal, round, and reactive to light. Cardiovascular: Rate and Rhythm: Normal rate and regular rhythm. Pulmonary: Effort: Pulmonary effort is normal. Breath sounds: Normal breath sounds. Abdominal: General: Bowel sounds are normal. Palpations: Abdomen is soft. Musculoskeletal: Cervical back: Neck supple. Skin: General: Skin is warm and dry. Neurological: General: No focal deficit present. Mental Status: She is alert and oriented to person, place, and time. Psychiatric: Mood and Affect: Mood normal. Behavior: Behavior normal. Thought Content: Thought content normal. Judgment: Judgment normal. Assessment/Plan Diagnoses and all orders for this visit: Acquired hypothyroidism (CMS/[facility]) - TSH; Future Await lab Primary hypertension (CMS/HCC) - CBC; Future - Comprehensive metabolic panel; Future Patient's blood pressure is currently well controlled. Continue with current medications and I will continue to monitor. Goal BP remains less than 130/80. Other fatigue - CBC; Future - Comprehensive metabolic panel; Future Await lab Acute pharyngitis, unspecified etiology - cefdinir (Omnicef) 300 MG capsule; Take 1 capsule (300 mg) by mouth in the morning and 1 capsule (300 mg) before bedtime. Do all this for 10 days. - methylPREDNISolone (Medrol Dospak) 4 MG tablets; Follow schedule on package instructions - CBC; Future Patient is to begin taking the antibiotic today as prescribed. Patient is to take the whole prescription even if there is an improvement in symptoms. Patient is to avoid sharing food or drinks and is to wash hands frequently. Cough into elbow. Encouraged patient to drink plenty of water, and get plenty of rest. Patient is to gargle with salt water or mouthwash of choice a few times a day. Can take Tylenol for discomfort. Can use cough drops, chloraseptic sprays prn. Warm tea with honey can help to soothe the throat. Follow up in one week if no improvement. No follow-ups on file. documented in this encounter [facility] 06-07-2024 History of Present illness Narrative Images from the original note were not included. Subjective Patient ID: Michael Shay is a 83 y.o. female who presents for Flank Pain. Pt is here for poss. Kidney infection This started last Wednesday she did have burning then drank lots of cranberry juice and symptoms went away then come yesterday is when lower back pain on her left side , urgency. Pt has increased her water intake. UTI This is a new problem. The current episode started in the past 7 days. The problem has been gradually worsening since onset. Risk factors include bladder stones. Current Outpatient Medications on File Prior to Visit Medication Sig Dispense Refill amLODIPine (Norvasc) 10 MG tablet Take 1 tablet (10 mg) by mouth Daily 100 tablet 3 aspirin (Aspir-Low) 81 MG EC tablet Take 1 tablet (81 mg) by mouth Daily 90 tablet 3 Calcium Carbonate-Vitamin D (Oyster Shell Calcium/D) 500-5 MG-MCG tablet Take 1 tablet by mouth in the morning and 1 tablet in the evening. Take with meals. 180 tablet 3 donepezil (Aricept) 5 MG tablet Take 1 tablet (5 mg) by mouth at bedtime 90 tablet 3 gabapentin (Neurontin) 400 MG capsule Take 1 capsule (400 mg) by mouth at bedtime 100 capsule 3 hydroCHLOROthiazide (HYDRODiuril) 25 MG tablet Take 1 tablet (25 mg) by mouth Daily 100 tablet 3 ketorolac (Acular) 0.5 % ophthalmic solution Administer 1 drop into affected eye(s) in the morning and 1 drop before bedtime. 5 mL 1 levothyroxine (Synthroid, Levoxyl) 25 MCG tablet Take 1 tablet (25 mcg) by mouth in the morning. Take before meals. 100 tablet 3 meloxicam (Mobic) 15 MG tablet Take 1 tablet (15 mg) by mouth Daily 100 tablet 3 Multiple Vitamin (multivitamin) capsule Take 1 capsule by mouth Daily 90 capsule 3 [] ofloxacin (Ocuflox) 0.3 % ophthalmic solution Administer 1 drop into the right eye 5 (five) times a day for 1 day Starting 1 day before surgery, continue after surgery as directed 5 mL 1 potassium chloride CR (K-Tab) 20 MEQ ER tablet 1 TABLET 2 TIMES A DAY 180 tablet 3 potassium chloride CR (KLOR-CON) 20 MEQ ER tablet Take 1 tablet (20 mEq) by mouth in the morning and 1 tablet (20 mEq) before bedtime. 200 tablet 3 prednisoLONE acetate (Pred-Forte) 1 % ophthalmic suspension Administer 1 drop into both eyes in the morning and 1 drop at noon and 1 drop in the evening and 1 drop before bedtime. Do all this for 14 days. 5 mL 1 Wheat Dextrin (Benefiber) powder as directed Orally No current facility-administered medications on file prior to visit. I have reviewed and reconciled the history and medication list with the patient today. Allergies Allergen Reactions Penicillins Other Reaction(s): Unknown Social History Tobacco Use Smoking status: Never Smokeless tobacco: Never Substance Use Topics Alcohol use: Not Currently Comment: Caffeine intake: coffee, tea Drug use: Never Family History Problem Relation Name Age of Onset Breast cancer Mother Diabetes Mother Hypertension Father Breast cancer Mother's Sister Past Medical History: Diagnosis Date ANNA (acute kidney injury) ([facility]) 06/04/2023 Cataract Cystic dysplasia of one kidney Diverticulitis Dry eyes Fracture lumbar vertebra-closed ([facility]) 2022 t12 GERD (gastroesophageal reflux disease) Hepatic encephalopathy ([facility]) 06/04/2023 Hepatic steatosis 06/04/2023 Hiatal hernia Hypothyroidism ([facility]) Kidney stone 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 HENT: Negative. Eyes: Negative. Respiratory: Negative. Cardiovascular: Negative. Gastrointestinal: Negative. Genitourinary: Positive for difficulty urinating, dysuria and flank pain. Urinary retention Musculoskeletal: Positive for back pain. Skin: Negative. Neurological: Negative. Psychiatric/Behavioral: Negative. All other systems reviewed and are negative. Endocrine: Negative. Objective Physical Exam Vitals reviewed. Constitutional: Appearance: Normal appearance. HENT: Head: Normocephalic. Mouth/Throat: Mouth: Mucous membranes are moist. Pharynx: Oropharynx is clear. Cardiovascular: Rate and Rhythm: Normal rate. Pulmonary: Effort: Pulmonary effort is normal. Musculoskeletal: Comments: Flank pain Skin: General: Skin is warm and dry. Neurological: General: No focal deficit present. Mental Status: She is alert and oriented to person, place, and time. Psychiatric: Mood and Affect: Mood normal. Behavior: Behavior normal. Assessment/Plan Diagnoses and all orders for this visit: Acute cystitis with hematuria - cephalexin (Keflex) 500 MG capsule; Take 1 capsule (500 mg) by mouth in the morning and 1 capsule (500 mg) before bedtime. Do all this for 10 days. Start the above medications as directed. Provided patient with prescription for Pyridium for symptomatic relief. Advised of potential side effects including discoloration of urine. Increase water intake, get plenty of rest. Advised patient that the urine will be sent out for culture. May need to change the antibiotic based on the culture results. Cranberry juice ok. Avoid bath tubs and hot tubs or use the restroom afterwards, always wipe front to back, avoid fragrance soaps in that area, urinate after intercourse if sexually active. Discussed if patient develops any N/V, fever/chills, or symptoms dramatically increase, the patient is to go to the ER. Otherwise follow up at our office if no improvement in one week. Confusion - donepezil (Aricept) 5 MG tablet; Take 1 tablet (5 mg) by mouth at bedtime Take as directed. This is a chronic medical condition that is stable since last assessment. No changes in treatment are suggested at this time. Arthritis of right hip - meloxicam (Mobic) 15 MG tablet; Take 1 tablet (15 mg) by mouth Daily This is a chronic medical condition that is stable since last assessment. No changes in treatment are suggested at this time. Acquired hypothyroidism (CMS/HCC) - levothyroxine (Synthroid, Levoxyl) 25 MCG tablet; Take 1 tablet (25 mcg) by mouth in the morning. Take before meals. This is a chronic medical condition that is stable since last assessment. No changes in treatment are suggested at this time. Nerve pain - gabapentin (Neurontin) 400 MG capsule; Take 1 capsule (400 mg) by mouth at bedtime This is a chronic medical condition that is stable since last assessment. No changes in treatment are suggested at this time. No follow-ups on file. documented in this encounter [facility] 05-30-2024 History of Present illness Narrative Images from the original note were not included. Subjective Patient ID: Michael Shay is a 83 y.o. female. Chief Complaint Cataract HPI Cataract In both eyes. Associated symptoms include blurred vision and a need for brighter lights. Severity is moderate. Onset was gradual. Frequency is constant. Context: distance vision, night driving and dim lighting. Since onset it is gradually worsening. Affected activities include driving, night driving and daily activities. Treatments tried include artificial tears and glasses. Response to treatment was mild improvement. Comments Cataract extraction (CE) eval for pt referred by Dr. Fontenot. Pt doesn't do any night driving, difficulty seeing for distance. Not using any drops. No latex allergy (allergic to band aid adhesive) No Pm or defib No flomax Last edited by Shiraz Chun DO on 05/30/2024 11:26 AM. Current Outpatient Medications (Ophthalmic Agents) Medication Sig Dispense Refill ketorolac (Acular) 0.5 % ophthalmic solution Administer 1 drop into affected eye(s) in the morning and 1 drop before bedtime. 5 mL 1 ofloxacin (Ocuflox) 0.3 % ophthalmic solution Administer 1 drop into the right eye 5 (five) times a day for 1 day Starting 1 day before surgery, continue after surgery as directed 5 mL 1 prednisoLONE acetate (Pred-Forte) 1 % ophthalmic suspension Administer 1 drop into both eyes in the morning and 1 drop at noon and 1 drop in the evening and 1 drop before bedtime. Do all this for 14 days. 5 mL 1 No current facility-administered medications for this visit. (Ophthalmic Agents) Current Outpatient Medications (Other) Medication Sig Dispense Refill amLODIPine (Norvasc) 10 MG tablet Take 1 tablet (10 mg) by mouth Daily 100 tablet 3 aspirin (Aspir-Low) 81 MG EC tablet Take 1 tablet (81 mg) by mouth Daily 90 tablet 3 Calcium Carbonate-Vitamin D (Oyster Shell Calcium/D) 500-5 MG-MCG tablet Take 1 tablet by mouth in the morning and 1 tablet in the evening. Take with meals. 180 tablet 3 donepezil (Aricept) 5 MG tablet Take 1 tablet (5 mg) by mouth at bedtime 90 tablet 3 gabapentin (Neurontin) 400 MG capsule Take 1 capsule (400 mg) by mouth at bedtime 100 capsule 3 hydroCHLOROthiazide (HYDRODiuril) 25 MG tablet Take 1 tablet (25 mg) by mouth Daily 100 tablet 3 levothyroxine (Synthroid, Levoxyl) 25 MCG tablet Take 1 tablet (25 mcg) by mouth in the morning. Take before meals. 100 tablet 3 meloxicam (Mobic) 15 MG tablet Take 1 tablet (15 mg) by mouth Daily 100 tablet 3 Multiple Vitamin (multivitamin) capsule Take 1 capsule by mouth Daily 90 capsule 3 potassium chloride CR (K-Tab) 20 MEQ ER tablet 1 TABLET 2 TIMES A DAY 180 tablet 3 potassium chloride CR (KLOR-CON) 20 MEQ ER tablet Take 1 tablet (20 mEq) by mouth in the morning and 1 tablet (20 mEq) before bedtime. 200 tablet 3 Wheat Dextrin (Benefiber) powder as directed Orally No current facility-administered medications for this visit. 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 HENT: Negative. Eyes: Negative. Respiratory: Negative. Cardiovascular: Negative. Gastrointestinal: Negative. Genitourinary: Negative. Musculoskeletal: Negative. Skin: Negative. Neurological: Negative. Psychiatric/Behavioral: Negative. Hematological: Negative. Endocrine: Negative. Allergic/Immunologic: Negative. Objective Base Eye Exam Visual Acuity (Snellen - Linear) Right Left Dist cc 20/50 20/70 Correction: Glasses Tonometry (Applanation, 11:28 AM) Right Left Pressure 16 16 Pupils Pupils Right PERRL Left PERRL Visual [place] Left Right Full Full Extraocular Movement Right Left Full Full Neuro/Psych Oriented x3: Yes Dilation Both eyes: 1.0% Mydriacyl @ 11:00 AM Additional Tests Keratometry K1 [place] K2 [place] Right 43.25 55 43.5 145 Left 43 156 43.25 66 Glare Testing High Right 20/200 Left 20/400 Slit Lamp and Fundus Exam External Exam Right Left External Rosacea Rosacea Slit Lamp Exam Right Left Lids/Lashes Blepharitis, Ptosis Blepharitis, Ptosis Conjunctiva/Sclera White and quiet White and quiet Cornea Decreased tear film Decreased tear film Anterior Chamber Narrow angle Narrow angle Iris Patent peripheral iridectomy Patent peripheral iridectomy Lens 3+ Nuclear sclerosis, 2+ Cortical cataract, Vacuoles 3+ Nuclear sclerosis, 2+ Cortical cataract, Vacuoles Anterior Vitreous Normal Normal Fundus Exam Right Left Disc Normal Normal Macula Retinal pigment epithelial mottling Retinal pigment epithelial mottling Vessels Normal Normal Periphery Normal Normal Refraction Wearing Rx Sphere Cylinder [place] Add Right +3.25 -0.50 108 +2.50 Left +3.25 -0.25 108 +2.50 Manifest Refraction Sphere Cylinder [place] Right +3.00 Left +3.25 -0.75 072 Final Rx Sphere Dist [place] Add Right +3.25 20/50 +2.50 Left +3.25 20/60 +2.50 Expiration Date: 05/30/2025 Assessment/Plan Age-related nuclear cataract of both eyes - Visually Significant Cataract, OU: I discussed the risks, benefits, alternatives, and expectations of cataract surgery. A complete ophthalmic exam was performed and it was determined that the cataracts were a primary source of vision decline, affecting activities of daily living, necessitating removal. Limited vision post-surgery may occur with pre-existing conditions affecting other areas of the eye or the brain was explained and the patient displayed an understanding. The overall objective is to improve ADLs, not eliminate glasses or restore vision to 20/20. Tests were reviewed - the different lens options were explained including the [id number] fees for any upgrades. Intraocular lens (IOL) selection may be altered either prior to or during the procedure based on the doctor's discretion including reverting to a traditional intraocular lens (IOL). They understood that there will exist the potential of glasses prescription need post surgery for near, distance or possibly both. The patient stated a full understanding and a desire to proceed with the procedure. The patient received cataract measurements and had any additional questions answered. - A complete exam was performed including a physical exam: General: AAOx3 and NAD, Lungs: Clear, Heart: RRR, Abdomen: S/NT/ND, Extremities: no pitting edema. - Coordination of care will be shared with Dr. Fontenot. Cataract Surgery for OS will take place - 07/10 and OD - 07/24. documented in this encounter [facility] Evaluation note No assessment inform ation available [facility] Work Phone: Evaluation note Diagnosis Acquired hypothyroidism (CMS/HCC)- Primary Unspecified hypothyroidism Primary hypertension (CMS/HCC) Unspecified essential hypertension Other fatigue Acute pharyngitis, unspecified etiology [facility] Diagnosis Acute non-recurrent frontal sinusitis- Primary Acute pharyngitis, unspecified etiology Chronic obstructive pulmonary disease, unspecified COPD type (CMS/HCC) [facility] Diagnosis Chronic obstructive pulmonary disease, unspecified COPD type (CMS/HCC)- Primary Acquired hypothyroidism (CMS/HCC) Unspecified hypothyroidism [facility] Diagnosis Age-related nuclear cataract of both eyes- Primary [facility] Diagnosis Acute cystitis with hematuria- Primary Confusion Unspecified psychosis Arthritis of right hip Acquired hypothyroidism (CMS/HCC) Unspecified hypothyroidism Nerve pain Unspecified neuralgia, neuritis, and radiculitis [facility] Diagnosis Diverticulosis of colon- Primary Diverticulosis of colon (without mention of hemorrhage) [facility] Diagnosis Diverticulosis- Primary Diverticulosis of colon (without mention of hemorrhage) Hx of ventral hernia repair [facility] Diagnosis Primary hypertension Unspecified essential hypertension [facility] Diagnosis Other microscopic hematuria- Primary Kidney pain Renal colic Primary hypertension (CMS/HCC) Unspecified essential hypertension [facility] Diagnosis 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, subsequent encounter- Primary [facility] Diagnosis Unilateral edema of lower extremity- Primary Confusion Unspecified psychosis [facility] Diagnosis Acute non-recurrent frontal sinusitis- Primary Hepatic failure, unspecified without coma (HCC) Unspecified dementia, unspecified severity, without behavioral disturbance, psychotic disturbance, mood disturbance, and anxiety (HCC) [facility] Diagnosis Acute non-recurrent pansinusitis- Primary Arthritis of right hip Confusion Unspecified psychosis Hypokalemia Hypopotassemia Weakness Other malaise and fatigue Dizziness Dizziness and giddiness documented in this encounter [facility] Summary Purpose Family History No Family History [...] section and content) DATE CREATED AUTHOR 02/03/2022 [facility] dical Specialist DATE CREATED AUTHOR AUTHOR'S ORGANIZ ATION 02/14/[address] [facility] DATE CREATED AUTHOR AUTHOR'S ORGANIZ ATION 01/29/2023 [facility] DATE CREATED AUTHOR AUTHOR'S ORGANIZ ATION 09/17/2023 [facility] DATE CREATED AUTHOR AUTHOR'S ORGANIZ ATION 06/16/2025 [facility] dical Specialists [facility] DATE CREATED AUTHOR AUTHOR'S ORGANIZ ATION 06/16/2025 [facility] Care Teams (unrecognized sec tion and content) Team Status: Active Member Role Status Dates Nicholas Lopez II MD Primary Care Provider Active Team Status: Inactive Member Role Status Dates Kaley Umaña PA-C Attending Provider Active Nicholas Lopez II MD Primary Care Provider Active Steel Pickler Relationship Specialty Start Date End Date Nicholas Lopez MD [address] [facility] [address] [place] [address] PCP - General Internal Medicine 03/18/23 Nicholas Lopez MD [address] [place] [address] PCP - ACO Reach 01/26/24Wednesday, Angélica, PERFORATOR [address] [place] [address] Licensed Practical Nurse Family Medicine 07/20/23 Steel Pickler Relationship Specialty Start Date End Date Nicholas Lopez MD [address] [place] [address] PCP - General Internal Medicine 03/18/23 Nicholas Lopez MD [address] [place] [address] PCP - ACO Reach 01/26/24Wednesday, Angélica, PERFORATOR [address] [place] [address] Licensed Practical Nurse Family Medicine 07/20/23 Steel Pickler Relationship Specialty Start Date End Date Nicholas Lopez MD [address] [place] [address] PCP - General Internal Medicine 03/18/23 Nicholas Lopez MD [address] [place] [address] PCP - ACO Reach 01/26/24Wednesday, Angélica, PERFORATOR [address] [place] [address] Licensed Practical Nurse Family Medicine 07/20/23 Steel Pickler Relationship Specialty Start Date End Date Nicholas Lopez MD [address] [place] [address] PCP - General Internal Medicine 03/18/23 Nicholas Lopez MD [address] [place] [address] PCP - ACO Reach 01/26/24Wednesday, Angélica, PERFORATOR [address] [place] [address] Licensed Practical Nurse Family Medicine 07/20/23 Steel Pickler Relationship Specialty Start Date End Date Nicholas Lopez MD [address] [place] [address] PCP - General Internal Medicine 03/18/23 Nicholas Lopez MD [address] [place] [address] PCP - ACO Reach 01/26/24Wednesday, Angélica, PERFORATOR [address] [place] [address] Licensed Practical Nurse Family Medicine 07/20/23 Steel Pickler Relationship Specialty Start Date End Date Nicholas Lopez MD [address] [place] [address] PCP - General Internal Medicine 03/18/23 Nicholas Lopez MD [address] [place] [address] PCP - ACO Reach 01/26/24Wednesday, Angélica, PERFORATOR [address] [place] [address] Licensed Practical Nurse Family Medicine 07/20/23 Steel Pickler Relationship Specialty Start Date End Date Nicholas Lopez MD [address] [place] [address] PCP - General Internal Medicine 03/18/23 Nicholas Lopez MD [address] [place] [address] PCP - ACO Reach 01/26/24WedTristanAngélica jacobsen LPN [address] [place] [address] Licensed Practical Nurse Family Medicine 07/20/23 Steel Pickler Relationship Specialty Start Date End Date Nicholas Lopez MD [address] [place] [address] PCP - General Internal Medicine 03/18/23 Nicholas Lopez MD [address] [place] [address] PCP - ACO Reach 01/26/24WednesdayAngélica LPN [address] [place] [address] Licensed Practical Nurse Family Medicine 07/20/23 Steel Pickler Relationship Specialty Start Date End Date Nicholas Lopez MD [address] [place] [address] PCP - General Internal Medicine 03/18/23 Nicholas Lopez MD [address] [place] [address] PCP - ACO Reach 01/26/24 Maryuri Elias LPN 12/15/24 Steel Pickler Relationship Specialty Start Date End Date Nicholas Lopez MD [address] [place] [address] PCP - General Internal Medicine 03/18/23 Nicholas Lopez MD [address] [place] [address] PCP - ACO Reach 01/26/24 Maryuri Elias LPN 12/15/24 Steel Pickler Relationship Specialty Start Date End Date Nicholas Lopez MD [address] [place] [address] PCP - General Internal Medicine 03/18/23 Nicholas Lopez MD [address] [place] [address] PCP - ACO Reach 01/26/24 Maryuri Elias LPN [address] [place] [address] 12/15/24 Steel Pickler Relationship Specialty Start Date End Date Nicholas Lopez MD [address] [place] [address] PCP - General Internal Medicine 03/18/23 Nicholas Lopez MD [address] [place] [address] PCP - ACO Reach 01/26/24 Maryuri Elias LPN [address] [place] [address] 12/15/24 Steel Pickler Relationship Specialty Start Date End Date Nicholas Lopez MD [address] [place] [address] PCP - General Internal Medicine 03/18/23 Nicholas Lopez MD [address] [place] [address] PCP - ACO Reach 01/26/24 Maryuri Elias LPN [address] [place] [address] 12/15/24 Steel Pickler Relationship Specialty Start Date End Date Nicholas Lopez MD [address] [place] [address] PCP - General Internal Medicine 03/18/23 Nicholas Lopez MD [address] [place] [address] PCP - ACO Reach 01/26/24 Maryuri Elias LPN [address] [place] [address] 12/15/24 Steel Pickler Relationship Specialty Start Date End Date Nicholas Lopez MD [address] [place] [address] PCP - General Internal Medicine 03/18/23 Nicholas Lopez MD [address] [place] [address] PCP - ACO Reach 01/26/24 Maryuri Elias LPN [address] [place] [address] 12/15/24 Steel Pickler Relationship Specialty Start Date End Date Nicholas Lopez MD [address] [place] [address] PCP - General Internal Medicine 03/18/23 Nicholas Lopez MD [address] [place] [address] PCP - ACO Reach 01/26/24 Maryuri Elias LPN [address] [place] [address] 12/15/24 Goals (unrecognized section and content) Goals may be documented in a n alternate section Reason for Visit (unrecogniz ed section and content) Reason Comments not able to get warm Reason Comments Cataract Reason Comments Flank Pain Reason Comments Med Refill FOR RECORDS PERTAINING TO PATIENTS WHO ARE [...] BE BASED ON THE PRIMARY CLINICAL RECORDS. [facility] provides no warranty or guarantee of the accuracy or completeness of information in this document.
--- NOTE | 2025-06-20 15:04 | ECG_ITS ---
[facility] Test Date: 2025-06-20 Pat Name: MICHAEL SHAY Department: Room: - Gender: Female Burn Crew Member: : 1940 Requested By: 1030 Order Number: [id number] Reading MD: LALO MEEKS M.D. Measurements Intervals [place] Rate: 97 P: 34 RI: 172 QRS: -46 QRSD: 78 T: 66 QT: 356 QTc: 411 Interpretive Statements 1100 Sinus rhythm 2630 Left anterior fascicular block 3133 Anterior myocardial infarction, probably old 9150 abnormal ECG Compared to ECG 06/09/2023 12:27:05 Left ventricular hypertrophy no longer present Myocardial infarct finding still present Electronically Signed On 06-20-2025 18:00:37 EDT by LALO MEEKS M.D.
--- NOTE | 2025-06-20 15:10 | ED.GENADUL1 ---
HPI HPI - General Adult General Chief complaint: Weakness Stated complaint: HEADACHE DIZZINESS Time Seen by Provider: 06/20/25 14:42 Mode of arrival: walk-in Limitations: no limitations History of Present Illness HPI narrative: 84-year-old female brought to the emergency department by her neighbor for several complaints. She has been complaining of dizziness. She states when she does this and up if she does not take her time or sit on the edge of her bed for a while and then stand up she becomes dizzy and feels like she is going to fall. Second she has had a pain in the left flank area for about the last week and saw some blood in her urine. She states she has a history of kidney stones but she says it feels different than her kidney stone. The pain comes and goes. There is been no injury there. Related Data Home Medications ?Medication ?Instructions ?Recorded ?Confirmed gabapentin 400 mg capsule 400 mg PO BID 06/02/23 06/09/23 hydrochlorothiazide 25 mg tablet 25 mg PO DAILY 06/02/23 06/09/23 levothyroxine 25 mcg tablet 25 mcg PO DAILY 06/02/23 06/09/23 meloxicam 15 mg tablet 15 mg PO DAILY 06/02/23 06/09/23 amlodipine 5 mg tablet (Norvasc) 10 mg PO DAILY 06/09/23 06/09/23 clonidine HCl 0.2 mg tablet 0.2 mg PO BID 06/09/23 06/09/23 levofloxacin 500 mg tablet 500 mg PO DAILY 06/09/23 06/09/23 [id number] 1 tab PO DAILY 06/09/23 06/09/23 fumarate 18 mg-folic acid 400 mcg tablet (One-A-Day Women's Complete) rimegepant 75 mg disintegrating 75 mg PO DAILY PRN migraine 06/09/23 06/09/23 tablet (Nurtec ODT) headache tizanidine 4 mg capsule 4 mg PO Q8H PRN muscle spasticity 06/09/23 06/09/23 tramadol 50 mg tablet 50 mg PO Q4H PRN pain 06/09/23 06/09/23 Previous Rx's ?Medication ?Instructions ?Recorded potassium chloride 20 mEq 20 meq PO BID #60 tabs 06/06/23 tablet,extended release Allergies Allergy/AdvReac Type Severity Reaction Status Date / Time Penicillins Allergy Intermediate Rash Verified 06/20/25 14:37 Opioid HPI Opioid Management Most Recent Opioid Data: Last Pain Scale 10 06/02/23, 15:45 Review of Systems ROS Narrative A ten point review of systems is negative except as noted above. [facility] Medical History (Updated 06/20/25 @ 16:56 by Jayjay Diallo MD) Drug-induced delirium ?R41.0 - Disorientation, unspecified (ICD-10) ?T50.905A - Adverse effect of unspecified drugs, medicaments and biological substances, initial encounter (ICD-10) Hepatic encephalopathy ?K76.82 - Hepatic encephalopathy (ICD-10) Hypertension ?I10 - Essential (primary) hypertension (ICD-10) ANNA (acute kidney injury) ?N17.9 - Acute kidney failure, unspecified (ICD-10) Acute hypokalemia ?E87.6 - Hypokalemia (ICD-10) Cellulitis ?L03.90 - Cellulitis, unspecified (ICD-10) Surgical History (Updated 06/05/23 @ 05:37 by Laura Izquierdo RN) History of appendectomy ?Z90.49 - Acquired absence of other specified parts of digestive tract (ICD-10) Family History (Updated 06/05/23 @ 05:39 by Laura Izquierdo RN) Father Family history of CHF (congestive heart failure) Brother Family history of hypertension Mother Family history of cancer Social History (Updated 06/05/23 @ 05:44 by Laura Izquierdo RN) Within the past year, how often did you have a drink containing alcohol: never Within the past year, how often did you have six or more drinks on one occasion: never Score interpretation: A score less than 3 is consistent with normal alcohol consumption. 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 Known occupational exposures/hazards: No Highest level of school completed/degree received: 8th grade Are you now , , , , never or living with a partner: In a typical week, how many times do you talk on the telephone with family, friends, or neighbors: once per week How often do you get together with friends or relatives: once per week How often do you attend sabianist or scientology services: never Do you belong to any clubs or organizations such as sabianist groups unions, fraternal or athletic groups, or school groups: no Total score: 0 Score interpretation: A score of less than or equal to 1 indicates the most socially isolated. Little interest or pleasure in doing things: not at all Feeling down, depressed, or hopeless: not at all Feel stressed/tense/nervous/anxious/difficulty sleeping: not at all Life stressors: recent of family or friend Life stressor details: Loss of friend Do you think of yourself as: straight/heterosexual Gender Identity: female Exam Narrative Exam Narrative: Nurses note and vital signs reviewed and patient is not hypoxic. General:The patient appears well and in no apparent distress.Patient is resting comfortably on cart. Skin:Warm, dry, no pallor noted.There is no rash noted. Head:Normocephalic, atraumatic Eye: Normal conjunctiva, no drainage Ears, Nose, Mouth, and Throat: oral mucosa is moist. Nares patent. Both TMs and both external canals are normal in appearance. Cardiovascular:Regular Rate and Rhythm Respiratory:Patient is in no distress, no accessory muscle use, lungs are clear to auscultation, no wheezing, rales or rhonchi Back:non-tender GI: Soft and nontender. She has no palpable tenderness or bruise or rash in the left flank area. Musculoskeletal: The patient has no evidence of calf tenderness, no pitting edema, symmetrical pulses noted bilaterally Neurological:A&O, normal speech Psychiatric:Cooperative Constitutional Vital Signs, click to edit/add: Last Vital Signs Temp 98.1 F 06/20/25 14:37 Pulse 99 H 06/20/25 14:37 Resp 18 06/20/25 14:37 BP 152/82 H 06/20/25 14:37 Pulse Ox 95 06/20/25 14:37 O2 Del Method Room Air 06/20/25 14:37 Course Vital Signs Vital signs: Vital Signs Temperature 98.1 F 06/20/25 14:37 Pulse Rate 99 H 06/20/25 14:37 Respiratory Rate 18 06/20/25 14:37 Blood Pressure 152/82 H 06/20/25 14:37 Pulse Oximetry 95 06/20/25 14:37 Oxygen Delivery Method Room Air 06/20/25 14:37 Temperature 98.1 F 06/20/25 14:37 Pulse Rate 99 H 09/24/25 14:37 Respiratory Rate 18 06/20/25 14:37 Blood Pressure 152/82 H 06/20/25 14:37 Pulse Oximetry 95 06/20/25 14:37 Oxygen Delivery Method Room Air 06/20/25 14:37 Medical Decision Making MDM Narrative Medical decision making narrative: The patient's workup here in the emergency department is negative. The patient is however weak and had difficulty walking to the bathroom. She does however have a walker at home. I recommended admission to the hospital for observation but the patient is adamant and not wanting to stay. She states she will be careful and will use her walker. Her neighbor is taking her home and the neighbor looks in on the patient. The patient was advised if she changes her mind that she could always return to the emergency department. Treatment diagnosis and follow-up were discussed with the patient. Differential Diagnosis Differential Diagnosis: Generalized weakness, anemia, UTI, dehydration Lab Data Lab results reviewed: Yes I reviewed the patient's lab results Labs: Lab Results 06/20/25 06/20/25 Range/Units 14:40 15:25 WBC 8.9 (4.0-11.0) 10^3/uL RBC 4.59 (4.20-5.40) 10^6/uL Hgb 15.1 (12.0-16.0) g/dL Hct 43.5 (36.0-48.0) % MCV 94.8 (81.0-99.0) fL MCH 32.9 (26.7-34.0) pg MCHC 34.7 (29.9-35.2) g/dL RDW 13.4 (11.0-15.0) % Plt Count 275 (150-450) 10^3/uL MPV 10.7 (9.5-13.5) fL Neut % (Auto) 73.2 (43.0-75.0) % Lymph % (Auto) 16.3 L (20.5-60.0) % [place] % (Auto) 9.2 (1.7-12.0) % Eos % (Auto) 0.4 L (0.9-7.0) % Baso % (Auto) 0.6 (0.2-2.0) % Neut # (Auto) 6.5 (1.4-6.5) 10^3/uL Lymph # (Auto) 1.5 (1.2-3.8) 10^3/uL [place] # (Auto) 0.8 (0.3-0.8) 10^3/uL Eos # (Auto) 0.0 (0.0-0.7) 10^3/uL Baso # (Auto) 0.1 (0.0-0.1) 10^3/uL Abs Immat Gran (auto) 0.03 (0.00-0.03) 10^3/uL Imm/Tot Granulo (auto) 0.3 (0.0-0.5) % Sodium 138 (136-145) mmol/L Potassium 3.5 (3.5-5.1) mmol/L Chloride 103 (98-107) mmol/L Carbon Dioxide 28.0 (21.0-32.0) mmol/L Anion Gap 10.5 BUN 19.0 H (7.0-18.0) mg/dL Creatinine 1.03 H (0.55-1.02) mg/dL Est GFR ( Amer) >60 (>=60 mL/min/1.73m^2) Est GFR (Non-Af Amer) 51 L (>=60 mL/min/1.73m^2) BUN/Creatinine Ratio 18.4 Glucose 109 H (74-106) mg/dL Calcium 9.6 (8.5-10.1) mg/dL Troponin I High Sens 12.1 (4.0-51.3) pg/mL Urine Color Yellow (YELLOW) Urine Clarity Clear (CLEAR) Urine pH 6.0 (5.0-9.0) Ur Specific [place] >=1.030 A (1.005-1.025) Urine Protein Negative (NEG/TRACE) mg/dL Urine Glucose (UA) Negative (NEGATIVE) mg/dL Urine Ketones Trace A (NEGATIVE) mg/dL Urine Occult Blood Negative (NEGATIVE) Urine Nitrite Negative (NEGATIVE) Urine Bilirubin Negative (NEGATIVE) Urine Urobilinogen 0.2 (0.2-1.0) EU/dL Ur Leukocyte Esterase Negative (NEGATIVE) Urine RBC 0-2 (0-2) #/HPF Urine WBC 0-2 A (NONE SEEN) #/HPF Ur Squamous Epith Cells Moderate A (NONE/RARE) #/LPF Urine Crystals None seen (None Seen) #/HPF Urine Bacteria Small A (NONE SEEN) #/HPF Urine Casts Seen A (NONE SEEN) #/LPF Hyaline Casts Moderate Urine Mucus Moderate A (NONE SEEN) Ur Culture Indicated? Yes-[facility] [place] Imaging Data CT scan - head: Radiologist's impression: ITS Impressions Head CT 06/20/25 15:42 IMPRESSION: NO ACUTE INTRACRANIAL ABNORMALITY. Impression dictated by: Bharath Christensen M.D. 06/20/2025 3:58 PM Dictation Location: [place] [address] Electronically authenticated by: [id number] Y Date: 06/20/2025 15:58 ECG Data Attestation: I personally reviewed and interpreted this ECG as follows: (EKG on my interpretation shows sinus rhythm with rate of 97 and no acute change) Discharge Plan Discharge Chief Complaint: Weakness Clinical Impression: Generalized weakness Patient Disposition: Home, Self-Care Time of Disposition Decision: 16:56 Condition: Good Mode of Transportation: Private Vehicle Prescriptions / Home Meds: No Action potassium chloride 20 mEq tablet extended release 20 meq PO BID Qty: 60 11RF gabapentin 400 mg capsule 400 mg PO BID hydrochlorothiazide 25 mg tablet 25 mg PO DAILY levothyroxine 25 mcg tablet 25 mcg PO DAILY meloxicam 15 mg tablet 15 mg PO DAILY Nurtec ODT 75 mg tablet,disintegrating 75 mg PO DAILY PRN (Reason: migraine headache) tizanidine 4 mg capsule 4 mg PO Q8H PRN (Reason: muscle spasticity) One-A-Day Women's Complete 18 mg iron- 400 mcg tablet 1 tab PO DAILY tramadol 50 mg tablet 50 mg PO Q4H PRN (Reason: pain) clonidine HCl 0.2 mg tablet 0.2 mg PO BID amlodipine [Norvasc] 5 mg tablet 10 mg PO DAILY levofloxacin 500 mg tablet 500 mg PO DAILY Rx Instructions: started 06/06/23 for 5 days Print Language: Armenian Instructions: Weakness (ED) Referrals: MELINDA PINA [Primary Care Provider, Unknown] - 1 week
--- NOTE | 2025-06-20 15:42 | CT_ITS ---
The [address] [address] Patient Name: MICHAEL SHAY MRN: [id number] date: 1940 Sex: F Assigned Patient Location: ER Current Patient Location: ER Accession/Order Number: [id number] Exam Date: 06/20/2025 15:34 Report Date: 06/20/2025 15:58 At the request of: BRENTON COVINGTON MD Procedure: CT head/brain wo con CT BRAIN WITHOUT CONTRAST: CLINICAL HISTORY: Dizziness COMPARISON: 06/09/2025 TECHNIQUE: Contiguous axial unenhanced images were obtained through the brain. This CT exam was performed using one or more following dose reduction techniques: Automated exposure control, adjustment of the mA and/or kV according to patient size, or use of iterative reconstruction technique. FINDINGS: There is no evidence of midline shift, intra or extra-axial fluid collection, hemorrhage or CT evidence of acute large vascular lesion stroke. Central involutional change and chronic small vessel ischemic changes. Vascular calcification. Visualized intraorbital contents appear unremarkable. Visualized paranasal sinuses are clear. The surrounding soft tissues are normal. CT/CT head/brain wo con IMPRESSION: NO ACUTE INTRACRANIAL ABNORMALITY. Impression dictated by: Bharath Christensen M.D. 06/20/2025 3:58 PM Dictation Location: [place] [address] Electronically authenticated by: [id number] Y Date: 06/20/2025 15:58
[2025-06-20 15:44] LABS: Glucose Urine UA NEGATIVE (NEGATIVE)
[2025-06-20 15:45] LABS: Hematocrit 43.5 % (36.0-48.0); Hemoglobin 15.1 g/dL (12.0-16.0); Immature Granulocytes Abs Auto 0.03 10^3/uL (0.00-0.03); Immature Granulocytes Pct Auto 0.3 % (0.0-0.5); Lymphocytes Absolute Auto 1.5 10^3/uL (1.2-3.8); Mean Corpuscular HGB Conc 34.7 g/dL (29.9-35.2); Mean Corpuscular Hemoglobin 32.9 pg (26.7-34.0); Mean Corpuscular Volume 94.8 fL (81.0-99.0); Platelet Count 275 10^3/uL (150-450); Red Blood Count 4.59 10^6/uL (4.20-5.40); White Blood Count 8.9 10^3/uL (4.0-11.0)
[2025-06-20 15:47] LABS: Anion Gap 10.5; Blood Urea Nitrogen 19.0 mg/dL (7.0-18.0); Calcium 9.6 mg/dL (8.5-10.1); Carbon Dioxide 28.0 mmol/L (21.0-32.0); Chloride 103 mmol/L (98-107); Estimated GFR (African America >60 (>=60 mL/min/1.73m^2); Estimated GFR (Non-African Ame 51 (>=60 mL/min/1.73m^2); Glucose 109 mg/dL (74-106); Potassium 3.5 mmol/L (3.5-5.1); Sodium 138 mmol/L (136-145)
[2025-06-20 15:52] LABS: Cast Seen? SEEN #/LPF (NONE SEEN); Crystals Seen? None Seen #/HPF (None Seen)
[2025-06-20 15:53] LABS: Urine Culture Indicated YES-FRMC
--- NOTE | 2025-06-20 16:51 | PC.NURSE ---
assisted pt to restroom via wheelchair, pt very dizzy upon standing and unable to ambulate without assistance
== END 2025-06-20 17:11 | disposition home or self-care (01) ==
PROVIDERS: Emergency Provider Emergency Medicine; PCP Nurse Practitioner Family
DX: R53.1 Weakness (principal); Z87.442 Personal history of urinary calculi; R42 Dizziness and giddiness
CPT/HCPCS: 36415; 70450; 80048; 81001; 84484; 85025; 87086; 87088; 87186; 93005; 99285